=== PATIENT | male | born 1980 | race Caucasian/White ===

== ENCOUNTER 2020-05-17 15:41 | Outpatient (REF) | payer MEDICARE, MEDICAID, SELFPAY | END 2020-05-17 15:42 | disposition home or self-care (01) | LOC: HO.LAB 15:41 | PROVIDERS: PCP Internal Medicine; Visit Provider Internal Medicine | DX: Z20.828 Contact with and (suspected) exposure to other viral communicable diseases (principal) | CPT/HCPCS: C9803; U0003 ==

== ENCOUNTER 2020-06-29 13:21 | Outpatient (REF) | payer MEDICARE, MEDICAID, SELFPAY | END 2020-06-29 13:22 | disposition home or self-care (01) | LOC: HO.LAB 13:21 | PROVIDERS: Visit Provider Nurse Practitioner Family | DX: N48.21 Abscess of corpus cavernosum and penis (principal) | CPT/HCPCS: 87071; 87073; 87077; 87186; 87205 ==

== ENCOUNTER 2021-02-13 14:05 | Emergency (ER) | payer MEDICARE, MEDICAID, SELFPAY ==
--- NOTE | ~2021-02-13 | CT_ITS ---
EXAMINATION: CT BRAIN AND CT CERVICAL SPINE WITHOUT, CONTRAST CLINICAL INFORMATION: Fell down 2 flights of stairs. COMPARISON: None TECHNIQUE: 5 mm thin axial and reformatted 2 mm thin sagittal coronal images of brain were obtained without contrast. Subsequently 3 mm thin axial and reformatted 2 mm thin sagittal coronal images of cervical spine were obtained. DLP 1585 FINDINGS: BRAIN: There is no acute intra-axial, extra-axial bleed, masses or midline shift. There is no acute infarction in evolution. The conklin to white matter difference is maintained normal. The lateral ventricles are symmetrical in size and configuration without enlargement. Bone windows reveal no calvarial abnormality. There is mild mucoperiosteal thickening bilateral maxillary and ethmoid sinuses. Rest of the paranasal sinuses and mastoid air cells are well-aerated. No scalp soft tissue abnormality seen. CERVICAL SPINE: There is normal cervical lordosis. The vertebral heights, alignment and disc heights are normal. There is no visible acute fracture, dislocation or subluxation seen. There is no lytic process. There are numerous bilateral level 2 and level 3 lymph nodes. The largest submandibular lymph node on 0.7 x 1.4 cm axial image 26/19. Also visualized are bilateral small posterior neck lymph nodes. Visualized thyroid lobes, submandibular and the parotid glands are symmetrical and normal. There is mild adenoidal hypertrophy narrowing of the nasopharyngeal airway. CT/CT head/brain wo con IMPRESSION: No acute intracranial process. No acute fracture, dislocation subluxation cervical spine. Abnormal anterior and posterior cervical lymph nodes with adenoidal hypertrophy and mild narrowing of the nasopharyngeal airway. Chronic bilateral ethmoid and maxillary sinus inflammatory changes.
--- NOTE | ~2021-02-13 | CT_ITS ---
EXAMINATION: CT BRAIN AND CT CERVICAL SPINE WITHOUT, CONTRAST CLINICAL INFORMATION: Fell down 2 flights of stairs. COMPARISON: None TECHNIQUE: 5 mm thin axial and reformatted 2 mm thin sagittal coronal images of brain were obtained without contrast. Subsequently 3 mm thin axial and reformatted 2 mm thin sagittal coronal images of cervical spine were obtained. DLP 1585 FINDINGS: BRAIN: There is no acute intra-axial, extra-axial bleed, masses or midline shift. There is no acute infarction in evolution. The conklin to white matter difference is maintained normal. The lateral ventricles are symmetrical in size and configuration without enlargement. Bone windows reveal no calvarial abnormality. There is mild mucoperiosteal thickening bilateral maxillary and ethmoid sinuses. Rest of the paranasal sinuses and mastoid air cells are well-aerated. No scalp soft tissue abnormality seen. CERVICAL SPINE: There is normal cervical lordosis. The vertebral heights, alignment and disc heights are normal. There is no visible acute fracture, dislocation or subluxation seen. There is no lytic process. There are numerous bilateral level 2 and level 3 lymph nodes. The largest submandibular lymph node on 0.7 x 1.4 cm axial image 26/19. Also visualized are bilateral small posterior neck lymph nodes. Visualized thyroid lobes, submandibular and the parotid glands are symmetrical and normal. There is mild adenoidal hypertrophy narrowing of the nasopharyngeal airway. CT/CT cervical spine wo con IMPRESSION: No acute intracranial process. No acute fracture, dislocation subluxation cervical spine. Abnormal anterior and posterior cervical lymph nodes with adenoidal hypertrophy and mild narrowing of the nasopharyngeal airway. Chronic bilateral ethmoid and maxillary sinus inflammatory changes.
--- NOTE | ~2021-02-13 | XR_ITS ---
EXAMINATION: XR HAND, LEFT CLINICAL INFORMATION: Laceration. Rule out foreign body. COMPARISON: None TECHNIQUE: PA, lateral, and oblique views of the left hand. FINDINGS: Bone alignment is normal. No fracture or dislocation is seen. Joint spaces are normal. No soft tissue foreign body is seen. XR/XR hand LT 2V IMPRESSION: No fracture or foreign body seen.
[2021-02-13 14:10] VITALS: BP 155/109; PULSE 117; RESP 16; TEMP 37.1; O2SAT 98; BMI 33.2
[2021-02-13] MEDS: Lidocaine HCl 1 % MPF 5 ML VIAL SUBCUT (14:49)
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
--- NOTE | 2021-02-13 18:45 | PC.NURSE ---
WOUND WAS CLOSED WITH SUTURES. PT WAS VERY SLEEPY. DIFFICULT TO AROUSE AT FIRST. REPORTS TAKEN 2MG COLONOPIN. DRESSING PLACED. NEUROVASC INTACT. PT WAS SOME WHAT UNCOOPERATIVE. WALKED OUT AND DID NOT WAIT FOR D/C. PAPERS. SISTER AND BROTHER IN LAW WITH PATIENT. SISTER WAS GIVEN D/C. INSTRUCTIONS.
== END 2021-02-13 18:48 | disposition home or self-care (01) ==
PROVIDERS: Emergency Provider Emergency Medicine Emergency Medical Services; PCP Internal Medicine
DX: S61.412A Laceration without foreign body of left hand, initial encounter (principal); M79.642 Pain in left hand; G44.309 Post-traumatic headache, unspecified, not intractable; M54.2 Cervicalgia; W25.XXXA Contact with sharp glass, initial encounter; Y93.9 Activity, unspecified; Y92.9 Unspecified place or not applicable; Y99.9 Unspecified external cause status; Z79.899 Other long term (current) drug therapy
CPT/HCPCS: 12001; 70450; 72125; 73120; 99284

== ENCOUNTER 2021-02-23 11:14 | Outpatient (REF) | payer MEDICARE, MEDICAID, SELFPAY | END 2021-02-23 11:15 | disposition home or self-care (01) | LOC: HO.LAB 11:14 | PROVIDERS: PCP Internal Medicine; Visit Provider Internal Medicine | DX: Z20.822 Contact with and (suspected) exposure to COVID-19 (principal) | CPT/HCPCS: C9803; U0003; U0005 ==

== ENCOUNTER 2021-09-03 14:27 | Emergency (ER) | payer OTHER, MEDICARE, MEDICAID, SELFPAY ==
[2021-09-03 14:38] VITALS: BP 150/100; PULSE 80; O2SAT 100
[2021-09-03 14:41] VITALS: BP 154/119; PULSE 83; RESP 19; TEMP 36.6; O2SAT 95; BMI 34.5
--- NOTE | 2021-09-03 15:07 | PC.NURSE ---
Pt walked out with sister, no IV in per primary RN. cell phone initially left behind but sister returned and gave phone to her by security
== END 2021-09-03 15:08 | disposition left against medical advice (07) ==
LOC: HO.ED 16:02
PROVIDERS: Emergency Provider Emergency Medicine
DX: F41.9 Anxiety disorder, unspecified (principal); Z72.89 Other problems related to lifestyle; Z63.4 Disappearance and death of family member
CPT/HCPCS: 99282

== ENCOUNTER 2021-10-11 13:26 | Outpatient (REF) | payer MEDICARE, MEDICAID, SELFPAY ==
[2021-10-11 14:01] LABS: Hematocrit 40.5 % (42.0-52.0); Hemoglobin 13.5 g/dl (14.0-18.0); Mean Corpuscular HGB Conc 33.3 g/dl (31.0-36.0); Mean Corpuscular Hemoglobin 29.4 pg (27.0-33.0); Mean Corpuscular Volume 88.2 fL (80.0-98.0); Mean Platelet Volume 9.7 fL (9.4-12.4); Platelet Count 319 X10*3/uL (160-400); Red Blood Count 4.59 X10*6/uL (4.60-5.80); Red Cell Distribution Width 12.8 % (11.0-16.0); White Blood Count 6.3 X10*3/uL (4.8-10.8)
[2021-10-11 14:18] LABS: Estimated Average Glucose 108 mg/dL; Hemoglobin A1c % 5.4 %
[2021-10-11 14:23] LABS: Alanine Aminotransferase 13 U/L (0-40); Albumin Level 4.1 g/dL (3.5-5.0); Alkaline Phosphatase 98 U/L (39-117); Anion Gap 10 (12-20); Aspartate Amino Transferase 23 U/L (5-37); Bilirubin Total 0.2 mg/dL (0.0-1.0); Blood Urea Nitrogen 18 mg/dL (9-16); Carbon Dioxide 28 mmol/L (22-29); Chloride 107 mmol/L (96-108); Cholesterol 169 mg/dL; Estimated Glomerular Filt Rate > 60; Glucose Random 95 mg/dL (60-115); HDL Cholesterol 44 mg/dL; LDL Cholesterol Calculated 109 mg/dl; Potassium 3.9 mmol/L (3.3-5.1); Sodium 141 mmol/L (135-145); Total Protein 7.4 g/dL (6.5-8.0); Triglycerides 83 mg/dL
[2021-10-11 14:46] LABS: Thyroid Stimulating Hormone 1.49 uIU/mL (0.32-4.0)
[2021-10-11 16:42] LABS: Amphetamine Screen Urine Not Detected (Not Detect); Barbiturates, Urine Not Detected (Not Detect); Benzodiazepines Screen Urine Not Detected (Not Detect); Cannabinoid Screen Urine POSITIVE (Not Detect); Cocaine Screen Urine Not Detected (Not Detect); Fentanyl, urine Not Detected (Not Detect); Opiate Screen Urine POSITIVE (Not Detect); Phencyclidine Screen Urine Not Detected (Not Detect)
== END 2021-10-11 13:27 | disposition home or self-care (01) ==
LOC: HO.LAB 13:26
PROVIDERS: PCP Internal Medicine; Visit Provider Internal Medicine
DX: I10 Essential (primary) hypertension (principal)
CPT/HCPCS: 80053; 80061; 80307; 83036; 84443; 85027

== ENCOUNTER 2022-04-05 08:07 | Outpatient (REF) | payer MEDICARE, MEDICAID, SELFPAY ==
[2022-04-10 20:11] LABS: Testosterone, Free 24.6 pg/mL (35.0-155.0); Testosterone, Total 186 ng/dL (250-1100)
== END 2022-04-05 08:08 | disposition home or self-care (01) ==
LOC: HO.LAB 08:07
PROVIDERS: PCP Internal Medicine; Visit Provider Internal Medicine
DX: N52.2 Drug-induced erectile dysfunction (principal)
CPT/HCPCS: 36415; 84402; 84403

== ENCOUNTER → 2022-06-30 10:37 | Outpatient (BNVA) | payer MEDICARE, MEDICAID, SELFPAY | PROVIDERS: PCP Internal Medicine; Visit Provider Nurse Practitioner Psychiatric/Mental Health | DX: F11.20 Opioid dependence, uncomplicated (principal) | CPT/HCPCS: 80305; 99202 ==

== ENCOUNTER → 2022-07-07 10:05 | Outpatient (BNVA) | payer MEDICARE, MEDICAID, SELFPAY | PROVIDERS: PCP Internal Medicine; Visit Provider Nurse Practitioner Psychiatric/Mental Health | DX: F11.20 Opioid dependence, uncomplicated (principal); F41.9 Anxiety disorder, unspecified; F43.10 Post-traumatic stress disorder, unspecified; Z51.81 Encounter for therapeutic drug level monitoring; Z79.899 Other long term (current) drug therapy | CPT/HCPCS: 80305; 99212 ==

== ENCOUNTER → 2022-07-28 11:52 | Outpatient (BNVA) | payer MEDICARE, MEDICAID, SELFPAY | PROVIDERS: PCP Internal Medicine; Visit Provider Nurse Practitioner Psychiatric/Mental Health | DX: Z51.81 Encounter for therapeutic drug level monitoring (principal); F11.20 Opioid dependence, uncomplicated | CPT/HCPCS: 80305; 99212 ==

== ENCOUNTER → 2022-08-11 11:16 | Outpatient (BNVA) | payer MEDICARE, MEDICAID, SELFPAY | PROVIDERS: PCP Internal Medicine; Visit Provider Nurse Practitioner Psychiatric/Mental Health | DX: Z51.81 Encounter for therapeutic drug level monitoring (principal); F11.20 Opioid dependence, uncomplicated; F14.10 Cocaine abuse, uncomplicated | CPT/HCPCS: 80305; 99212 ==

== ENCOUNTER 2022-08-29 09:48 | Outpatient (REF) | payer MEDICARE, MEDICAID, SELFPAY ==
[2022-08-29 12:45] LABS: Fentanyl, urine Not Detected (Not Detect)
[2022-09-04 08:18] LABS: Benzoylecgonine NEGATIVE
[2022-09-06 07:44] LABS: Buprenorphine 463
[2022-09-06 07:45] LABS: Naloxone NEGATIVE; Norbuprenorphine 561
[2022-09-06 07:49] LABS: medMatch Naloxone See Comments; medMatch Norbuprenorphine See Comments
== END 2022-08-29 09:49 | disposition home or self-care (01) ==
LOC: HO.LAB 09:48
PROVIDERS: PCP Internal Medicine; Visit Provider Nurse Practitioner Psychiatric/Mental Health
DX: F11.20 Opioid dependence, uncomplicated (principal); F14.10 Cocaine abuse, uncomplicated; Z51.81 Encounter for therapeutic drug level monitoring; Z79.01 Long term (current) use of anticoagulants
CPT/HCPCS: 80305; 80307; 80348; 80353; 80362; 99212

== ENCOUNTER → 2022-09-21 10:07 | Outpatient (BNVA) | payer MEDICARE, MEDICAID, SELFPAY | PROVIDERS: PCP Internal Medicine; Visit Provider Nurse Practitioner Psychiatric/Mental Health | DX: Z51.81 Encounter for therapeutic drug level monitoring (principal); F11.20 Opioid dependence, uncomplicated; F14.10 Cocaine abuse, uncomplicated | CPT/HCPCS: 80305; 99212 ==

== ENCOUNTER → 2022-09-29 10:31 | Outpatient (BNVA) | payer MEDICARE, MEDICAID, SELFPAY | PROVIDERS: PCP Internal Medicine; Visit Provider Nurse Practitioner Psychiatric/Mental Health | DX: Z51.81 Encounter for therapeutic drug level monitoring (principal); F11.20 Opioid dependence, uncomplicated; F14.10 Cocaine abuse, uncomplicated | CPT/HCPCS: 80305; 99212 ==

== ENCOUNTER → 2022-11-02 09:47 | Outpatient (BNVA) | payer MEDICARE, MEDICAID, SELFPAY | PROVIDERS: PCP Internal Medicine; Visit Provider Nurse Practitioner Psychiatric/Mental Health | DX: F11.20 Opioid dependence, uncomplicated (principal) | CPT/HCPCS: 99212 ==

== ENCOUNTER → 2022-11-16 13:51 | Outpatient (BNVA) | payer MEDICARE, MEDICAID, SELFPAY | PROVIDERS: PCP Internal Medicine; Visit Provider Nurse Practitioner Psychiatric/Mental Health | DX: F11.20 Opioid dependence, uncomplicated (principal) | CPT/HCPCS: 80305; 99212 ==

== ENCOUNTER → 2022-11-30 13:25 | Outpatient (BNVA) | payer MEDICARE, MEDICAID, SELFPAY | PROVIDERS: PCP Internal Medicine; Visit Provider Nurse Practitioner Psychiatric/Mental Health | DX: F11.20 Opioid dependence, uncomplicated (principal); F14.20 Cocaine dependence, uncomplicated; F12.20 Cannabis dependence, uncomplicated; Z51.81 Encounter for therapeutic drug level monitoring; Z79.899 Other long term (current) drug therapy | CPT/HCPCS: 80305; 99212 ==

== ENCOUNTER 2022-12-20 14:22 | Outpatient (AMB) | payer MEDICARE, MEDICAID, SELFPAY ==
[2022-12-20 14:30] VITALS: BP 140/100; PULSE 124; O2SAT 99
--- NOTE | 2022-12-20 14:30 | A.OFFVIS_ITS ---
Intake Vital Signs 12/20/22 14:30 BP 140/100 H Blood Pressure Location Lt brachial Position Sitting Pulse 124 H Pulse Oximetry (%) 99 Intake Visit Reasons: MAT Visit/Sub Inj Allergies amoxicillin [AMOXICILLIN] Allergy (Mild, Verified 11/30/22 13:31) RASH, vomiting,diarrhea morphine [MORPHINE] Allergy (Mild, Verified 11/30/22 13:31) RASH, shortness of breath, nausea,vomiting acetaminophen [Vicodin] Allergy (Unknown, Verified 11/30/22 13:31) shortness of breath hydrocodone [Vicodin] Allergy (Unknown, Verified 11/30/22 13:31) shortness of breath Penicillins [PENICILLINS] Allergy (Unknown, Verified 11/30/22 13:31) RASH gadobutrol [From GADAVIST] Adverse Reaction (Mild, Verified 11/30/22 13:31) NAUSEA & VOMITING levofloxacin [From LEVAQUIN] Adverse Reaction (Unknown, Verified 11/30/22 13:31) N/V HPI MAT Visit/Sub Inj HPI Details Patient presents for [facility] treatment follow up and Sublocade injection Patient tearful during much of visit, trying to work on relationship. Last substance use reported as being 5 days ago. Still engaged with treatment providers. Reviewed injection process and answered any questions [facility] Medical History (Updated 08/11/22 @ 13:08 by Ana Resendiz CNP) Anxiety Depression HTN (hypertension) PTSD (post-traumatic stress disorder) Surgical History No pertinent past surgical history Family History (Updated 07/27/20 @ 12:51 by Tesha Magaña [facility]) Father HIV (human immunodeficiency virus infection) Mother Diabetes Hypertension Brother Hypertension Diabetes Sister Diabetes Hypertension Review of Systems Const Reports as per HPI and Reports no additional complaints Physical Exam Vital Signs: Last Vital Signs Pulse 124 H 12/20/22 14:30 BP 140/100 H 12/20/22 14:30 Pulse Ox 99 12/20/22 14:30 Const General: cooperative and anxious Psych Appearance: well kempt Speech and movement: Clear speech present Affect: Sad affect present and Anxious affect present Thought process: Circumstantial thought process present Thought content: Depressive thoughts present Insight: Fair insight present (Psych) Judgement: Good judgement present (Psych) Office Meds Sublocade ER Performing Provider: Ana Resendiz CNP Administered by: Hanna Ernst RN on 12/20/22 15:00 Dose Route Admin Location Lot Number Expiration Date [employer] 300 mg subcut [id number] 06/26/24 [id number] [employer] Comments: T/W reviewed pt edu, pt to monitor for s/s of infection, pain, swelling, redness, exudate, fever, call the [facility] with questions/concerns. Reviewed pt reminded to leave the INJ site alone, no heat/no ice, no picking at area. Pt verbalized understanding. Pt tolerated injection. Results AMB 14 Panel Urine Drug Screen Urine Marijuana (THC) Positive Last Edit by Hanna Ernst RN on 12/20/22 14:5 4 Urine Cocaine Negative Last Edit by Hanna Ernst RN on 12/20/22 14:54 Urine Morphine Negative Last Edit by Hanna Ernst RN on 12/20/22 14:54 Urine Methamphetamine Negative Last Edit by Hanna Ernst RN on 12/20/22 14:5 4 Urine Amphetamine Negative Last Edit by Hanna Ernst RN on 12/20/22 14:54 Urine Benzodiazepine Negative Last Edit by Hanna Ernst RN on 12/20/22 14:54 Urine Barbiturates Negative Last Edit by Hanna Ernst RN on 12/20/22 14:54 Urine Methadone Negative Last Edit by Hanna Ernst RN on 12/20/22 14:54 Urine Buprenorphine Positive Last Edit by Hanna Ernst RN on 12/20/22 14:54 Urine Tricyclic Antidepressant Negative Last Edit by Hanna Ernst RN on 12/20/22 14:54 Urine MDMA Negative Last Edit by Hanna Ernst RN on 12/20/22 14:54 Urine Oxycodone Negative Last Edit by Hanna Ernst RN on 12/20/22 14:54 Urine Phencyclidine Negative Last Edit by Hanna Ernst RN on 12/20/22 14:54 Urine Propoxyphene Negative Last Edit by Hanna Ernst RN on 12/20/22 14:54 Results Reviewed Results Reviewed: Laboratory Last Values POC Urine Buprenorphine Positive 12/20/22 14:53 POC Urine Morphine Negative 12/20/22 14:53 POC Urine Oxycodone Negative 12/20/22 14:53 POC Urine Methadone Negative 12/20/22 14:53 POC Urine Propoxyphene Negative 12/20/22 14:53 POC Urine Barbiturates Negative 12/20/22 14:53 POC U Tricyclic Antidpr Negative 12/20/22 14:53 POC Urine PCP Negative 12/20/22 14:53 POC Ur Amphetamines Negative 12/20/22 14:53 POC Ur Methamphetamine Negative 12/20/22 14:53 POC Urine MDMA Negative 12/20/22 14:53 POC Ur Benzodiazepine Negative 12/20/22 14:53 POC Urine Cocaine Negative 12/20/22 14:53 POC Ur Marijuana (THC) Positive 12/20/22 14:53 Assessment & Plan Assessment & Plan (1) Opioid use disorder: Code(s): F11.90 - Opioid use, unspecified, uncomplicated Plan: * tolerated injection * risk reduction discussion * follow up 4 weeks Orders: Orders AMB Buprenorphine Injection - Patient Supplied 12/20/22 F11.90 - Opioid use, unspecified, uncomplicated AMB 14 Panel Urine Drug Screen 12/20/22 Z51.81 - Encounter for therapeutic drug level monitoring Coding Level of Care Code Est Pt Level 3 (85395) Diagnoses Opioid use disorder F11.90
== END 2022-12-20 15:11 | disposition home or self-care (01) ==
LOC: HO.HCC 14:22
PROVIDERS: PCP Internal Medicine; Visit Provider Nurse Practitioner Psychiatric/Mental Health
DX: F11.90 Opioid use, unspecified, uncomplicated (principal)
CPT/HCPCS: 99213; Q9992

== ENCOUNTER → 2022-12-20 14:22 | Outpatient (BNVA) | payer MEDICARE, MEDICAID, SELFPAY | PROVIDERS: PCP Internal Medicine; Visit Provider Nurse Practitioner Psychiatric/Mental Health | DX: Z51.81 Encounter for therapeutic drug level monitoring (principal); F11.20 Opioid dependence, uncomplicated | CPT/HCPCS: 80305; 96372; 99212 ==

== ENCOUNTER 2023-01-09 11:07 | Emergency (ER) | payer MEDICARE, MEDICAID, SELFPAY ==
--- NOTE | ~2023-01-09 | XR_ITS ---
EXAMINATION: XR CHEST CLINICAL INFORMATION: Chest pain COMPARISON: None available. TECHNIQUE: Frontal view of the chest was obtained. FINDINGS: No significant abnormality is noted involving the heart, lungs, mediastinum, bony thorax or soft tissues. XR/XR chest 1V IMPRESSION: Unremarkable examination.
--- NOTE | 2023-01-09 11:09 | ECG_ITS ---
Test Reason : cp Blood Pressure : / mmHG Vent. Rate : 073 BPM Atrial Rate : 073 BPM P-R Int : 180 ms QRS Dur : 092 ms QT Int : 376 ms P-R-T Axes : 020 017 021 degrees QTc Int : 414 ms Normal sinus rhythm Nonspecific T wave abnormality Abnormal ECG When compared with ECG of 15-JUN-2008 08:27, Nonspecific T wave abnormality now evident in Anterior leads Referred By: Phu Savage Electronically Signed By:CORDELIA LIU
[2023-01-09 11:24] LABS: MANUAL DIFF FLAG NO
[2023-01-09 11:26] VITALS: BP 138/89; PULSE 76; RESP 18; TEMP 36.7; O2SAT 100; BMI 38.2
--- NOTE | 2023-01-09 11:26 | ED.GENADULT ---
HPI - General Adult General Chief complaint: Upper Respiratory Symptoms Stated complaint: Chest pain Time Seen by Provider: 01/09/23 12:38 Related Data Home Medications Medication Instructions Recorded Confirmed clonazepam 0.5 mg tablet 0.5 mg PO BID 03/19/23 03/19/23 doxepin 50 mg capsule 50 mg PO BEDTIME 03/19/23 03/19/23 pregabalin 150 mg capsule 150 mg PO TID 03/19/23 03/19/23 Previous Rx's Medication Instructions Recorded buprenorphine 300 mg/1.5 mL 300 mg (1.5 mL) subcut ONCE #1.5 mL 11/27/22 solution,exten.rel.subcutaneous syringe (Sublocade) hydroxyzine HCl 50 mg tablet 50 mg PO BEDTIME anxiety #14 tabs 12/22/22 buprenorphine 12 mg-naloxone 3 mg 1 film buccal BID #14 ea 03/27/23 sublingual film (Suboxone) Allergies Allergy/AdvReac Type Severity Reaction Status Date / Time amoxicillin [AMOXICILLIN] Allergy Mild RASH, Verified 03/19/23 15:52 vomiting,diarrhea morphine [MORPHINE] Allergy Mild RASH, Verified 03/19/23 15:52 shortness of breath, nausea,vomiting acetaminophen [Vicodin] Allergy Unknown shortness Verified 03/19/23 15:52 of breath hydrocodone [Vicodin] Allergy Unknown shortness Verified 03/19/23 15:52 of breath Penicillins [PENICILLINS] Allergy Unknown RASH Verified 03/19/23 15:52 gadobutrol [From GADAVIST] AdvReac Mild NAUSEA & Verified 03/19/23 15:52 VOMITING levofloxacin [From LEVAQUIN] AdvReac Unknown N/V Verified 03/19/23 15:52 [facility] Past Medical History Medical History (Updated 06/22/23 @ 16:04 by PENNY Madden) PTSD (post-traumatic stress disorder) Depression Anxiety HTN (hypertension) Surgical History No pertinent past surgical history Family History Family History (Updated 07/27/20 @ 12:51 by Tesha Magaña) Father HIV (human immunodeficiency virus infection) Mother Diabetes Hypertension Brother Hypertension Diabetes Sister Diabetes Hypertension Physical Exam ED Vital Signs: BMI result Body Mass Index 38.2 Course Course Course Narrative: This is an RME: Additional HPI, ROS, PE not included below will be deferred to primary provider. 42 yo male presents w/ cough reprots coughing up a little sputum. Reports ongoing for a week. Has chest pain and back pain when he coughs. No known sick contacts. Plan- labs, ekg. Medical Decision Making Lab Data 01/09/23 11:19 01/09/23 11:19 Labs: Lab Results 01/09/23 Range/Units 11:19 WBC 6.6 (4.8-10.8) X10*3/uL RBC 4.70 (4.60-5.80) X10*6/uL Hgb 13.7 L (14.0-18.0) g/dl Hct 41.7 L (42.0-52.0) % MCV 88.7 (80.0-98.0) fL MCH 29.1 (27.0-33.0) pg MCHC 32.9 (31.0-36.0) g/dl RDW 11.9 (11.0-16.0) % Plt Count 256 (160-400) X10*3/uL MPV 9.7 (9.4-12.4) fL Immature Gran % (Auto) 0.5 H (0.0-0.4) % Neut % (Auto) 56.5 (45-73) % Lymph % (Auto) 30.8 (20-40) % Sunflower % (Auto) 6.1 (2-11) % Eos % (Auto) 5.5 H (0-4) % Baso % (Auto) 0.6 (0-2) % Lymph # (Auto) 2.0 (1.2-4.9) X10*3/uL Sunflower # (Auto) 0.4 (0.1-1.2) X10*3/uL Eos # (Auto) 0.4 (0.0-0.4) X10*3/uL Baso # (Auto) 0.0 (0.0-0.2) X10*3/uL Abs Immat Gran (auto) 0.03 (0.00-0.03) X10*3/uL Absolute Neuts (auto) 3.7 (2.0-8.3) x10*3/uL Absolute Nucleated RBC 0.000 (0.0-0.012) X10*3/uL Nucleated RBC % (auto) 0.0 (0.0-0.2) /100WBC Sodium 141 (135-145) mmol/L Potassium 3.5 (3.3-5.1) mmol/L Chloride 106 (96-108) mmol/L Carbon Dioxide 27 (22-29) mmol/L Anion Gap 12 (12-20) BUN 14 (9-16) mg/dL Creatinine 1.10 (0.5-1.4) mg/dL Estim Creat Clear Calc 101.5 Estimated GFR > 60 Random Glucose 124 H (60-115) mg/dL Calcium 8.9 D (8.4-10.2) mg/dL Magnesium 1.8 (1.6-2.6) mg/dL Total Bilirubin 0.3 (0.0-1.0) mg/dL AST 24 (5-37) U/L ALT 15 (0-40) U/L Alkaline Phosphatase 75 (39-117) U/L Troponin I High Sens 4.5 (<3.5-35.0) ng/L Total Protein 6.8 (6.5-8.0) g/dL Albumin 3.6 (3.5-5.0) g/dL COVID-19 (DIEGO) Negative (Negative) COVID-19 Clin Com See Note Discharge Plan Discharge Clinical Impression: Eloped from emergency department Patient Disposition: Elopement Prescriptions: No Action Sublocade 300 mg/1.5 mL solution, extended rel syringe 300 mg subcut ONCE Qty: 1.5 1RF Rx Instructions: every 28 days hydroxyzine HCl 50 mg tablet 50 mg PO BEDTIME Qty: 14 0RF doxepin 50 mg capsule 50 mg PO BEDTIME pregabalin 150 mg capsule 150 mg PO TID clonazepam 0.5 mg tablet 0.5 mg PO BID buprenorphine-naloxone [Suboxone] 12-3 mg film 1 film buccal BID Qty: 14 1RF Interventions: ED Discharge Assessment Last Done: 01/09/23 20:08 Discharge Date/Time: 01/09/23 20:08
[2023-01-09 11:32] LABS: Basophils Percent Auto 0.6 % (0-2); Eosinophils Absolute Auto 0.4 X10*3/uL (0.0-0.4); Eosinophils Percent Auto 5.5 % (0-4); Hematocrit 41.7 % (42.0-52.0); Hemoglobin 13.7 g/dl (14.0-18.0); Imm Gran Abs Auto 0.03 X10*3/uL (0.00-0.03); Imm Gran Pct Auto 0.5 % (0.0-0.4); Lymphocytes Percent Auto 30.8 % (20-40); Mean Corpuscular HGB Conc 32.9 g/dl (31.0-36.0); Mean Corpuscular Hemoglobin 29.1 pg (27.0-33.0); Mean Corpuscular Volume 88.7 fL (80.0-98.0); Mean Platelet Volume 9.7 fL (9.4-12.4); Monocytes Absolute Auto 0.4 X10*3/uL (0.1-1.2); Monocytes Percent Auto 6.1 % (2-11); Neutrophils Absolute Auto 3.7 x10*3/uL (2.0-8.3); Neutrophils Percent Auto 56.5 % (45-73); Platelet Count 256 X10*3/uL (160-400); Red Cell Distribution Width 11.9 % (11.0-16.0); White Blood Count 6.6 X10*3/uL (4.8-10.8)
[2023-01-09 11:41] LABS: Alanine Aminotransferase 15 U/L (0-40); Albumin Level 3.6 g/dL (3.5-5.0); Alkaline Phosphatase 75 U/L (39-117); Anion Gap 12 (12-20); Aspartate Amino Transferase 24 U/L (5-37); Bilirubin Total 0.3 mg/dL (0.0-1.0); Blood Urea Nitrogen 14 mg/dL (9-16); Calcium 8.9 mg/dL (8.4-10.2); Carbon Dioxide 27 mmol/L (22-29); Chloride 106 mmol/L (96-108); Creatinine Clr Calc Pharmacy 101.5; Estimated Glomerular Filt Rate > 60; Glucose Random 124 mg/dL (60-115); Magnesium 1.8 mg/dL (1.6-2.6); Potassium 3.5 mmol/L (3.3-5.1); Sodium 141 mmol/L (135-145); Total Protein 6.8 g/dL (6.5-8.0)
[2023-01-09 11:50] LABS: Troponin-I High Sensitivity 4.5 ng/L (<3.5-35.0)
[2023-01-09 12:00] LABS: COVID-19 Test Negative (Negative); IDNOW Serial# BCCEAD1C
== END 2023-01-09 20:08 | disposition left against medical advice (07) ==
PROVIDERS: Physician Assistant; Emergency Provider Emergency Medicine; PCP Internal Medicine
DX: R07.9 Chest pain, unspecified (principal); R05.9 Cough, unspecified; I10 Essential (primary) hypertension; F11.20 Opioid dependence, uncomplicated; Z20.822 Contact with and (suspected) exposure to COVID-19; Z79.899 Other long term (current) drug therapy
CPT/HCPCS: 71045; 80053; 83735; 84484; 85025; 87635; 93005; 99283

== ENCOUNTER 2023-03-19 15:46 | Outpatient (AMB) | payer MEDICARE, MEDICAID, SELFPAY ==
--- NOTE | 2023-03-19 15:47 | A.OFFVIS_ITS ---
Intake Vital Signs 03/19/23 15:51 BP 126/70 Blood Pressure Location Lt radial Position Sitting Pulse 74 Pulse Source Pulse Oximeter Pulse Oximetry (%) 98 Oxygen Delivery Method Room Air Intake Visit Reasons: MAT Visit Intake Note: the patient presents for a mat visit Digital Strategy Director Required: No Allergies amoxicillin [AMOXICILLIN] Allergy (Mild, Verified 03/19/23 15:52) RASH, vomiting,diarrhea morphine [MORPHINE] Allergy (Mild, Verified 03/19/23 15:52) RASH, shortness of breath, nausea,vomiting acetaminophen [Vicodin] Allergy (Unknown, Verified 03/19/23 15:52) shortness of breath hydrocodone [Vicodin] Allergy (Unknown, Verified 03/19/23 15:52) shortness of breath Penicillins [PENICILLINS] Allergy (Unknown, Verified 03/19/23 15:52) RASH gadobutrol [From GADAVIST] Adverse Reaction (Mild, Verified 03/19/23 15:52) NAUSEA & VOMITING levofloxacin [From LEVAQUIN] Adverse Reaction (Unknown, Verified 03/19/23 15:52) N/V Do you need a note to return to daycare/school/sports/work: No HPI MAT Visit HPI Details Patient presents for follow up Recently in treatment via [facility] Has been taking 8mg TID initially requesting tabs, however concerned about prior auth process and possible delay in getting medication He reports that he has been attending zoom recovery meetings as well as a men's group at his [facility] medications updated [facility] Medical History (Updated 08/11/22 @ 13:08 by Ana Resendiz CNP) PTSD (post-traumatic stress disorder) Depression Anxiety HTN (hypertension) Surgical History No pertinent past surgical history Family History (Updated 07/27/20 @ 12:51 by Tesha Magaña Shaniqua) Father HIV (human immunodeficiency virus infection) Mother Diabetes Hypertension Brother Hypertension Diabetes Sister Diabetes Hypertension Review of Systems Const Reports as per HPI and Reports no additional complaints Physical Exam Vital Signs: Last Vital Signs Pulse 74 03/19/23 15:51 BP 126/70 03/19/23 15:51 Pulse Ox 98 03/19/23 15:51 Oxygen Delivery Method Room Air 03/19/23 15:51 Const General: cooperative, healthy appearing and no acute distress Psych Appearance: well kempt Speech and movement: Clear speech present Affect: normal affect Attitude: cooperative Assessment & Plan Assessment & Plan (1) Opioid use disorder: Code(s): F11.90 - Opioid use, unspecified, uncomplicated Plan: * continue suboxone 8mg daily * follow up one week Medications: Refilled buprenorphine-naloxone 8-2 mg (Suboxone) 1 film sublingual TID 21 ea 0RF Coding Level of Care Code Est Pt Level 3 (36124) Diagnoses Opioid use disorder F11.90
[2023-03-19 15:51] VITALS: BP 126/70; PULSE 74; O2SAT 98
== END 2023-03-19 16:13 | disposition home or self-care (01) ==
PROVIDERS: PCP Internal Medicine; Visit Provider Nurse Practitioner Psychiatric/Mental Health
DX: F11.90 Opioid use, unspecified, uncomplicated (principal)
CPT/HCPCS: 99213

== ENCOUNTER → 2023-03-19 15:46 | Outpatient (BNVA) | payer MEDICARE, MEDICAID, SELFPAY | PROVIDERS: PCP Internal Medicine; Visit Provider Nurse Practitioner Psychiatric/Mental Health | DX: F11.20 Opioid dependence, uncomplicated (principal) | CPT/HCPCS: 99212 ==

== ENCOUNTER 2023-05-11 15:12 | Outpatient (REF) | payer MEDICARE, MEDICAID, SELFPAY ==
--- NOTE | ~2023-05-11 | XR_ITS ---
EXAMINATION: XR HAND, LEFT CLINICAL INFORMATION: Injury. COMPARISON: X-ray of the left hand January 2021. TECHNIQUE: PA, lateral, and oblique views of the left hand. FINDINGS: There is an eccentric osseous protrusion along the radial aspect of the distal diametaphysis of the proximal phalanx, unchanged compared to prior. The remaining bones, joints and soft tissues are unremarkable. No acute fracture. XR/XR hand LT min 3V IMPRESSION: 1. No acute abnormality. 2. Stable osseous protrusion along the radial aspect of the distal diametaphysis of the proximal phalanx of the 5th digit likely reflects osteochondroma versus deformity related to old fracture. No acute abnormality and no change.
--- NOTE | ~2023-05-11 | XR_ITS ---
EXAMINATION: XR LUMBOSACRAL SPINE CLINICAL INFORMATION: Injury of back. COMPARISON: 02/13/2013 radiograph lumbar spine. 07/09/2018 MRI lumbar spine. TECHNIQUE: 3 views of the lumbosacral spine. FINDINGS: Mild levoscoliosis of the lumbar spine. Facet arthritis in the lower lumbar spine. Degenerative changes with asymmetric sclerosis and narrowing in the right sacroiliac joint. Mild degenerative changes in the imaged lower thoracic spine. Mild loss of disc space height at L4-L5 and L5-S1. Possible spondylolysis at L5-S1, difficult to evaluate due to overlying bony structures. XR/XR lumbar spine 2-3V IMPRESSION: 1. Mild degenerative disc disease at L4-L5 and L5-S1. 2. Facet arthritis in the lower lumbar spine. Correlation with clinical exam recommended to determine further management. If there is concern for fracture or other underlying pathology, MRI could be obtained for further evaluation.
--- NOTE | ~2023-05-11 | XR_ITS ---
EXAMINATION: XR BILATERAL HIPS WITH AP PELVIS CLINICAL INFORMATION: Injury COMPARISON: CT scan the abdomen and pelvis April 2018 TECHNIQUE: AP view of the pelvis and AP and lateral views of each hip were obtained. FINDINGS: Right hip: Hip joint surrounding bone and soft tissues are normal. Left hip: The hip joint surrounding bone and soft tissues are normal. Pelvis: There is a small oval-shaped ossification just proximal to the symphysis pubis in the central portion. This is not seen on the prior examination. The remaining bones joints soft tissues are unremarkable. XR/XR hip BI w PEL1V IMPRESSION: RIGHT HIP: Normal. LEFT HIP: Normal. PELVIS: Small oval-shaped ossification just proximal to the symphysis pubis. This is of uncertain etiology. This could reflect an old avulsion fracture or heterotopic ossification related to prior trauma. It is new compared with the prior examination.
== END 2023-05-11 15:13 | disposition home or self-care (01) ==
LOC: HO.XRAY 15:12
PROVIDERS: PCP Internal Medicine; Visit Provider Emergency Medicine
DX: S79.912A Unspecified injury of left hip, initial encounter (principal); S79.911A Unspecified injury of right hip, initial encounter; S39.92XA Unspecified injury of lower back, initial encounter; S69.92XA Unspecified injury of left wrist, hand and finger(s), initial encounter
CPT/HCPCS: 72100; 73130; 73521

== ENCOUNTER 2023-07-09 04:03 | Emergency (ER) | payer MEDICARE, MEDICAID, SELFPAY ==
--- NOTE | ~2023-07-09 | XR_ITS ---
EXAMINATION: XR TIBIA AND FIBULA, RIGHT CLINICAL INFORMATION: Fall. Pain. COMPARISON: 06/11/2019. TECHNIQUE: AP and lateral views of the right tibia and fibula were obtained. FINDINGS: The bone mineralization is normal. Old healed fractures of the mid tibia and fibula are noted with mild deformity. Tracks from prior distal tibial screws are noted as well as a tract from a prior tibial chintan. There is no acute fracture. The soft tissues are unremarkable. XR/XR tibia fibula RT 2V IMPRESSION: 1. No acute fracture or dislocation. 2. Old healed fractures of the mid tibia and fibula.
--- NOTE | ~2023-07-09 | XR_ITS ---
EXAMINATION: XR ANKLE, RIGHT CLINICAL INFORMATION: Fall. Pain. COMPARISON: None available. TECHNIQUE: AP, lateral, and mortise views of the right ankle. FINDINGS: The bone mineralization is within normal limits. Tracks from prior surgical screws are noted within the distal tibia. There is no acute fracture. There is mild soft tissue swelling about the ankle. XR/XR ankle RT min 3V IMPRESSION: 1. Mild soft tissue swelling about the ankle. 2. No acute fracture.
--- NOTE | 2023-07-09 04:10 | ED.EXTPRO ---
HPI - Extremity Problem General Chief complaint: Extremity Injury, Lower Stated complaint: right leg pain post op Time Seen by Provider: 07/09/23 04:10 Source: patient Mode of arrival: ambulatory Limitations: no limitations History of Present Illness HPI Narrative: Patient apparently twisted his right ankle and fell yesterday had screws removed from the ankle and knee 10 days ago at [facility] complaining of pain in the right leg and right ankle area able to ambulate and bear weight no other injuries Related Data Home Medications Medication Instructions Recorded Confirmed clonazepam 0.5 mg tablet 0.5 mg PO BID 03/19/23 03/19/23 doxepin 50 mg capsule 50 mg PO BEDTIME 03/19/23 03/19/23 pregabalin 150 mg capsule 150 mg PO TID 03/19/23 03/19/23 Previous Rx's Medication Instructions Recorded buprenorphine 300 mg/1.5 mL 300 mg (1.5 mL) subcut ONCE #1.5 mL 11/27/22 solution,exten.rel.subcutaneous syringe (Sublocade) hydroxyzine HCl 50 mg tablet 50 mg PO BEDTIME anxiety #14 tabs 12/22/22 buprenorphine 12 mg-naloxone 3 mg 1 film buccal BID #14 ea 03/27/23 sublingual film (Suboxone) Allergies Allergy/AdvReac Type Severity Reaction Status Date / Time amoxicillin [AMOXICILLIN] Allergy Mild RASH, Verified 03/19/23 15:52 vomiting,diarrhea morphine [MORPHINE] Allergy Mild RASH, Verified 03/19/23 15:52 shortness of breath, nausea,vomiting hydrocodone [Vicodin] Allergy Unknown shortness Verified 03/19/23 15:52 of breath Penicillins [PENICILLINS] Allergy Unknown RASH Verified 03/19/23 15:52 gadobutrol [From GADAVIST] AdvReac Mild NAUSEA & Verified 03/19/23 15:52 VOMITING levofloxacin [From LEVAQUIN] AdvReac Unknown N/V Verified 03/19/23 15:52 Review of Systems Review of Systems: Yes all other systems are reviewed and are negative PMFSH Past Medical History Medical History PTSD (post-traumatic stress disorder) Depression Anxiety HTN (hypertension) Surgical History No pertinent past surgical history Family History Family History Father HIV (human immunodeficiency virus infection) Mother Diabetes Hypertension Brother Hypertension Diabetes Sister Diabetes Hypertension Social History Social History Use of substances other than those prescribed or required for medical reasons: No Advance Directives: No Advance Directives Information Provided: No Physical Exam Vital Signs: Vital Signs: Last Vital Signs Temp 97.9 F 07/09/23 04:12 Pulse 85 07/09/23 04:12 Resp 16 07/09/23 04:12 BP 116/87 07/09/23 04:12 Pulse Ox 96 07/09/23 04:12 O2 Del Method Room Air 07/09/23 04:12 BMI result Body Mass Index 36.9 Extrem: Ankle/foot/toe images: 1. Diffuse tenderness right ankle with soft tissue swelling no deformity 2. Diffuse tenderness no bony tenderness susan sign negative Medications Administered Discontinued Medications Generic Name Dose Route Start Last Admin Trade Name Brandi PRN Reason Stop Dose Admin Acetaminophen/Codeine Phosphate 1 tab 07/09/23 05:31 07/09/23 05:40 Acetaminophen With Codeine # 3 Tablet PO 07/09/23 05:32 1 tab ONCE ONE Administration Medical Decision Making Independent Interpretation I performed an independent interpretation of an: Plain X-Ray Radiology Impression Discussion of test interpretation with radiology: I have reviewed the radiologist's reading. Discharge Plan Discharge Clinical Impression: Ankle sprain and strain Patient Disposition: Home, Self-Care Instructions: Ankle Sprain (ED) Additional Instructions: Apply ice pack Keep your right leg elevated Follow-up with PCP Prescriptions: No Action Sublocade 300 mg/1.5 mL solution, extended rel syringe 300 mg subcut ONCE Qty: 1.5 1RF Rx Instructions: every 28 days hydroxyzine HCl 50 mg tablet 50 mg PO BEDTIME Qty: 14 0RF doxepin 50 mg capsule 50 mg PO BEDTIME pregabalin 150 mg capsule 150 mg PO TID clonazepam 0.5 mg tablet 0.5 mg PO BID buprenorphine-naloxone [Suboxone] 12-3 mg film 1 film buccal BID Qty: 14 1RF Interventions: ED Discharge Assessment Last Done: 07/09/23 05:44 Discharge Date/Time: 07/09/23 05:48
[2023-07-09 04:12] VITALS: BP 116/87; PULSE 85; RESP 16; TEMP 36.6; O2SAT 96; BMI 36.9
== END 2023-07-09 05:48 | disposition home or self-care (01) ==
PROVIDERS: Emergency Provider Internal Medicine; PCP Internal Medicine
DX: S93.401A Sprain of unspecified ligament of right ankle, initial encounter (principal); M25.571 Pain in right ankle and joints of right foot; X58.XXXA Exposure to other specified factors, initial encounter; Y93.9 Activity, unspecified; Y92.9 Unspecified place or not applicable; Y99.8 Other external cause status; Z79.899 Other long term (current) drug therapy
CPT/HCPCS: 73590; 73610; 99283; 99284

== ENCOUNTER 2023-08-20 06:51 | Emergency (ER) | payer MEDICARE, MEDICAID, SELFPAY ==
[2023-08-20 06:52] VITALS: BP 158/106; PULSE 104; RESP 18; TEMP 36.8; O2SAT 98; BMI 34.5
[2023-08-20 07:20] LABS: MANUAL DIFF FLAG NO
[2023-08-20 07:22] LABS: Basophils Percent Auto 0.5 % (0-2); Eosinophils Absolute Auto 0.3 X10*3/uL (0.0-0.4); Eosinophils Percent Auto 3.2 % (0-4); Hematocrit 44.4 % (42.0-52.0); Hemoglobin 15.1 g/dl (14.0-18.0); Imm Gran Abs Auto 0.03 X10*3/uL (0.00-0.03); Imm Gran Pct Auto 0.3 % (0.0-0.4); Lymphocytes Absolute Auto 2.5 X10*3/uL (1.2-4.9); Lymphocytes Percent Auto 28.7 % (20-40); Mean Corpuscular Hemoglobin 29.9 pg (27.0-33.0); Mean Corpuscular Volume 87.9 fL (80.0-98.0); Mean Platelet Volume 9.9 fL (9.4-12.4); Monocytes Absolute Auto 1.1 X10*3/uL (0.1-1.2); Monocytes Percent Auto 11.9 % (2-11); Neutrophils Absolute Auto 4.9 x10*3/uL (2.0-8.3); Neutrophils Percent Auto 55.4 % (45-73); Platelet Count 327 X10*3/uL (160-400); Red Blood Count 5.05 X10*6/uL (4.60-5.80); Red Cell Distribution Width 12.7 % (11.0-16.0); White Blood Count 8.8 X10*3/uL (4.8-10.8)
[2023-08-20 07:53] LABS: Alanine Aminotransferase 16 U/L (0-40); Albumin Level 4.5 g/dL (3.5-5.0); Alkaline Phosphatase 93 U/L (39-117); Anion Gap 11 (12-20); Aspartate Amino Transferase 37 U/L (5-37); Bilirubin Direct 0.2 mg/dL (0.0-0.5); Bilirubin Total 0.6 mg/dL (0.0-1.0); Blood Urea Nitrogen 17 mg/dL (9-16); Calcium 9.6 mg/dL (8.4-10.2); Carbon Dioxide 29 mmol/L (22-29); Chloride 106 mmol/L (96-108); Creatinine Clr Calc Pharmacy 108.3; Estimated Glomerular Filt Rate > 60; Glucose Random 126 mg/dL (60-115); Lipase 30 U/L (8-78); Potassium 2.9 mmol/L (3.3-5.1); Sodium 143 mmol/L (135-145); Total Protein 7.9 g/dL (6.5-8.0)
[2023-08-20 08:00] LABS: Influenza A PCR NEGATIVE (Negative); Influenza B PCR NEGATIVE (Negative); Resp Syncy Virus RNA Qual PCR NEGATIVE (Negative); SARS COV2 PCR INHOUSE NEGATIVE (Negative)
== END 2023-08-20 08:15 | disposition left against medical advice (07) ==
PROVIDERS: Emergency Provider Emergency Medicine; PCP Internal Medicine
DX: R10.9 Unspecified abdominal pain (principal); Z11.52 Encounter for screening for COVID-19; Z20.828 Contact with and (suspected) exposure to other viral communicable diseases
CPT/HCPCS: 0241U; 80053; 82248; 83690; 85025; 99281; 99283

== ENCOUNTER 2023-08-30 10:07 | Outpatient (REF) | payer MEDICARE, MEDICAID, SELFPAY ==
[2023-08-30 14:18] LABS: Anion Gap 9 (12-20); Blood Urea Nitrogen 17 mg/dL (9-16); Calcium 9.4 mg/dL (8.4-10.2); Carbon Dioxide 30 mmol/L (22-29); Chloride 105 mmol/L (96-108); Estimated Glomerular Filt Rate > 60; Glucose Random 75 mg/dL (60-115); Potassium 3.2 mmol/L (3.3-5.1); Sodium 141 mmol/L (135-145)
== END 2023-08-30 10:08 | disposition home or self-care (01) ==
LOC: HO.CHCLDS 10:07
PROVIDERS: Visit Provider Internal Medicine
DX: I10 Essential (primary) hypertension (principal)
CPT/HCPCS: 36415; 80048

== ENCOUNTER 2023-10-25 09:55 | Outpatient (REF) | payer MEDICARE, MEDICAID, SELFPAY ==
[2023-10-25 14:40] LABS: MANUAL DIFF FLAG NO
[2023-10-25 14:48] LABS: Basophils Absolute Auto 0.1 X10*3/uL (0.0-0.2); Basophils Percent Auto 0.8 % (0-2); Eosinophils Absolute Auto 0.5 X10*3/uL (0.0-0.4); Eosinophils Percent Auto 7.2 % (0-4); Hematocrit 43.5 % (42.0-52.0); Hemoglobin 14.6 g/dl (14.0-18.0); Imm Gran Abs Auto 0.01 X10*3/uL (0.00-0.03); Imm Gran Pct Auto 0.1 % (0.0-0.4); Lymphocytes Absolute Auto 3.3 X10*3/uL (1.2-4.9); Lymphocytes Percent Auto 45.3 % (20-40); Mean Corpuscular HGB Conc 33.6 g/dl (31.0-36.0); Mean Corpuscular Hemoglobin 29.9 pg (27.0-33.0); Mean Corpuscular Volume 89.1 fL (80.0-98.0); Mean Platelet Volume 10.2 fL (9.4-12.4); Monocytes Absolute Auto 0.7 X10*3/uL (0.1-1.2); Neutrophils Absolute Auto 2.7 x10*3/uL (2.0-8.3); Neutrophils Percent Auto 37.6 % (45-73); Platelet Count 268 X10*3/uL (160-400); Red Blood Count 4.88 X10*6/uL (4.60-5.80); Red Cell Distribution Width 13.1 % (11.0-16.0); White Blood Count 7.2 X10*3/uL (4.8-10.8)
[2023-10-25 14:56] LABS: Estimated Average Glucose 120 mg/dL; Hemoglobin A1c % 5.8 % (<6.0)
[2023-10-25 15:21] LABS: Alanine Aminotransferase 24 U/L (0-40); Albumin Level 4.4 g/dL (3.5-5.0); Alkaline Phosphatase 85 U/L (39-117); Anion Gap 13 (12-20); Aspartate Amino Transferase 36 U/L (5-37); Bilirubin Total 0.3 mg/dL (0.0-1.0); Blood Urea Nitrogen 19 mg/dL (9-16); Carbon Dioxide 30 mmol/L (22-29); Chloride 100 mmol/L (96-108); Cholesterol 179 mg/dL (<200); Estimated Glomerular Filt Rate > 60; Glucose Random 83 mg/dL (60-115); HDL Cholesterol 36 mg/dL (>40); LDL Cholesterol Calculated 103 mg/dL (<100); Potassium 3.3 mmol/L (3.3-5.1); Sodium 140 mmol/L (135-145); TSH reflex Free T4 2.48 uIU/mL (0.32-4.0); Total Protein 7.6 g/dL (6.5-8.0); Triglycerides 203 mg/dL (<150); Vitamin D 25-OH Total 24.3 ng/mL (>30)
== END 2023-10-25 09:56 | disposition home or self-care (01) ==
LOC: HO.CHCLDS 09:55
PROVIDERS: Visit Provider Internal Medicine
DX: R53.83 Other fatigue (principal); R73.01 Impaired fasting glucose
CPT/HCPCS: 36415; 80053; 80061; 82306; 83036; 84443; 85025

== ENCOUNTER 2024-06-21 14:46 | Emergency (ER) | payer MEDICARE, MEDICAID, SELFPAY ==
[2024-06-21 14:49] VITALS: BP 135/94; PULSE 120; RESP 20; TEMP 36.9; O2SAT 99; BMI 34.5
[2024-06-21 15:34] LABS: Alanine Aminotransferase 38 U/L (0-40); Albumin Level 3.9 g/dL (3.5-5.0); Alkaline Phosphatase 70 U/L (39-117); Anion Gap 15 (12-20); Aspartate Amino Transferase 84 U/L (5-37); Bilirubin Total 1.2 mg/dL (0.0-1.0); Blood Urea Nitrogen 14 mg/dL (9-16); Carbon Dioxide 22 mmol/L (22-29); Chloride 100 mmol/L (96-108); Creatinine Clr Calc Pharmacy 116.5; Estimated Glomerular Filt Rate > 60; Glucose Random 193 mg/dL (60-115); Potassium 3.6 mmol/L (3.3-5.1); Sodium 133 mmol/L (135-145); Total Protein 7.8 g/dL (6.5-8.0)
--- NOTE | 2024-06-21 19:25 | MHC.EDTECH ---
Patient brought into triage,labs drawn and sent to lab
[2024-06-21 19:29] LABS: MANUAL DIFF FLAG NO
[2024-06-21 19:31] LABS: Basophils Percent Auto 0.4 % (0-2); Eosinophils Absolute Auto 0.1 X10*3/uL (0.0-0.4); Eosinophils Percent Auto 1.2 % (0-4); Hematocrit 42.7 % (42.0-52.0); Hemoglobin 14.5 g/dl (14.0-18.0); Imm Gran Abs Auto 0.03 X10*3/uL (0.00-0.03); Imm Gran Pct Auto 0.3 % (0.0-0.4); Lymphocytes Absolute Auto 1.8 X10*3/uL (1.2-4.9); Lymphocytes Percent Auto 17.4 % (20-40); Mean Corpuscular Hemoglobin 29.8 pg (27.0-33.0); Mean Corpuscular Volume 87.7 fL (80.0-98.0); Mean Platelet Volume 9.4 fL (9.4-12.4); Monocytes Absolute Auto 1.2 X10*3/uL (0.1-1.2); Monocytes Percent Auto 11.4 % (2-11); Neutrophils Absolute Auto 7.3 x10*3/uL (2.0-8.3); Neutrophils Percent Auto 69.3 % (45-73); Platelet Count 257 X10*3/uL (160-400); Red Blood Count 4.87 X10*6/uL (4.60-5.80); Red Cell Distribution Width 11.9 % (11.0-16.0); White Blood Count 10.5 X10*3/uL (4.8-10.8)
[2024-06-21 19:45] LABS: Lactic Acid 1.6 mmol/L (0.5-2.0)
--- OUTSIDE RECORDS SUMMARY | 2024-06-21 20:58 | XMS_ITS | Encounter Summary ---
Author Organization [facility] Address [address] [place] [address] [address] [place] [address] Care Team Providers Care Regional Office Coordinator Name Role Phone Lele Alva MD Primary Care Provider [phone]- [phone] Encounter Details Date Type Department Care Team (Late st Contact Info) Description 04/25/2022 Abstract [facility] [address] [place] [address] Provider, MD Zuleika Social History Tobacco Use Types Packs/Day Years Used Date Smoking Tobacco: Never Assessed Sex and Gender Information Value Date Recorded Sex Assigned at Male 03/27/2022 10:18 AM EDT Legal Sex Male 10:18 AM EDT Gender Identity Male 03/27/2022 10:18 AM EDT Sexual Orientation Straight 03/27/2022 10 :18 AM EDT documented as of this encounter Plan of Treatment Not on file documented as of this encounter Visit Diagnoses Not on filedocumented in this encounter Care Teams Regional Office Coordinator Relationship Specialty Start Date End Date Lele Alva MD [address] [place] [address] PCP - General Internal Medicine 05/01/16 documented as of this encounter
--- OUTSIDE RECORDS SUMMARY | 2024-06-21 20:58 | XMS_ITS | Encounter Summary ---
Author Organization [employer] Address [address] [facility] [address] [place] [address] Care Team Providers Care Plan Nurse Name Role Phone Lele Alva MD Primary Care Provider [phone]- [phone] Encounter Details Date Type Department Care Team ([facility] st Contact Info) Description 09/12/2023 Orders Only [facility] MED & PEDS [address] [place], [place] [phone] Lele Alva MD [address] [place] [address] Obesity (BMI 30-39.9) (Primary Dx) Social History Tobacco Use Types Packs/Day Years Used Date Smoking Tobacco: Every Day Cigarettes Smokeless Tobacco: Never Depression Answer Date Recorded Patient Health Questionnaire-9 Score 15 06/06/2022 Housing Stability Answer Date Recorded What is your housing situation today? I have bobbyraphael fernandez 03/12/[address] you li ve. Do you have problems with any of the following? None of the above 03/12/2023 Food Insecurity Answer Date Recorded Within the past 12 months, y ou worried that your food would run out before you got money to buy more: Never True 03/12/2023 Within the past 12 months,th e food you bought just didn't last and you didn't have enough money to get more: Never True Transportation Answer Date Recorded In the past 12 months, has l ack of transportation kept you from medical appts, meetings, work or from getting things needed for daily living? No 03/12/2023 Utilities Answer Date Recorded In the past 12 months, has t he electric, gas, oil or water company threatened to shut off services in your home? No 03/12/2023 Depression Answer Date Recorded Patient Health Questionnaire-2 Score 6 06/06/2022 Sex and Gender Information Value Date Recorded Sex Assigned at Male 03/27/2022 10:18 AM EDT Legal Sex Male 10:18 AM EDT Gender Identity Male 03/27/2022 10:18 AM EDT Sexual Orientation Straight 03/27/2022 10 :18 AM EDT documented as of this encounter Plan of Treatment Not on file documented as of this encounter Visit Diagnoses Diagnosis Obesity (BMI 30-39.9)- Primary documented in this encounter Additional Health Concerns Assessment Noted Time PHQ-9 Depression Total Score: 15 023 11:14 AM EST documented as of this encounter Care Teams Plan Nurse Relationship Specialty Start Date End Date Lele Alva MD [address] [place] [address] PCP - General Internal Medicine 05/01/16 documented as of this encounter
--- OUTSIDE RECORDS SUMMARY | 2024-06-21 20:58 | XMS_ITS | Encounter Summary ---
Author Organization [employer] Address [address] [place] [address] Care Team Providers Care Warehouse Insulation Worker Name Role Phone Lele Alva MD Primary Care Provider [phone]- [phone] Reason for Referral * Consultation (Routine) - Closed Specialty Diagnoses / Procedures Referred By Contomar t Referred To Contact Psychiatry Diagnoses Depressive disorder Lele Alva MD [address] [place] [address] Phone: tel: fax: [facility] [address] [place] [address] Phone: tel: fax: Referral ID Status Reason Start Date Expiration Date V isits Requested Visits Authorized [id number] Closed Specialty Services Required 05/04/2023 05/03/2024 1 1 Encounter Details Date Type Department Care Team ([facility] st Contact Info) Description 05/04/2023 Orders Only [facility] MED & PEDS [address] [place] [address] Lele Alva MD [address] [place] [address] Depressive disorder (Primary Dx); Chronic pain syndrome Social History Tobacco Use Types Packs/Day Years Used Date Smoking Tobacco: Every Day Cigarettes Smokeless Tobacco: Never Depression Answer Date Recorded Patient Health Questionnaire-9 Score 15 06/06/2022 Housing Stability Answer Date Recorded What is your housing situation today? I have bobby sing 03/12/[address] you li [...] as of this encounter Plan of Treatment Scheduled Referrals Name Type Priority Associated Diagnoses Order Schedule Referral to Psychiatry Outpatient Referral Routine Depressive disorder Expected: 05/04/2023 (Approximate), Expires: 05/04/2024 documented as of this encounter Visit Diagnoses Diagnosis Depressive disorder- Primary Depressive disorder, not elsewhere classified Chronic pain syndrome documented in this encounter Additional Health Concerns Assessment Noted Time PHQ-9 Depression Total Score: 15 023 11:14 AM EST documented as of this encounter Care Teams Warehouse Insulation Worker Relationship Specialty Start Date End Date Lele Alva MD [address] [place] [address] PCP - General Internal Medicine 05/01/16 documented as of this encounter
--- OUTSIDE RECORDS SUMMARY | 2024-06-21 20:58 | XMS_ITS | Encounter Summary ---
Author Organization [employer] Address [address] [facility] 7[address] [place] [address] Care Team Providers Care X Ray Physician Name Role Phone Lele Alva MD Primary Care Provider [phone]- [phone] Encounter Details Date Type Department Care Team ([facility] st Contact Info) Description 07/26/2023 Orders Only [facility] CHC MED & PEDS [address] [place], [place] [phone] Lele Alva MD [address] [place] [address] PTSD (post-traumatic stress disorder); Erectile disorder; Chronic pain syndrome Social History Tobacco Use [...] as of this encounter Visit Diagnoses Diagnosis PTSD (post-traumatic stress disorder) Posttraumatic stress disorder Erectile disorder Chronic pain syndrome documented in this encounter Additional Health Concerns Assessment Noted Time PHQ-9 Depression Total Score: 15 023 11:14 AM EST documented as of this encounter Care Teams X Ray Physician Relationship Specialty Start Date End Date Lele Alva MD [address] [place] [address] PCP - General Internal Medicine 05/01/16 documented as of this encounter
--- OUTSIDE RECORDS SUMMARY | 2024-06-21 20:58 | XMS_ITS | Encounter Summary ---
Author Organization [employer] Address [address] [facility] [address] [place] [address] Care Team Providers Care Hatchery Attendant Name Role Phone Lele Alva MD Primary Care Provider [phone]- [phone] Reason for Visit * Reason Onset Date Comments Referral 05/04/2023 Encounter Details Date Type Department Care Team (Late st Contact Info) Description 05/04/2023 Telephone [facility] [address] [place] [address] Lele lAva MD [address] [place] [address] Referral Social History Tobacco Use Types Packs/Day Years [...] AM EDT documented as of this encounter Miscellaneous Notes * Telephone Encounter - Abner Verdugo - 05/04/2023 10:12 AM EST Tc from patient requesting a referral for a psychiatry. Referral Location: [address] [place] [address] Date: N/A Time: N/A Specialty: Psychiatry DX: Depressive Disorder ( NEW Referral ) documented in this encounter Plan of Treatment Not on file documented as of this encounter Visit Diagnoses Not on filedocumented in this encounter Additional Health Concerns Assessment Noted Time PHQ-9 Depression Total Score: 15 023 11:14 AM EST documented as of this encounter Care Teams Hatchery Attendant Relationship Specialty Start Date End Date Lele Alva MD [address] [place] [address] PCP - General Internal Medicine 05/01/16 documented as of this encounter
--- OUTSIDE RECORDS SUMMARY | 2024-06-21 20:58 | XMS_ITS | Clinical Summary ---
Author Organization [facility] Address [address] [place] [address] Phone Care Team Providers Care Stock Repairer Name Role Phone Chepe Salazar Primary Care Provider [phone] Immunizations Name Administration Dates Next Due DTP 01/04/1987, 3,04/11/1982, 982,1981 Hep B, ped/adol 03/01/1998,02/03/1998 Influenza Split 02/19/1998 Influenza, injectable, trivalent 02/19/1998 MMR 04/26/1993,06/01/1982 OPV 01/04/1987, 3,04/11/1982, 982,1981 Td (adult) (Tenivac), 5 Lf t etanus toxoid, PF, adsorbed 11/01/1995 Social History Tobacco Use Types Packs/Day Years Used Date Smoking Tobacco: Never Assessed Sex and Gender Information Value Date Recorded Sex Assigned at Not on file Legal Sex Male 3:16 PM EDT Gender Identity Not on file Sexual Orientation Not on file Plan of Treatment Health Maintenance Due Date Last Done Comments Varicella Vaccines (1 of 2 - 13+ 2-dose series) 1994 DTaP,Tdap,and Td Vaccines (5 - Tdap) 11/02/1995 11/01/1995, 01/04/1987, 06/01/1982, Additional history exists Consider Men B Vaccine (1 of 2 - Bexsero 2-dose series) 1997 Hepatitis B Vaccines (2 of 3 - 3-dose series) 03/29/1998 03/01/1998, 02/03/1998 Influenza Vaccines (#1) 2023 02/19/1998, 02/19 COVID-19 Vaccine ( season) 2024 IPV Vaccines Completed 01/04/1987, 09/1982, 04/11/1982, Additional history exists MMR Vaccines Completed 04/26/1993, 06/01/1982 HIB Vaccines Aged Out No longer eligi ble based on patient's age to complete this topic HPV Vaccines Aged Out No longer eligi ble based on patient's age to complete this topic Hepatitis A Vaccines Aged Out No long er eligible based on patient's age to complete this topic Men B Vaccine Aged Out No longer elig ible based on patient's age to complete this topic Meningococcal Vaccine Aged Out No nichole avni eligible based on patient's age to complete this topic Pneumococcal Vaccine Aged Out No long er eligible based on patient's age to complete this topic Care Teams Stock Repairer Relationship Specialty Start Date End Date Chepe Salazar [address] [place] [address] PCP - General 01/05/17
--- OUTSIDE RECORDS SUMMARY | 2024-06-21 20:58 | XMS_ITS | Encounter Summary ---
Author Organization [employer] Address [address] [place] [address] [place] [address] Care Team Providers Care Inker Name Role Phone Lele Alva MD Primary Care Provider [phone] Encounter Details Date Type Department Care Team (Late st Contact Info) Description 05/04/2022 Orders Only [facility] [address] [place] [address] Lele Alva MD [address] [place], [place] [phone] Hypogonadism in male (Primary Dx) Social History Tobacco Use Types Packs/Day Years Used Date Smoking Tobacco: Never Assessed Sex and Gender Information Value Date Recorded Sex Assigned at Male 03/27/2022 10:18 AM EDT Legal Sex Male 10:18 AM EDT Gender Identity Male 03/27/2022 10:18 AM EDT Sexual Orientation Straight 03/27/2022 10 :18 AM EDT COVID-19 Exposure Response Date Recorded In the last 10 days, have yo u been in contact with someone who was confirmed or suspected to have Coronavirus/COVID-19? No / Unsure 05/01/2022 9:39 AM EST documented as of this encounter Plan of Treatment Not on file documented as of this encounter Visit Diagnoses Diagnosis Hypogonadism in male- Primary documented in this encounter Care Teams Inker Relationship Specialty Start Date End Date Lele Alva MD [address] [place] [address] PCP - General Internal Medicine 05/01/16 documented as of this encounter
--- OUTSIDE RECORDS SUMMARY | 2024-06-21 20:58 | XMS_ITS | Encounter Summary ---
Author Organization [employer] Address 75 [facility] 7t [place] [address] Care Team Providers Care Seed Technician Name Role Phone Lele Alva MD Primary Care Provider +1- [phone] Encounter Details Date Type Department Care Team ([facility] st Contact Info) Description 08/22/2023 Orders Only [facility] CHC MED & PEDS 505 [place], [place] [phone] Lele Alva MD 505 [place] [address] Hypokalemia (Primary Dx); Erectile dysfunction, unspecified erectile dysfunction type; Benign hypertension Social History Tobacco Use Types Packs/Day Years Used Date Smoking Tobacco: Every Day Cigarettes Smokeless Tobacco: Never Depression Answer Date Recorded Patient Health Questionnaire-9 Score 15 06/06/2022 Housing Stability Answer Date Recorded What is your housing situation today? I have bobby fernandez 03/12/[address] you [...] of this encounter Plan of Treatment Scheduled Orders Name Type Priority Associated Diagnoses Orde r Schedule Basic Metabolic Panel Lab Routine Hypokalemia Expected: 08/22/2023 (Approximate), Expires: 08/21/2024 documented as of this encounter Visit Diagnoses Diagnosis Hypokalemia- Primary Hypopotassemia Erectile dysfunction, unspecified erectile dysfunction type Benign hypertension Essential hypertension, benign documented in this encounter Additional Health Concerns Assessment Noted Time PHQ-9 Depression Total Score: 15 023 11:14 AM EST documented as of this encounter Care Teams Seed Technician Relationship Specialty Start Date End Date Lele Alva MD [address] [place] [address] PCP - General Internal Medicine 05/01/16 documented as of this encounter
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
--- OUTSIDE RECORDS SUMMARY | 2024-06-21 20:58 | XMS_ITS | Encounter Summary ---
Author Organization [employer] Address 75 [facility] [address], [place] [address] Care Team Providers Care Pipe Fitter Gas Pipe Name Role Phone Lele Alva MD Primary Care Provider +1- [phone] Reason for Visit * Reason Onset Date Comments Nurse Triage 08/15/2023 Encounter Details Date Type Department Care Team ([facility] st Contact Info) Description 08/15/2023 Telephone [facility] CHC MED & PEDS 505 [place], [place] [phone] Lele Alva MD 505 [place] [address] Nurse Triage Social History Tobacco Use Types Packs/Day Years [...] encounter Miscellaneous Notes * Telephone Encounter - Inocencia Terrell RN - 08/15/2023 1:35 PM EDT Triage call Pt reports loss of mother yesterday. Pt is in the process of planning arrangements. Pt is very anxious, crying at times. Pt is not sleeping well but, is trying to eat. Unable to continue with daily living at this time. Pt does have apt with counselor scheduled for next week. Pt is requesting medication to help with anxiety. Pt reports has been prescribed klonopin 0.5mg but , has not taken this medication for a while. Pt does have ativan 0.5mg which was prescribed 12/13/22, for air flight anxiety which was effective. Pt is given a tele visit with Dr. Dolan today at 215pm to discuss anxiety. Pt didn't want to go out to [facility] because Pt is located in [place] and goes to [facility]. Pt agrees with dispostion and home care reviewed. Insurance is verified as active prior to booking. Pt is not suicidal and doesn't want to hurt anyone else. Protocol Used: Anxiety and Panic Attack (Adult) Protocol-Based Disposition: See in Office or Video Visit Today Video visit offered and caller accepted Positive Triage Question: * Patient sounds very upset or troubled to the triager * All higher-acuity triage questions were negative Care Advice Discussed: * Note to Triager - Anxiety Symptoms * Reassurance and Education - Anxiety * Anxiety - Healthy Lifestyle Tips * Avoid Caffeine * Avoid Triggers of Anxiety * Stress Reduction * Reasons To Call Back - Anxiety or panic attacks continue - You feel like harming yourself - You become worse * Telephone Encounter - Aung Price - 08/15/2023 1:17 PM EDT Symptom: Anxiety or Panic Attack Outcome: Schedule an urgent appointment (within 4 hours) or talk to a nurse or provider soon Reason: Anxiety keeps from normal daily activities (such as school or work) The caller accepted this outcome Please contact pt @ [phone] Mother . documented in this encounter Plan of Treatment Not on file documented as of this encounter Visit Diagnoses Not on filedocumented in this encounter Additional Health Concerns Assessment Noted Time PHQ-9 Depression Total Score: 15 023 11:14 AM EST documented as of this encounter Care Teams Pipe Fitter Gas Pipe Relationship Specialty Start Date End Date Lele Alva MD [address] [place] [address] PCP - General Internal Medicine 05/01/16 documented as of this encounter
--- OUTSIDE RECORDS SUMMARY | 2024-06-21 20:58 | XMS_ITS | Encounter Summary ---
Author Organization [employer] Address 75 [facility] 7t [place] [address] Care Team Providers Care Breeder Service Technician Name Role Phone Lele Alva MD Primary Care Provider +1- [phone] Encounter Details Date Type Department Care Team ([facility] st Contact Info) Description 10/29/2023 Orders Only [facility] CHC MED & PEDS 505 [place], [place] [phone] Lele Alva MD 505 [place] [address] IFG (impaired fasting glucose) (Primary Dx); Chronic pain syndrome; Obesity (BMI 30-39.9) Social History Tobacco Use Types Packs/Day Years [...] as of this encounter Visit Diagnoses Diagnosis IFG (impaired fasting glucose)- Primary Chronic pain syndrome Obesity (BMI 30-39.9) documented in this encounter Additional Health Concerns Assessment Noted Time PHQ-9 Depression Total Score: 15 023 11:14 AM EST documented as of this encounter Care Teams Breeder Service Technician Relationship Specialty Start Date End Date Lele Alva MD [address] [place] [address] PCP - General Internal Medicine 05/01/16 documented as of this encounter
--- OUTSIDE RECORDS SUMMARY | 2024-06-21 20:58 | XMS_ITS | Encounter Summary ---
Author Organization [employer] Address 75 [facility] 7t [place] [address] Care Team Providers Care Public Health Representative Name Role Phone Lele Alva MD Primary Care Provider +1- [phone] Reason for Visit * Reason Comments Med Refill Encounter Details Date Type Department Care Team (Late st Contact Info) Description 11/06/2023 Refill [facility] 230 [place] [address] Lele Alva MD 505 [place] [address] Chronic pain syndrome Social History Tobacco Use [...] as of this encounter Visit Diagnoses Diagnosis Chronic pain syndrome documented in this encounter Additional Health Concerns Assessment Noted Time PHQ-9 Depression Total Score: 15 023 11:14 AM EST documented as of this encounter Care Teams Public Health Representative Relationship Specialty Start Date End Date Lele Alva MD 505 [place] [address] PCP - General Internal Medicine 05/01/16 documented as of this encounter
--- OUTSIDE RECORDS SUMMARY | 2024-06-21 20:59 | XMS_ITS | Encounter Summary ---
Author Organization [employer] Address [address] [place] [address] Care Team Providers Care Lead Miner Blasting Name Role Phone Lele Alva MD Primary Care Provider +1- [phone] Reason for Visit * Reason Onset Date Comments Medication Question 12/05/2022 Encounter Details Date Type Department Care Team ([facility] st Contact Info) Description 12/05/2022 Telephone [facility] CHC MED & PEDS 505 [place], [place] [phone] Lele Alva MD 505 [place] [address] Medication Question Social History Tobacco Use Types Packs/Day Years Used Date Smoking Tobacco: Never Assessed Depression Answer Date Recorded Patient Health Questionnaire-9 Score 15 06/06/2022 Depression Answer Date Recorded Patient Health Questionnaire-2 Score 6 06/06/2022 Sex and Gender Information Value Date Recorded Sex Assigned at Male 03/27/2022 10:18 AM EDT Legal Sex Male 10:18 AM EDT Gender Identity Male 03/27/2022 10:18 AM EDT Sexual Orientation Straight 03/27/2022 10 :18 AM EDT documented as of this encounter Miscellaneous Notes * Telephone Encounter - Amari Kaplan RN - 12/06/2022 4:03 PM EDT Please see message below and advise nurse's as needed. Thanks. * Telephone Encounter - Thao Cedillo - 12/05/2022 9:28 AM EDT Tc from patient requesting a call back, in regards to medications pregabalin 150 mg and gabapentin 600 mg. States pregabalin is too strong and would like to be on gabapentin. Please advise. documented in this encounter Plan of Treatment Not on file documented as of this encounter Visit Diagnoses Not on filedocumented in this encounter Additional Health Concerns Assessment Noted Time PHQ-9 Depression Total Score: 15 023 11:14 AM EST documented as of this encounter Care Teams Lead Miner Blasting Relationship Specialty Start Date End Date Lele Alva MD [address] [place] [address] PCP - General Internal Medicine 05/01/16 documented as of this encounter
--- OUTSIDE RECORDS SUMMARY | 2024-06-21 20:59 | XMS_ITS | Patient Health Record ---
Author Organization [facility] Address [address] [place] [address] Care Team Providers Care Wool Presser Name Role Phone BISI CALI Primary Care Provider [phone] Reason For Referral No Information Encounters Encounter Location Date Provider Diagnosis [facility] [address] [place] [address] 02/15/2024 BISI CALI Plan Of Treatment No Information
--- OUTSIDE RECORDS SUMMARY | 2024-06-21 20:59 | XMS_ITS | Encounter Summary ---
Author Organization [employer] Address 75 [facility] 7t [place] [address] Care Team Providers Care Dependency Program Director Name Role Phone Lele Alva MD Primary Care Provider +1- [phone] Encounter Details Date Type Department Care Team ([facility] st Contact Info) Description 03/06/2023 Orders Only [facility] CHC MED & PEDS 505 [place], [place] [phone] Lele Alva MD 505 [place] [address] Social History Tobacco Use Types Packs/Day Years Used Date Smoking Tobacco: Never Assessed Depression Answer Date Recorded Patient Health Questionnaire-9 Score 15 06/06/2022 Housing Stability Answer Date Recorded What is your housing situation today? I have bobby fernandez 03/05/[address] you li ve. Do you have problems with any of the following? None of the above 03/05/2023 Food Insecurity Answer Date Recorded Within the past 12 months, y ou worried that your food would run out before you got money to buy more: Never True 03/05/2023 Within the past 12 months,th e food you bought just didn't last and you didn't have enough money to get more: Never True 01/2023 Transportation Answer Date Recorded In the past 12 months, has l ack of transportation kept you from medical appts, meetings, work or from getting things needed for daily living? No 03/05/2023 Utilities Answer Date Recorded In the past 12 months, has t he electric, gas, oil or water company threatened to shut off services in your home? No 03/05/2023 Depression Answer Date Recorded Patient Health Questionnaire-2 [...] documented as of this encounter Care Teams Dependency Program Director Relationship Specialty Start Date End Date Lele Alva MD [address] [place] [address] PCP - General Internal Medicine 05/01/16 documented as of this encounter
--- OUTSIDE RECORDS SUMMARY | 2024-06-21 20:59 | XMS_ITS | Encounter Summary ---
Author Organization [employer] Address 75 [facility] 7t [place] [address] Care Team Providers Care Smoking Pipes Cleaner Name Role Phone Lele Alva MD Primary Care Provider +1- [phone] Reason for Visit * Reason Comments Med Refill Encounter Details Date Type Department Care Team (Late st Contact Info) Description 02/03/2024 Refill [facility] MEDICINE 230 [place] [address] Lele Alva MD 505 [place] [address] Chronic pain syndrome Social History Tobacco Use [...] documented as of this encounter Care Teams Smoking Pipes Cleaner Relationship Specialty Start Date End Date Lele Alva MD 505 [place] [address] PCP - General Internal Medicine 05/01/16 documented as of this encounter
--- OUTSIDE RECORDS SUMMARY | 2024-06-21 20:59 | XMS_ITS | Encounter Summary ---
Author Organization [employer] Address [address] [facility] 7 [place] [address] Care Team Providers Care Cashier Name Role Phone Lele Alva MD Primary Care Provider +1- [phone] Reason for Visit * Reason Onset Date Comments Med Refill 03/06/2023 Encounter Details Date Type Department Care Team ([facility] st Contact Info) Description 03/06/2023 Telephone [facility] MEDICINE 230 [place] [address] Lele Alva MD 505 [place] [address] Med Refill Social History Tobacco Use Types Packs/Day Years Used Date Smoking Tobacco: Never Assessed Depression Answer Date Recorded Patient Health Questionnaire-9 Score 15 06/06/2022 Housing Stability Answer Date Recorded What is your housing situation today? I have bobbyraphael fernandez 03/05/[address] you [...] encounter Miscellaneous Notes * Telephone Encounter - Roberta Pratt - 03/06/2023 4:30 PM EDT Tc from pt requesting med refill on pregabalin (Lyrica) 150 MG capsule documented in this encounter Plan of Treatment Not on file documented as of this encounter Visit Diagnoses Not on filedocumented in this encounter Additional Health Concerns Assessment Noted Time PHQ-9 Depression Total Score: 15 023 11:14 AM EST documented as of this encounter Care Teams Cashier Relationship Specialty Start Date End Date Lele Alva MD [address] [place] [address] PCP - General Internal Medicine 05/01/16 documented as of this encounter
--- OUTSIDE RECORDS SUMMARY | 2024-06-21 20:59 | XMS_ITS | Encounter Summary ---
Author Organization [employer] Address 75 [facility] 7 [place] [address] Care Team Providers Care Well Reactivator Operator Name Role Phone Lele Alva MD Primary Care Provider +1- [phone] Reason for Visit * Reason Comments Med Refill Encounter Details Date Type Department Care Team ([facility] st Contact Info) Description 03/05/2024 Refill [facility] MEDICINE [address] [place] [address] Lele Alva MD 505 [place] [address] PTSD (post-traumatic stress disorder) Social History Tobacco Use Types Packs/Day Years [...] PTSD (post-traumatic stress disorder) Posttraumatic stress disorder documented in this encounter Additional Health Concerns Assessment Noted Time PHQ-9 Depression Total Score: 15 023 11:14 AM EST documented as of this encounter Care Teams Well Reactivator Operator Relationship Specialty Start Date End Date Lele Alva MD [address] [place] [address] PCP - General Internal Medicine 05/01/16 documented as of this encounter
--- OUTSIDE RECORDS SUMMARY | 2024-06-21 20:59 | XMS_ITS | Encounter Summary ---
Author Organization [employer] Address 75 [facility] 7t [place] [address] Care Team Providers Care Travertine Installer Name Role Phone Lele Alva MD Primary Care Provider +1 [phone] Reason for Visit * Reason Comments Med Refill Encounter Details Date Type Department Care Team ([facility] st Contact Info) Description 11/06/2023 Refill [facility] CHC MED & PEDS 505 [place], [place] [phone] Ashley Álvarez MD 505 [place] [address] Social History Tobacco Use Types Packs/Day Years [...] t he electric, gas, oil or water In[employer]s threatened to shut off services in your [...] documented as of this encounter Care Teams Travertine Installer Relationship Specialty Start Date End Date Lele Alva MD 505 [place] [address] PCP - General Internal Medicine 05/01/16 documented as of this encounter
--- OUTSIDE RECORDS SUMMARY | 2024-06-21 20:59 | XMS_ITS | Encounter Summary ---
Author Organization [employer] Address [address] [facility] 7 [place] [address] Care Team Providers Care Television Host Name Role Phone Lele Alva MD Primary Care Provider +1- [phone] Reason for Visit * Reason Onset Date Comments Error 11/22/2023 Encounter Details Date Type Department Care Team ([facility] st Contact Info) Description 11/22/2023 Telephone [facility] 230 [place] [address] Lele Alva MD 505 [place] [address] Error Social History Tobacco Use Types Packs/Day Years [...] documented as of this encounter Care Teams Television Host Relationship Specialty Start Date End Date Lele Alva MD 505 [place] [address] PCP - General Internal Medicine 05/01/16 documented as of this encounter
--- OUTSIDE RECORDS SUMMARY | 2024-06-21 20:59 | XMS_ITS | Encounter Summary ---
Author Organization [employer] Address 75 [facility] 7t [place] [address] Care Team Providers Care Hospitality Intern Name Role Phone Lele Alva MD Primary Care Provider +1- [phone] Encounter Details Date Type Department Care Team ([facility] st Contact Info) Description 02/01/2024 Orders Only [facility] CHC MED & PEDS [address] [place], [place] [phone] Lele Alva MD 505 [place] [address] Benign hypertension (Primary Dx); Chronic pain syndrome Social History [...] as of this encounter Visit Diagnoses Diagnosis Benign hypertension- Primary Essential hypertension, benign Chronic pain syndrome documented in this encounter Additional Health Concerns Assessment Noted Time PHQ-9 Depression Total Score: 15 023 11:14 AM EST documented as of this encounter Care Teams Hospitality Intern Relationship Specialty Start Date End Date Lele Alva MD [address] [place] [address] PCP - General Internal Medicine 05/01/16 documented as of this encounter
--- OUTSIDE RECORDS SUMMARY | 2024-06-21 20:59 | XMS_ITS | Encounter Summary ---
Author Organization [employer] Address 75 [facility] 7 [place] [address] Care Team Providers Care Nuclear Power Reactor Operator Name Role Phone Lele Alva MD Primary Care Provider +1- [phone] Reason for Visit * Reason Comments Med Refill Encounter Details Date Type Department Care Team ([facility] st Contact Info) Description 04/21/2024 Refill [facility] CHC MED & PEDS 505 [place], [place] [phone] Lele Alva MD 505 [place] [address] Social History Tobacco Use Types Packs/Day Years [...] documented as of this encounter Care Teams Nuclear Power Reactor Operator Relationship Specialty Start Date End Date Lele Alva MD 505 [place] [address] PCP - General Internal Medicine 05/01/16 documented as of this encounter
--- OUTSIDE RECORDS SUMMARY | 2024-06-21 20:59 | XMS_ITS | Encounter Summary ---
Author Organization [employer] Address 75 [facility] 7 [place] [address] Care Team Providers Care Backhaul Driver Name Role Phone Lele Alva MD Primary Care Provider +1- [phone] Reason for Visit * Reason Onset Date Comments Med Refill 05/08/2024 Encounter Details Date Type Department Care Team ([facility] st Contact Info) Description 05/08/2024 Telephone [facility] MEDICINE [address] [place] [address] Lele Alva MD 505 [place] [address] Med Refill Social History Tobacco Use Types [...] encounter Miscellaneous Notes * Telephone Encounter - Luis Coronel - 05/08/2024 1:49 PM EST TC from pt requesting medication refill. Medications needing refill : losartan (Cozaar) 100 MG tablet tiZANidine (Zanaflex) 4 MG tablet sildenafil (Viagra) 50 MG tablet To be sent to: [facility] - [place], [place] - [address] [place] [address] documented in this encounter Plan of Treatment Not on file documented as of this encounter Visit Diagnoses Not on filedocumented in this encounter Additional Health Concerns Assessment Noted Time PHQ-9 Depression Total Score: 15 023 11:14 AM EST documented as of this encounter Care Teams Backhaul Driver Relationship Specialty Start Date End Date Lele Alva MD [address] [place] [address] PCP - General Internal Medicine 05/01/16 documented as of this encounter
--- OUTSIDE RECORDS SUMMARY | 2024-06-21 20:59 | XMS_ITS | Encounter Summary ---
Author Organization [employer] Address [address] [place] [address] Care Team Providers Care Rails Developer Name Role Phone Leel Alva MD Primary Care Provider +1- [phone] Reason for Visit * Reason Onset Date Comments Medication Question 12/13/2022 Encounter Details Date Type Department Care Team ([facility] st Contact Info) Description 12/13/2022 Telephone [facility] CHC MED & PEDS [address] [place] [address] Lele Alva MD 505 [place] [address] Medication Question Social History Tobacco Use Types [...] documented as of this encounter Care Teams Rails Developer Relationship Specialty Start Date End Date Lele Alva MD 505 [place] [address] PCP - General Internal Medicine 05/01/16 documented as of this encounter
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
--- OUTSIDE RECORDS SUMMARY | 2024-06-21 20:59 | XMS_ITS ---
Author Organization [facility] Address [address] [address] Care Team Providers Care Tig Welder Name Role Phone BISI CALI Primary Care Provider REASON FOR VISIT offering appt Encounters Encounter Location Date Provider Diagnosis [facility] [address] [place] [address] 02/15/2024 BISI CALI Plan Of Treatment No Information Progress Notes * David BURKSOB: [birth year] (43 yo M)Acc No.[id number]:02/15/2024 Patient:?Roshan BURKS :1980???Age:43 Y???Sex:Male Address[address] [place], [address] * true * Date:? Generated for Aliciai gary/Segundo/eTransmitting on:?06/21/2024 08:59 PM EST
--- OUTSIDE RECORDS SUMMARY | 2024-06-21 20:59 | XMS_ITS | Encounter Summary ---
Author Organization [employer] Address [address] [place] [address] Care Team Providers Care Field Installer Name Role Phone Lele Alva MD Primary Care Provider +1- [phone] Encounter Details Date Type Department Care Team (Late st Contact Info) Description 08/16/2022 Telephone [facility] [address] [place], [place] [phone] Lele Alva MD [address] [place] [address] Social History Tobacco Use Types Packs/Day Years [...] documented as of this encounter Care Teams Field Installer Relationship Specialty Start Date End Date Lele Alva MD [address] [place] [address] PCP - General Internal Medicine 05/01/16 documented as of this encounter
--- OUTSIDE RECORDS SUMMARY | 2024-06-21 20:59 | XMS_ITS | Encounter Summary ---
Author Organization [employer] Address [address] [facility] 7 [place] [address] Care Team Providers Care Solid Waste Technician Name Role Phone Lele Avla MD Primary Care Provider +1- [phone] Reason for Visit * Reason Onset Date Comments Referral 12/19/2023 Encounter Details Date Type Department Care Team (Late st Contact Info) Description 12/19/2023 Telephone [facility] [address] [place] [address] Lele Alva MD [address] [place] [address] Referral Social History Tobacco Use Types Packs/Day [...] encounter Miscellaneous Notes * Telephone Encounter - Amado Nolasco RN - 12/25/2023 11:07 AM EDT T/C to pt. On [phone] for below message, message states, the person you are trying to reach is not accepting call right now. Not able to LVM. * Telephone Encounter - Dilshad Contreras - 12/19/2023 4:26 PM EDT Tc from pt is requesting referral for Pain management stating would like to be referred anywhere aslong as it's not [place]. Pt also needs an MRI done to follow up with neurology. If any questions you can contact pt at [phone]. documented in this encounter Plan of Treatment Not on file documented as of this encounter Visit Diagnoses Not on filedocumented in this encounter Additional Health Concerns Assessment Noted Time PHQ-9 Depression Total Score: 15 023 11:14 AM EST documented as of this encounter Care Teams Solid Waste Technician Relationship Specialty Start Date End Date Lele Alva MD [address] [place] [address] PCP - General Internal Medicine 05/01/16 documented as of this encounter
--- OUTSIDE RECORDS SUMMARY | 2024-06-21 20:59 | XMS_ITS | Encounter Summary ---
Author Organization [employer] Address [address] [place] [address] Care Team Providers Care Schedule Clerk Name Role Phone Lele Alva MD Primary Care Provider +1- [phone] Reason for Visit * Reason Comments Med Refill Encounter Details Date Type Department Care Team ([facility] st Contact Info) Description 11/02/2022 Refill [facility] [address] [place] [address] Lele Alva MD [address] [place] [address] Chronic pain syndrome Social History Tobacco Use [...] documented as of this encounter Care Teams Schedule Clerk Relationship Specialty Start Date End Date Lele Alva MD [address] [place] [address] PCP - General Internal Medicine 05/01/16 documented as of this encounter
--- OUTSIDE RECORDS SUMMARY | 2024-06-21 20:59 | XMS_ITS | Encounter Summary ---
Author Organization [employer] Address [address] [facility] [address]t [place] [address] Care Team Providers Care Premium Auditor Name Role Phone Lele Alva MD Primary Care Provider +1- [phone] Reason for Visit * Reason Comments Med Refill Encounter Details Date Type Department Care Team (Late st Contact Info) Description 04/07/2024 Refill [facility] [address] [place] [address] Lele Alva MD [address] [place] [address] Chronic pain syndrome Social History Tobacco Use [...] documented as of this encounter Care Teams Premium Auditor Relationship Specialty Start Date End Date Lele Alva MD [address] [place] [address] PCP - General Internal Medicine 05/01/16 documented as of this encounter
--- OUTSIDE RECORDS SUMMARY | 2024-06-21 20:59 | XMS_ITS | Encounter Summary ---
Author Organization [employer] Address [address] [facility] 7 [place] [address] Care Team Providers Care Marketing Segment Manager Name Role Phone Lele Alva MD Primary Care Provider +1- [phone] Reason for Visit * Reason Comments Med Refill Encounter Details Date Type Department Care Team ([facility] st Contact Info) Description 03/04/2024 Refill [facility] [address] [employer], [place] [phone] Lele Alva MD [address] [place] [address] Chronic pain syndrome Social History Tobacco Use [...] documented as of this encounter Care Teams Marketing Segment Manager Relationship Specialty Start Date End Date Lele Alva MD [address] [place] [address] PCP - General Internal Medicine 05/01/16 documented as of this encounter
--- OUTSIDE RECORDS SUMMARY | 2024-06-21 20:59 | XMS_ITS | Encounter Summary ---
Author Organization [employer] Address [address] [facility] 7t [place] [address] Care Team Providers Care Recreation Instructor Name Role Phone Lele Alva MD Primary Care Provider +1- [phone] Reason for Visit * Reason Comments Med Refill Encounter Details Date Type Department Care Team (Late st Contact Info) Description 02/25/2024 Refill [facility] [address] [place] [address] Lele Alva MD [address] [place] [address] Chronic pain syndrome Social History Tobacco Use [...] documented as of this encounter Care Teams Recreation Instructor Relationship Specialty Start Date End Date Lele Alva MD [address] [place] [address] PCP - General Internal Medicine 05/01/16 documented as of this encounter
--- OUTSIDE RECORDS SUMMARY | 2024-06-21 20:59 | XMS_ITS | Encounter Summary ---
Author Organization [employer] Address [address] [facility] [address] [place] [address] Care Team Providers Care Respiratory Care Program Director Name Role Phone Lele Alva MD Primary Care Provider +1- [phone] Reason for Visit * Reason Comments Med Refill Encounter Details Date Type Department Care Team ([facility] st Contact Info) Description 03/02/2023 Refill [facility] [address] [place], [place] [phone] Lele Alva MD [address] [place] [address] Chronic pain syndrome Social History Tobacco Use [...] the past 12 months, has t he [employer] oil or water company threatened to shut [...] encounter Miscellaneous Notes * Telephone Encounter - Lele Alva MD - 03/06/2023 4:14 PM EDT Already sent documented in this encounter Plan of Treatment Not on file documented as of this encounter Visit Diagnoses Diagnosis Chronic pain syndrome documented in this encounter Additional Health Concerns Assessment Noted Time PHQ-9 Depression Total Score: 15 023 11:14 AM EST documented as of this encounter Care Teams Respiratory Care Program Director Relationship Specialty Start Date End Date Lele Alva MD [address] [place] [address] PCP - General Internal Medicine 05/01/16 documented as of this encounter
--- OUTSIDE RECORDS SUMMARY | 2024-06-21 20:59 | XMS_ITS | Encounter Summary ---
Author Organization [employer] Address [address] [facility] 7t [place] [address] Care Team Providers Care Organisational Psychologist Name Role Phone Lele Alva MD Primary Care Provider +1- [phone] Reason for Visit * Reason Comments Med Refill Encounter Details Date Type Department Care Team (Late st Contact Info) Description 05/05/2024 Refill [facility] [address] [place] [address] Lele Alva MD [address] [place] [address] Chronic pain syndrome Social History Tobacco Use [...] documented as of this encounter Care Teams Organisational Psychologist Relationship Specialty Start Date End Date Lele Alva MD [address] [place] [address] PCP - General Internal Medicine 05/01/16 documented as of this encounter
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
--- OUTSIDE RECORDS SUMMARY | 2024-06-21 20:59 | XMS_ITS | Encounter Summary ---
Author Organization [employer] Address [address] [facility] 7 [place] [address] Care Team Providers Care Overedge Machine Operator Name Role Phone Lele Alva MD Primary Care Provider [phone]- [phone] Reason for Visit * Reason Comments Med Refill Encounter Details Date Type Department Care Team ([facility] st Contact Info) Description 02/26/2024 Refill [facility] [address] [place], [place] [phone] Lele Alva MD [address] [place] [address] Social History Tobacco Use Types Packs/Day Years [...] documented as of this encounter Care Teams Overedge Machine Operator Relationship Specialty Start Date End Date Lele Alva MD [address] [place] [address] PCP - General Internal Medicine 05/01/16 documented as of this encounter
--- OUTSIDE RECORDS SUMMARY | 2024-06-21 20:59 | XMS_ITS | Encounter Summary ---
Author Organization [employer] Address [address] [facility] [address] [place] [address] Care Team Providers Care Peeled Potato Inspector Name Role Phone Lele Alva MD Primary Care Provider [phone]- [phone] Encounter Details Date Type Department Care Team ([facility] st Contact Info) Description 11/22/2023 Orders Only [facility] [address] [place], [place] [phone] Lele Alva MD [address] [place] [address] Chronic pain syndrome (Primary Dx) Social History Tobacco Use Types [...] t he electric, gas, oil or water [employer] threatened to shut off services in your [...] this encounter Visit Diagnoses Diagnosis Chronic pain syndrome- Primary documented in this encounter Additional Health Concerns Assessment Noted Time PHQ-9 Depression Total Score: 15 023 11:14 AM EST documented as of this encounter Care Teams Peeled Potato Inspector Relationship Specialty Start Date End Date Lele Alva MD [address] [place] [address] PCP - General Internal Medicine 05/01/16 documented as of this encounter
--- OUTSIDE RECORDS SUMMARY | 2024-06-21 20:59 | XMS_ITS | Encounter Summary ---
Author Organization [employer] Address [address] [facility] [address] [place] [address] Care Team Providers Care Lime Kiln And Recausticizing Operator Name Role Phone Lele Alva MD Primary Care Provider [phone]- [phone] Reason for Visit * Reason Comments Med Refill Encounter Details Date Type Department Care Team (Late st Contact Info) Description 11/08/2023 Refill [facility] [address] [place] [address] Lele Alva MD [address] [place] [address] PTSD (post-traumatic stress disorder) Social History Tobacco Use Types Packs/Day Years Used Date Smoking Tobacco: Every Day Cigarettes Smokeless Tobacco: Never Depression Answer Date Recorded Patient Health Questionnaire-9 Score 15 06/06/2022 Housing Stability Answer Date Recorded What is your housing situation today? I have bobby jim 03/12/[address] you li [...] documented as of this encounter Care Teams Lime Kiln And Recausticizing Operator Relationship Specialty Start Date End Date Lele Alva MD [address] [place] [address] PCP - General Internal Medicine 05/01/16 documented as of this encounter
--- OUTSIDE RECORDS SUMMARY | 2024-06-21 20:59 | XMS_ITS | Encounter Summary ---
Author Organization [employer] Address [address] [facility] [address] [place] [address] Care Team Providers Care Block Saw Operator Name Role Phone Lele Alva MD Primary Care Provider [phone]- [phone] Reason for Visit * Reason Comments Med Refill Encounter Details Date Type Department Care Team (Late st Contact Info) Description 03/01/2024 Refill [facility] [address] [place] [address] Lele Alva MD [address] [place] [address] Chronic pain syndrome Social History Tobacco Use [...] documented as of this encounter Care Teams Block Saw Operator Relationship Specialty Start Date End Date Lele Alva MD [address] [place] [address] PCP - General Internal Medicine 05/01/16 documented as of this encounter
--- OUTSIDE RECORDS SUMMARY | 2024-06-21 20:59 | XMS_ITS | Encounter Summary ---
Author Organization [employer] Address [address] [facility] [address] [place] [address] Care Team Providers Care Barber Shop Manager Name Role Phone Lele Alva MD Primary Care Provider [phone]- [phone] Reason for Visit * Reason Comments Med Refill Encounter Details Date Type Department Care Team ([facility] st Contact Info) Description 06/06/2024 Refill [facility] [address] [place], [place] [phone] Hosea Chavez MD [address] [place] [address] Social History Tobacco Use Types Packs/Day Years [...] documented as of this encounter Care Teams Barber Shop Manager Relationship Specialty Start Date End Date Lele Alva MD [address] [place] [address] PCP - General Internal Medicine 05/01/16 documented as of this encounter
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
--- NOTE | 2024-06-21 22:04 | ED_ITS ---
HPI - Skin/Abscess/Foreign Bdy General Chief complaint: Skin/Abscess/Foreign Body Stated complaint: abscess Time Seen by Provider: 06/21/24 21:53 Source: patient Mode of arrival: ambulatory Limitations: no limitations History of Present Illness ED Provider: Dr. David Dennis HPI narrative: 44-year-old male with a history of hypertension who presents emergency department for evaluation of an abscess to his left biceps that he has been there for 2 weeks. The patient states that he had redness almost immediately after he injected cocaine into his left biceps area. He states that over the last several days the redness, swelling and department today for evaluation. He denied systemic symptoms such as fever, chills, fatigue, nausea, vomiting. Related Data Home Medications ?Medication ?Instructions ?Recorded ?Confirmed clonazepam 0.5 mg tablet 0.5 mg PO BID 03/19/23 03/19/23 doxepin 50 mg capsule 50 mg PO BEDTIME 03/19/23 03/19/23 pregabalin 150 mg capsule 150 mg PO TID 03/19/23 03/19/23 Previous Rx's ?Medication ?Instructions ?Recorded buprenorphine 300 mg/1.5 mL 300 mg (1.5 mL) subcut ONCE #1.5 mL 11/27/22 solution,exten.rel.subcutaneous syringe (Sublocade) hydroxyzine HCl 50 mg tablet 50 mg PO BEDTIME anxiety #14 tabs 12/22/22 buprenorphine 12 mg-naloxone 3 mg 1 film buccal BID #14 ea 03/27/23 sublingual film (Suboxone) cephalexin 500 mg capsule 500 mg PO QID 7 days #28 caps 06/21/24 doxycycline hyclate 100 mg tablet 100 mg PO Q12H 7 days #14 tabs 06/21/24 oxycodone 5 mg tablet 5 mg PO Q6H PRN pain #14 tabs 06/21/24 Allergies Allergy/AdvReac Type Severity Reaction Status Date / Time amoxicillin [AMOXICILLIN] Allergy Mild RASH, Verified 06/21/24 14:51 vomiting,diarrhea morphine [MORPHINE] Allergy Mild RASH, Verified 06/21/24 14:51 shortness of breath, nausea,vomiting hydrocodone [Vicodin] Allergy Unknown shortness Verified 06/21/24 14:51 of breath Penicillins [PENICILLINS] Allergy Unknown RASH Verified 06/21/24 14:51 gadobutrol [From GADAVIST] AdvReac Mild NAUSEA & Verified 06/21/24 14:51 VOMITING levofloxacin [From LEVAQUIN] AdvReac Unknown N/V Verified 06/21/24 14:51 Review of Systems 2 Review of Systems: Yes all other systems are reviewed and are negative [facility], [facility] Past Medical History Medical History PTSD (post-traumatic stress disorder) Depression Anxiety HTN (hypertension) Surgical History No pertinent past surgical history Family History Family History Father HIV (human immunodeficiency virus infection) Mother Diabetes Hypertension Brother Hypertension Diabetes Sister Diabetes Hypertension Social History Social History Advance Directives: No Advance Directives Information Provided: No Physical Exam 2 Vital Signs: Vital Signs: Last Vital Signs Temp 98.4 F 06/21/24 14:49 Pulse 120 H 06/21/24 14:49 Resp 20 06/21/24 14:49 BP 135/94 H 06/21/24 14:49 Pulse Ox 99 06/21/24 14:49 O2 Del Method Room Air 06/21/24 14:49 BMI result Body Mass Index 34.5 Patient had an elevated heart rate of 120 otherwise vital signs were unremarkable Exam:. Patient was extreme lesion neurovascularly intact. Left upper extremity biceps area: The patient has an area of erythema and induration measuring a proximally 6 x 6 cm with a central area measuring a proximally 4 x 4 cm of flocculence. The erythema is warm to the touch Medical Decision Making Medical Decision Making MDM Narrative: 44-year-old male with a history of hypertension who presents emergency department for evaluation of an abscess to his left biceps that he has been there for 2 weeks worse times several days. Vital signs revealed elevated heart rate. Exam is consistent with a central abscess with induration Differential diagnosis: ?Includes but is not limited to abscess, cellulitis, electrolyte abnormalities, anemia Course, 23:10 My independent interpretation patient's laboratory evaluation is as follows: CBC was normal. CMP revealed an elevated glucose of 193. Elevated AST of 84 and an elevated bilirubin of 1.2. Patient was given analgesia with oxycodone mg orally and ibuprofen 400 mg The patient's abscess was incised and drained a proximally 40 cc of purulent material was suctioned from the wound. The wound was packed with and covered with a bulky dressing. The patient was prescribed doxycycline 100 mg q.12 hours x7 days and Keflex 500 mg 4 times a day for 7 days. He was given the 1st dose these medications here in the emergency department. He was advised to take Tylenol ibuprofen for pain and for pain not relieved by these medications he was prescribed oxycodone. Patient was given printed and verbal instructions and discharged home. Admission/Observation Consideration of admission/observation: Escalation of care including admission/observation considered (Yes) Lab Data 06/21/24 19:24 06/21/24 15:10 Labs: Lab Results 06/21/24 06/21/24 Range/Units 15:10 19:24 WBC 10.5 (4.8-10.8) X10*3/uL RBC 4.87 (4.60-5.80) X10*6/uL Hgb 14.5 (14.0-18.0) g/dl Hct 42.7 (42.0-52.0) % MCV 87.7 (80.0-98.0) fL MCH 29.8 (27.0-33.0) pg MCHC 34.0 (31.0-36.0) g/dl RDW 11.9 (11.0-16.0) % Plt Count 257 (160-400) X10*3/uL MPV 9.4 (9.4-12.4) fL Immature Gran % (Auto) 0.3 (0.0-0.4) % Neut % (Auto) 69.3 (45-73) % Lymph % (Auto) 17.4 L (20-40) % [place] % (Auto) 11.4 H (2-11) % Eos % (Auto) 1.2 (0-4) % Baso % (Auto) 0.4 (0-2) % Lymph # (Auto) 1.8 (1.2-4.9) X10*3/uL [place] # (Auto) 1.2 (0.1-1.2) X10*3/uL Eos # (Auto) 0.1 (0.0-0.4) X10*3/uL Baso # (Auto) 0.0 (0.0-0.2) X10*3/uL Abs Immat Gran (auto) 0.03 (0.00-0.03) X10*3/uL Absolute Neuts (auto) 7.3 (2.0-8.3) x10*3/uL Absolute Nucleated RBC 0.000 (0.0-0.012) X10*3/uL Nucleated RBC % (auto) 0.0 (0.0-0.2) /100WBC Sodium 133 L (135-145) mmol/L Potassium 3.6 (3.3-5.1) mmol/L Chloride 100 (96-108) mmol/L Carbon Dioxide 22 (22-29) mmol/L Anion Gap 15 (12-20) BUN 14 (9-16) mg/dL Creatinine 0.92 (0.5-1.4) mg/dL Estim Creat Clear Calc 116.5 Estimated GFR > 60 Random Glucose 193 H (60-115) mg/dL Lactic Acid 1.6 (0.5-2.0) mmol/L Calcium 9.0 D (8.4-10.2) mg/dL Total Bilirubin 1.2 H (0.0-1.0) mg/dL AST 84 H (5-37) U/L ALT 38 (0-40) U/L Alkaline Phosphatase 70 (39-117) U/L Total Protein 7.8 (6.5-8.0) g/dL Albumin 3.9 (3.5-5.0) g/dL Independent Historian Clinical information obtained from an independent historian. History obtained from or confirmed by: Parent (Mother) Prescription Management I considered prescription management with: Pain Medication (Oxycodone) and Antibiotic (Keflex and doxycycline) Chronic Conditions Patient?s care impacted by: Hypertension Procedures Abscess I/D Site: upper extremity Side (if applicable): left ( Biceps area) Sedation/analgesia: other (Oxycodone 10 mg orally, ibuprofen 10 mg orally) Local Anesthetic: lidocaine 1% Amount of anesthesia used (mL): 10 Technique: incised with blade (#11 Blade) Amount of fluid expressed (mL): 40 Sent for culture/gram staining?: Yes Irrigation: No Packing used?: plain (Half-inch packing) Discharge Plan Discharge Clinical Impression: Abscess of arm, left, Cellulitis of arm, left, Encounter for incision and drainage procedure Patient Disposition: Home, Self-Care Instructions: Abscess (ED), Incision and Drainage (ED) Additional Instructions: You had an abscess (collection of pus) under the skin of your left biceps cut into and drained by me. You also have a hard area of infection around this abscess which is consistent with a skin infection (cellulitis). Keep the dressing on for 24 hours and then you can change the dressing. There is a small string of packing in the wound. The packing should stay in for 2-4 days but if the packing falls out it does not need to be replaced. I want you to use a heating pad on low for 15 minutes 4 to 6 times a day to increase the blood flow to the area and help the healing process. Also keep your arm elevated this will help the healing process. Take doxycycline 100 mg, 1 pill every 12 hours for 7 days Take Keflex (cephalexin) 500 mg pills, 1 pill 3 times a day for 7 days. Take ibuprofen 200 mg pills, 3 pills every 6 hours as needed for pain. Take Tylenol (acetaminophen) 500 mg pills, 2 pills every 46 hours as needed for pain. For pain not relieved by ibuprofen or Tylenol take oxycodone 5 mg pills, 1 pill every 6 hours as needed for pain. Do not drive or work while taking this medication since they can cause sleepiness. Oxycodone is a narcotic medication that can be addicting. If you are concerned about addiction you can ask the pharmacist for less pills or do not get this prescription filled. Follow-up with your doctor in 2 days. Please return to the emergency department if your symptoms get worse or if you develop any symptoms that are concerning to you. Prescriptions: New cephalexin 500 mg capsule 500 mg PO QID 7 Days Qty: 28 0RF doxycycline hyclate 100 mg tablet 100 mg PO Q12H 7 Days Qty: 14 0RF oxycodone 5 mg tablet 5 mg PO Q6H PRN (Reason: pain) Qty: 14 0RF Rx Instructions: Partial Fill upon patient request. No Action Sublocade 300 mg/1.5 mL solution, extended rel syringe 300 mg subcut ONCE Qty: 1.5 1RF Rx Instructions: every 28 days hydroxyzine HCl 50 mg tablet 50 mg PO BEDTIME Qty: 14 0RF doxepin 50 mg capsule 50 mg PO BEDTIME pregabalin 150 mg capsule 150 mg PO TID clonazepam 0.5 mg tablet 0.5 mg PO BID buprenorphine-naloxone [Suboxone] 12-3 mg film 1 film buccal BID Qty: 14 1RF Print Language: French
[2024-06-21] MEDS: Ibuprofen 400 MG TABLET PO (22:09)
[2024-06-21] MEDS: oxyCODONE HCl Immed Release 5 MG TABLET 10 MG PO (22:09)
[2024-06-21] MEDS: Lidocaine HCl 1 % MPF 5 ML VIAL INFILTRATI ×2 (22:09)
[2024-06-21] MEDS: Doxycycline Monohydrate 100 MG CAPSULE PO (23:11)
[2024-06-21] MEDS: cephALEXin 500 MG CAPSULE PO (23:11)
[2024-06-21 23:19] VITALS: BP 135/94; PULSE 120; RESP 20; TEMP 36.9; O2SAT 99
== END 2024-06-21 23:19 | disposition home or self-care (01) ==
PROVIDERS: Emergency Provider Emergency Medicine Emergency Medical Services
DX: L02.414 Cutaneous abscess of left upper limb (principal); L03.114 Cellulitis of left upper limb; A49.02 Methicillin resistant Staphylococcus aureus infection, unspecified site; F11.20 Opioid dependence, uncomplicated; I10 Essential (primary) hypertension; Z79.899 Other long term (current) drug therapy
CPT/HCPCS: 10060; 36415; 80053; 83605; 85025; 87040; 87070; 87077; 87147; 87186; 87205; 99283; 99284; J2003

== ENCOUNTER 2024-06-23 02:14 | Emergency (ER) | payer MEDICARE, MEDICAID, SELFPAY ==
--- NOTE | 2024-06-23 | ECG_ITS ---
Test Reason : NAUSEA Blood Pressure : */* mmHG Vent. Rate : 113 BPM Atrial Rate : 113 BPM P-R Int : 154 ms QRS Dur : 100 ms QT Int : 336 ms P-R-T Axes : 17 8 4 degrees QTcB Int : 460 ms Sinus tachycardia Cannot rule out Inferior infarct , age undetermined Abnormal ECG When compared with ECG of 09-Jan-2023 11:14, Vent. rate has increased by 40 bpm Nonspecific T wave abnormality no longer evident in Anterior leads Referred By: Generic ED Physician Electronically Signed By: ARNAV GORE
[2024-06-23 02:15] VITALS: BP 152/102; PULSE 121; RESP 18; TEMP 36.5; O2SAT 98; BMI 34.9
--- NOTE | 2024-06-23 02:40 | PC.NURSE ---
attempted to call patient to care area, pt not in waiting room. Per registration staff pt checked in, got triaged and went upstairs to inpatient area to take his son a tablet. this scientific technical writer called the pt informing him that he was called in the waiting room to come back to a care area and pt states he will be down shortly.
--- NOTE | 2024-06-23 02:50 | MHC.EDTECH ---
second attempt to call pt from waiting room to care area. per registration pt is upstairs with his son, registration staff stated charge nurse is aware.
[2024-06-23 03:16] LABS: Basophils Percent Auto 0.3 % (0-2); Eosinophils Absolute Auto 0.1 X10*3/uL (0.0-0.4); Eosinophils Percent Auto 0.9 % (0-4); Hematocrit 38.3 % (42.0-52.0); Hemoglobin 13.4 g/dl (14.0-18.0); Imm Gran Abs Auto 0.02 X10*3/uL (0.00-0.03); Imm Gran Pct Auto 0.2 % (0.0-0.4); Lymphocytes Percent Auto 19.4 % (20-40); MANUAL DIFF FLAG NO; Mean Corpuscular Hemoglobin 29.6 pg (27.0-33.0); Mean Corpuscular Volume 84.7 fL (80.0-98.0); Mean Platelet Volume 9.8 fL (9.4-12.4); Monocytes Absolute Auto 0.8 X10*3/uL (0.1-1.2); Monocytes Percent Auto 7.5 % (2-11); Neutrophils Absolute Auto 7.3 x10*3/uL (2.0-8.3); Neutrophils Percent Auto 71.7 % (45-73); Platelet Count 269 X10*3/uL (160-400); Red Blood Count 4.52 X10*6/uL (4.60-5.80); Red Cell Distribution Width 11.7 % (11.0-16.0); White Blood Count 10.2 X10*3/uL (4.8-10.8)
[2024-06-23 03:42] LABS: Alanine Aminotransferase 35 U/L (0-40); Albumin Level 3.9 g/dL (3.5-5.0); Anion Gap 16 (12-20); Aspartate Amino Transferase 95 U/L (5-37); Bilirubin Total 0.5 mg/dL (0.0-1.0); Blood Urea Nitrogen 19 mg/dL (9-16); Calcium 9.7 mg/dL (8.4-10.2); Carbon Dioxide 23 mmol/L (22-29); Chloride 101 mmol/L (96-108); Estimated Glomerular Filt Rate > 60; Glucose Random 115 mg/dL (60-115); Potassium 3.1 mmol/L (3.3-5.1); Sodium 137 mmol/L (135-145)
[2024-06-23] MEDS: Ondansetron ODT 4 MG TAB.RAPDIS TRANSLINGU (03:51)
[2024-06-23 03:52] VITALS: BP 152/102; PULSE 102; RESP 20; TEMP 36.5; O2SAT 98
[2024-06-23 03:53] LABS: Influenza A PCR NEGATIVE (Negative); Influenza B PCR NEGATIVE (Negative); Resp Syncy Virus RNA Qual PCR NEGATIVE (Negative); SARS COV2 PCR INHOUSE NEGATIVE (Negative)
[2024-06-23 04:04] LABS: Alkaline Phosphatase 71 U/L (39-117)
--- NOTE | 2024-06-28 07:22 | ED_ITS ---
HPI - Nausea/Vomiting/Diarrhea General Chief complaint: Nausea/Vomiting/Diarrhea Stated complaint: vomiting Time Seen by Provider: 06/23/24 03:42 Source: patient Mode of arrival: ambulatory Limitations: no limitations History of Present Illness ED Provider: HPI Narrative: Patient takes doxycycline complaining of gastritis with nausea vomiting only once or twice a vomited no abdominal pain no diarrhea Related Data Home Medications ?Medication ?Instructions ?Recorded ?Confirmed clonazepam 0.5 mg tablet 0.5 mg PO BID 03/19/23 06/23/24 doxepin 50 mg capsule 50 mg PO BEDTIME 03/19/23 06/23/24 pregabalin 150 mg capsule 150 mg PO TID 03/19/23 06/23/24 Previous Rx's ?Medication ?Instructions ?Recorded buprenorphine 300 mg/1.5 mL 300 mg (1.5 mL) subcut ONCE #1.5 mL 11/27/22 solution,exten.rel.subcutaneous syringe (Sublocade) hydroxyzine HCl 50 mg tablet 50 mg PO BEDTIME anxiety #14 tabs 12/22/22 buprenorphine 12 mg-naloxone 3 mg 1 film buccal BID #14 ea 03/27/23 sublingual film (Suboxone) cephalexin 500 mg capsule 500 mg PO QID 7 days #28 caps 06/21/24 doxycycline hyclate 100 mg tablet 100 mg PO Q12H 7 days #14 tabs 06/21/24 oxycodone 5 mg tablet 5 mg PO Q6H PRN pain #14 tabs 06/21/24 doxycycline hyclate 100 mg tablet 100 mg PO BID #20 tabs 06/23/24 ondansetron 4 mg disintegrating 4 mg PO Q6-8H PRN nausea and 06/23/24 tablet vomiting #7 tabs oxycodone 5 mg tablet 5 mg PO Q8H PRN pain #10 tabs 06/23/24 Allergies Allergy/AdvReac Type Severity Reaction Status Date / Time amoxicillin [AMOXICILLIN] Allergy Mild RASH, Verified 06/23/24 10:52 vomiting,diarrhea morphine [MORPHINE] Allergy Mild RASH, Verified 06/23/24 10:52 shortness of breath, nausea,vomiting hydrocodone [Vicodin] Allergy Unknown shortness Verified 06/23/24 10:52 of breath Penicillins [PENICILLINS] Allergy Unknown RASH Verified 06/23/24 10:52 gadobutrol [From GADAVIST] AdvReac Mild NAUSEA & Verified 06/23/24 10:52 VOMITING levofloxacin [From LEVAQUIN] AdvReac Unknown N/V Verified 06/23/24 10:52 Review of Systems 2 Review of Systems: Yes all other systems are reviewed and are negative [facility] Past Medical History Medical History Abscess of arm, left PTSD (post-traumatic stress disorder) Depression Anxiety HTN (hypertension) Surgical History No pertinent past surgical history Family History Family History Father HIV (human immunodeficiency virus infection) Mother Diabetes Hypertension Brother Hypertension Diabetes Sister Diabetes Hypertension Physical Exam 2 Vital Signs: Vital Signs: Last Vital Signs Temp 97.7 F 06/23/24 03:52 Pulse 102 H 06/23/24 03:52 Resp 20 06/23/24 03:52 BP 152/102 H 06/23/24 03:52 Pulse Ox 98 06/23/24 03:52 O2 Del Method Room Air 06/23/24 03:52 BMI result Body Mass Index 34.9 Appearance: Alert. Oriented X3. No acute distress. Eyes: PERRLA, No Nystagmus ENT: Pharynx normal. Oral Mucosa moist Neck: Normal inspection. Neck supple. CVS: Normal heart rate and rhythm. Pulses normal. Respiratory: No respiratory distress. Equal air entry bilateral, no wheezing/rales/rhonchi Abdomen: Soft and nontender. Bowel sounds are present, no mass palpable, no CVA tenderness Skin: Skin warm and dry. Normal skin color. Normal skin turgor. Extremities: No lower extremity edema. No calf tenderness Neuro: Oriented X 3. No motor deficit. No sensory deficit.No cerebellar signs , cranial nerves II-XII intact Medications Administered Discontinued Medications Generic Name Dose Route Start Last Admin Trade Name Freq PRN Reason Stop Dose Admin Ondansetron HCl 4 mg 06/23/24 03:46 06/23/24 03:51 Ondansetron Odt 4 Mg Tab.Rapdis TRANSLINGU 06/23/24 03:47 4 mg ONCE ONE Administration Medical Decision Making Medical Decision Making MDM Narrative: Patient is likely from gastritis from doxycycline advised not to take medicine on empty stomach Lab Data MDM Lab Attestation statement: I reviewed the patient's lab results. 06/23/24 03:10 06/23/24 03:10 Labs: Lab Results 06/23/24 Range/Units 03:10 WBC 10.2 (4.8-10.8) X10*3/uL RBC 4.52 L (4.60-5.80) X10*6/uL Hgb 13.4 L (14.0-18.0) g/dl Hct 38.3 L (42.0-52.0) % MCV 84.7 (80.0-98.0) fL MCH 29.6 (27.0-33.0) pg MCHC 35.0 (31.0-36.0) g/dl RDW 11.7 (11.0-16.0) % Plt Count 269 (160-400) X10*3/uL MPV 9.8 (9.4-12.4) fL Immature Gran % (Auto) 0.2 (0.0-0.4) % Neut % (Auto) 71.7 (45-73) % Lymph % (Auto) 19.4 L (20-40) % [place] % (Auto) 7.5 (2-11) % Eos % (Auto) 0.9 (0-4) % Baso % (Auto) 0.3 (0-2) % Lymph # (Auto) 2.0 (1.2-4.9) X10*3/uL [place] # (Auto) 0.8 (0.1-1.2) X10*3/uL Eos # (Auto) 0.1 (0.0-0.4) X10*3/uL Baso # (Auto) 0.0 (0.0-0.2) X10*3/uL Abs Immat Gran (auto) 0.02 (0.00-0.03) X10*3/uL Absolute Neuts (auto) 7.3 (2.0-8.3) x10*3/uL Absolute Nucleated RBC 0.000 (0.0-0.012) X10*3/uL Nucleated RBC % (auto) 0.0 (0.0-0.2) /100WBC Sodium 137 (135-145) mmol/L Potassium 3.1 L (3.3-5.1) mmol/L Chloride 101 (96-108) mmol/L Carbon Dioxide 23 (22-29) mmol/L Anion Gap 16 (12-20) BUN 19 H (9-16) mg/dL Creatinine 0.99 (0.5-1.4) mg/dL Estim Creat Clear Calc 109.0 Estimated GFR > 60 Random Glucose 115 (60-115) mg/dL Calcium 9.7 D (8.4-10.2) mg/dL Total Bilirubin 0.5 (0.0-1.0) mg/dL AST 95 H (5-37) U/L ALT 35 (0-40) U/L Alkaline Phosphatase 71 (39-117) U/L Total Protein 8.0 (6.5-8.0) g/dL Albumin 3.9 (3.5-5.0) g/dL Influenza Type A (PCR) NEGATIVE (Negative) Influenza Type B (PCR) NEGATIVE (Negative) RSV RNA Qual (PCR) NEGATIVE (Negative) SARS-CoV-2 RNA (RT-PCR) NEGATIVE (Negative) Discharge Plan Discharge Clinical Impression: Medication side effect Patient Disposition: Home, Self-Care Instructions: Wound Infection (DC) Additional Instructions: Take antibiotics for total for 2 weeks Do not take medication empty stomach Report to the ER if high fever or worsening of the infection Medicine for nausea as prescribed Prescriptions: New ondansetron 4 mg tablet,disintegrating 4 mg PO Q6-8H PRN (Reason: nausea and vomiting) Qty: 7 0RF doxycycline hyclate 100 mg tablet 100 mg PO BID Qty: 20 0RF No Action Sublocade 300 mg/1.5 mL solution, extended rel syringe 300 mg subcut ONCE Qty: 1.5 1RF Rx Instructions: every 28 days hydroxyzine HCl 50 mg tablet 50 mg PO BEDTIME Qty: 14 0RF cephalexin 500 mg capsule 500 mg PO QID 7 Days Qty: 28 0RF doxycycline hyclate 100 mg tablet 100 mg PO Q12H 7 Days Qty: 14 0RF oxycodone 5 mg tablet 5 mg PO Q6H PRN (Reason: pain) Qty: 14 0RF Rx Instructions: Partial Fill upon patient request. doxepin 50 mg capsule 50 mg PO BEDTIME pregabalin 150 mg capsule 150 mg PO TID clonazepam 0.5 mg tablet 0.5 mg PO BID buprenorphine-naloxone [Suboxone] 12-3 mg film 1 film buccal BID Qty: 14 1RF oxycodone 5 mg tablet 5 mg PO Q8H PRN (Reason: pain) Qty: 10 0RF Rx Instructions: Partial Fill upon patient request. Interventions: ED Discharge Assessment Last Done: 06/23/24 03:52 Discharge Date/Time: 06/23/24 03:57 Print Language: Romansh
== END 2024-06-23 03:57 | disposition home or self-care (01) ==
PROVIDERS: Emergency Provider Internal Medicine; PCP Internal Medicine
DX: R11.2 Nausea with vomiting, unspecified (principal); T36.4X5A Adverse effect of tetracyclines, initial encounter; Y92.9 Unspecified place or not applicable; I10 Essential (primary) hypertension; F11.20 Opioid dependence, uncomplicated; Z79.899 Other long term (current) drug therapy; Z03.818 Encounter for observation for suspected exposure to other biological agents ruled out
CPT/HCPCS: 0241U; 36415; 80053; 85025; 93005; 99202; 99283

== ENCOUNTER → 2024-06-23 02:56 | Outpatient (BNV) | payer MEDICARE, MEDICAID, SELFPAY | PROVIDERS: Emergency Provider Internal Medicine; PCP Internal Medicine; Visit Provider Internal Medicine | DX: R00.0 Tachycardia, unspecified (principal) | CPT/HCPCS: 93010 ==

== ENCOUNTER 2024-06-23 10:42 | Outpatient (AMB) | payer MEDICARE, MEDICAID, SELFPAY ==
--- NOTE | 2024-06-23 10:46 | A.OFFVIS_ITS ---
Vital Signs 06/23/24 10:54 Height 5 ft 7 in Weight 228 lb BMI 35.7 BP 107/79 Blood Pressure Location Rt brachial Position Sitting Pulse 83 Intake Visit Reasons: arm abscess with sepsis Intake Note: Patient referred from ED visit this morning. Diagnosed with sepsis on Lt upper arm wound infection. Patient c/o: started 1wk ago. Injected coke to site. Prescribed Cephalexin 500mg QID and Doxycycline 100 mg BID. Wood Sawyer Required: No Accompanied by: Self / Same As Patient Allergies amoxicillin [AMOXICILLIN] Allergy (Mild, Verified 06/23/24 10:52) RASH, vomiting,diarrhea morphine [MORPHINE] Allergy (Mild, Verified 06/23/24 10:52) RASH, shortness of breath, nausea,vomiting hydrocodone [Vicodin] Allergy (Unknown, Verified 06/23/24 10:52) shortness of breath Penicillins [PENICILLINS] Allergy (Unknown, Verified 06/23/24 10:52) RASH gadobutrol [From GADAVIST] Adverse Reaction (Mild, Verified 06/23/24 10:52) NAUSEA & VOMITING levofloxacin [From LEVAQUIN] Adverse Reaction (Unknown, Verified 06/23/24 10:52) N/V Medication List - Last Reconciled 06/23/24 by Milton Stephenson MD buprenorphine ER (Sublocade) 300 mg (1.5 mL) subcut ONCE buprenorphine-naloxone 12-3 mg (Suboxone) 1 film buccal BID cephalexin 500 mg PO QID 7 days clonazepam 0.5 mg PO BID doxepin 50 mg PO BEDTIME doxycycline hyclate 100 mg PO Q12H 7 days doxycycline hyclate 100 mg PO BID hydroxyzine HCl 50 mg PO BEDTIME ondansetron 4 mg PO Q6-8H PRN oxycodone 5 mg PO Q6H PRN pregabalin 150 mg PO TID HPI Comments Details: Patient was status post ER visit where he underwent I&D of a left intramuscular/biceps arm abscess. He presents here for follow-up as well as persistence of symptoms although slightly improved. Patient was quite emotionally labile. He has been taking his antibiotics. He has also been using his analgesics. Chart was reviewed and patient evaluated. History of polysubstance abuse. [facility] Medical History (Updated 06/23/24 @ 11:03 by Milton Stephenson MD) Abscess of arm, left PTSD (post-traumatic stress disorder) Depression Anxiety HTN (hypertension) Surgical History (Updated 06/23/24 @ 11:03 by Milton Stephenson MD) No pertinent past surgical history Family History Father HIV (human immunodeficiency virus infection) Mother Diabetes Hypertension Brother Hypertension Diabetes Sister Diabetes Hypertension Physical Exam Vital Signs: Last Vital Signs Pulse 83 06/23/24 10:54 BP 107/79 06/23/24 10:54 BMI result Body Mass Index 35.7 Extrem Other: Patient has a markedly edematous tender indurated left mid biceps area with an I&D site which is still draining purulence with gentle pressure. Very tender to palpation Assessment & Plan Assessment & Plan (1) Abscess of left upper extremity: Code(s): L02.414 - Cutaneous abscess of left upper limb Category: Surgical Plan My evaluation of the patient was still has possibly undrained deep/intramuscular collection. Because of the depth and location, I think the patient would best be served by having formal hand surgical evaluation. Arrangements made for this. Patient had this explained to him in concurs. Meantime, patient will be given a few analgesics to hold him over as well as to continue his antibiotics and his local wound care. Medications: New oxycodone Partial Fill upon patient request. 5 mg PO Q8H PRN 10 tabs 0RF pain Coding Level of Care Code New Pt Level 4 (28421) Diagnoses Abscess of left upper extremity L02.414
[2024-06-23 10:54] VITALS: BP 107/79; PULSE 83; BMI 35.7
--- OUTSIDE RECORDS SUMMARY | 2024-06-23 15:27 | XMS_ITS | Patient Health Record ---
Author Organization [facility] Address [address] [place] [address] Care Team Providers Care Dial Painter Name Role Phone BISI CALI Primary Care Provider Reason For Referral No Information Encounters Encounter Location Date Provider Diagnosis [facility] [address] [place] [address] 02/15/2024 BISI CALI Plan Of Treatment No Information
--- OUTSIDE RECORDS SUMMARY | 2024-06-23 15:27 | XMS_ITS | Clinical Summary ---
Author Organization [facility] Address [address] [place] [address] Care Team Providers Care Land Title Examiner Name Role Phone Lele Alva MD Primary Care Provider [phone] Surgical History Surgery Date Site/Laterality Comments VASECTOMY [...] Anxiety DX:Anxiety Lumbago DX:Lumbago Bipolar 1 disorder ([facility]/HCC) 02/18/2015 DX: Bipolar 1 disorder (HCC) Substance abuse ([facility]) 02/18/2015 DX:Sub stance abuse (HCC); COMMENT: UDS [...] age to complete this topic Care Teams Land Title Examiner Relationship Specialty Start Date End Date Lele Alva MD [address] [place] [address] PCP - General Internal Medicine 03/09/22
--- OUTSIDE RECORDS SUMMARY | 2024-06-23 15:27 | XMS_ITS | Clinical Summary ---
Author Organization [facility] Address [address] [place] [id number] Phone Care Team Providers Care [place] Supervisor Name Role Phone Chepe Salazar Primary Care Provider [phone] Immunizations Name Administration Dates Next Due DTP [...] age to complete this topic Care Teams [place] Supervisor Relationship Specialty Start Date End Date Chepe Salazar [address] [place] [id number] PCP - General 01/05/17
--- OUTSIDE RECORDS SUMMARY | 2024-06-23 15:27 | XMS_ITS ---
Author Organization [facility] Address [address] [address] Care Team Providers Care Tool Supervisor Name Role Phone BISI CALI Primary Care Provider REASON FOR VISIT offering appt Encounters Encounter Location Date Provider Diagnosis [facility] [address] [place] [address] 02/15/2024 BISI CALI Plan Of Treatment No Information Progress Notes * David BURKSOB: [birth year] (43 yo M)Acc No.[id number]:02/15/2024 Patient:?Roshan BURKS :1980???Age:43 Y???Sex:Male Address[address] [place], [address] * true * Date:? Generated for Aliciai gary/Segundo/eTransmitting on:?06/23/2024 03:27 PM EST
== END 2024-06-23 10:59 | disposition home or self-care (01) ==
PROVIDERS: PCP Internal Medicine; Visit Provider Surgery
DX: L02.414 Cutaneous abscess of left upper limb (principal)
CPT/HCPCS: 99204

== ENCOUNTER 2024-07-03 10:07 | Outpatient (REF) | payer MEDICARE, MEDICAID, SELFPAY ==
--- OUTSIDE RECORDS SUMMARY | 2024-07-04 11:00 | XMS_ITS | Data Portability ---
Author Organization [place] - [facility], [facility], [employer] Address [address] [place] [address], [address] [place] [address] Assessment No assessment recorded. Plan of Treatment [...] Organization Details Recorded Time Major depressive disorder [id number] Active 2021 PENNY AVILA [address] [place] [address], [address], [place], [address], [place] [facility], [facility] 2 13:48:59 Hypertensive disorder [id number] Active 2021 PENNY AVILA [address] [place] [address], Suite [facility], [place], [address], [place] [facility], [facility] 2 13:49:05 Asthma [id number] Active 2021 PENNY AVILA [address] [place] [address], [address], [place], [address], [place] [facility], [facility] 2 13:58:18 Problem Notes None recorded. Procedures Surgical History Date Name Laterality Status Provider Name and Address Organization Details Recorded Time vasectomy completed PENNY AVILA [address] [place] [address], [address], [place], [address], [place] - [facility], [facility] 03/28/2022 13:55:30 tonsillectomy completed PENNY PAEZ [address] [place] [address], [address], [place], [address], [place] [facility], [facility] 03/28/2022 13:55:36 procedure on lower leg completed PENNY AVILA [address], [address], [place], [address], [place] [facility], [facility] 03/28/2022 13:56:58 Hernia repair w/mesh completed PENNY AVILA [address], [address], [place], [address], [place] [facility], [facility] 03/28/2022 13:57:04 discectomy of spine completed PENNY AVILA [address], [address], [place], [address], [place] [facility], [facility] 03/28/2022 13:57:48 endoscopic sleeve gastroplasty completed PENNY AVILA [address], [address], [place], [address], [place] [facility], [facility] 03/28/2022 13:57:56 Shoulder joint surgery completed PENNY AVILA [address], [address], [place], [address], [place] [facility], [facility] 03/28/2022 16:37:33 surgical manipulation of wrist joint completed PENNY AVILA [address], [address], [place], [address], [place] [facility], [facility] 03/28/2022 16:37:40 lumbar spinal fusion completed PENNY AVILA [address], [address], [place], [address], [place] [facility], [facility] 03/28/2022 16:41:19 Imaging Results None recorded. Procedure Notes None recorded. Medical Equipment None Reported. Allergies Allergen ID Allergen Name Allergen Category Reaction Reaction Severity Criticality Documentation Date Start Date Code Code System Note Provider Name and Address Organization Details Recorded Time 5345 acetamino phen medicatio n hives Not available [facility] 03/28/2022 161 RxNorm Not Available Not Available Not Available 5346 amoxicill in medicatio n hives Not available high 03/28/2022 723 RxNorm Not Available Not Available Not Available 5347 hydrocodo ne Not available hives Not available high 03/28/2022 5489 RxNorm Not Available Not Available Not Available 5348 levofloxa ayaan medicatio n anaphylax is Not available high 03/28/2022 25538 RxNorm Not Available Not Available Not Available 5349 morphine medicatio n hives Not available high 03/28/2022 7052 RxNorm Not Available Not Available Not Available 5350 tramadol medicatio n hives Not available high 03/28/2022 92563 RxNorm Not Available Not Available Not Available 5355 fentanyl medicatio n Not available Not available Not available 03/28/2022 4337 RxNorm Not Available Not Available Not Available 5356 lisinopri l medicatio n Not available Not available Not available 03/28/2022 17049 RxNorm Not Available Not Available Not Available [...] mm[Hg] 114 mm[Hg] Tia Cochran [place] - [facility], [facility] 2 16:29:18 Social History None recorded. Functional Status None recorded. Mental Status None recorded. Family History Nothing Reported. Medical History No medical history recorded. Past Encounters Encounter ID Performer Location Encounter Start Date Encounter Closed Date Diagnosis/Indication Diagnosis SNOMED-CT Code Diagnosis ICD10 Code Diagnosis Note [id number] Clifford Ye, [address], [address] [place] [address] 03/28/2022 15:50:11 03/28/2022 18:22:56 Lumbosacral radiculopathy 2785785 M54.17 Patient has history of COCaine use and has failed UT from another practice. He was + for [place] when he was being prescribed Oxycodone. For [...] transforam inal epidural completed last year at [facility] . Given this, we believe he is a good candidate for Spinal Cord Stimulatio n Trial. Patient was amenable. I informed patient I am leaving the room to meet Dr. Ye. When we returned to the room, he already left the office. He informed front end loader driver staff he had significan t GI [...] Member ID Guarantor Name 03/28/2022 2 [place] [facility] Roshan Pj [id number] Roshan Pj 03/28/2022 1 MEDICARE B-[place]: [employer] Roshan Pj [id number] Roshan Pj Notes Date Note Type Note Provider Name [...] and Transforaminal epidurals 1 year ago at [facility] with minimal relief. Previous Surgery:discectomy at levels ; fusion at levels Previous PT:helped a little Clifford Ye, [address], [address], [place], [address], [facility], [facility] 03/28/2022 18:18:22
--- OUTSIDE RECORDS SUMMARY | 2024-07-04 11:00 | XMS_ITS ---
Author Organization [facility] Address [address] [address] Care Team Providers Care Printing Press Machinist Name Role Phone BISI CALI Primary Care Provider [phone] REASON FOR VISIT offering appt Encounters Encounter Location Date Provider Diagnosis [facility] [address] [place] [address] 02/15/2024 BISI CALI Plan Of Treatment No Information Progress Notes * David BURKSOB: [birth year] (43 yo M)Acc No.[id number]:02/15/2024 Patient:?Roshan BURKS :1980???Age:43 Y???Sex:Male Address:[address] [place], [address] * true * Date:? Generated for Aliciai gary/Segundo/eTransmitting on:?07/04/2024 10:59 AM EST
--- OUTSIDE RECORDS SUMMARY | 2024-07-04 11:00 | XMS_ITS | Clinical Summary ---
Author Organization [facility] Address [address] [place] [address] Phone Care Team Providers Care Gl Accountant Name Role Phone Chepe Salazar Primary Care Provider [phone] Immunizations Immunization Administration Dates Next Due DTP 01/04/1987, 3,04/11/1982,1981,1981 Hep B, ped/adol 03/01/1998,02/03/1998 Influenza Split 02/19/1998 Influenza, injectable, trivalent 02/19/1998 MMR 04/26/1993,06/01/1982 OPV 01/04/1987, 3,04/11/1982,1981,1981 Td (adult) (Tenivac), 5 Lf t etanus [...] 11/02/1995 11/01/1995, 01/04/1987, 06/01/1982, Additional history exists Hepatitis B Vaccines (2 of 3 - [...] age to complete this topic Care Teams Gl Accountant Relationship Specialty Start Date End Date Chepe Salazar [address] [place] [id number] PCP - General 01/05/17
--- OUTSIDE RECORDS SUMMARY | 2024-07-04 11:00 | XMS_ITS | Clinical Summary ---
Author Organization [facility] Address [address] [place] [address] Care Team Providers Care Pipe Or Steam Fitter Furnace Installer Name Role Phone Lele Alva MD Primary Care Provider [phone] Surgical History Surgery Date Site/Laterality Comments VASECTOMY [...] Anxiety DX:Anxiety Lumbago DX:Lumbago Bipolar 1 disorder (CMS/HCC) 02/18/2015 DX: Bipolar 1 disorder (HCC) Substance abuse ([facility]) 02/18/2015 DX:Sub stance abuse (HCC); COMMENT: UDS [...] age to complete this topic Care Teams Pipe Or Steam Fitter Furnace Installer Relationship Specialty Start Date End Date Lele Alva MD [address] [place] [address] PCP - General Internal Medicine 03/09/22
--- OUTSIDE RECORDS SUMMARY | 2024-07-04 11:00 | XMS_ITS | Patient Health Record ---
Author Organization [facility] Address [address] [place] [address] Care Team Providers Care Slot Floorperson Name Role Phone BISI CALI Primary Care Provider Reason For Referral No Information Encounters Encounter Location Date Provider Diagnosis [facility] [address] [place] [address] 02/15/2024 BISI CALI Plan Of Treatment No Information
== END 2024-07-03 10:08 | disposition home or self-care (01) ==
LOC: HO.HOSX 10:07
PROVIDERS: Visit Provider Physician Assistant
DX: Z13.89 Encounter for screening for other disorder (principal)

== ENCOUNTER 2024-09-13 10:12 | Inpatient (IN) | payer MEDICARE, MEDICAID, SELFPAY ==
[2024-09-13] VITALS (10 sets, daily range): BP systolic 141–166; BP diastolic 74–103; PULSE 80–111; RESP 16–20; TEMP 36.4–37.2; O2SAT 95–100; BMI 32.3; BMI 33.5
--- NOTE | ~2024-09-13 | CT_ITS ---
CLINICAL HISTORY: ?deepr abscess. swelling. erythema, abscess CT of the left hand with contrast Comparison: None Findings: Bony structures are intact and normally aligned. There are no cortical or periosteal reactive changes. There is dorsal soft tissue swelling, possible cellulitis. There is a focal ill-defined 1.0 x 0.4 cm collection, possible developing abscess Deep to this is a less well-defined a proximally 5.1 x 0.8 cm collection. There are no other focal masses or fluid collections. There are no opaque foreign bodies. IMPRESSION: Findings of possible cellulitis with developing deeper abscesses. This document has been electronically signed by: Wallace Dodson MD on 09/13/2024 13:38:31
--- NOTE | 2024-09-13 10:28 | ED_ITS ---
HPI - Extremity Problem General Chief complaint: Extremity Problem Stated complaint: hand infection ? swelling, redness Time Seen by Provider: 09/13/24 10:26 Source: patient, RN notes reviewed and old records reviewed Mode of arrival: ambulatory History of Present Illness ED Provider: Anna Kelley PA-C HPI Narrative: 44-year-old male with a past medical history of PTSD, depression, anxiety, HTN, previous IVDA (states has not used since Jun), presenting to the ED complaining of left hand swelling, erythema, pus drainage, and pain x 3 days. Reports limited ROM. States tried to self drain at home yesterday with clean needle. Denies injecting into site. Denies fever, chills, numbness/tingling. Related Data Home Medications ?Medication ?Instructions ?Recorded ?Confirmed clonazepam 0.5 mg tablet 0.5 mg PO BID 03/19/23 06/23/24 doxepin 50 mg capsule 50 mg PO BEDTIME 03/19/23 06/23/24 pregabalin 150 mg capsule 150 mg PO TID 03/19/23 06/23/24 Previous Rx's ?Medication ?Instructions ?Recorded buprenorphine 300 mg/1.5 mL 300 mg (1.5 mL) subcut ONCE #1.5 mL 11/27/22 solution,exten.rel.subcutaneous syringe (Sublocade) hydroxyzine HCl 50 mg tablet 50 mg PO BEDTIME anxiety #14 tabs 12/22/22 buprenorphine 12 mg-naloxone 3 mg 1 film buccal BID #14 ea 03/27/23 sublingual film (Suboxone) cephalexin 500 mg capsule 500 mg PO QID 7 days #28 caps 06/21/24 doxycycline hyclate 100 mg tablet 100 mg PO Q12H 7 days #14 tabs 06/21/24 oxycodone 5 mg tablet 5 mg PO Q6H PRN pain #14 tabs 06/21/24 doxycycline hyclate 100 mg tablet 100 mg PO BID #20 tabs 06/23/24 ondansetron 4 mg disintegrating 4 mg PO Q6-8H PRN nausea and 06/23/24 tablet vomiting #7 tabs oxycodone 5 mg tablet 5 mg PO Q8H PRN pain #10 tabs 06/23/24 Allergies Allergy/AdvReac Type Severity Reaction Status Date / Time amoxicillin [AMOXICILLIN] Allergy Mild RASH, Verified 09/13/24 10:19 vomiting,diarrhea morphine [MORPHINE] Allergy Mild RASH, Verified 09/13/24 10:19 shortness of breath, nausea,vomiting hydrocodone [Vicodin] Allergy Unknown shortness Verified 09/13/24 10:19 of breath Penicillins [PENICILLINS] Allergy Unknown RASH Verified 09/13/24 10:19 gadobutrol [From GADAVIST] AdvReac Mild NAUSEA & Verified 09/13/24 10:19 VOMITING levofloxacin [From LEVAQUIN] AdvReac Unknown N/V Verified 09/13/24 10:19 Review of Systems 2 Review of Systems: Yes all other systems are reviewed and are negative Constitutional: Constitutional: Reports as per [facility] Past Medical History Attestation statement: The following information was validated with the patient. Source: old records reviewed Medical History Abscess of arm, left PTSD (post-traumatic stress disorder) Depression Anxiety HTN (hypertension) Surgical History No pertinent past surgical history Family History Family History Father HIV (human immunodeficiency virus infection) Mother Diabetes Hypertension Brother Hypertension Diabetes Sister Diabetes Hypertension Social History Social History Smoked in Last 30 Days: Yes Use of substances other than those prescribed or required for medical reasons: Yes Advance Directives: No Advance Directives Information Provided: No Physical Exam 2 Vital Signs: Vital Signs: Last Vital Signs Temp 98.8 F 09/13/24 10:18 Pulse 87 09/13/24 13:01 Resp 18 09/13/24 13:01 BP 150/103 H 09/13/24 10:18 Pulse Ox 97 09/13/24 13:01 O2 Del Method Room Air 09/13/24 13:01 BMI result Body Mass Index 32.3 Const: General: cooperative, healthy appearing and no acute distress O rientation/consciousness: patient oriented x3 Limitations: no limitations HEENT: Head: Yes normal to inspection and Yes atraumatic Ears: hearing grossly normal bilaterally General nose exam: Normal external nose present Face and sinus: Yes normal facial exam Eyes: General: appearance normal, both eyes and all related structures EOM: EOMs intact bilaterally Neck: Neck: Yes normal visual inspection and Yes no meningeal signs Resp: Effort & Inspection: normal respiratory effort and no respiratory distress Cardio: Rate: regular rate Skin: Rashes: no rashes Neuro: General: patient oriented x3, tone normal and no meningeal signs C ranial nerves: Yes CN's II-XII intact bilaterally Gait exam (Neuro): Normal gait present Extrem: Other: Please refer to images above. Left hand notably swollen. Appreciable abscesses with active drainage and fluctuance to volar aspect. + surrounding erythema. Warm. Tender to palpation. Limited full extension and flexion secondary to pain/swelling. Neurovascularly intact. No lymphangitis. Course Course Course Narrative: -1342--no leukocytosis. H/H stable. ESR WNL. CRP mildly elevated. -potassium low at 2.8 > p.o. and IV repletion ordered. -AST/ALT mildly elevated. CT hand LT w IV con IMPRESSION: Findings of possible cellulitis with developing deeper abscesses. Findings: Bony structures are intact and normally aligned. There are no cortical or periosteal reactive changes. There is dorsal soft tissue swelling, possible cellulitis. There is a focal ill-defined 1.0 x 0.4 cm collection, possible developing abscess Deep to this is a less well-defined a proximally 5.1 x 0.8 cm collection. There are no other focal masses or fluid collections. There are no opaque foreign bodies. > 1355-- we will consult Orthopedics, discussed with PENNY Geronimo > plan for OR now for I&D / washout. will make NPO - Ortho would like medicine to admit. >1357--patient did not drink p.o. potassium. Additional IV potassium ordered as plan is for OR (thus will received total 60 mEq's IV and none PO) Case discussed with hospitalist Dr. Desai who accepted admission Medications Administered Discontinued Medications Generic Name Dose Route Start Last Admin Trade Name Freq PRN Reason Stop Dose Admin Ceftriaxone Sodium 1 gm 09/13/24 10:37 09/13/24 10:56 Ceftriaxone Sodium 1 Gm Vial IVPUSH 09/13/24 10:38 1 gm ONCE ONE Administration Vancomycin HCl 2,000 mg in 500 mls @ 250 mls/hr 09/13/24 10:37 09/13/24 13:26 Vancomycin/Ns IV 09/13/24 12:36 Infused ONCE ONE Infusion Sodium Chloride 1,000 mls @ 999 mls/hr 09/13/24 10:45 09/13/24 11:57 Ns IV 09/13/24 11:45 Infused .Q1H1M PRIYANKA Infusion Acetaminophen 1,000 mg in 100 mls @ 400 mls/hr 09/13/24 10:54 09/13/24 11:48 Ofirmev IV 09/13/24 11:08 Infused ONCE ONE Infusion Potassium Chloride 10 meq in 100 mls @ 100 mls/hr 09/13/24 11:30 09/13/24 14:25 Potassium Chloride/H20 IV 09/13/24 13:29 Infused Q1H PRIYANKA Infusion Iohexol 100 ml 09/13/24 11:55 09/13/24 11:55 Iohexol 350 Mg/Ml 100 Ml Infus..Btl IV 09/13/24 11:56 85 ml ONCE ONE Administration Lorazepam 1 mg 09/13/24 12:00 09/13/24 12:15 Lorazepam 1 Mg Tablet PO 09/13/24 12:01 1 mg ONCE ONE Administration Nicotine 21 mg 09/13/24 10:37 09/13/24 10:55 Nicotine 21 Mg Patch.Td24 TRANSDERMA 09/13/24 10:38 21 mg ONCE ONE Administration Oxycodone HCl 5 mg 09/13/24 10:54 09/13/24 11:03 Oxycodone Hcl Immed Release 5 Mg Tablet PO 09/13/24 10:55 5 mg ONCE ONE Administration Potassium Chloride 40 meq 09/13/24 11:27 09/13/24 12:15 Potassium Chloride Packet 20 Meq Packet PO 09/13/24 11:28 40 meq ONCE ONE Administration Medical Decision Making Medical Decision Making MDM Narrative: 44-year-old male with a past medical history of PTSD, depression, anxiety, HTN, previous IVDA (states has not used since Jun), presenting to the ED complaining of left hand swelling, erythema, pus drainage, and pain x 3 days. On exam hypertensive, tachycardic, NAD/nontoxic appearing, physical exam as noted above. Please refer to images. Concern for abscess/deeper infection vs tenosynovitis or septic joint. Lower suspicion for fracture or osteomyelitis at this time Plan: Labs, lactic/blood cultures, CT, empiric IV antibiotics, anticipated admission Please refer to course for remaining clinical decision making, interpretation of labs/imaging results, and discussions with consultants and/or family members. Differential Diagnosis Differential Diagnoses: The differential diagnosis associated with the presentation includes As above Admission/Observation Consideration of admission/observation: Escalation of care including admission/observation considered Consult Healthcare Provider Management of the patient was discussed with: Reel Winder Lab Data [facility] Lab Attestation statement: I reviewed the patient's lab results. 09/13/24 10:50 09/13/24 10:50 Labs: Lab Results 09/13/24 Range/Units 10:50 WBC 9.7 (4.8-10.8) X10*3/uL RBC 4.50 L (4.60-5.80) X10*6/uL Hgb 13.1 L (14.0-18.0) g/dl Hct 39.0 L (42.0-52.0) % MCV 86.7 (80.0-98.0) fL MCH 29.1 (27.0-33.0) pg MCHC 33.6 (31.0-36.0) g/dl RDW 13.6 (11.0-16.0) % Plt Count 261 (160-400) X10*3/uL MPV 9.7 (9.4-12.4) fL Immature Gran % (Auto) 0.3 (0.0-0.4) % Neut % (Auto) 82.2 H (45-73) % Lymph % (Auto) 8.6 L (20-40) % Glasscock % (Auto) 8.4 (2-11) % Eos % (Auto) 0.3 (0-4) % Baso % (Auto) 0.2 (0-2) % Lymph # (Auto) 0.8 L (1.2-4.9) X10*3/uL [place]cock # (Auto) 0.8 (0.1-1.2) X10*3/uL Eos # (Auto) 0.0 (0.0-0.4) X10*3/uL Baso # (Auto) 0.0 (0.0-0.2) X10*3/uL Abs Immat Gran (auto) 0.03 (0.00-0.03) X10*3/uL Absolute Neuts (auto) 7.9 (2.0-8.3) x10*3/uL Absolute Nucleated RBC 0.000 (0.0-0.012) X10*3/uL Nucleated RBC % (auto) 0.0 (0.0-0.2) /100WBC ESR 12 (0-15) MM/HR Sodium 139 (135-145) mmol/L Potassium 2.8 L* (3.3-5.1) mmol/L Chloride 103 (96-108) mmol/L Carbon Dioxide 28 (22-29) mmol/L Anion Gap 11 L (12-20) BUN 15 (9-16) mg/dL Creatinine 0.79 (0.5-1.4) mg/dL Estim Creat Clear Calc 131.4 Estimated GFR > 60 Random Glucose 155 H (60-115) mg/dL Lactic Acid 1.8 (0.5-2.0) mmol/L Calcium 8.7 D (8.4-10.2) mg/dL Magnesium 1.9 (1.6-2.6) mg/dL Total Bilirubin 0.6 (0.0-1.0) mg/dL Direct Bilirubin 0.3 (0.0-0.5) mg/dL AST 56 H (5-37) U/L ALT 41 H (0-40) U/L Alkaline Phosphatase 67 (39-117) U/L C-Reactive Protein 2.27 H (< or = 0.50) mg/dL Total Protein 6.8 (6.5-8.0) g/dL Albumin 3.5 (3.5-5.0) g/dL Independent Interpretation I performed an independent interpretation of an: CT Scan Radiology Impression Discussion of test interpretation with radiology: I have reviewed the radiologist's reading. External Record Review External record reviewed: Inpatient record, Office record, Outpatient record, Prior outpatient labs, Prior outpatient radiology, Primary care record and Outside ED record Tests considered The following testing was considered but not selected: As above Prescription Management I considered prescription management with: Pain Medication and Antibiotic Chronic Conditions Patient?s care impacted by: Other Social Determinants Patient?s care significantly limited by Social Determinants of Health including: Low income, Alcoholism and drug addiction in family, Problems related to primary support group and Other Social Determinant of Health Critical Care Time Critical Care Time Critical Care Time: Yes Total Critical Care Time: 45 Attestation: I have personally provided critical care time exclusive of time spent on separately billable procedures. Time includes review of lab data, radiology results, discussion with consultants, and monitoring for potential decompensation. Intervention performed as documented. Discharge Plan Discharge Clinical Impression: Cellulitis of hand, Abscess of hand Patient Disposition: Admitted As Inpatient Print Language: Tunisian
--- OUTSIDE RECORDS SUMMARY | 2024-09-13 10:34 | XMS_ITS ---
Author Name [facility] Organization Unknown Encounters Encounter Type Encounter Reason Primary Diagnosis Location Date Ambulatory [facility], [facility] 07/07/2023 Care Team Organization Name Specialty Phone Email Start Date End Da te Monica Corbin MD, [facility] 024 09/04/2023
--- OUTSIDE RECORDS SUMMARY | 2024-09-13 10:34 | XMS_ITS | Clinical Summary ---
Author Organization [facility] Address [address] [place] [address] Phone Care Team Providers Care Graphic Production Artist Name Role Phone Lele Alva MD Primary Care Provider [phone] Allergies Active Allergy Reactions Criticality Noted Date Comments Sulfamethoxazole-Trimethoprim 2024 Levofloxacin 07/27/2024 Medications busPIRone (BUSPAR) 10 mg tablet Take 1 tablet (10 mg total) by mouth 3 (three) times a day. 07/18/2024 Active clonazePAM (KlonoPIN) 0.5 mg tablet Take 1 tablet (0.5 mg total) by mouth 3 (three) times a day if needed for anxiety. Max Daily Amount: 1.5 mg Active tiZANidine (ZANAFLEX) 4 mg capsule Take 1 capsule (4 mg total) by mouth 3 (three) times a day if needed for muscle spasms. Active losartan (COZAAR) 25 mg tablet Take 3 tablets (75 mg total) by mouth 1 (one) time each day. 90 each 07/31/2024 Active Active Problems Problem Noted Date Diagnosed Date Abscess of forearm, left 07/27/2024 Abscess of forearm, right 07/27/2024 Encounters Date Type Department Care Team Description 07/30/2024 Referral Triage [facility] Worker Program [address] [place] [id number] Nishi Mosqueda 07/27/2024 12:50 PM EST Anesthesia Event [facility] Main OR [address] [place] [address] Alfred Fiore MD 07/27/2024 12:40 PM EST - 07/27/2024 1:[address] [facility] Main OR [address] [place] [address] Jax Cerda MD INCISION DRAINAGE EXTREMITY UPPER 07/27/2024 2:01 AM EST - 07/30/2024 12:49 PM EST Hospital Encounter [facility] Urology [address] [place] [address] Gloria Lin MD Jones, Christopher, MD Kela, Kashyap Devendrabhai, MD Koerner, Paul A, MD Abscess of forearm, left (Primary Dx); Abscess of forearm, right; History of intravenous drug use; Homeless Discharge Disposition: Home-Health [place] [facility] [place] Last 3 Months Surgical History Surgery Date Site/Laterality Comments VASECTOMY [...] OTHER; COMMENT: Hiatal hernia repair -Dr Montes HAND SURGERY Right Medical History Medical History Date Comments Essential hypertension, benign D X:Essential hypertension, benign Depression DX:Depression Anxiety DX:Anxiety Lumbago DX:Lumbago Bipolar 1 disorder (CMS/HCC V24, CMS/HCC V28) 02/18/2015 DX:Bipolar 1 disorder (HCC) Substance abuse (CMS/HCC V24 , CMS/HCC V28) 02/18/2015 DX:Substance abuse (HCC); CO MMENT: UDS 01/09 positive for cocaine, opiates, marijuana [...] Tobacco: Never Alcohol Use Standard Drinks/Week Comments Yes 0 (1 standard drink = 0.6 oz pur e alcohol) occasionally Housing Instability Answer Date Recorde d Are you worried that in the next 2 months you may not have stable housing? Yes 08/11/2024 Food Access & Nutrition Answer Date Rec orded Do you have access to a vari ety of food including fruits and vegetables? No 08/11/2024 Access to Healthcare Answer Date Record ed Within the last 3 months, ho w many times did you visit the emergency department for your medical care? 1 08/11/2024 Health Literacy Answer Date Recorded How often do you need to hav e someone help you when you read instructions, pamphlets, or other written material from your doctor or pharmacy? Rarely 08/11/2024 Caregiver: How often do you need to have someone help you when you read instructions, pamphlets, or other written material from your doctor or pharmacy? Not on file 08/11/2024 Financial Risk Answer Date Recorded How hard is it for you to pa y for the very basics like food, housing, medical care, and air conditioning / heating? Somewhat hard 08/11/2024 Transportation Answer Date Recorded Has the lack of transportati on kept you from meetings, work, or from getting things needed for daily living? Not on file 08/11/2024 Has the lack of transportati on kept you from medical appointments or from getting medications? No 08/11/2024 Social Isolation Answer Date Recorded How often do you feel lonely or isolated from th ose around you? Rarely 08/11/2024 Food Risk Answer Date Recorded Within the past 12 months we worried whether our food would run out before we got money to buy more. Sometimes true 025 Within the past 12 months th e food we bought just didn't last and we didn't have money to get more. Sometimes true 08/11/2024 Dependent Care Answer Date Recorded Do you need help finding or paying for care for your loved ones. For example, child development instructor or elderly care for an older adult? No 08/11/2024 Education Answer Date Recorded Do you think completing more education or training, like finishing a GED, going to college, or learning a trade, would be helpful for you? No 08/11/2024 Employment and Income Answer Date Recor ded During the last four weeks, have you been actively looking for work? No 08/11/2024 Living Situation Answer Date Recorded What is your living situation? 0 08/11/2024 Interpersonal Safety Answer Date Record ed Physical Abuse 07/27/2024 Verbal Abuse 07/27/2024 Sex and Gender Information Value Date Recorded Sex Assigned at Male 07/27/2024 3:18 AM EST Legal Sex Male 9:06 AM EST Gender Identity Male 07/27/2024 3:18 AM EST Sexual Orientation Choose not to disclose 2024 3:18 AM EST Obstetrics History Last Filed Vital Signs Vital Sign Reading Time Taken Comments Blood Pressure 130/89 07/30/2024 12:26 PM EST Pulse 94 07/30/2024 12:26 PM EST Temperature 36.6 ??C (97.9 ??F) 07/30/2024 8:09 AM ES T Respiratory Rate 18 07/30/2024 12:26 PM EST Oxygen Saturation 100% 07/30/2024 12:26 PM EST Inhaled Oxygen Concentration - - Weight 99.8 kg (220 lb) 07/27/2024 1:47 AM EST Height 170.2 cm (5' 7 ) 07/27/2024 1:47 AM EST Body Mass Index 34.46 07/27/2024 1:47 AM EST Plan of Treatment Health Maintenance Due Date Last Done Comments Hepatitis B Vaccines (3 of 3 - 3-dose series) 05/26/1998 03/01/1998, 02/03/1998 DTaP,Tdap,and Td Vaccines (6 - Td or Tdap) 10/31/2005 11/01/1995, 01/04/1987, 06/01/1982, Additional history exists Medicare Annual Wellness Visit 04/30/2022 Depression Screening 06/06/2023 06/06/2022 COVID-19 Vaccine ( season) 2024 05/16/2022, 09/16/2020, 08/17/2020 Influenza Vaccine (Season Ended) 2025 03/07/2022, 06/07/2021, 03/22/2020, Additional history exists Hypertension/CHF/CAD Annual BMP Blood Test 07/30/2025 07/30/2024, 07/29/2024, 07/28/2024, Additional history exists Social Influencers of Health Screening 08/11/2025 08/11/2024 Cholesterol Screening (Lipid Panel) 10/24/2028 10/25/2023 IPV Vaccines Completed 01/04/1987, 09/1982, 04/11/1982, Additional history exists MMR Vaccines Completed 04/26/1993, 06/01/1982 Pneumococcal Vaccine: Pediatrics (0 to 5 Years) and At-Risk Patients (6 to 64 Years) Completed 03/07/2022, 01/26/2018, 01/08/2017 HIV Screening Completed 05/01/2022 Hepatitis C Screening Completed 05/01/2022 HIB Vaccines Aged Out No longer eligi [...] patient's age to complete this topic Meningococcal B Vaccine Aged Out No l onger eligible based on patient's age to complete this topic RSV Immunization Patients Under 20 months Aged Out No longer eligible based on patient's age to complete this topic Varicella Vaccines Aged Out No longer eligible based on patient's age to complete this topic Procedures Procedure Name Priority Date/Time Associated Diagnosis Comments CBC WITH AUTO DIFFERENTIAL Routine 07/30/2024 6:50 AM EST BASIC METABOLIC PANEL Routine 07/30/2024 6:50 AM EST CBC AND DIFFERENTIAL Routine 07/30/2024 6:50 AM EST VANCOMYCIN, TROUGH Timed 07/29/2024 8: 06 PM EST CBC WITH AUTO DIFFERENTIAL Routine 07/29/2024 8:25 AM EST BASIC METABOLIC PANEL Routine 07/29/2024 8:25 AM EST CBC AND DIFFERENTIAL Routine 07/29/2024 8:25 AM EST BUPRENORPHINE SCREEN, URINE STAT 07/28/2024 9:48 AM EST METHADONE SCREEN, URINE STAT 07/28/2024 9:48 AM EST DRUG ABUSE SCREEN 8A PANEL, URINE STAT 07/28/2024 9:48 AM EST CBC WITH AUTO DIFFERENTIAL Routine 07/28/2024 2:35 AM EST CBC AND DIFFERENTIAL Routine 07/28/2024 2:35 AM EST BASIC METABOLIC PANEL Routine 07/28/2024 2:35 AM EST VANCOMYCIN, TROUGH Timed 07/28/2024 2: 35 AM EST CULTURE WOUND DEEP Routine 07/27/2024 1: 37 PM EST Abscess of forearm, right TH AN LMA(NO CHARGE) Routine 07/27/2024 1:29 PM EST CULTURE WOUND DEEP Routine 07/27/2024 1: 11 PM EST Abscess of forearm, left INCISION DRAINAGE EXTREMITY UPPER 07/27/2024 12:56 PM EST Abscess of forearm, left Abscess of forearm, right ECG 12-LEAD STAT 07/27/2024 8:22 AM EST C-REACTIVE PROTEIN Add-On 07/27/2024 3: 30 AM EST BASIC METABOLIC PANEL STAT 07/27/2024 3:30 AM EST CBC WITH AUTO DIFFERENTIAL STAT 07/27/2024 2:52 AM EST CBC AND DIFFERENTIAL STAT 07/27/2024 2:52 AM EST CULTURE BLOOD STAT 07/27/2024 2:52 AM EST CULTURE BLOOD STAT 07/27/2024 2:52 AM EST LACTATE STAT 07/27/2024 2:51 AM EST US EXTREMITY NONVASCULAR LIMITED LEFT STAT 07/27/2024 2:45 AM EST US EXTREMITY NONVASCULAR LIMITED RIGHT STAT 07/27/2024 2:30 AM EST XR FOREARM BILAT STAT 07/27/2024 2:19 AM EST from Last 3 Months Results * (ABNORMAL) CBC auto differential (07/30/2024 6:50 AM EST) Only the most recent of4 resultswithin the time period is included. WBC 5.3 4.8 - 10.8 K/mcL LAB HEMETOLOGY METHOD 07/30/2024 7:06 AM [facility] RBC 3.70(L) 4.50 - 5.50 M/mcL LAB HEMETOLOGY METHOD 07/30/2024 7:06 AM [facility] Hemoglobin 10.8(L) 13.5 - 17.5 g/dL LAB HEMETOLOGY METHOD 07/30/2024 7:06 AM [facility] Hematocrit 32.7(L) 42.0 - 54.0 % LAB HEMETOLOGY METHOD 07/30/2024 7:06 AM [facility] MCV 88.4 79.0 - 98.0 FL LAB HEMETOLOGY METHOD 07/30/2024 7:06 AM [facility] MCH 29.2 27.0 - 32.0 pcg LAB HEMETOLOGY METHOD 07/30/2024 7:06 AM [facility] MCHC 33.0 32.0 - 37.0 g/dL LAB HEMETOLOGY METHOD 07/30/2024 7:06 AM [facility] RDW 11.9 11.0 - 15.0 % LAB HEMETOLOGY METHOD 07/30/2024 7:06 AM [facility] Platelets 297 130 - 400 K/mcL LAB HEMETOLOGY METHOD 07/30/2024 7:06 AM [facility] MPV 10.1 7.0 - 11.0 FL LAB HEMETOLOGY METHOD 07/30/2024 7:06 AM [facility] NRBC 0.0 <1.0 % LAB HEMETOLOGY METHOD 07/30/2024 7:06 AM [facility] NRBC Absolute 0.00 <0.10 K/mcL LAB HEMETOLOGY METHOD 07/30/2024 7:06 AM [facility] Neutrophils Relative 48.6 % LAB HEMETOLOGY METHOD 07/30/2024 7:06 AM [facility] Lymphocytes Relative 34.0 % LAB HEMETOLOGY METHOD 07/30/2024 7:06 AM [facility] Monocytes Relative 8.3 % LAB HEMETOLOGY METHOD 07/30/2024 7:06 AM [facility] Eosinophils Relative 7.8 % LAB HEMETOLOGY METHOD 07/30/2024 7:06 AM [facility] Basophils Relative 1.1 % LAB HEMETOLOGY METHOD 07/30/2024 7:06 AM [facility] Immature Granulocytes Relative 0.2 % LAB HEMETOLOGY METHOD 07/30/2024 7:06 AM [facility] Neutrophils Absolute 2.56 1.50 - 7.00 K/mcL LAB HEMETOLOGY METHOD 07/30/2024 7:06 AM EST [facility] Lymphocytes Absolute 1.79 1.00 - 5.00 K/mcL LAB HEMETOLOGY METHOD 07/30/2024 7:06 AM [facility] Monocytes Absolute 0.44 0.20 - 1.00 K/mcL LAB HEMETOLOGY METHOD 07/30/2024 7:06 AM [facility] Eosinophils Absolute 0.41 0.00 - 0.50 K/mcL LAB HEMETOLOGY METHOD 07/30/2024 7:06 AM [facility] Basophils Absolute 0.06 0.00 - 0.20 K/mcL LAB HEMETOLOGY METHOD 07/30/2024 7:06 AM [facility] Immature Granulocytes Absolute 0.01 0.00 - 0.03 K/mcL LAB HEMETOLOGY METHOD 07/30/2024 7:06 AM [facility] Blood Venous blood specimen / Unknown Venipuncture / Unknown 07/30/2024 6:50 AM EST 07/30/2024 6:58 AM EST us Mikaela FRANCIS LAB BLOOD ORDERABLES Final Result [facility] [address] [place] [address], * (ABNORMAL) Basic metabolic panel (07/30/2024 6:50 AM EST) Only the most recent of4 resultswithin the time period is included. Sodium 139 133 - 145 mmol/L LAB CHEMISTRY METHOD 07/30/2024 7:49 AM [facility] Potassium 3.3(L) 3.5 - 5.5 mmol/L LAB CHEMISTRY METHOD 07/30/2024 7:49 AM [facility] Chloride 106 96 - 110 mmol/L LAB CHEMISTRY METHOD 07/30/2024 7:49 AM [facility] CO2 26 21 - 32 mmol/L LAB CHEMISTRY METHOD 07/30/2024 7:49 AM [facility] Anion Gap 7 3 - 11 LAB CHEMISTRY METHOD 07/30/2024 7:49 AM [facility] Glucose 105(H) 70 - 100 mg/dL LAB CHEMISTRY METHOD 07/30/2024 7:49 AM [facility] BUN 17 5 - 25 mg/dL LAB CHEMISTRY METHOD 07/30/2024 7:49 AM [facility] Creatinine 0.88 0.70 - 1.30 mg/dL LAB CHEMISTRY METHOD 07/30/2024 7:49 AM [facility] eGFR 109 >=60 mL/min/1. 73m2 LAB CHEMISTRY METHOD 07/30/2024 7:49 AM [facility] Comment:Calculation based on the??Chronic Kidney Disease Epidemiology Collaboration (CKD-EPI) equation refit??without adjustment for race. BUN/Creatinine Ratio 19.3 LAB CHEMISTRY METHOD 07/30/2024 7:49 AM [facility] Calcium 9.1 8.5 - 10.5 mg/dL LAB CHEMISTRY METHOD 07/30/2024 7:49 AM [facility] Blood Venous blood specimen / Unknown Venipuncture / Unknown 07/30/2024 6:50 AM EST 07/30/2024 6:58 AM EST us Mikaela FRANCIS LAB BLOOD ORDERABLES Final Result [facility] [address] [place] [address], * Vancomycin, trough Prior to 2100 vanco dose please (07/29/2024 8:06 PM EST) Only the most recent of2 resultswithin the time period is included. Pathologist [facility] Vancomycin Trough 15.8 10.0 - 20.0 mcg/mL LAB CHEMISTRY METHOD 07/29/2024 8:41 PM [facility] Blood Venous blood specimen / Unknown Venipuncture / Unknown 07/29/2024 8:06 PM EST 07/29/2024 8:12 PM EST us Axel Carter MD LAB BLOOD ORDERABLES Final Result [facility] [address] [place] [address], [place] [phone] * (ABNORMAL) Drug abuse screen 8a panel, urine (07/28/2024 9:48 AM EST) [facility] Amphetamine Screen, Ur Negative Negative LAB CHEMISTRY METHOD 5 11:19 AM [facility] Comment:Certain OTC medicati ons containing ephedrine, phenylephrine, pseudoephedrine and phenylpropanolamine can cause false positive results. Barbiturate Screen, Ur Negative Negative LAB CHEMISTRY METHOD 5 11:19 AM [facility] Benzodiazepine Screen, Ur Positive(A ) Negative LAB CHEMISTRY METHOD 5 11:19 AM [facility] Cocaine Screen, Ur Positive(A ) Negative LAB CHEMISTRY METHOD 5 11:19 AM [facility] Opiate Screen, Ur Positive(A ) Negative LAB CHEMISTRY METHOD 5 11:19 AM [facility] Cannabinoid (THC) Screen, Ur Negative Negative LAB CHEMISTRY METHOD 5 11:19 AM [facility] Comment:Specimens from patie nts taking pantoprazole sodium (Protonix) have been shown to produce false positive results. Oxycodone Screen, Ur Positive(A ) Negative LAB CHEMISTRY METHOD 5 11:19 AM [facility] Fentanyl, Ur Positive(A ) Negative LAB CHEMISTRY METHOD 11:19 AM EST [facility] Urine Urine specimen obtained by clean catch procedure / Unknown Non-blood Collection / Unknown 07/28/2024 9:48 AM EST 07/28/2024 10:38 AM EST [facility] - 07/28/2024 11:19 AM EST Assay cutoffs: Amphetamines ? 1000 ng/mL Barbiturates ?200 ng/mL Benzodiazepines ?? 200 ng/mL Cocaine ? 300 ng/mL Fentanyl ?1 ng/mL Opiates ? 300 ng/mL Oxycodone ? 100 ng/mL THC ?50 ng/mL Semi-quantitative assay for screening purposes only. Unconfirmed screening result should not be used for non-medical purposes. *ALTERNATE METHOD CONFIRMATION DONE UPON REQUEST ONLY* Axel FRANCIS LAB URINE ORDERABLES Nata l Result [facility] [address] [place] [address], * (ABNORMAL) Buprenorphine screen, urine (07/28/2024 9:48 AM EST) Pathologist [facility] Buprenorphine Screen Urine Positive (A) Negative LAB CHEMISTRY METHOD 07/28/2024 11:08 AM EST [facility] Urine Urine specimen obtained by clean catch procedure / Unknown Non-blood Collection / Unknown 07/28/2024 9:48 AM EST 07/28/2024 10:38 AM EST [facility] - 07/28/2024 11:08 AM EST Assay cutoff 5 ng/mL Semi-quantitative assay for screening purposes only. Unconfirmed screening result should not be used for non-medical purposes. *ALTERNATE METHOD CONFIRMATION DONE UPON REQUEST ONLY* us Axel FRANCIS LAB URINE ORDERABLES Nata l Result Performing Organization Address [facility]/ZIP Co de Phone Number [facility] [address] [place] [address], [place] [phone] * Methadone, urine (07/28/2024 9:48 AM EST) Methadone Screen, Urine Negative Negative LAB CHEMISTRY METHOD 07/28/2024 11:08 AM EST [facility] Comment: Assay cutoff 300 ng/mL Semi-quantitative assay for screening purposes only. Unconfirmed screening result should not be used for non-medical purposes. *ALTERNATE METHOD CONFIRMATION DONE UPON REQUEST ONLY* Urine Urine specimen obtained by clean catch procedure / Unknown Non-blood Collection / Unknown 07/28/2024 9:48 AM EST 07/28/2024 10:38 AM EST Axel Zuluaga NE LAB URINE ORDERABLES Nata l Result Performing Organization Address [facility] de Phone Number [facility] [address] [place] [address], [place] [phone] * (ABNORMAL) Culture wound deep (07/27/2024 1:37 PM EST) Only the most recent of2 resultswithin the time period is included. Culture, Wound Streptococcus viridans group(A) 07/30/2024 12:39 PM EST [facility] Comment: Susceptibility testing not routinely performed. ??If further therapeutic information is required, please consult an infectious disease specialist. The organism value for this result has been updated. These results have been appended to the previously preliminary verified report. Culture, Wound Streptococcus viridans group(A) 07/30/2024 12:39 PM EST [facility] Comment: 2nd strain Susceptibility testing not routinely performed. ??If further therapeutic information is required, please consult an infectious disease specialist. The organism value for this result has been updated. These results have been appended to the previously preliminary verified report. Gram Stain Result No Epithelial cells(A) 07/30/2024 12:39 PM EST [facility] Gram Stain Result Few Polymorphonuclear leukocytes(A) 07/30/2024 12:39 PM EST [facility] Gram Stain Result Few Gram positive cocci in pairs(A) 07/30/2024 12:39 PM EST [facility] Swab Structure of right forearm / Unknown 07/27/2024 1:37 PM EST 07/27/2024 2:16 PM EST Jax Cerda MD LAB MICROBIOLOGY - GENERAL ORD ERABLES Final Result [facility]) [facility] [address] [place] [address], [place] [phone] * TH AN LMA(NO CHARGE) (07/27/2024 1:29 PM EST) Narrative Tyrone Katz CRNA - 07/27/2024 1:29 PM EST Tyrone Katz CRNA ? 07/27/2024 ??1:29 PM General Information and Staff Patient location during procedure: OR Performed by: Tyrone Katz CRNA Authorized by: Alfred Fiore MD ?? Intubation Airway not difficult Urgency: elective Final Airway Details Final airway type: LMA Indications and Patient Condition Indications for airway management: anesthesia Spontaneous ventilation: present Sedation level: Yes Preoxygenated: yes Soft Tissue Damage: No Dentition Unchanged: Yes Patient position: neutral Mask difficulty assessment: 0 - not attempted us Alfred Fiore MD ANESTHESIA ORDERABLES Final Re sult * ECG 12 lead (07/27/2024 8:22 AM EST) Ventricular Rate ECG 80 BPM GEMUSE Atrial Rate 80 BPM GEMUSE P-R Interval 184 ms GEMUSE QRS Duration 104 ms GEMUSE Q-T Interval 386 ms GEMUSE QTc 445 ms GEMUSE P Wave [place] 24 degrees GEMUSE R [place] 21 degrees GEMUSE T [place] 11 degrees GEMUSE ECG Interpretation Normal sinus rhythm Normal ECG When compared with ECG of 29-MAR-2022 04:48, No significant change was found Confirmed by LARRY GARRETT ([id number]) on 07/28/2024 8:37:04 AM GEMUSE 07/27/2024 8:22 AM EST 07/28/2024 8:37 AM EST Jaison Huff MD ECG ORDERABLES Final Result Performing Organization Address City/[facility]/ZIP Co de Phone Number GEMUSE * (ABNORMAL) C-reactive protein (07/27/2024 3:30 AM EST) Pathologist [facility] C-Reactive Protein 11.80(H) <=0.50 mg/dL LAB CHEMISTRY METHOD 07/27/2024 6:56 AM EST [facility] Blood Venous blood specimen / Unknown Venipuncture / Unknown 07/27/2024 3:30 AM EST 07/27/2024 4:50 AM EST Axel Carter MD LAB BLOOD ORDERABLES Final Result Performing Organization Address [facility] Co de Phone Number [facility] [address] [place] [address], [place] [phone] * Culture blood (07/27/2024 2:52 AM EST) Only the most recent of2 resultswithin the time period is included. Culture, Blood No growth at 5 days 08/01/2024 5:01 AM EST [facility] Blood Venous blood specimen / Unknown Venipuncture / Unknown 07/27/2024 2:52 AM EST 07/27/2024 3:02 AM EST Gloria Lin MD LAB MICROBIOLOGY - GENER AL ORDERABLES Final Result Performing Organization Address [facility] Co de Phone Number [facility] [address] [place] [address], [place] [phone] * Lactate (07/27/2024 2:51 AM EST) Lactate 1.2 0.4 - 2.0 mmol/L LAB CHEMISTRY METHOD 07/27/2024 3:35 AM EST [facility] Blood Venous blood specimen / Unknown Venipuncture / Unknown 07/27/2024 2:51 AM EST 07/27/2024 3:02 AM EST us Gloria Lin MD LAB BLOOD ORDERABLES Fin al Result [facility] [address] [place] [address], [place] [phone] * US Extremity Nonvascular Limited Left (07/27/2024 2:45 AM EST) Anatomical Region Laterality Modality Extremity Left Ultrasound 07/27/2024 3:26 AM EST Impressions 07/27/2024 3:26 AM EST Left forearm complex collection consistent with abscess. This document has been electronically signed by: Jamil Garcia MD on 07/27/2024 03:26:08 Narrative 07/27/2024 3:26 AM EST INDICATION: pain US - Extremity Non Vascular - LEFT FOREARM Comparison: None Findings: Ovoid 3.0 x 1.1 x 1.4 cm complex forearm fluid collection correlating to area of clinical concern consistent with abscess. There is peripheral increased Doppler flow. No visible solid mass. Procedure Note Jamil Garcia MD - 07/27/2024 INDICATION: pain US - Extremity Non Vascular - LEFT FOREARM Comparison: None Findings: Ovoid 3.0 x 1.1 x 1.4 cm complex forearm fluid collection correlating to area of clinical concern consistent with abscess. There is peripheral increased Doppler flow. No visible solid mass. IMPRESSION: Left forearm complex collection consistent with abscess. This document has been electronically signed by: Jamil Garcia MD on 07/27/2024 03:26:08 us Minna FRANCIS IMG US PROCEDURES Nata l Result * US Extremity Nonvascular Limited Right (07/27/2024 2:30 AM EST) Anatomical Region Laterality Modality Extremity Right Ultrasound 07/27/2024 3:13 AM EST Impressions 07/27/2024 3:13 AM EST Mid forearm complex collection consistent with abscess. This document has been electronically signed by: Jamil Garcia MD on 07/27/2024 03:13:15 Narrative 07/27/2024 3:13 AM EST INDICATION: pain US - Extremity Non Vascular - RIGHT FOREARM Comparison: None Findings: Ovoid 4.7 x 2.5 x 3.0 cm complex mid forearm fluid collection correlating to area of clinical concern consistent with abscess. There is peripheral increased Doppler flow. No visible solid mass. Procedure Note Jamil Garcia MD - 07/27/2024 INDICATION: pain US - Extremity Non Vascular - RIGHT FOREARM Comparison: None Findings: Ovoid 4.7 x 2.5 x 3.0 cm complex mid forearm fluid collectioncorrelating to area of clinical concern consistent with abscess. There is peripheral increased Doppler flow. No visible solid mass. IMPRESSION: Mid forearm complex collection consistent with abscess. This document has been electronically signed by: Jamil Garcia MD on 07/27/2024 03:13:15 us Minna Hynds-[place] PA IMG US PROCEDURES Nata l Result * XR Forearm bilat (07/27/2024 2:19 AM EST) Anatomical Region Laterality Modality Upper Extremities, Elbow Bilateral Radiogr aphic Imaging 07/27/2024 9:22 AM EST Impressions 07/27/2024 9:22 AM EST FINDINGS/IMPRESSION: Diffuse soft tissue swelling throughout the right greater than left forearm. ??No acute fracture or dislocation. ??No radiodense foreign bodies. ??Surgical fixation at the right 1st CMC joint noted.. -------- FINAL REPORT -------- Dictated By: CYRIL SPENCE Dictated Date: 07/27/2024 09:22 ET Assigned Physician: CYRIL SPENCE Reviewed and Electronically Signed By: CYRIL SPENCE Signed Date: 07/27/2024 09:22 ET Workstation ID: [id number] Transcribed By: Self Edit Transcribed Date: 07/27/2024 09:22 ET Narrative 07/27/2024 9:22 AM EST XR FOREARM BILAT INDICATION: ??Pain TECHNIQUE: XR FOREARM BILAT COMPARISON: No priors available. Procedure Note Cyril Spence MD - 07/27/2024 XR FOREARM BILAT INDICATION: Pain TECHNIQUE: XR FOREARM BILAT COMPARISON: No priors available. IMPRESSION: FINDINGS/IMPRESSION: Diffuse soft tissue swelling throughout the rightgreater than left forearm. No acute fracture or dislocation. Noradiodense foreign bodies. Surgical fixation at the right 1st CMC jointnoted.. 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 07/27/2024 Insurance [facility] [place] [address] MEDICAID - [place] Advance Directives Documents on File Type Date Recorded Patient Warehouse Order Puller Expl anation Advance Directives and Living Will 07/29/2024 11:43 AM Health Care Proxy * Full Code - Default (Latest Code Status on File) Date Activated Date Inactivated Comments 07/27/2024 6:39 AM 07/30/2024 2:54 PM This is order is used when code status has not been discussed with the patient, or code status is otherwise unknown/unconfirmed To update the patient's code status, place a code status order. Do not modify or discontinue any currently active code status orders. Care Teams Graphic Production Artist Relationship Specialty Start Date End Date Lele Alva MD [address] [place] [address] PCP - General Internal Medicine 03/09/22
--- OUTSIDE RECORDS SUMMARY | 2024-09-13 10:34 | XMS_ITS | Clinical Summary ---
Author Organization [facility] Address [address] [place] [id number] Phone Care Team Providers Care Crusher Operator Name Role Phone Chepe Salazar Primary Care Provider [phone] Immunizations Immunization Administration Dates Next Due DTP [...] age to complete this topic Care Teams Crusher Operator Relationship Specialty Start Date End Date Chepe Salazar [address] [place] [id number] PCP - General 01/05/17
--- OUTSIDE RECORDS SUMMARY | 2024-09-13 10:34 | XMS_ITS ---
Author Organization [facility] Address [address] [place] [address] Phone Care Team Providers Care Undercover Cop Name Role Phone Lele Alva MD Primary Care Provider [phone] [facility] - Housing Status:Ongoing (Active) Start date:07/30/2024 Enrollment date:07/30/2024 Related social drivers of health:Housing Instability Related program episode:Community Health Worker Program (Closed) Overview Housing service of Community Health Worker Program Case Team Name Relationship Phone Nishi Mosqueda Community Health Worker(Resp onsible Staff) Continued Care and Services Coordination
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
[2024-09-13] MEDS: Nicotine 21 MG PATCH.TD24 TRANSDERMA (10:55)
[2024-09-13 10:56] LABS: MANUAL DIFF FLAG NO
[2024-09-13] MEDS: 0.9 % Sodium Chloride 1,000 ML 999 ML IV (10:56)
[2024-09-13] MEDS: cefTRIAXone sodium 1 GM VIAL IVPUSH (10:56)
[2024-09-13 11:00] LABS: Basophils Percent Auto 0.2 % (0-2); Eosinophils Percent Auto 0.3 % (0-4); Hemoglobin 13.1 g/dl (14.0-18.0); Imm Gran Abs Auto 0.03 X10*3/uL (0.00-0.03); Imm Gran Pct Auto 0.3 % (0.0-0.4); Lymphocytes Absolute Auto 0.8 X10*3/uL (1.2-4.9); Lymphocytes Percent Auto 8.6 % (20-40); Mean Corpuscular HGB Conc 33.6 g/dl (31.0-36.0); Mean Corpuscular Hemoglobin 29.1 pg (27.0-33.0); Mean Corpuscular Volume 86.7 fL (80.0-98.0); Mean Platelet Volume 9.7 fL (9.4-12.4); Monocytes Absolute Auto 0.8 X10*3/uL (0.1-1.2); Monocytes Percent Auto 8.4 % (2-11); Neutrophils Absolute Auto 7.9 x10*3/uL (2.0-8.3); Neutrophils Percent Auto 82.2 % (45-73); Platelet Count 261 X10*3/uL (160-400); Red Cell Distribution Width 13.6 % (11.0-16.0); White Blood Count 9.7 X10*3/uL (4.8-10.8)
[2024-09-13] MEDS: oxyCODONE HCl Immed Release 5 MG TABLET PO (11:03)
--- NOTE | 2024-09-13 11:09 | PC.NURSE ---
pt a&ox3, left hand +csm/pulses, pt has 4+ edema to extremity. 10/10 pain. culture swab obtained to area that is draining on left hand. iv inserted, labs drawn, bcx2 obtained, iv abx and fluids hung per order, call choe within reach, plan of care ongoing
--- NOTE | 2024-09-13 11:10 | PC.NURSE ---
Report received from BALA [place]. Taken over care at this time.
[2024-09-13 11:14] LABS: Lactic Acid 1.8 mmol/L (0.5-2.0)
[2024-09-13] MEDS: Acetaminophen 1,000 MG/100 ML PIGGYBACK 400 MG IV (11:22)
[2024-09-13 11:27] LABS: Alanine Aminotransferase 41 U/L (0-40); Albumin Level 3.5 g/dL (3.5-5.0); Anion Gap 11 (12-20); Aspartate Amino Transferase 56 U/L (5-37); Bilirubin Direct 0.3 mg/dL (0.0-0.5); Bilirubin Total 0.6 mg/dL (0.0-1.0); Blood Urea Nitrogen 15 mg/dL (9-16); C Reactive Protein 2.27 mg/dL (< or = 0.50); Calcium 8.7 mg/dL (8.4-10.2); Carbon Dioxide 28 mmol/L (22-29); Chloride 103 mmol/L (96-108); Creatinine Clr Calc Pharmacy 131.4; Estimated Glomerular Filt Rate > 60; Glucose Random 155 mg/dL (60-115); Sodium 139 mmol/L (135-145); Total Protein 6.8 g/dL (6.5-8.0)
[2024-09-13] MEDS: vancomycin/NS 2,000 MG/500 ML PLAST..BAG 250 MG IV (11:27)
[2024-09-13 11:37] LABS: Erythrocyte Sedimentation Rate 12 MM/HR (0-15)
[2024-09-13] MEDS: iohexoL 350 MG/ML 100 ML INFUS..BTL IV (11:55)
[2024-09-13] MEDS: Potassium Chloride/H20 10 MEQ/100 ML PIGGYBACK 100 MEQ IV ×5 (12:12→20:41)
[2024-09-13] MEDS: Potassium Chloride Packet 20 MEQ PACKET 40 MEQ PO (12:15)
[2024-09-13] MEDS: LORazepam 1 MG TABLET PO (12:15)
--- NOTE | 2024-09-13 12:30 | PC.NURSE ---
Pt. resting with eyes closed at this time. No s/s of pain or distress.
[2024-09-13 13:18] LABS: Potassium 2.8 mmol/L (3.3-5.1)
[2024-09-13 13:22] LABS: Alkaline Phosphatase 67 U/L (39-117)
[2024-09-13 13:39] LABS: Magnesium 1.9 mg/dL (1.6-2.6)
--- NOTE | 2024-09-13 14:43 | PM.IMHP ---
History of Present Illness Date of Service: 09/13/24 Attending physician on admission: Michelle Smith Chief Complaint: Left hand swelling and redness Pt is a 44-year-old male with a PMH significant for HTN, cocaine use disorder,?IVDU, PTSD, anxiety, and depression who presents to the ED with?left hand swelling, pain, redness, and drainage times 2-3 days. Pt reports originally noticed a ?pimple? on the top of his left hand that he popped. The following day hand was red, swollen, painful, and draining cloudy discharge. Reduced ROM of hand secondary to pain. 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 Most recently had left biceps abscess drained here by Dr. Stephenson in May, and then bilateral forearm abscesses drained in late June at [facility]. Pt states he has not used IV drugs for the past four weeks. Denies fever, chills, nausea, vomiting, or abdominal pain. No chest pain/pressure, palpitations. Denies shortness or breath or difficulty breathing. In the ED pt was tachycardic up to 104 and hypertensive at 150/103. Labs were significant for hypokalemia of 2.8, AST 56, ALT 41, and CRP 2.27. No leukocytosis. Stable H&H. ESR WNL. Lactic acid WNL. CT?of left hand and showing cellulitis with developing deeper abscesses. ED clinician contacted Orthopedics who recommended admitting pt to medicine and scheduling immediate washout in the OR this afternoon. Pt was treated in the ED with oxycodone, acetaminophen, potassium chloride, Ativan, vanc, and ceftriaxone. Pt is admitted to the hospital for treatment and further evaluation of left hand cellulitis with abscess. Review of Systems Review of Systems: Negative except for that which is stated in the HPI. [facility] Medical History Abscess of arm, left PTSD (post-traumatic stress disorder) Depression Anxiety HTN (hypertension) Family History Father HIV (human immunodeficiency virus infection) Mother Diabetes Hypertension Brother Hypertension Diabetes Sister Diabetes Hypertension Surgical History No pertinent past surgical history Social History Household Members: Family Household Members Other:: Brother/EARTH SCIENCE TEACHER Housing: Other Housing Other:: RV Do you presently have visiting nurse or other home services: Yes Patient Tobacco Use Status: Current everyday Tobacco user Tobacco use type: Cigarette Second Hand Smoke Exposure: No Meds Allergies Allergy/AdvReac Type Severity Reaction Status Date / Time amoxicillin [AMOXICILLIN] Allergy Mild RASH, Verified 09/13/24 10:19 vomiting,diarrhea morphine [MORPHINE] Allergy Mild RASH, Verified 09/13/24 10:19 shortness of breath, nausea,vomiting hydrocodone [Vicodin] Allergy Unknown shortness Verified 09/13/24 10:19 of breath Penicillins [PENICILLINS] Allergy Unknown RASH Verified 09/13/24 10:19 gadobutrol [From GADAVIST] AdvReac Mild NAUSEA & Verified 09/13/24 10:19 VOMITING levofloxacin [From LEVAQUIN] AdvReac Unknown N/V Verified 09/13/24 10:19 Active Medications: Current Medications Acetaminophen (Acetaminophen 325 Mg Tablet) 650 mg PO Q6H PRN PRN Reason: Pain, Mild 1-3,fever,headache Calcium Carbonate (Calcium Carbonate 750 Mg Tab.Chew) 750 mg PO Q4H PRN PRN Reason: Heartburn Potassium Chloride (Potassium Chloride/H20) 10 meq in 100 mls @ 100 mls/hr IV Q1H PRIYANKA Stop: 09/13/24 17:59 Last Admin: 09/13/24 14:26 Dose: 100 mls/hr Cefepime HCl (Maxipime) 2 gm in 50 mls @ 100 mls/hr IV Q8H [facility] Magnesium Hydroxide (Milk Of Magnesia 30 Ml Oral.Susp) 30 ml PO DAILY PRN PRN Reason: Constipation Melatonin (Melatonin 3 Mg Tablet) 6 mg PO BEDTIME PRN PRN Reason: Insomnia Nicotine (Nicotine 21 Mg Patch.Td24) 21 mg TRANSDERMA DAILY [facility] Ondansetron HCl (Ondansetron Hcl 4 Mg/2 Ml Vial) 4 mg IVPUSH Q8H PRN PRN Reason: Nausea and Vomiting Sodium Chloride (0.9 % Sodium Chloride Flush 3 Ml Syringe) 3 ml IVFLUSH QSHIFT [facility] Home Medications ?Medication ?Instructions ?Recorded ?Confirmed ?Last Taken ?Type pregabalin 150 mg capsule 300 mg PO BEDTIME 03/19/23 09/13/24 09/12/24 History clonazepam 1 mg tablet 1 mg PO TID PRN Anxiety 09/13/24 09/13/24 Unknown History losartan 100 1 tab PO DAILY 09/13/24 09/13/24 09/12/24 History mg-hydrochlorothiazide 25 mg tablet multivitamin 1 tab PO DAILY 09/13/24 09/13/24 09/12/24 History pregabalin 150 mg capsule 150 mg PO DAILY 09/13/24 09/13/24 09/12/24 History tizanidine 4 mg tablet 4 mg PO Q6H PRN muscle spasm 09/13/24 09/13/24 Unknown History Physical Exam Vital Signs and Narrative: Vital Signs: Last Vital Signs Temp 98.0 F 09/13/24 14:33 Pulse 80 09/13/24 14:33 Resp 20 09/13/24 14:33 BP 141/91 H 09/13/24 14:33 Pulse Ox 99 09/13/24 14:33 O2 Del Method Room Air 09/13/24 14:33 BMI result Body Mass Index 32.3 General: AOx3. Somnolent but arousable, though falling back asleep during interview and examination. No acute distress Resp: CTA bilaterally CVS: S1, S2, RRR GI: +BS, NT, no distention Skin: Warm, dry Neuro: Cranial nerves II-XII grossly intact bilaterally. Motor grossly intact bilaterally Extremities: Left hand with significant swelling, erythema, warmth, fluctuance, and active purulent discharge on volar aspect. ROM reduced secondary to pain and swelling. 7-8cm lacerations to bilateral forearms, no signs of active infection. Question of recent track murphy on left forearm. As pictured below. Results Labs 09/14/24 05:40 09/14/24 05:40 Labs: Laboratory Results - last 24 hr 09/13/24 10:50 MCV 86.7 MCH 29.1 MCHC 33.6 RDW 13.6 Plt Count 261 MPV 9.7 Immature Gran % (Auto) 0.3 Neut % (Auto) 82.2 H Lymph % (Auto) 8.6 L Hardy % (Auto) 8.4 Eos % (Auto) 0.3 Baso % (Auto) 0.2 Lymph # (Auto) 0.8 L Hardy # (Auto) 0.8 Eos # (Auto) 0.0 Baso # (Auto) 0.0 Abs Immat Gran (auto) 0.03 Absolute Neuts (auto) 7.9 Absolute Nucleated RBC 0.000 Nucleated RBC % (auto) 0.0 ESR 12 Anion Gap 11 L Estim Creat Clear Calc 131.4 Estimated GFR > 60 Random Glucose 155 H Lactic Acid 1.8 Calcium 8.7 D Magnesium 1.9 Total Bilirubin 0.6 Direct Bilirubin 0.3 AST 56 H ALT 41 H Alkaline Phosphatase 67 C-Reactive Protein 2.27 H Total Protein 6.8 Albumin 3.5 Assessment and Plan (1) Abscess of hand: Status: Acute (2) Cellulitis of left hand: Status: Acute Plan Pt is a 44-year-old male with a PMH significant for HTN, cocaine use disorder,?IVDU, PTSD, anxiety, and depression who presents to the ED with?left hand swelling, pain, redness, and drainage times 2-3 days. Pt is admitted to the hospital for treatment and further evaluation of left hand cellulitis with abscess. Left hand cellulitis with abscess Pt with left hand redness, swelling, pain, warmth, purulent drainage times 3-[address] showing findings consistent with cellulitis with developing deeper abscesses Pt with long hx of abscesses secondary to IVDU, including left biceps abscess drained here in May and bilateral forearm abscesses drained at [facility] Pt reports has not been using for the past 4 weeks No sepsis: Tachycardia but no fever, tachypnea, leukocytosis; lactic acid WNL Pt given IVF and started on broad-spectrum antibiotics in the ED Will treat with vancomycin and cefepime, started 09/13/2024 NPO Orthopedic consult with plan for immediate washout in the OR Follow cultures Hx of IVDU Reports he has not used in 4 weeks Pt, however, appears somnolent and with suspicion for intoxication Check tox screen Continue buprenorphine Addiction medicine consult HTN Continue losartan, hydrochlorothiazide Mood disorder Continue home mood stabilizers Full Code Attending:?Dr. Smith DVT Prophylaxis: Pneumatic compression due to impending surgical procedure Pt will require a hospitalization of at least two nights for treatment of?left hand cellulitis with abscesses requiring IV antibiotics and surgical washout in the OR by Orthopedics. Quality Stroke Does the patient have a stroke diagnosis?: No VTE Prior VTE?: No VTE Risk Level:: Medical - moderate - high VTE Device Contraindication: N/A - Device Ordered VTE Drug Contraindication: Patient Refused
--- NOTE | 2024-09-13 14:54 | HO.ANESPROP2 ---
HPI - Anesthesia Eval Consult details Narrative: Left hand abscess PMFSH Active Problems Active Problems: All Active Problems (Updated 09/13/24 @ 14:04 by PENNY Ventura) Abscess of hand (Acute) Cellulitis of hand (Acute) Abscess of left upper extremity (Acute) Cocaine use disorder (Acute) Opioid use disorder (Acute) Abscess, penis (Acute) Laceration of left hand involving extensor tendon (Acute) Laceration of left hand (Acute) Lymphadenopathy of head and neck (Acute) Past Medical History Medical History Abscess of arm, left PTSD (post-traumatic stress disorder) Depression Anxiety HTN (hypertension) Family History Family History Father HIV (human immunodeficiency virus infection) Mother Diabetes Hypertension Brother Hypertension Diabetes Sister Diabetes Hypertension Family history of problems with anesthesia: No Surgical History Surgical History No pertinent past surgical history History of Problems with Anesthesia: No Social History Social History Smoked in Last 30 Days: Yes Use of substances other than those prescribed or required for medical reasons: Yes Advance Directives: No Advance Directives Information Provided: No Meds Allergies Allergy/AdvReac Type Severity Reaction Status Date / Time amoxicillin [AMOXICILLIN] Allergy Mild RASH, Verified 09/13/24 10:19 vomiting,diarrhea morphine [MORPHINE] Allergy Mild RASH, Verified 09/13/24 10:19 shortness of breath, nausea,vomiting hydrocodone [Vicodin] Allergy Unknown shortness Verified 09/13/24 10:19 of breath Penicillins [PENICILLINS] Allergy Unknown RASH Verified 09/13/24 10:19 gadobutrol [From GADAVIST] AdvReac Mild NAUSEA & Verified 09/13/24 10:19 VOMITING levofloxacin [From LEVAQUIN] AdvReac Unknown N/V Verified 09/13/24 10:19 Active Medications: Current Medications Acetaminophen (Acetaminophen 325 Mg Tablet) 650 mg PO Q6H PRN PRN Reason: Pain, Mild 1-3,fever,headache Calcium Carbonate (Calcium Carbonate 750 Mg Tab.Chew) 750 mg PO Q4H PRN PRN Reason: Heartburn Hydromorphone HCl (Hydromorphone Hcl 0.5 Mg/0.5 Ml Syringe) 0.5 mg IVPUSH Q4H PRN; Protocol PRN Reason: Pain, Severe (Pain Scale 7-10) Potassium Chloride (Potassium Chloride/H20) 10 meq in 100 mls @ 100 mls/hr IV Q1H PRIYANKA Stop: 09/13/24 17:59 Last Admin: 09/13/24 14:26 Dose: 100 mls/hr Cefepime HCl (Maxipime) 2 gm in 50 mls @ 100 mls/hr IV Q8H PRIYANKA Magnesium Hydroxide (Milk Of Magnesia 30 Ml Oral.Susp) 30 ml PO DAILY PRN PRN Reason: Constipation Melatonin (Melatonin 3 Mg Tablet) 6 mg PO BEDTIME PRN PRN Reason: Insomnia Nicotine (Nicotine 21 Mg Patch.Td24) 21 mg TRANSDERMA DAILY PRIYANKA Ondansetron HCl (Ondansetron Hcl 4 Mg/2 Ml Vial) 4 mg IVPUSH Q8H PRN PRN Reason: Nausea and Vomiting Pharmacy Consult (Consult Rx Vancomycin Dosing) 1 each MISCELLANE DAILY PRN PRN Reason: Consult order Sodium Chloride (0.9 % Sodium Chloride Flush 3 Ml Syringe) [facility] Home Medications ?Medication ?Instructions ?Recorded ?Confirmed ?Last Taken ?Type clonazepam 0.5 mg tablet 0.5 mg PO BID 03/19/23 06/23/24 Unknown History doxepin 50 mg capsule 50 mg PO BEDTIME 03/19/23 06/23/24 Unknown History pregabalin 150 mg capsule 150 mg PO TID 03/19/23 06/23/24 Unknown History Exam Height,Weight and Vital Signs: Height 5 ft 7 in Weight 93.5 kg Last Vital Signs Temp 98.0 F 09/13/24 14:33 Pulse 80 09/13/24 14:33 Resp 20 09/13/24 14:33 BP 141/91 H 09/13/24 14:33 Pulse Ox 99 09/13/24 14:33 O2 Del Method Room Air 09/13/24 14:33 Pertinent Lab Results Pertinent Lab Results: Laboratory Tests 09/13/24 10:50 WBC 9.7 RBC 4.50 L Hgb 13.1 L Hct 39.0 L MCV 86.7 MCH 29.1 MCHC 33.6 RDW 13.6 Plt Count 261 MPV 9.7 Immature Gran % (Auto) 0.3 Neut % (Auto) 82.2 H Lymph % (Auto) 8.6 L Kidder % (Auto) 8.4 Eos % (Auto) 0.3 Baso % (Auto) 0.2 Lymph # (Auto) 0.8 L Kidder # (Auto) 0.8 Eos # (Auto) 0.0 Baso # (Auto) 0.0 Abs Immat Gran (auto) 0.03 Absolute Neuts (auto) 7.9 Absolute Nucleated RBC 0.000 Nucleated RBC % (auto) 0.0 ESR 12 Sodium 139 Potassium 2.8 L* Chloride 103 Carbon Dioxide 28 Anion Gap 11 L BUN 15 Creatinine 0.79 Estim Creat Clear Calc 131.4 Estimated GFR > 60 Random Glucose 155 H Lactic Acid 1.8 Calcium 8.7 D Magnesium 1.9 Total Bilirubin 0.6 Direct Bilirubin 0.3 AST 56 H ALT 41 H Alkaline Phosphatase 67 C-Reactive Protein 2.27 H Total Protein 6.8 Albumin 3.5 Airway Mallampati Class: II TM Dist: >3cm Neck ROM: Full Loose/Missing/Broken Teeth: No Heart: RRR Lungs: CTAB Assessment and Plan Assessment Anesthesia Assessment: Anesthesia Plan Discussed and Chart Reviewed Final Anesthetic Review Family History of Problems with Anesthesia: No History of Problems with Anesthesia: No NPO: Yes ASA Class: III and Emergency Final Preanesthetic Review: No Changes in Pt Med Stat, Meds/Allgs Chart Reviewed, Consent Obtained/Reviewed and Anes Risks/Benef Reviewed Patient Risk: Intermediate Procedure Risk: Low Anesthetic Plan Anesthetic Plan: GA Disposition: Standard PACU
--- NOTE | 2024-09-13 15:01 | PC.NURSE ---
Report given to BALA Hopper in OR. All questions answered. Informed third bag of K+ running and pt. needs three more bags of k+. Per OR, pt. may be brought to OR in wc. Pt. had PO ordered but PA dc order.
--- NOTE | 2024-09-13 15:06 | PC.NURSE ---
Per pt. please notify brother: Alfred Fabián for any follow ups or updates: .
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
--- NOTE | 2024-09-13 15:41 | PHA.MEDREC ---
Pharmacy Consult ? Medication Reconciliation Pharmacy has completed the medication reconciliation. Spoke to pt to confirm meds. Pt reports no longer taking Sublocade, doxepin, hydroxyzine. Pt reports taking clonazepam 1 mg TID PRN instead of daily PRN. Pt also reports taking tizanidine 4 mg Q6H PRN instead of TID PRN.
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
[2024-09-13] MEDS: Ketorolac Tromethamine 30 MG/ML VIAL IVPUSH (16:38)
[2024-09-13] MEDS: Potassium Chloride/H20 10 MEQ/100 ML PIGGYBACK 50 MEQ IV (17:34)
[2024-09-13] MEDS: HYDROmorphone HCl 0.5 MG/0.5 ML SYRINGE IVPUSH (17:47)
[2024-09-13] MEDS: 0.9 % Sodium Chloride Flush 3 ML SYRINGE IVFLUSH ×2 (17:50→22:38)
[2024-09-13] MEDS: cefEPime HCl/D5W 2 GM/50 ML PIGGYBACK IV (18:58)
[2024-09-13] MEDS: Pregabalin 150 MG CAPSULE 300 MG PO (19:39)
[2024-09-13] MEDS: clonazePAM 1 MG TABLET PO (19:39)
[2024-09-13] MEDS: oxyCODONE HCl Immed Release 5 MG TABLET 10 MG PO (20:19)
[2024-09-13] MEDS: vancomycin HCL 1,250 MG in 0.9 % Sodium Chloride 250 ML 166.67 MG IV (22:37)
[2024-09-14] VITALS (9 sets, daily range): BP systolic 140–194; BP diastolic 74–106; PULSE 90–123; RESP 14–20; TEMP 36.1–37.2; O2SAT 95–98
[2024-09-14] MEDS: cefEPime HCl/D5W 2 GM/50 ML PIGGYBACK IV ×3 (01:25→17:32)
[2024-09-14] MEDS: HYDROmorphone HCl 1 MG/ML SYRINGE IVPUSH ×4 (05:47→19:53)
[2024-09-14 06:27] LABS: MANUAL DIFF FLAG NO
--- NOTE | 2024-09-14 06:34 | PC.NURSE ---
notified patient is asking for oxycodone upon being awoken for BP recheck. He had gotten an increased dose of Dilaudid about 40 min earlier of 1mg IV. MD Cazares replied can get in am with morning provider...after 7
[2024-09-14 06:35] LABS: Basophils Percent Auto 0.4 % (0-2); Eosinophils Absolute Auto 0.1 X10*3/uL (0.0-0.4); Eosinophils Percent Auto 1.2 % (0-4); Hematocrit 37.7 % (42.0-52.0); Hemoglobin 12.2 g/dl (14.0-18.0); Imm Gran Abs Auto 0.03 X10*3/uL (0.00-0.03); Imm Gran Pct Auto 0.4 % (0.0-0.4); Lymphocytes Absolute Auto 1.6 X10*3/uL (1.2-4.9); Lymphocytes Percent Auto 21.5 % (20-40); Mean Corpuscular HGB Conc 32.4 g/dl (31.0-36.0); Mean Corpuscular Hemoglobin 28.8 pg (27.0-33.0); Mean Corpuscular Volume 89.1 fL (80.0-98.0); Mean Platelet Volume 10.1 fL (9.4-12.4); Monocytes Absolute Auto 0.8 X10*3/uL (0.1-1.2); Monocytes Percent Auto 10.8 % (2-11); Neutrophils Absolute Auto 4.8 x10*3/uL (2.0-8.3); Neutrophils Percent Auto 65.7 % (45-73); Platelet Count 262 X10*3/uL (160-400); Red Blood Count 4.23 X10*6/uL (4.60-5.80); Red Cell Distribution Width 13.8 % (11.0-16.0); White Blood Count 7.2 X10*3/uL (4.8-10.8)
[2024-09-14 06:43] LABS: Anion Gap 11 (12-20); Blood Urea Nitrogen 10 mg/dL (9-16); Calcium 8.1 mg/dL (8.4-10.2); Carbon Dioxide 25 mmol/L (22-29); Chloride 108 mmol/L (96-108); Creatinine Clr Calc Pharmacy 137.2; Estimated Glomerular Filt Rate > 60; Glucose Random 108 mg/dL (60-115); Potassium 3.4 mmol/L (3.3-5.1); Sodium 141 mmol/L (135-145)
[2024-09-14] MEDS: 0.9 % Sodium Chloride Flush 3 ML SYRINGE IVFLUSH ×3 (07:21→15:21)
[2024-09-14] MEDS: clonazePAM 1 MG TABLET PO (07:23)
[2024-09-14] MEDS: Losartan Potassium 50 MG TABLET 100 MG PO (07:23)
[2024-09-14] MEDS: Pregabalin 150 MG CAPSULE PO (07:23)
[2024-09-14] MEDS: Acetaminophen 325 MG TABLET 650 MG PO ×2 (07:24→17:51)
[2024-09-14] MEDS: hydroCHLOROthiazide 25 MG TABLET PO (07:24)
[2024-09-14] MEDS: Multivitamin TABLET 1 TAB PO (07:24)
[2024-09-14] MEDS: Nicotine 21 MG PATCH.TD24 TRANSDERMA (07:27)
--- NOTE | 2024-09-14 09:48 | HO.ADDICT_ITS ---
History of Present Illness Date of Service: 09/14/2024 Chief Complaint: Left hand cellulitis w/abscess Reason for Consult: KEON Sources of Information: patient interviewed and chart reviewed HPI Narrative: Patient is a 44 year old male with history of OUD, medically admitted with abscess of the hand, secondary to IVDU. Patient seen in room 345, initially asleep, but woke easily to voice and engaged in interview. He is tearful, reporting his divorce was just recently finalized, and as a result, he began to use again. He states he had been engaged with OTP, and was on methadone, 80mg QD--last dose approx 10 days ago. He is guarded and avoidant when asked about his substance use, initially stating that he had not been using any substances for some time. He expresses shame around his ongoing substance use, and various life stressors, including divorce and unstable housing. He appears diaphoretic. He reports pain in his hand, feeling hot and cold and anxious. He requests to restart methadone. Labs reviewed Review of Systems Constitutional: Reports as per HPI and Reports difficulty sleeping Gastrointestinal: Denies loose stools, Denies nausea and Denies vomiting Musculoskeletal: Reports myalgias Diagnostics Vital Signs (24Hr): Vital Signs - 24 hr 09/13/24 10:18 09/13/24 13:01 09/13/24 14:33 Temperature 98.8 F 98.0 F Pulse Rate 104 H 87 80 Respiratory Rate 18 18 20 Blood Pressure 150/103 H 141/91 H Pulse Oximetry 98 97 99 Oxygen Delivery Method Room Air Room Air Room Air Oxygen Flow Rate 09/13/24 16:33 09/13/24 16:38 09/13/24 16:43 Temperature 97.6 F Pulse Rate 111 H 105 H 99 Respiratory Rate 17 16 16 Blood Pressure 166/94 H 161/93 H Pulse Oximetry 100 95 95 Oxygen Delivery Method Simple Mask Room Air Room Air Oxygen Flow Rate 6 09/13/24 16:48 09/13/24 17:10 09/13/24 17:47 Temperature 98.4 F Pulse Rate 93 90 Respiratory Rate 16 18 18 Blood Pressure 155/90 H 161/88 H Pulse Oximetry 96 98 Oxygen Delivery Method Nasal Cannula Room Air Oxygen Flow Rate 2 09/13/24 19:17 09/14/24 02:55 09/14/24 05:45 Temperature 98.9 F 98 F Pulse Rate 89 100 104 H Respiratory Rate 20 20 16 Blood Pressure 146/74 H 145/76 H 190/100 H Pulse Oximetry 98 95 96 Oxygen Delivery Method Room Air Room Air Room Air Oxygen Flow Rate 09/14/24 06:33 09/14/24 07:05 09/14/24 09:03 Temperature 98.9 F Pulse Rate 101 H 116 H 101 H Respiratory Rate 16 14 Blood Pressure 174/84 H 181/86 H 141/76 H Pulse Oximetry 96 Oxygen Delivery Method Room Air Oxygen Flow Rate BMI result Body Mass Index 33.5 Labs 09/14/24 05:40 09/14/24 05:40 Labs: Laboratory Results - last 48 hr 09/13/24 09/14/24 10:50 05:40 WBC 9.7 7.2 RBC 4.50 L 4.23 L Hgb 13.1 L 12.2 L Hct 39.0 L 37.7 L MCV 86.7 89.1 MCH 29.1 28.8 MCHC 33.6 32.4 RDW 13.6 13.8 Plt Count 261 262 MPV 9.7 10.1 Immature Gran % (Auto) 0.3 0.4 Neut % (Auto) 82.2 H 65.7 Lymph % (Auto) 8.6 L 21.5 Bonner % (Auto) 8.4 10.8 Eos % (Auto) 0.3 1.2 Baso % (Auto) 0.2 0.4 Lymph # (Auto) 0.8 L 1.6 Bonner # (Auto) 0.8 0.8 Eos # (Auto) 0.0 0.1 Baso # (Auto) 0.0 0.0 Abs Immat Gran (auto) 0.03 0.03 Absolute Neuts (auto) 7.9 4.8 Absolute Nucleated RBC 0.000 0.000 Nucleated RBC % (auto) 0.0 0.0 ESR 12 Sodium 139 141 Potassium 2.8 L* 3.4 D Chloride 103 108 Carbon Dioxide 28 25 Anion Gap 11 L 11 L BUN 15 10 Creatinine 0.79 0.77 Estim Creat Clear Calc 131.4 137.2 Estimated GFR > 60 > 60 Random Glucose 155 H 108 Lactic Acid 1.8 Calcium 8.7 D 8.1 L D Magnesium 1.9 Total Bilirubin 0.6 Direct Bilirubin 0.3 AST 56 H ALT 41 H Alkaline Phosphatase 67 C-Reactive Protein 2.27 H Total Protein 6.8 Albumin 3.5 Mental Status Exam Mental Status Exam Patient Appearance: Perspiring Level of Consciousness: Awake and Alert Patient Behavior: Guarded and Crying Affect Description: Sad Thought Process: Intact Thought Content: positive for Intact Judgement: Fair Medications Medications Current Medications Acetaminophen (Acetaminophen 325 Mg Tablet) 650 mg PO Q6H PRN PRN Reason: Pain, Mild 1-3,fever,headache Last Admin: 09/14/24 07:24 Dose: 650 mg Calcium Carbonate (Calcium Carbonate 750 Mg Tab.Chew) 750 mg PO Q4H PRN PRN Reason: Heartburn Clonazepam (Clonazepam 1 Mg Tablet) 1 mg PO DAILY PRN PRN Reason: Anxiety Hydrochlorothiazide (Hydrochlorothiazide 25 Mg Tablet) 25 mg PO DAILY [facility] Last Admin: 09/14/24 07:24 Dose: 25 mg Hydromorphone HCl (Hydromorphone Hcl 1 Mg/Ml Syringe) 1 mg IVPUSH Q4H PRN; Protocol PRN Reason: Pain, Severe (Pain Scale 7-10) Last Admin: 09/14/24 05:47 Dose: 1 mg Cefepime HCl (Maxipime) 2 gm in 50 mls @ 100 mls/hr IV Q8H [facility] Last Infusion: 09/14/24 02:41 Dose: Infused Vancomycin HCl 1,250 mg/ (Sodium Chloride) 250 mls @ 166.667 mls/hr IV Q12H [facility] Last Infusion: 09/14/24 00:08 Dose: Infused Losartan Potassium (Losartan Potassium 50 Mg Tablet) 100 mg PO DAILY [facility] Last Admin: 09/14/24 07:23 Dose: 100 mg Magnesium Hydroxide (Milk Of Magnesia 30 Ml Oral.Susp) 30 ml PO DAILY PRN PRN Reason: Constipation Melatonin (Melatonin 3 Mg Tablet) 6 mg PO BEDTIME PRN PRN Reason: Insomnia Multivitamins/Vitamin C (Multivitamin Tablet) 1 tab PO DAILY [facility] Last Admin: 09/14/24 07:24 Dose: 1 tab Naloxone HCl (Naloxone Hcl 0.4 Mg/Ml Vial) 0.04 mg IVPUSH Q5M PRN PRN Reason: Excessive sedation or RR < 8 Nicotine (Nicotine 21 Mg Patch.Td24) 21 mg TRANSDERMA DAILY [facility] Last Admin: 09/14/24 07:27 Dose: 21 mg Ondansetron HCl (Ondansetron Hcl 4 Mg/2 Ml Vial) 4 mg IVPUSH Q8H PRN PRN Reason: Nausea and Vomiting Oxycodone HCl (Oxycodone Hcl Immed Release 5 Mg Tablet) 5 mg PO Q6H PRN PRN Reason: Pain, Moderate(Pain Scale 4-6) Pharmacy Consult (Consult Rx Vancomycin Dosing) 1 each MISCELLANE DAILY PRN PRN Reason: Consult order Pregabalin (Pregabalin 150 Mg Capsule) 150 mg PO DAILY [facility] Last Admin: 09/14/24 07:23 Dose: 150 mg Pregabalin (Pregabalin 150 Mg Capsule) 300 mg PO BEDTIME [facility] Last Admin: 09/13/24 19:39 Dose: 300 mg Sodium Chloride (0.9 % Sodium Chloride Flush 3 Ml Syringe) 3 ml IVFLUSH QSHIFT [facility] Last Admin: 09/14/24 07:29 Dose: 3 ml Tizanidine HCl (Tizanidine Hcl 4 Mg Tablet) 4 mg PO Q6H PRN PRN Reason: Muscle Spasm Allergies Allergies Allergy/AdvReac Type Severity Reaction Status Date / Time amoxicillin [AMOXICILLIN] Allergy Mild RASH, Verified 09/13/24 10:19 vomiting,diarrhea morphine [MORPHINE] Allergy Mild RASH, Verified 09/13/24 10:19 shortness of breath, nausea,vomiting hydrocodone [Vicodin] Allergy Unknown shortness Verified 09/13/24 10:19 of breath Penicillins [PENICILLINS] Allergy Unknown RASH Verified 09/13/24 10:19 gadobutrol [From GADAVIST] AdvReac Mild NAUSEA & Verified 09/13/24 10:19 VOMITING levofloxacin [From LEVAQUIN] AdvReac Unknown N/V Verified 09/13/24 10:19 Assessment & Plan Assessment & Plan (1) Opioid use disorder: Status: Acute Code(s): F11.90 - Opioid use, unspecified, uncomplicated Assessment and Plan: * restart methadone at 40mg QD and titrate * continue PRN pain meds * Clonazepam changed from 1mg TID to 1mg QD, which is how it is ordered outpatient, despite patient requesting it TID. Please do not administer Clonazepam at the same time as methadone * will continue to follow Total time managing care of this patient today __40__ minutes. PMFSH Past Medical History Medical History Abscess of arm, left PTSD (post-traumatic stress disorder) Depression Anxiety HTN (hypertension) Family History Family History Father HIV (human immunodeficiency virus infection) Mother Diabetes Hypertension Brother Hypertension Diabetes Sister Diabetes Hypertension Surgical History Surgical History No pertinent past surgical history Social History Social History Household Members: Family Household Members Other:: Brother/HYDROGENATION OPERATOR Housing: Other Housing Other:: RV Do you presently have visiting nurse or other home services: Yes Patient Tobacco Use Status: Current everyday Tobacco user Tobacco use type: Cigarette Second Hand Smoke Exposure: No
[2024-09-14] MEDS: TiZANidine HCL 4 MG TABLET PO ×2 (09:55→17:51)
--- NOTE | 2024-09-14 10:14 | P.PNIM_ITS ---
Subjective Subjective Date of Service: 09/14/24 Interval History: Left hand cellulitis Review of Systems hand wrapped -rom seems limited . has pain no fevers Physical Exam 2 Vital Signs: Vital Signs: Last Vital Signs Temp 98.9 F 09/14/24 07:05 Pulse 101 H 09/14/24 09:03 Resp 14 09/14/24 07:05 BP 141/76 H 09/14/24 09:03 Pulse Ox 96 09/14/24 07:05 O2 Del Method Room Air 09/14/24 07:05 O2 Flow Rate 2 09/13/24 16:48 BMI result Body Mass Index 33.5 General: AOx3.No acute distress Resp: air entry fair . cardio: rrr ,[id number]. GI: +BS, NT, no distention Skin: Warm, dry Neuro:nonfocal Extremities: left fernandez wrapped /moves fingers Objective Data Active Medications Acetaminophen (Acetaminophen 325 Mg Tablet) 650 mg PO Q6H PRN PRN Reason: Pain, Mild 1-3,fever,headache Last Admin: 09/14/24 07:24 Dose: 650 mg Documented By: STORM Calcium Carbonate (Calcium Carbonate 750 Mg Tab.Chew) 750 mg PO Q4H PRN PRN Reason: Heartburn Clonazepam (Clonazepam 1 Mg Tablet) 1 mg PO DAILY PRN PRN Reason: Anxiety Hydrochlorothiazide (Hydrochlorothiazide 25 Mg Tablet) 25 mg PO DAILY [facility] Last Admin: 09/14/24 07:24 Dose: 25 mg Documented By: STORM Hydromorphone HCl (Hydromorphone Hcl 1 Mg/Ml Syringe) 1 mg IVPUSH Q4H PRN; Protocol PRN Reason: Pain, Severe (Pain Scale 7-10) Last Admin: 09/14/24 09:56 Dose: 1 mg Documented By: STORM Cefepime HCl (Maxipime) 2 gm in 50 mls @ 100 mls/hr IV Q8H [facility] Last Admin: 09/14/24 09:58 Dose: 100 mls/hr Documented By: STORM Vancomycin HCl 1,250 mg/ (Sodium Chloride) 250 mls @ 166.667 mls/hr IV Q12H [facility] Last Infusion: 09/14/24 00:08 Dose: Infused Documented By: HUNG Losartan Potassium (Losartan Potassium 50 Mg Tablet) 100 mg PO DAILY [facility] Last Admin: 09/14/24 07:23 Dose: 100 mg Documented By: STORM Magnesium Hydroxide (Milk Of Magnesia 30 Ml Oral.Susp) 30 ml PO DAILY PRN PRN Reason: Constipation Melatonin (Melatonin 3 Mg Tablet) 6 mg PO BEDTIME PRN PRN Reason: Insomnia Methadone HCl (Methadone Hcl 20 Mg/2 Ml Oral.Conc) 40 mg PO DAILY@0800 [facility] Multivitamins/Vitamin C (Multivitamin Tablet) 1 tab PO DAILY [facility] Last Admin: 09/14/24 07:24 Dose: 1 tab Documented By: STORM Naloxone HCl (Naloxone Hcl 0.4 Mg/Ml Vial) 0.04 mg IVPUSH Q5M PRN PRN Reason: Excessive sedation or RR < 8 Nicotine (Nicotine 21 Mg Patch.Td24) 21 mg TRANSDERMA DAILY [facility] Last Admin: 09/14/24 07:27 Dose: 21 mg Documented By: STORM Ondansetron HCl (Ondansetron Hcl 4 Mg/2 Ml Vial) 4 mg IVPUSH Q8H PRN PRN Reason: Nausea and Vomiting Oxycodone HCl (Oxycodone Hcl Immed Release 5 Mg Tablet) 5 mg PO Q6H PRN PRN Reason: Pain, Moderate(Pain Scale 4-6) Pharmacy Consult (Consult Rx Vancomycin Dosing) 1 each MISCELLANE DAILY PRN PRN Reason: Consult order Pregabalin (Pregabalin 150 Mg Capsule) 150 mg PO DAILY [facility] Last Admin: 09/14/24 07:23 Dose: 150 mg Documented By: STORM Pregabalin (Pregabalin 150 Mg Capsule) 300 mg PO BEDTIME [facility] Last Admin: 09/13/24 19:39 Dose: 300 mg Documented By: ALDAIR Sodium Chloride (0.9 % Sodium Chloride Flush 3 Ml Syringe) 3 ml IVFLUSH QSHIFT [facility] Last Admin: 09/14/24 07:21 Dose: 3 ml Documented By: STORM Tizanidine HCl (Tizanidine Hcl 4 Mg Tablet) 4 mg PO Q6H PRN PRN Reason: Muscle Spasm Last Admin: 09/14/24 09:55 Dose: 4 mg Documented By: STORM Labs 09/14/24 05:40 09/14/24 05:40 Labs: Laboratory Results - last 24 hr 09/13/24 09/14/24 10:50 05:40 MCV 86.7 89.1 MCH 29.1 28.8 MCHC 33.6 32.4 RDW 13.6 13.8 Plt Count 261 262 MPV 9.7 10.1 Immature Gran % (Auto) 0.3 0.4 Neut % (Auto) 82.2 H 65.7 Lymph % (Auto) 8.6 L 21.5 Alexander % (Auto) 8.4 10.8 Eos % (Auto) 0.3 1.2 Baso % (Auto) 0.2 0.4 Lymph # (Auto) 0.8 L 1.6 Alexander # (Auto) 0.8 0.8 Eos # (Auto) 0.0 0.1 Baso # (Auto) 0.0 0.0 Abs Immat Gran (auto) 0.03 0.03 Absolute Neuts (auto) 7.9 4.8 Absolute Nucleated RBC 0.000 0.000 Nucleated RBC % (auto) 0.0 0.0 ESR 12 Anion Gap 11 L 11 L Estim Creat Clear Calc 131.4 137.2 Estimated GFR > 60 > 60 Random Glucose 155 H 108 Lactic Acid 1.8 Calcium 8.7 D 8.1 L D Magnesium 1.9 Total Bilirubin 0.6 Direct Bilirubin 0.3 AST 56 H ALT 41 H Alkaline Phosphatase 67 C-Reactive Protein 2.27 H Total Protein 6.8 Albumin 3.5 Microbiology Microbiology Results: Microbiology 09/13/24 16:04 Gram Stain - Final Hand Left 09/13/24 16:04 Gram Stain - Final Hand Left 09/13/24 10:51 Gram Stain - Final Hand Left Assessment and Plan (1) Septic arthritis of hand, left: Status: Acute (2) Cellulitis of left hand: Status: Acute Plan 44-year-old male with a PMH significant for HTN, cocaine use disorder,?IVDU, PTSD, anxiety, and depression who presents to the ED with?left hand swelling, pain, redness, and drainage times 2-3 days. Pt is admitted to the hospital for treatment and further evaluation of left hand cellulitis with abscess. Left hand cellulitis with abscess-symptoms 3-[address] showing findings consistent with cellulitis with developing deeper abscesses Pt with long hx of abscesses secondary to IVDU, including left biceps abscess drained here in May and bilateral forearm abscesses drained at [facility] no sepsis at present. plan:s/p I&D left dorsal hand abcess ,3rd mcp joint ,left deep thenar/left deep midcarpel space. continue vancomycin and cefepime, started 09/13/2024,pain control with dilaudid iv and po oxycodone. Follow cultures id eval Hx of IVDU Reports he has not used in 4 weeks Check tox screen Continue buprenorphine Addiction medicine consult HTN Continue losartan, hydrochlorothiazide Mood disorder Continue home mood stabilizers Full Code DVT Prophylaxis: Pneumatic compression due to impending surgical procedure ongoing need stay for treatment of?left hand cellulitis with abscesses requiring IV antibiotics and surgical follow up . Quality Stroke Does the patient have a stroke diagnosis?: No VTE Prior VTE?: No VTE Risk Level:: Medical - moderate - high VTE Device Contraindication: N/A - Device Ordered VTE Drug Contraindication: Patient Refused
[2024-09-14] MEDS: vancomycin HCL 1,250 MG in 0.9 % Sodium Chloride 250 ML 166.67 MG IV (10:45)
[2024-09-14] MEDS: methADONE HCl 20 MG/2 ML ORAL.CONC 40 MG PO (10:45)
--- NOTE | 2024-09-14 11:07 | HO.POSTANES ---
Post Anesthesia Evaluation Post Anesthesia Evaluation Date of Service: 09/14/24 Vital Signs: Vital Signs Temp Pulse Resp BP Pulse Ox O2 Del Method 09/14/24 09:03 101 H 141/76 H 09/14/24 07:05 98.9 F 116 H 14 181/86 H 96 Room Air 09/14/24 06:33 101 H 16 174/84 H 09/14/24 05:45 104 H 16 190/100 H 96 Room Air 09/14/24 02:55 98 F 100 20 145/76 H 95 Room Air Anesthesia: General LMA Mental Status: Awake Pain Control: Satisfactory (the hand hurts) Nausea/Vomiting: None Hydration: Adequate Anesthesia-Related Issues: No Anes. Related Issues
[2024-09-14] MEDS: oxyCODONE HCl Immed Release 5 MG TABLET PO ×2 (12:13→18:22)
--- NOTE | 2024-09-14 12:49 | MHC.CM.PN ---
IMM delivered. Patient lives in a mobile home w/ his brother/HOSTING ENGINEER Alfred. Mailing address on file is correct, but physical address of mobile home is [address] [place] [address]. Reports he has 53 HOSTING ENGINEER hrs/wk and his brother/HOSTING ENGINEER assists w/ all ADL's. Ambulates w/ a rollator. PCP @ [facility] Completed HCP naming his brother, Alfred Lockwood, as HCA. Methadone @ [facility]. DP: Home w/ new [facility] for wound care vs wound clinic, brother will also assist w/ dressing changes & will transport. CM will continue to follow.
[2024-09-14 15:09] LABS: Amphetamine Screen Urine Not Detected (Not Detect); Barbiturates, Urine Not Detected (Not Detect); Benzodiazepines Screen Urine Not Detected (Not Detect); Buprenorphine Scr Positive (Not Detect); Cannabinoid Screen Urine Not Detected (Not Detect); Cocaine Screen Urine POSITIVE (Not Detect); Fentanyl, urine POSITIVE (Not Detect); Methadone Screen, Urine Positive (Not Detect); Opiate Screen Urine Not Detected (Not Detect); Oxycodone Screen Urine Positive (Not Detect); Phencyclidine Screen Urine Not Detected (Not Detect)
--- NOTE | 2024-09-14 19:20 | PM.PNORT ---
Subjective Subjective Date of Service: 09/14/24 Interval history: POD 1 s/p Left hand I&D 09/13/[address] Ochoa No overnight events resting in bed, states he can more hand better Physical Exam Vital Signs: Vital Signs: Last Vital Signs Temp 98.1 F 09/14/24 15:45 Pulse 90 09/14/24 15:45 Resp 14 09/14/24 15:45 BP 143/74 H 09/14/24 15:45 Pulse Ox 97 09/14/24 15:45 O2 Del Method Room Air 09/14/24 15:45 O2 Flow Rate 2 09/13/24 16:48 BMI result Body Mass Index 33.5 Const: General: cooperative, healthy appearing and no acute distress Resp: Effort & Inspection: normal respiratory effort and able to speak in complete sentences Cardio: Rate: regular rate Peripheral pulses: Peripheral pulses 2+ throughout GI: Palpation (GI): Soft to palpation Skin: General skin exam: no rashes or lesions noted Extrem: Other: Left hand incisions are clean and dry Diffuse swelling over the dorsum of the hand and along the thenar eminence No purulance or active abscess formation present He is able to attempt ext and flexion of the digits but unable to reach full ext/flex I am able to passively flex and extend NVI Procedures Date of Service Date of Service: 09/14/24 Progress Note: A&P Assessment and plan (1) Abscess of hand: Status: Acute (2) Cellulitis of left hand: Status: Acute (3) Septic arthritis of hand, left: Status: Acute Plan Drains pulled today- incisions dressed with xeroform, 2x2x, kurlix and chaitanya -->daily dressing changes by nursing staff Continue IV abx and adjust based off culture results: strep pyogenes -->ID consult OT for hand ROM and swelling control -->recommend elevation and AAROM/AROM Follow-up within about 5 days from discharge for wound check and to check cultures Time Spent With Patient Time: Total time managing care of this patient today ____ minutes. Quality Stroke Does the patient have a stroke diagnosis?: No VTE Prior VTE?: No VTE Risk Level:: Medical - moderate - high VTE Device Contraindication: N/A - Device Ordered VTE Drug Contraindication: Patient Refused
[2024-09-14] MEDS: Labetalol HCL 100 MG/20 ML VIAL 10 MG IVPUSH (20:00)
[2024-09-14] MEDS: Pregabalin 150 MG CAPSULE 300 MG PO (20:04)
--- NOTE | 2024-09-14 20:34 | PM.EVENT ---
Event Note Date of Service: 09/14/24 Event Note: Patient stated that he was not willing to stay and wants to leave. He understands the risks of leaving against medical advice. Patient is mentating well, alert and oriented x4, has competency and is able to communicate the risks of the infection spreading including sepsis, bacteremia and possible . He states he will follow-up with orthopedic surgery as an outpatient. Also he has some doxycycline tablets at home and will take them. Time Spent With Patient Time: Total time managing care of this patient today ____ minutes.
--- NOTE | 2024-09-15 08:48 | P.DS_ITS ---
DS: Providers Provider Date of Service: 09/14/24 Date of admission: 09/13/24 14:29 Date of discharge: 09/14/24 Primary care physician: Radha Sorto MD Consults: 09/13/24 15:47 Addiction Medicine Provider Routine Consulting Provider: Addiction Covering Reason for consultation: Hx of IVDU, left hand cellulitis w/abscess Consult to Orthopedics Routine Consulting Provider: [facility] Reason for consultation: Left hand cellulitis with abscess 09/14/24 02:48 Consult to Wound Care Routine Reason for consultation: cellulitis left hand with abscess, lacerations bilateral forearms 09/14/24 10:20 Consult to Infectious Diseases Routine Consulting Provider: [facility] Reason for consultation: left hand abcess Has provider been notified: No Attending physician on discharge: Michelle Smith Discharging clinician: Michelle Smith DS: Diagnosis Discharge Diagnosis (1) Abscess of hand: Status: Acute (2) Cellulitis of left hand: Status: Acute (3) Septic arthritis of hand, left: Status: Acute DS: Summary Hospital Course Hospital Course: HPI;44-year-old male with a PMH significant for HTN, cocaine use disorder,?IVDU, PTSD, anxiety, and depression who presents to the ED with?left hand swelling, p ain, redness, and drainage times 2-3 days. Pt reports originally noticed a ?pimple? on the top of his left hand that he popped. The following day hand was red, swollen, painful, and draining cloudy discharge. Reduced ROM of hand secondary to pain. 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 Most recently had left biceps abscess drained here by Dr. Stephenson in May, and then bilateral forearm abscesses drained in late June at [facility]. Pt states he has not used IV drugs for the past four weeks. Denies fever, chills, nausea, vomiting, or abdominal pain. No chest pain/pressure, palpitations. Denies shortness or breath or difficulty breathing. In the ED pt was tachycardic up to 104 and hypertensive at 150/103. Labs were significant for hypokalemia of 2.8, AST 56, ALT 41, and CRP 2.27. No leukocytosis. Stable H&H. ESR WNL. Lactic acid WNL. CT?of left hand and showing cellulitis with developing deeper abscesses. ED clinician contacted Orthopedics who recommended admitting pt to medicine and scheduling immediate washout in the OR this afternoon. Pt was treated in the ED with oxycodone, acetaminophen, potassium chloride, Ativan, vanc, and ceftriaxone. Pt is admitted to the hospital for treatment and further evaluation of left hand cellulitis with abscess. Hospital course; 44-year-old male with a PMH significant for HTN, cocaine use disorder,?IVDU, PTSD, anxiety, and depression who presents to the ED with?left hand swelling, pain, redness, and drainage times 2-3 days. Pt is admitted to the hospital for treatment and further evaluation of left hand cellulitis with abscess. Left hand cellulitis with abscess-symptoms 3-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 plan:s/p I&D left dorsal hand abcess ,3rd mcp joint ,left deep thenar/left deep midcarpel space-on vancomycin and cefepime, started 09/13/2024,pain control with dilaudid iv and po oxycodone. Follow cultures-strep pyogenous -senstivities not avilable (left hand cultures) blood cultures neg@24hrs patient left ama last night (please see night physician note for details). Time Attestation Discharge Coordination Time (in mins): 30 Quality: Safe Use of Opioids Does Pt have an Active Cancer Diagnosis on the Problem List?: No Quality: Stroke Does the patient have a stroke diagnosis?: No Physical Exam Vital Signs: Vital Signs: Last Vital Signs Temp 97.0 F 09/14/24 19:28 Pulse 96 09/14/24 20:29 Resp 18 09/14/24 19:28 BP 140/90 H 09/14/24 20:29 Pulse Ox 98 09/14/24 19:28 O2 Del Method Room Air 09/14/24 19:28 O2 Flow Rate 2 09/13/24 16:48 BMI result Body Mass Index 33.5 left ama DS: Data Data Completed and Pending Labs on day of discharge: Laboratory Results - last 24 hr 09/14/24 14:52 Urine Opiates Screen Not Detected Ur Buprenorphine Scrn Positive H Ur Oxycodone Screen Positive H Urine Methadone Screen Positive H Urine Fentanyl Screen POSITIVE H Ur Barbiturates Screen Not Detected Ur Phencyclidine Scrn Not Detected Ur Amphetamines Screen Not Detected U Benzodiazepines Scrn Not Detected Urine Cocaine Screen POSITIVE H U Marijuana (THC) Screen Not Detected Preliminary micro results at discharge 09/13/24 10:50 Blood Culture - Preliminary Blood - Venous No growth after 24 hours. 09/13/24 10:50 Blood Culture - Preliminary Blood - Venous No growth after 24 hours. 09/13/24 10:51 Routine Culture - Preliminary Hand Left Streptococcus pyogenes (Grp A) 09/13/24 16:04 Routine Culture - Preliminary Hand Left Culture in progress. Imaging Chest x-ray: My impression: left hand ct;Findings of possible cellulitis with developing deeper abscesses. Discharge Plan Discharge Patient Disposition: Left Against Medical Advice Discharge Diagnosis: Left Hand Cellulitis Referrals: Radha Sorto MD [Primary Care Provider] - 1 Week Discharge Medications: No Action tizanidine 4 mg tablet 4 mg PO Q6H PRN (Reason: muscle spasm) clonazepam 1 mg tablet 1 mg PO TID PRN (Reason: Anxiety) losartan-hydrochlorothiazide 100-25 mg tablet 1 tab PO DAILY pregabalin 150 mg capsule 150 mg PO DAILY multivitamin Tablet 1 tab PO DAILY pregabalin 150 mg capsule 300 mg PO BEDTIME Discharge Orders: Discharge Order (Routine); Ordered 09/15/24 Ordered By: Michelle Smith Print Language: Singaporean Care Plan Goals: ama Health Concerns: ama Plan of Treatment: ama Assessment: ama Discharge Date/Time: 09/14/24 20:30
--- NOTE | 2024-09-15 09:29 | PM.EVENT ---
Event Note Date of Service: 09/15/24 Event Note: Patient with self directed discharge overnight Attempted to reach patient to ensure he is aware he can present to OTP for continuation of MOUD Both numbers in EMR not in service. Time Spent With Patient Time: Total time managing care of this patient today ____ minutes.
== END 2024-09-14 20:30 | disposition left against medical advice (07) | DRG 506 ==
LOC: HO.ED 14:04 → HO.EDOVER 14:39 → HO.S3 16:31
PROVIDERS: Orthopaedic Surgery; Physician Assistant; Admitting Provider Student in an Organized Health Care Education/Training Program; Emergency Provider Emergency Medicine; PCP Internal Medicine; Visit Provider Internal Medicine
PROC: 0R9V0ZZ Drainage of Left Metacarpophalangeal Joint, Open Approach (ICD-10-PCS; principal; 2024-09-13 15:00)
DX: M00.242 Other streptococcal arthritis, left hand (principal); L03.114 Cellulitis of left upper limb; L02.512 Cutaneous abscess of left hand; F39 Unspecified mood [affective] disorder; B95.0 Streptococcus, group A, as the cause of diseases classified elsewhere; I10 Essential (primary) hypertension; F17.210 Nicotine dependence, cigarettes, uncomplicated; Z71.6 Tobacco abuse counseling; Z79.899 Other long term (current) drug therapy
CPT/HCPCS: 36415; 73201; 80048; 80076; 80307; 83605; 83735; 85025; 85652; 86140; 87040; 87070; 87077; 87147; 87186; 87205; 99285; J0131; J0692; J0696; J1171; J1885; J1920; J2003; J2004; J2405; J2704; J3010; J3370; J3371; J3480; Q9967

== ENCOUNTER → 2024-09-13 10:37 | Outpatient (BNV) | payer MEDICARE, MEDICAID, SELFPAY | PROVIDERS: Emergency Provider Emergency Medicine; PCP Internal Medicine; Visit Provider Specialist | DX: R22.32 Localized swelling, mass and lump, left upper limb (principal) | CPT/HCPCS: 73201 ==

== ENCOUNTER → 2024-09-13 14:29 | Outpatient (BNV) | payer MEDICARE, MEDICAID, SELFPAY | PROVIDERS: Admitting Provider Student in an Organized Health Care Education/Training Program; Emergency Provider Emergency Medicine; PCP Internal Medicine; Visit Provider Student in an Organized Health Care Education/Training Program | DX: M00.9 Pyogenic arthritis, unspecified (principal); L02.512 Cutaneous abscess of left hand; L03.114 Cellulitis of left upper limb | CPT/HCPCS: 99238 ==

== ENCOUNTER → 2024-09-13 14:29 | Outpatient (BNV) | payer OTHER, MEDICAID, SELFPAY | PROVIDERS: Admitting Provider Student in an Organized Health Care Education/Training Program; Emergency Provider Emergency Medicine; PCP Internal Medicine; Visit Provider Nurse Practitioner Psychiatric/Mental Health | DX: F11.90 Opioid use, unspecified, uncomplicated (principal) | CPT/HCPCS: 99222; 99499 ==

== ENCOUNTER → 2024-09-13 14:29 | Outpatient (BNV) | payer MEDICARE, MEDICAID, SELFPAY | PROVIDERS: Admitting Provider Student in an Organized Health Care Education/Training Program; Emergency Provider Emergency Medicine; PCP Internal Medicine; Visit Provider Orthopaedic Surgery | DX: L02.512 Cutaneous abscess of left hand (principal); L03.114 Cellulitis of left upper limb; M00.9 Pyogenic arthritis, unspecified | CPT/HCPCS: 26030; 26075; 99024; 99222 ==

== ENCOUNTER 2024-09-17 08:27 | Outpatient (AMB) | payer MEDICARE, MEDICAID, SELFPAY ==
--- NOTE | 2024-09-17 08:29 | A.OFFVIS_ITS ---
Intake Visit Reasons: PO- I&D 09/13/24 AR Intake Note: PO- I&D 09/13/24 AR Roshan 44 yr old male presents today for his P/O visit for his left hand I&D DOS 09/13/[address] Ochoa. States that he is having pain. He is taking tylenol and ibuprofen which is not helping. He called yesterday to request more pain medication and ABX. Allergies amoxicillin [AMOXICILLIN] Allergy (Mild, Verified 09/13/24 10:19) RASH, vomiting,diarrhea morphine [MORPHINE] Allergy (Mild, Verified 09/13/24 10:19) RASH, shortness of breath, nausea,vomiting hydrocodone [Vicodin] Allergy (Unknown, Verified 09/13/24 10:19) shortness of breath Penicillins [PENICILLINS] Allergy (Unknown, Verified 09/13/24 10:19) RASH gadobutrol [From GADAVIST] Adverse Reaction (Mild, Verified 09/13/24 10:19) NAUSEA & VOMITING levofloxacin [From LEVAQUIN] Adverse Reaction (Unknown, Verified 09/13/24 10:19) N/V HPI HPI PO- I&D 09/13/24 AR: Details: Roshan is a 44 year old right hand dominant man who presents S/P left hand multiple I&D, DOS: 09/13/24. He developed a left dorsal hand abscess on ~09/10/24, and was seen in the ED on 09/13/24. He left AMA on 09/14/24, with only a few Doxycycline pills for Abx. He complains of pain in his hand, which is worse at night. He says he wanted to stay in the hospital, but his grandkids were visiting for the weekend, so he left AMA. He has a Hx of PTSD, depression, anxiety, HTN, previous IVDA & other drug abuse. [facility] Medical History Abscess of arm, left PTSD (post-traumatic stress disorder) Depression Anxiety HTN (hypertension) Surgical History No pertinent past surgical history Family History Father HIV (human immunodeficiency virus infection) Mother Diabetes Hypertension Brother Hypertension Diabetes Sister Diabetes Hypertension Social History Household Members: Family Household Members Other:: Brother/FLAME BRAZING MACHINE OPERATOR Housing: Other Housing Other:: RV Do you presently have visiting nurse or other home services: Yes Patient Tobacco Use Status: Current everyday Tobacco user Tobacco use type: Cigarette Second Hand Smoke Exposure: No service: No Review of Systems Const All systems reviewed & are unremarkable except as noted in HPI and below Physical Exam Const General: no acute distress and alert Orientation/consciousness: patient oriented x3 HEENT Head: Yes normocephalic and Yes atraumatic Eyes EOM: EOMs intact bilaterally Resp Effort & Inspection: normal respiratory effort and able to speak in complete sentences Cardio Jugular venous distension: no JVD Skin General skin exam: turgor normal Rashes: no rashes Neuro General: patient oriented x3 Extrem Other: The patient was alert oriented and in no acute distress The incisions are healing well with no erythema or drainage. His swelling appears to have improved somewhat. With encouragement, he could make a fist and extend all his digits Sensation is intact Cap refill is brisk Microbiology report Routine Culture Final 09/16/24-39 Organism 1 Streptococcus pyogenes (Grp A) Quantity 3+ Susc N/A Susceptibility not routinely performed on this isolate. Organism 2 Methicillin Res Staph Aureus Quantity 2+ MRSA M.I.C. RX --------- --- Clindamycin <=0.25 S Erythromycin <=0.25 S Oxacillin >=4 R Penicillin-G >=0.5 R Tetracycline <=1 S Trimethoprim/Sulfamethoxazole <=10 S Vancomycin <=0.5 S Psych Appearance: grossly normal Affect: normal affect Attitude: cooperative Assessment & Plan Assessment & Plan (1) Abscess of hand: Comment: L Code(s): L02.519 - Cutaneous abscess of unspecified hand Category: Medical (2) Septic arthritis of hand, left: Code(s): M00.9 - Pyogenic arthritis, unspecified Category: Medical (3) Cellulitis of left hand: Code(s): L03.114 - Cellulitis of left upper limb Category: Medical Plan Assessment & Plan: 1. Left dorsal hand abscess, S/P I&D 2. Left hand abscesses in the thenar space & deep midcarpal spaces, S/P I&D of deep thenar & deep midcarpal spaces 3. Left 3rd MCP joint sepsis, S/P I&D DOS: 09/13/24 The patient appears to be doing well post-operatively I educated him about the post-operative course. I discussed the safe use of Tylenol for pain relief. I prescribed Tylenol for pain relief. He is not able to take NSAIDs as he has a Hx of gastric surgery. I explained the signs and symptoms of infection, if the patient develops any worsening erythema, drainage, pain, or warmth they should contact the clinic or attend the ED. He left AMA, and says he's been taking some doxycycline that he had at home. I ordered a 10-day course of PO Doxycycline. I discussed activity modifications, he is to lift nothing heavier than a cellphone for the next 6 weeks He will perform gentle finger ROM exercises at home. I ordered OT hand therapy to work on gentle ROM exercises. He says he is interested in attending He should avoid any underwater activities at this time He will follow up next week with [facility] for a wound check Scribed for Yancy Ochoa MD by Vinicio Quach, bilingual medical assistant, on 09/17/24 at 8:50 AM, EST. Orders: Orders OT Evaluation and Treatment Today L02.519 - Cutaneous abscess of unspecified hand, L03.114 - Cellulitis of left upper limb, M00.9 - Pyogenic arthritis, unspecified Medications: New doxycycline hyclate 100 mg PO BID 20 tabs 0RF acetaminophen 500 mg PO Q6H PRN 60 caps 0RF fever Coding Level of Care Code Global (68244) Diagnoses Abscess of hand L02.519 Septic arthritis of hand, left M00.9 Cellulitis of left hand L03.114
--- OUTSIDE RECORDS SUMMARY | 2024-09-17 08:48 | XMS_ITS | Clinical Summary ---
Author Organization [facility] Address [address] [place] [id number] Phone Care Team Providers Care School Psychologist Name Role Phone Chepe Salazar Primary Care Provider [phone] Immunizations Immunization Administration Dates Next Due DTP [...] Vaccines (#1) 2023 02/19/1998, 02/19 COVID-19 Vaccine (2023- season) 2024 IPV Vaccines Completed 01/04/1987, 09/1982, [...] age to complete this topic Care Teams School Psychologist Relationship Specialty Start Date End Date Chepe Salazar [address] [place] [id number] PCP - General 01/05/17
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
--- OUTSIDE RECORDS SUMMARY | 2024-09-17 08:48 | XMS_ITS | Encounter Summary ---
Author Organization [employer] Address [address] [place] [address] Care Team Providers Care Tin Can Laborer Name Role Phone Lele Alva MD Primary Care Provider +1- [phone] Reason for Referral * Consultation (Routine) - Closed Specialty Diagnoses / Procedures Referred By Contomar t Referred To Contact Psychiatry Diagnoses Depressive disorder Lele Alva MD 505 [place] [address] Phone: tel: fax: [facility] [address] [place] [address] Phone: tel: fax: Referral ID Status Reason Start Date Expiration Date V isits Requested Visits Authorized [id number] Closed Specialty Services Required 05/04/2023 05/03/2024 1 1 Encounter Details Date Type Department Care Team ([facility] st Contact Info) Description 05/04/2023 Orders Only [facility] CHC MED & PEDS 505 [place] [address] Lele Alva MD 505 [place] [address] Depressive disorder (Primary Dx); Chronic pain syndrome [...] documented as of this encounter Care Teams Tin Can Laborer Relationship Specialty Start Date End Date Lele Alva MD 505 [place] [address] PCP - General Internal Medicine 05/01/16 Shameka Schaeffer 08/05/24 documented as of this encounter
--- OUTSIDE RECORDS SUMMARY | 2024-09-17 08:48 | XMS_ITS | Encounter Summary ---
Author Organization [employer] Address [address] [place] [address] Care Team Providers Care Director Of Marketing [employer] Performance Ads Name Role Phone Lele Alva MD Primary Care Provider +1- [phone] Reason for Visit * Reason Comments Med Refill Encounter Details Date Type Department Care Team ([facility] st Contact Info) Description 11/02/2022 Refill [facility] CHC MED & PEDS 505 [place] [address] Lele Alva MD 505 [place] [address] Chronic pain syndrome Social History Tobacco Use [...] documented as of this encounter Care Teams Director Of Marketing [employer] Performance Ads Relationship Specialty Start Date End Date Lele Alva MD 505 [place] [address] PCP - General Internal Medicine 05/01/16 Shameka Schaeffer 08/05/24 documented as of this encounter
--- OUTSIDE RECORDS SUMMARY | 2024-09-17 08:48 | XMS_ITS | Encounter Summary ---
Author Organization [employer] Address 75 [facility] 7t [place] [address] Care Team Providers Care Manager Culture Name Role Phone Lele Alva MD Primary Care Provider +1- [phone] Encounter Details Date Type Department Care Team ([facility] st Contact Info) Description 08/22/2023 Orders Only [facility] CHC MED & PEDS 505 [place], [place] [phone] Lele Alva MD 505 [place] [address] Hypokalemia (Primary Dx); Erectile dysfunction, unspecified erectile [...] documented as of this encounter Care Teams Manager Culture Relationship Specialty Start Date End Date Lele Alva MD [address] [place] [address] PCP - General Internal Medicine 05/01/16 Shameka Schaeffer 08/05/24 documented as of this encounter
--- OUTSIDE RECORDS SUMMARY | 2024-09-17 08:48 | XMS_ITS | Encounter Summary ---
Author Organization [employer] Address 75 [facility] 7t [place] [address] Care Team Providers Care Director Of Parks And Recreation Name Role Phone Lele Alva MD Primary Care Provider +1- [phone] Encounter Details Date Type Department Care Team ([facility] st Contact Info) Description 07/26/2023 Orders Only [facility] CHC MED & PEDS [address] [place], [place] [phone] Lele Alva MD 505 [place] [address] PTSD (post-traumatic stress disorder); Erectile disorder; Chronic [...] of this encounter Care Teams Director Of Parks And Recreation Relationship Specialty Start Date End Date Lele Alva MD [address] [place] [address] PCP - General Internal Medicine 05/01/16 Shameka Schaeffer 08/05/24 documented as of this encounter
--- OUTSIDE RECORDS SUMMARY | 2024-09-17 08:48 | XMS_ITS | Encounter Summary ---
Author Organization [employer] Address 75 [facility] 7t [place] [address] Care Team Providers Care Lacquer Dipping Machine Operator Name Role Phone Lele Alva MD Primary Care Provider +1 [phone] Encounter Details Date Type Department Care Team (Late st Contact Info) Description 07/29/2024 Orders Only [facility] 230 [place] [address] ProviderZuleika MD Social History Tobacco Use Types Packs/Day Years [...] on file documented as of this encounter Procedures Procedure Name Priority Date/Time Associated Diagnosis Comments ECG 12-LEAD Routine 07/27/2024 2:45 PM EST documented in this encounter Results * ECG 12 lead (07/27/2024 2:45 PM EST) us Historical Provider ECG ORDERABLES Final Res ult documented in this encounter Visit Diagnoses Not on filedocumented in this encounter Additional Health Concerns Assessment Noted Time PHQ-9 Depression Total Score: 15 023 11:14 AM EST documented as of this encounter Care Teams Lacquer Dipping Machine Operator Relationship Specialty Start Date End Date Lele Alva MD [address] [place] [address] PCP - General Internal Medicine 05/01/16 Shameka Schaeffer 08/05/24 documented as of this encounter
--- OUTSIDE RECORDS SUMMARY | 2024-09-17 08:48 | XMS_ITS | Encounter Summary ---
Author Organization [employer] Address 75 [facility] 7 [place] [address] Care Team Providers Care Curriculum Development Coordinator Name Role Phone Lele Alva MD Primary Care Provider +1- [phone] Reason for Visit * Reason Comments Transition Of Care (Tcm) HDF-Unscheduled all 3 number are disconnected Encounter Details Date Type Department Care Team ([facility] st Contact Info) Description 09/16/2024 Patient Outreach [facility] CHC MED & PEDS 505 [place] [address] Lele Alva MD 505 [place] [address] Transition Of Care (Tcm) (HDF-Unscheduled all 3 number are disconnected) Social History Tobacco Use Types Packs/Day Years [...] as of this encounter Miscellaneous Notes * Significant Event - Ivett Cronin - 09/16/2024 9:45 AM EDT 09/16/24 0943 Hospital Discharges and Admission for [facility] Type of Visit Hospital Admission Date of Admission/Visit 09/13/24 Date of Discharge 09/14/24 Facility [facility] Diagnosis Surgery (Left hand cellulitis w/abscess) Disposition Discharged Home Follow-Up Actions Follow-Up Needed None/self-monitoring;Specialist appointment Follow-Up Outcome Disconnected Phone Initial Contact Date 09/16/24 CC Ivett Calderon placed outbound call to patient for HDF outreach. CC placing call to offer patient with an HDF appointment with provider. No answer at this time. Patient's name and were not confirmed. CC was unable to leave a voicemail at this time. Will place an additional outreach call within 2-5 business days. documented in this encounter Plan of Treatment Not on file documented as of this encounter Visit Diagnoses Not on filedocumented in this encounter Additional Health Concerns Assessment Noted Time PHQ-9 Depression Total Score: 15 023 11:14 AM EST documented as of this encounter Care Teams Curriculum Development Coordinator Relationship Specialty Start Date End Date Lele Alva MD 505 [place] [address] PCP - General Internal Medicine 05/01/16 Shameka Schaeffer 08/05/24 documented as of this encounter
--- OUTSIDE RECORDS SUMMARY | 2024-09-17 08:48 | XMS_ITS | Encounter Summary ---
Author Organization [employer] Address [address] [place] [address] [place], [place] [address] Care Team Providers Care Customer Marketing Assistant Name Role Phone Lele Alva MD Primary Care Provider +1- [phone] Encounter Details Date Type Department Care Team (Late st Contact Info) Description 05/04/2022 Orders Only [facility] MEDICINE 230 [place] [address] Lele Alva MD 505 [place] [address] Hypogonadism in male (Primary Dx) Social History [...] Primary documented in this encounter Care Teams Customer Marketing Assistant Relationship Specialty Start Date End Date Lele Alva MD 505 [place] [address] PCP - General Internal Medicine 05/01/16 Osminrey [facility] 08/05/24 documented as of this encounter
--- OUTSIDE RECORDS SUMMARY | 2024-09-17 08:48 | XMS_ITS | Encounter Summary ---
Author Organization [employer] Address 75 [facility] 7t [place] [address] Care Team Providers Care Wool Dyer Name Role Phone Lele Alva MD Primary Care Provider +1- [phone] Encounter Details Date Type Department Care Team ([facility] st Contact Info) Description 09/12/2023 Orders Only [facility] CHC MED & PEDS 505 [place], [place] [phone] Lele Alva MD 505 [place] [address] Obesity (BMI 30-39.9) (Primary Dx) Social History Tobacco Use Types Packs/Day Years Used Date Smoking Tobacco: Every Day Cigarettes Smokeless Tobacco: Never Depression Answer Date Recorded Patient Health Questionnaire-9 Score 15 06/06/2022 Housing Stability Answer Date Recorded What is your housing situation today? I have bbobyraphael fernandez 03/12/[address] you [...] documented as of this encounter Care Teams Wool Dyer Relationship Specialty Start Date End Date Lele Alva MD [address] [place] [address] PCP - General Internal Medicine 05/01/16 Shameka Schaeffer 08/05/24 documented as of this encounter
--- OUTSIDE RECORDS SUMMARY | 2024-09-17 08:48 | XMS_ITS | Encounter Summary ---
Author Organization [employer] Address 75 [facility] [place] [address] Care Team Providers Care Anode Rebuilder Name Role Phone Lele Alva MD Primary Care Provider +1- [phone] Reason for Visit * Reason Onset Date Comments Nurse Triage 08/15/2023 Encounter Details Date Type Department Care Team ([facility] st Contact Info) Description 08/15/2023 Telephone [facility] CHC MED & PEDS 505 [place], [place] [phone] Lele Alva MD 505 [place] [address] Nurse Triage Social History Tobacco Use Types [...] Pt didn't want to go out to [facility] because Pt is located in [place] and goes to [facility]. Pt agrees with dispostion and home care reviewed. Insurance is verified as active prior tobooking. Pt is not suicidal and doesn't want [...] accepted this outcome Please contact pt @ [phone] Mother . documented in this encounter Plan of Treatment Not on file documented as of this encounter Visit Diagnoses Not on filedocumented in this encounter Additional Health Concerns Assessment Noted Time PHQ-9 Depression Total Score: 15 023 11:14 AM EST documented as of this encounter Care Teams Anode Rebuilder Relationship Specialty Start Date End Date Lele Alva MD [address] [place] [address] PCP - General Internal Medicine 05/01/16 Shameka Schaeffer 08/05/24 documented as of this encounter
--- OUTSIDE RECORDS SUMMARY | 2024-09-17 08:48 | XMS_ITS | Encounter Summary ---
Author Organization [employer] [facility] Address [address] [place] [address] 7 [place] [address] Care Team Providers Care Supervisor Wrapping Room Name Role Phone Lele Alva MD Primary Care Provider +1- [phone] Encounter Details Date Type Department Care Team (Late st Contact Info) Description 04/25/2022 Abstract [facility] MEDICINE [address] [place] [address] Provider, MD Zuleika Social History Tobacco Use [...] on filedocumented in this encounter Care Teams Supervisor Wrapping Room Relationship Specialty Start Date End Date Lele Alva MD [address] [place] [address] PCP - General Internal Medicine 05/01/16 Shameka Schaeffer 08/05/24 documented as of this encounter
--- OUTSIDE RECORDS SUMMARY | 2024-09-17 08:48 | XMS_ITS | Encounter Summary ---
Author Organization [employer] Address 75 [facility] 7t [place] [address] Care Team Providers Care Applications Systems Analyst Name Role Phone Lele Alva MD Primary Care Provider +1- [phone] Encounter Details Date Type Department Care Team ([facility] st Contact Info) Description 10/29/2023 Orders Only [facility] CHC MED & PEDS 505 [place], [place] [phone] Lele Alva MD 505 [place] [address] IFG (impaired fasting glucose) (Primary Dx); Chronic [...] documented as of this encounter Care Teams Applications Systems Analyst Relationship Specialty Start Date End Date Lele Alva MD [address] [place] [address] PCP - General Internal Medicine 05/01/16 Shameka Schaeffer 08/05/24 documented as of this encounter
--- OUTSIDE RECORDS SUMMARY | 2024-09-17 08:48 | XMS_ITS | Encounter Summary ---
Author Organization [employer] Address 75 [facility] 7t [place] [address] Care Team Providers Care General Road Foreman Name Role Phone Lele Alva MD Primary Care Provider +1- [phone] Encounter Details Date Type Department Care Team ([facility] st Contact Info) Description 09/04/2024 Telephone [facility] MEDICINE 230 [place] [address] Lele Alva MD 505 [place] [address] Social History Tobacco Use Types Packs/Day Years [...] * Telephone Encounter - Luis Coronel - 09/04/2024 3:55 PM EDT documented in this encounter Plan of Treatment Not on file documented as of this encounter Visit Diagnoses Not on filedocumented in this encounter Additional Health Concerns Assessment Noted Time PHQ-9 Depression Total Score: 15 023 11:14 AM EST documented as of this encounter Care Teams General Road Foreman Relationship Specialty Start Date End Date Lele Alva MD [address] [place] [address] PCP - General Internal Medicine 05/01/16 Shameka Schaeffer 08/05/24 documented as of this encounter
--- OUTSIDE RECORDS SUMMARY | 2024-09-17 08:48 | XMS_ITS | Encounter Summary ---
Author Organization [employer] Address [address] [place] [address] Care Team Providers Care Flight Communications Operator Name Role Phone Lele Alva MD Primary Care Provider +1- [phone] Reason for Visit * Reason Onset Date Comments Medication Question 12/05/2022 Encounter Details Date Type Department Care Team ([facility] st Contact Info) Description 12/05/2022 Telephone [facility] CHC MED & PEDS 505 [place], [place] [phone] Lele Alva MD 505 [place] [address] Medication Question Social History Tobacco Use Types [...] documented as of this encounter Care Teams Flight Communications Operator Relationship Specialty Start Date End Date Lele Alva MD [address] [place] [address] PCP - General Internal Medicine 05/01/16 Shameka Schaeffer 08/05/24 documented as of this encounter
--- OUTSIDE RECORDS SUMMARY | 2024-09-17 08:48 | XMS_ITS | Encounter Summary ---
Author Organization [employer] Address 75 [facility] 7 [place] [address] Care Team Providers Care District Director Name Role Phone Lele Alva MD Primary Care Provider +1- [phone] Reason for Visit * Reason Onset Date Comments FYI 07/31/2024 Encounter Details Date Type Department Care Team (Late st Contact Info) Description 07/31/2024 Telephone [facility] MEDICINE 230 [place] [address] Lele Alva MD 505 [place] [address] FYI Social History Tobacco Use Types Packs/Day Years [...] encounter Miscellaneous Notes * Telephone Encounter - Marisol Huynh RN - 07/31/2024 1:02 PM EST Noted. * Telephone Encounter - Wang Burdick - 07/31/2024 12:32 PM EST TC from Maricel with [facility] wanted to report pt being discharged yesterday 07/[address] [facility] . Shameka will be going in for Medication management . Maricel will be faxing in orders to be signed. documented in this encounter Plan of Treatment Not on file documented as of this encounter Visit Diagnoses Not on filedocumented in this encounter Additional Health Concerns Assessment Noted Time PHQ-9 Depression Total Score: 15 023 11:14 AM EST documented as of this encounter Care Teams District Director Relationship Specialty Start Date End Date Lele Alva MD [address] [place] [address] PCP - General Internal Medicine 05/01/16 Shameka Schaeffer 08/05/24 documented as of this encounter
--- OUTSIDE RECORDS SUMMARY | 2024-09-17 08:48 | XMS_ITS | Encounter Summary ---
Author Organization [employer] Address 75 [facility] 7 [place] [address] Care Team Providers Care Claims Adjuster Name Role Phone Lele Alva MD Primary Care Provider +1- [phone] Reason for Visit * Reason Onset Date Comments Medication Question 10/01/2023 Encounter Details Date Type Department Care Team ([facility] st Contact Info) Description 10/01/2023 Telephone [facility] MEDICINE 230 [place] [address] Lele Alva MD 505 [place] [address] Medication Question Social History Tobacco Use Types [...] encounter Miscellaneous Notes * Telephone Encounter - Dilshad Contreras - 10/01/2023 4:43 PM EDT Tc from pt requesting both Wegovy and Ozempic to be sent to [id number] - [address] [place] [address] AT [facility] instead of [facility] pharmacy. documented in this encounter Plan of Treatment Not on file documented as of this encounter Visit Diagnoses Not on filedocumented in this encounter Additional Health Concerns Assessment Noted Time PHQ-9 Depression Total Score: 15 023 11:14 AM EST documented as of this encounter Care Teams Claims Adjuster Relationship Specialty Start Date End Date Lele Alva MD 505 [place] [id number] PCP - General Internal Medicine 05/01/16 Shameka Schaeffer 08/05/24 documented as of this encounter
--- OUTSIDE RECORDS SUMMARY | 2024-09-17 08:48 | XMS_ITS | Encounter Summary ---
Author Organization [employer] Address 75 [facility] 7 [place] [address] Care Team Providers Care Inside Sales Name Role Phone Lele Alva MD Primary Care Provider +1- [phone] Reason for Visit * Reason Onset Date Comments Referral 05/04/2023 Encounter Details Date Type Department Care Team (Late st Contact Info) Description 05/04/2023 Telephone [facility] MEDICINE 230 [place] [address] Lele Alva MD 505 [place] [address] Referral Social History Tobacco Use Types Packs/Day [...] a referral for a psychiatry. Referral Location: [address] [place] [address] Date: N/A Time: N/A Specialty: Psychiatry DX: Depressive Disorder ( NEW Referral ) documented in this encounter Plan of Treatment Not on file documented as of this encounter Visit Diagnoses Not on filedocumented in this encounter Additional Health Concerns Assessment Noted Time PHQ-9 Depression Total Score: 15 023 11:14 AM EST documented as of this encounter Care Teams Inside Sales Relationship Specialty Start Date End Date Lele Alva MD [address] [place] [address] PCP - General Internal Medicine 05/01/16 Shameka Schaeffer 08/05/24 documented as of this encounter
--- OUTSIDE RECORDS SUMMARY | 2024-09-17 08:48 | XMS_ITS | Encounter Summary ---
Author Organization [employer] Address [address] [facility] 7t [place] [address] Care Team Providers Care Health Promoter Name Role Phone Lele Alva MD Primary Care Provider +1- [phone] Reason for Visit * Reason Comments Med Refill Encounter Details Date Type Department Care Team (Late st Contact Info) Description 11/06/2023 Refill [facility] 230 [place] [address] Lele lAva MD 505 [place] [address] Chronic pain syndrome Social History Tobacco Use [...] documented as of this encounter Care Teams Health Promoter Relationship Specialty Start Date End Date eLle Alva MD 505 [place] [address] PCP - General Internal Medicine 05/01/16 Shameka Schaeffer 08/05/24 documented as of this encounter
--- OUTSIDE RECORDS SUMMARY | 2024-09-17 08:48 | XMS_ITS | Encounter Summary ---
Author Organization [employer] Address [address] [place] [address] Care Team Providers Care Staff Consultant Name Role Phone Leel Alva MD Primary Care Provider +1- [phone] Reason for Visit * Reason Onset Date Comments Medication Question 12/13/2022 Encounter Details Date Type Department Care Team ([facility] st Contact Info) Description 12/13/2022 Telephone [facility] CHC MED & PEDS 505 [place] [address] Lele Alva MD 505 [place] [address] Medication Question Social History Tobacco Use Types [...] documented as of this encounter Care Teams Staff Consultant Relationship Specialty Start Date End Date Lele Alva MD [address] [place] [address] PCP - General Internal Medicine 05/01/16 Shameka Schaeffer 08/05/24 documented as of this encounter
--- OUTSIDE RECORDS SUMMARY | 2024-09-17 08:49 | XMS_ITS | Encounter Summary ---
Author Organization [employer] Address 75 [facility] 7 [place] [address] Care Team Providers Care Concierge Name Role Phone Lele Alva MD Primary Care Provider +1- [phone] Reason for Visit * Reason Onset Date Comments Error 11/22/2023 Encounter Details Date Type Department Care Team ([facility] st Contact Info) Description 11/22/2023 Telephone [facility] MEDICINE 230 [place] [address] Lele Alva MD 505 [place] [address] Error Social History Tobacco Use Types Packs/Day [...] documented as of this encounter Care Teams Concierge Relationship Specialty Start Date End Date Lele Alva MD 505 [place] [address] PCP - General Internal Medicine 05/01/16 Shameka Schaeffer 08/05/24 documented as of this encounter
--- OUTSIDE RECORDS SUMMARY | 2024-09-17 08:49 | XMS_ITS | Encounter Summary ---
Author Organization [employer] Address 75 [facility] 7 [place] [address] Care Team Providers Care Slot Machine Floor Person Name Role Phone Lele Alva MD Primary Care Provider +1- [phone] Reason for Visit * Reason Comments Med Refill Encounter Details Date Type Department Care Team ([facility] st Contact Info) Description 03/05/2024 Refill [facility] [address] [place] [address] Lele Alva MD 505 [place] [address] PTSD (post-traumatic stress disorder) Social History Tobacco [...] documented as of this encounter Care Teams Slot Machine Floor Person Relationship Specialty Start Date End Date Lele Alva MD [address] [place] [address] PCP - General Internal Medicine 05/01/16 Shameka Schaeffer 08/05/24 documented as of this encounter
--- OUTSIDE RECORDS SUMMARY | 2024-09-17 08:49 | XMS_ITS | Encounter Summary ---
Author Organization [employer] Address 75 [facility] 7t [place] [address] Care Team Providers Care Payroll Auditor Name Role Phone Lele Alva MD Primary Care Provider +1- [phone] Reason for Visit * Reason Comments Med Refill Encounter Details Date Type Department Care Team (Late st Contact Info) Description 02/25/2024 Refill [facility] [address] [place] [address] Lele Alva MD [address] [place] [address] Chronic pain syndrome Social History Tobacco Use [...] documented as of this encounter Care Teams Payroll Auditor Relationship Specialty Start Date End Date Lele Alva MD [address] [place] [address] PCP - General Internal Medicine 05/01/16 Shameka Schaeffer 08/05/24 documented as of this encounter
--- OUTSIDE RECORDS SUMMARY | 2024-09-17 08:49 | XMS_ITS | Encounter Summary ---
Author Organization [employer] Address 75 [facility] 7 [place] [address] Care Team Providers Care Film Developing Machine Operator Name Role Phone Lele Alva MD Primary Care Provider +1- [phone] Reason for Visit * Reason Comments Med Refill Encounter Details Date Type Department Care Team ([facility] st Contact Info) Description 04/21/2024 Refill [facility] MED [facility] PEDS 505 [place], [place] [phone] Lele Alva MD 505 [place] [address] Social History Tobacco Use Types Packs/Day Years [...] documented as of this encounter Care Teams Film Developing Machine Operator Relationship Specialty Start Date End Date Lele Alva MD 505 [place] [address] PCP - General Internal Medicine 05/01/16 Shameka Schaeffer 08/05/24 documented as of this encounter
--- OUTSIDE RECORDS SUMMARY | 2024-09-17 08:49 | XMS_ITS | Encounter Summary ---
Author Organization [facility] Address [address] [place] [address] Care Team Providers Care Telephone Instrument Supervisor Name Role Phone Lele Alva MD Primary Care Provider +1 -[phone] Encounter Details Date Type Department Care Team (Late st Contact Info) Description 07/30/2024 Referral Triage [facility] Worker [address] [phone] Nishi Mosqueda Social History Tobacco Use Types [...] Jose. 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
--- OUTSIDE RECORDS SUMMARY | 2024-09-17 08:49 | XMS_ITS ---
Author Organization [facility] Address [address] [place] [address] Phone Care Team Providers Care High Tension Tester Name Role Phone Lele Alva MD Primary Care Provider +1 -[phone] CHWP - Housing Status:Ongoing (Active) Start date:07/30/2024 Enrollment date:07/30/2024 Related social drivers of health:Housing Instability Related program episode:Community Health Worker Program (Closed) Overview Housing service of Community Health Worker Program Case Team Name Relationship Phone Nishi Mosqueda Community Health Worker(Resp onsible Staff) Continued Care and Services Coordination
--- OUTSIDE RECORDS SUMMARY | 2024-09-17 08:49 | XMS_ITS | Encounter Summary ---
Author Organization [employer] Address 75 [facility] 7 [place] [address] Care Team Providers Care Hot Plate Plywood Press Operator Name Role Phone Lele Alva MD Primary Care Provider +1- [phone] Reason for Visit * Reason Onset Date Comments Med Refill 03/06/2023 Encounter Details Date Type Department Care Team ([facility] st Contact Info) Description 03/06/2023 Telephone [facility] MEDICINE [address] [place] [address] Lele Alva MD 505 [place] [address] Med Refill Social History Tobacco Use Types [...] documented as of this encounter Care Teams Hot Plate Plywood Press Operator Relationship Specialty Start Date End Date Lele Alva MD [address] [place] [address] PCP - General Internal Medicine 05/01/16 Shameka Schaeffer 08/05/24 documented as of this encounter
--- OUTSIDE RECORDS SUMMARY | 2024-09-17 08:49 | XMS_ITS | Encounter Summary ---
Author Organization [employer] Address 75 [facility] 7t [place] [address] Care Team Providers Care Occupational Psychologist Name Role Phone Lele Alva MD Primary Care Provider +1 [phone] Reason for Visit * Reason Comments Med Refill Encounter Details Date Type Department Care Team ([facility] st Contact Info) Description 11/06/2023 Refill [facility] MED & PEDS 505 [place], [place] [phone] Ashley Álvarez MD 505 [place] [address] Social History Tobacco Use Types Packs/Day Years [...] t he electric, gas, oil or water [employer] threatened to shut off services in your [...] documented as of this encounter Care Teams Occupational Psychologist Relationship Specialty Start Date End Date Lele Alva MD 505 [place] [address] PCP - General Internal Medicine 05/01/16 Shameka Schaeffer 08/05/24 documented as of this encounter
--- OUTSIDE RECORDS SUMMARY | 2024-09-17 08:49 | XMS_ITS | Encounter Summary ---
Author Organization [employer] Address 75 [facility] 7t [place] [address] Care Team Providers Care Air Bag Buffer Name Role Phone Lele Alva MD Primary Care Provider +1- [phone] Encounter Details Date Type Department Care Team ([facility] st Contact Info) Description 02/01/2024 Orders Only [facility] CH[facility] MED & PEDS 505 [place], [place] [phone] Lele Alva MD 505 [place] [address] Benign hypertension (Primary Dx); Chronic pain syndrome [...] documented as of this encounter Care Teams Air Bag Buffer Relationship Specialty Start Date End Date Lele Alva MD [address] [place] [address] PCP - General Internal Medicine 05/01/16 Shameka Schaeffer 08/05/24 documented as of this encounter
--- OUTSIDE RECORDS SUMMARY | 2024-09-17 08:49 | XMS_ITS | Encounter Summary ---
Author Organization [employer] Address 75 [facility] 7t [place] [address] Care Team Providers Care Buzzle Buffer Name Role Phone Lele Alva MD Primary Care Provider +1- [phone] Encounter Details Date Type Department Care Team ([facility] st Contact Info) Description 11/22/2023 Orders Only [facility] CHC MED & PEDS 505 [place], [place] [phone] Lele Alva MD 505 [place] [address] Chronic pain syndrome (Primary Dx) Social History [...] t he electric, gas, oil or water [employer] threatened to shut off services in your [...] documented as of this encounter Care Teams Buzzle Buffer Relationship Specialty Start Date End Date Lele Alva MD 505 [place] [address] PCP - General Internal Medicine 05/01/16 Shameka Schaeffer 08/05/24 documented as of this encounter
--- OUTSIDE RECORDS SUMMARY | 2024-09-17 08:49 | XMS_ITS | Encounter Summary ---
Author Organization [employer] Address 75 [facility] 7 [place] [address] Care Team Providers Care Parking Meter Servicer Name Role Phone Lele Alva MD Primary Care Provider +1- [phone] Reason for Visit * Reason Comments Med Refill Encounter Details Date Type Department Care Team ([facility] st Contact Info) Description 03/04/2024 Refill [facility] MED & PEDS [address] [place], [place] [phone] Lele Alva MD 505 [place] [address] Chronic pain syndrome Social History Tobacco Use [...] documented as of this encounter Care Teams Parking Meter Servicer Relationship Specialty Start Date End Date Lele Alva MD 505 [place] [address] PCP - General Internal Medicine 05/01/16 Shameka Schaeffer 08/05/24 documented as of this encounter
--- OUTSIDE RECORDS SUMMARY | 2024-09-17 08:49 | XMS_ITS | Clinical Summary ---
Author Organization [employer] Address [address] [place] [address] 7t [place] [address] Care Team Providers Care Rn Travel Name Role Phone Lele Alva MD Primary Care Provider +1- [phone] Allergies Active Allergy Reactions Criticality Noted Date [...] in the morning. 30 tablet 11 4 Active celecoxib (CeleBREX) 100 MG capsuleIndicatio ns:Chronic pain syndrome Take 2 capsules (200 mg) by mouth in the morning. 30 capsule 4 Active hydroCHLOROthiaz papito (HYDRODiuril) 12.5 MG tabletIndication s:Benign hypertension Take 1 tablet (12.5 mg) by mouth every other day. 15 tablet 11 4 Active losartan (Cozaar) 100 MG tabletIndication s:Benign hypertension Take 1 tablet (100 mg) by mouth in the morning. 30 tablet 11 4 Active Semaglutide-Weig ht Management (Wegovy) 0.25 MG/0.5ML solution auto-injectorInd ications:Obesity (BMI 30-39.9) Inject 0.25 mg under the skin 1 (one) time per week. 2 mL 11 4 Active nicotine (Nicoderm, Step 3) 7 MG/24HR patch PLACE 1 PATCH ON THE SKIN EVERY DAY 14 patch 4 Active fluticasone (Flonase) 50 MCG/ACT nasal [...] becomes available. 2 each 1 4 Active pregabalin (Lyrica) 150 MG [...] NIGHT AT BEDTIME 90 capsule 4 Active cetirizine (ZyrTEC) 10 MG tabletIndication [...] EVERY MORNING 90 tablet 3 4 Active Viagra 50 MG tablet TAKE 1 TABLET 1 HOUR BEFORE SEXUAL RELATIONS ONCE DAILY NEEDED. 10 tablet 5 Active sildenafil (Viagra) 50 MG tabletIndication s:Erectile dysfunction, unspecified erectile dysfunction type Take 1 tablet (50 mg) by mouth if needed each day for erectile dysfunction. 10 tablet 3 5 025 Active Semaglutide-Weig ht Management (Wegovy) 0.25 MG/0.5ML solution auto-injectorInd ications:Chronic pain syndrome,Obesity (BMI 30-39.9),IFG (impaired fasting glucose) 0.25 mg once a week. 2 mL 3 5 Active sildenafil (Viagra) 50 MG tabletIndication s:Erectile disorder TAKE ONE TABLET BY MOUTH 1 HOUR BEFORE SEXUAL RELATIONS ONCE DAILY IF NEEDED 10 tablet 5 Active tiZANidine (Zanaflex) 4 MG tabletIndication s:Chronic pain syndrome TAKE ONE TABLET EVERY 8 HOURS NEEDED FOR MUSCLE SPASMS 90 tablet 3 5 Active tiZANidine (Zanaflex) 4 MG tablet Take 1 tablet (4 mg) by mouth every 8 (eight) hours if needed for muscle spasms. 90 tablet 11 5 Active acetaminophen (Tylenol 8 Hour) 650 MG ER tablet TAKE ONE TABLET BY MOUTH EVERY 8 HOURS NEEDED 90 tablet 1 5 Active sildenafil (Viagra) 50 MG tabletIndication s:Erectile disorder TAKE 1 TABLET 1 HOUR BEFORE SEXUAL RELATIONS ONCE DAILY NEEDED. 10 tablet 5 Active pregabalin (Lyrica) 150 MG capsuleIndicatio ns:Chronic pain syndrome TAKE 1 CAPSULE BY MOUTH EVERY MORNING AND 2 CAPSULE EVERY NIGHT AT BEDTIME 90 capsule 5 Active guaiFENesin (Mucinex) 600 MG 12 hr tabletIndication s:Benign hypertension Take 2 tablets (1,200 mg) by mouth 2 times daily. Do not crush, chew, or split. 120 tablet 11 4 025 Active Problems Problem Noted Date [...] then less often. Urged to continue with [facility] program and not be hasty [...] Encounters Date Type Department Care Team Description 09/16/2024 Patient Outreach [facility] MED [facility] P[facility]S [address] [place] [address] Lele Alva MD Transition Of Care (Tcm) (HDF-Unscheduled all 3 number are disconnected) 09/04/2024 Telephone [facility] [address] [place] [address] Lele Alva MD 08/15/2024 Telephone [facility] MED & PEDS 505 [place] [address] Lele Alva MD Prior Authorization (Wegovy) 08/07/2024 Telephone [facility] [address] [place] [address] Lele Alva MD Paperwork/Forms 08/06/[address] [address] Lele Alva MD Call Back Request 08/06/2024 Refill [facility] [address] [place] [address] Lele Alva MD Erectile disorder; Chronic pain syndrome 07/31/[address] [facility] 07/29/2024 Orders Only [facility] [address] [place] [address] Zuleika Bonner MD 07/23/2024 Refill [facility] [address] [place] [address] Lele Alva MD Chronic pain syndrome; Obesity (BMI 30-39.9); IFG (impaired fasting glucose); Erectile disorder 07/04/2024 Patient Outreach [facility] [address] [place] [address] [facility] 07/01/2024 Refill [facility] [address] [place] [address] Lele Alva MD Erectile dysfunction, unspecified erectile dysfunction type 07/01/[address] [address] Lele Alva MD Referral 07/01/2024 Telephone [place] [address] [place] [address] Lele Alva MD Nurse Triage from Last 3 Months Immunizations Name Administration [...] 3 - 3-dose series) 05/26/1998 03/01/1998, 02/03/1998 SDOH Screening 05/16/2023 05/16/2022 Depression Screening 06/06/2023 06/06/2022, 06/06/19 23 HPV Vaccines (2 - 3-dose SCDM series) 10/30/2023 10/02/2023 Diabetes: Hemoglobin A1C 10/24/2024 10/25/2023, 09/25 Tobacco Screening 10/24/2024 10/25/2023 Lipid Panel 10/24/2028 [...] 5 Years) and At-Risk Patients (6 to 49) Years) Completed 03/07/2022, 01/26/2018, 01/08/2017 HIV Screening [...] ECG 12-LEAD Routine 07/27/2024 2:45 PM EST HEMOGLOBIN A1C Routine 10/25/2023 9:57 AM EDT [...] Recently Relevant to Health Maintenance Results * ECG 12 lead (07/27/2024 2:45 PM EST) us Historical Provider ECG ORDERABLES Final Res ult * Hemoglobin A1c (10/25/2023 9:57 AM EDT) Hemoglobin A1c 5.8 <6.0 % [facility] Comment:Hemoglobin A1C Refer ence Range Adults: 4.8 - 6.0 % Non diabetic: < 6.0 % Goal: < 7.0 %Additional Action Suggested: > 8.0 %Note: Hemoglobin A1c results are invalid for patients with abnormal amounts of HbF. Blood transfusions may impact the HbA1c concentration in the patient sample. Estimated Average Glucose 120 mg/dL [facility] Comment:eAG = Estimated ave rage glucose which is %A1C expressed asaverage glucose, using the formula of the Q5Z-[id number] Glucose study (ADAG), Diabetes Care, Vol.31,#8,2007 Blood Venous blood specimen / Unknown 10/25/2023 9:57 AM EDT 10/25/2023 2:33 PM EDT us Lele Alva MD LAB BLOOD ORDERABLES Final Result [facility] [address] [place] [phone] * (ABNORMAL) Lipid Panel, Standard (10/25/2023 9:57 AM EDT) Triglycerides 203(H) <150 mg/dL [facility] Comment:Desirable Triglyceri de: less than 150 mg/dLBorderline High Triglyceride 150-199 mg/dLHigh Triglyceride: 200-499 mg/dLVery High Triglyceride: greater than or equal to 5OO mg/dL Cholesterol 179 <200 mg/dL [facility] Comment:Desirable Cholestero l: less than 200 mg/dLBorderline High Cholesterol: 200-239 mg/dLHigh Cholesterol: greater than 239 mg/dL LDL Cholesterol Calculated 103(H) <100 mg/dL [facility] Comment:Desirable LDL: less than 100 mg/dLNear Optimal/Above Optimal LDL: 110- 129 mg/dLBorderline High LDL: 130-159 mg/dLHigh LDL: 160-189 mg/dLVery High LDL: greater than or equal to 190 mg/dL HDL Cholesterol 36(L) >40 mg/dL [facility] Comment:Desirable HDL: great er than 40 mg/dL Note: This HDL assay may give artificially low results in patients with liver disease. Blood Venous blood specimen / Unknown 10/25/2023 9:57 AM EDT 10/25/2023 2:30 PM EDT us Lele Alva MD LAB BLOOD ORDERABLES Final Result Performing Organization Address City/[facility]/ZIP Co de Phone Number [facility] [address] [place] [address] [phone] * Hepatitis C Antibody with Reflex to HCV, RNA, Quantitative, Real-Time PCR (05/01/2022 10:00 AM EST) Hepatitis C Antibody NON-REACT TONYA NON-REACT TONYA [facility] [place] N-Trigt Index 0.05 <1.00 [facility] [place] [facility] Comment: HCV antibody was non-reactive. There is no laboratory evidence of HCV infection. In most cases, no further action is required. However, if recent HCV exposure is suspected, a test for HCV RNA (test code 72504) is suggested. For additional information please refer to http://education.Adyen/faq/QXV41j4 (This link is being provided for informational/ educational purposes only.) 05/01/2022 10:0 0 AM EST 05/01/2022 10:01 AM EST Narrative [facility] - 05/04/2022 4:28 PM EST AN UPDATE OR CORRECTION HAS BEEN MADE TO NAME us Arturo Valerio MD LAB BLOOD ORDERABLES Final Resul t Performing Organization Address City/[facility]/ZIP Co de Phone Number [facility] [address], [place] [address] [facility] [place] [facility] [address], [place] [address] * HIV-1/2 Antigen and Antibodies, Fourth Generation, with Reflexes (05/01/2022 10:00 AM EST) HIV Antigen/Antibody, 4th Generation NON-REAC TIVE NON-REAC TIVE [facility] [place] [facility] Comment: HIV-1 antigen and HIV-1/HIV-2 antibodies [...] ?? For additional information please refer to http://education.Adyen/faq/MJJ918 (This link is being provided for informational/ [...] BLOOD ORDERABLES Final Resul t [facility] [address], [place] [address] [facility] [place] [facility] [address], [place] [address] from Last 3 Months or Most Recently Relevant to Health Maintenance Insurance [facility] MEDICARE ADVANTAGE DENTAL - [employer] DENTAL DENTAL-[facility] MEDICAID STAND ADULT * Guarantor: Roshan Oliva Account Type Relation to Patient Date of Phone Billing Address Personal/[place] [address] Care Teams Rn Travel Relationship Specialty Start Date End Date Lele Alva MD 505 [place] [address] PCP - General Internal Medicine 05/01/16 [facility] 08/05/24
--- OUTSIDE RECORDS SUMMARY | 2024-09-17 08:49 | XMS_ITS | Encounter Summary ---
Author Organization [employer] Address 75 [facility] 7 [place] [address] Care Team Providers Care Parts Identifier Name Role Phone Lele Alva MD Primary Care Provider +1- [phone] Reason for Visit * Reason Comments Med Refill Encounter Details Date Type Department Care Team ([facility] st Contact Info) Description 02/26/2024 Refill [facility] MED & PEDS [address] [place], [place] [phone] Lele Alva MD 505 [place] [address] Social History Tobacco Use Types Packs/Day Years [...] documented as of this encounter Care Teams Parts Identifier Relationship Specialty Start Date End Date Lele Alva MD 505 [place] [address] PCP - General Internal Medicine 05/01/16 Shameka Schaeffer 08/05/24 documented as of this encounter
--- OUTSIDE RECORDS SUMMARY | 2024-09-17 08:49 | XMS_ITS | Encounter Summary ---
Author Organization [employer] Address 75 [facility] 7 [place] [address] Care Team Providers Care Material Controller Name Role Phone Lele Alva MD Primary Care Provider +1- [phone] Reason for Visit * Reason Onset Date Comments Med Refill 05/08/2024 Encounter Details Date Type Department Care Team ([facility] st Contact Info) Description 05/08/2024 Telephone [facility] MEDICINE [address] [place] [address] Lele Alva MD 505 [place] [address] Med Refill Social History Tobacco Use Types [...] 50 MG tablet To be sent to: [facility] - [place], [place] - [address] [place] [address] documented in this encounter Plan of Treatment Not on file documented as of this encounter Visit Diagnoses Not on filedocumented in this encounter Additional Health Concerns Assessment Noted Time PHQ-9 Depression Total Score: 15 023 11:14 AM EST documented as of this encounter Care Teams Material Controller Relationship Specialty Start Date End Date Lele Alva MD [address] [place] [address] PCP - General Internal Medicine 05/01/16 Shameka Schaeffer 08/05/24 documented as of this encounter
--- OUTSIDE RECORDS SUMMARY | 2024-09-17 08:49 | XMS_ITS | Encounter Summary ---
Author Organization [employer] Address 75 [facility] 7t [place] [address] Care Team Providers Care Class A Regional Truck Driver Name Role Phone Lele Alva MD Primary Care Provider +1- [phone] Reason for Visit * Reason Comments Med Refill Encounter Details Date Type Department Care Team (Late st Contact Info) Description 05/05/2024 Refill [facility] [address] [place] [address] Lele Alva MD 505 [place] [address] Chronic pain syndrome Social History Tobacco Use [...] documented as of this encounter Care Teams Class A Regional Truck Driver Relationship Specialty Start Date End Date Lele Alva MD 505 [place] [address] PCP - General Internal Medicine 05/01/16 Shameka Schaeffer 08/05/24 documented as of this encounter
--- OUTSIDE RECORDS SUMMARY | 2024-09-17 08:49 | XMS_ITS | Encounter Summary ---
Author Organization [employer] Address [address] [place] [address] [place], [place] [address] Care Team Providers Care Barrel Rifler Name Role Phone Lele Alva MD Primary Care Provider +1- [phone] Encounter Details Date Type Department Care Team (Late st Contact Info) Description 08/16/2022 Telephone [facility] MEDICINE [address] [place], [place] [phone] Lele Alva MD 505 [place] [address] Social History Tobacco Use Types Packs/Day Years [...] documented as of this encounter Care Teams Barrel Rifler Relationship Specialty Start Date End Date Lele Alva MD 505 [place] [address] PCP - General Internal Medicine 05/01/16 Shameka Schaeffer 08/05/24 documented as of this encounter
--- OUTSIDE RECORDS SUMMARY | 2024-09-17 08:49 | XMS_ITS | Encounter Summary ---
Author Organization [employer] Address 75 [facility] 7t [place] [address] Care Team Providers Care Branch Service Associate Name Role Phone Lele Alva MD Primary Care Provider +1- [phone] Reason for Visit * Reason Comments Med Refill Encounter Details Date Type Department Care Team (Late st Contact Info) Description 04/07/2024 Refill [facility] 230 [place] [address] Lele Alva MD 505 [place] [address] Chronic pain syndrome Social History Tobacco Use [...] documented as of this encounter Care Teams Branch Service Associate Relationship Specialty Start Date End Date eLle Alva MD 505 [place] [address] PCP - General Internal Medicine 05/01/16 Shameka Schaeffer 08/05/24 documented as of this encounter
--- OUTSIDE RECORDS SUMMARY | 2024-09-17 08:49 | XMS_ITS | Encounter Summary ---
Author Organization [employer] Address 75 [facility] 7 [place] [address] Care Team Providers Care Petroleum Geology Faculty Member Name Role Phone Lele Alva MD Primary Care Provider +1- [phone] Reason for Visit * Reason Comments Med Refill Encounter Details Date Type Department Care Team ([facility] st Contact Info) Description 03/02/2023 Refill [facility] & PEDS [address] [place] [address] Lele Alva MD [address] [place] [address] Chronic pain syndrome Social History Tobacco Use [...] the past 12 months, has t he [employer] oil or water company threatened to shut [...] documented as of this encounter Care Teams Petroleum Geology Faculty Member Relationship Specialty Start Date End Date Lele Alva MD [address] [place] [address] PCP - General Internal Medicine 05/01/16 Shameka Schaeffer 08/05/24 documented as of this encounter
--- OUTSIDE RECORDS SUMMARY | 2024-09-17 08:49 | XMS_ITS | Encounter Summary ---
Author Organization [employer] Address 75 [facility] 7 [place] [address] Care Team Providers Care Ballpoint Pens Assembler Name Role Phone Lele Alva MD Primary Care Provider +1- [phone] Reason for Visit * Reason Comments Med Refill Encounter Details Date Type Department Care Team ([facility] st Contact Info) Description 11/08/[address] [facility] [address] [place] [address] Lele Alva MD [address] [place] [address] PTSD (post-traumatic stress disorder) Social History Tobacco [...] documented as of this encounter Care Teams Ballpoint Pens Assembler Relationship Specialty Start Date End Date Lele Alva MD [address] [place] [address] PCP - General Internal Medicine 05/01/16 Shameka Schaeffer 08/05/24 documented as of this encounter
--- OUTSIDE RECORDS SUMMARY | 2024-09-17 08:49 | XMS_ITS | Clinical Summary ---
Author Organization [facility] Address [address] [place] [address] Phone Care Team Providers Care Derrick Operator Name Role Phone Lele Alva MD Primary Care Provider +1 -[phone] Allergies Active Allergy Reactions Criticality Noted Date [...] Department Care Team Description 07/30/2024 Referral Triage [facility] [address] [place] [phone] Nishi Mosqueda 07/27/2024 12:50 PM EST Anesthesia Event [facility] Main OR [address] [place] [address] Alfred Fiore MD 07/27/2024 12:40 PM EST - 07/27/2024 1:50 PM EST Surgery [facility] Main OR [address] [place] [address] Jax Cerda MD INCISION DRAINAGE EXTREMITY UPPER 07/27/2024 2:01 AM EST - 07/30/2024 12:49 PM EST Hospital Encounter [facility] Urology Unit [address] [place] [address] Gloria Lin MD Jones, Christopher, MD Kela, Kashyap Devendrabhai, MD Koerner, Paul A, MD Abscess of forearm, left (Primary Dx); Abscess of forearm, right; History of intravenous drug use; Homeless Discharge Disposition: Home-Health Care [facility] from Last 3 Months Surgical History Surgery [...] for your loved ones. For example, child watch attendant or elderly care for an older adult? [...] K/mcL LAB HEMETOLOGY METHOD 07/30/2024 7:06 AM [facility] RBC 3.70(L) 4.50 - 5.50 M/mcL LAB HEMETOLOGY METHOD 07/30/2024 7:06 AM [facility] Hemoglobin 10.8(L) 13.5 - 17.5 g/dL LAB HEMETOLOGY METHOD 07/30/2024 7:06 AM [facility] Hematocrit 32.7(L) 42.0 - 54.0 % LAB HEMETOLOGY METHOD 07/30/2024 7:06 AM [facility] MCV 88.4 79.0 - 98.0 FL LAB HEMETOLOGY METHOD 07/30/2024 7:06 AM [facility] MCH 29.2 27.0 - 32.0 pcg LAB HEMETOLOGY METHOD 07/30/2024 7:06 AM [facility] MCHC 33.0 32.0 - 37.0 g/dL LAB HEMETOLOGY METHOD 07/30/2024 7:06 AM [facility] RDW 11.9 11.0 - 15.0 % LAB HEMETOLOGY METHOD 07/30/2024 7:06 AM [facility] Platelets 297 130 - 400 K/mcL LAB HEMETOLOGY METHOD 07/30/2024 7:06 AM [facility] MPV 10.1 7.0 - 11.0 FL LAB HEMETOLOGY METHOD 07/30/2024 7:06 AM [facility] NRBC 0.0 <1.0 % LAB HEMETOLOGY METHOD 07/30/2024 7:06 AM [facility] NRBC Absolute 0.00 <0.10 K/mcL LAB HEMETOLOGY METHOD 07/30/2024 7:06 AM [facility] Neutrophils Relative 48.6 % LAB HEMETOLOGY METHOD 07/30/2024 7:06 AM [facility] Lymphocytes Relative 34.0 % LAB HEMETOLOGY METHOD 07/30/2024 7:06 AM [facility] Monocytes Relative 8.3 % LAB HEMETOLOGY METHOD 07/30/2024 7:06 AM [facility] Eosinophils Relative 7.8 % LAB HEMETOLOGY METHOD 07/30/2024 7:06 AM [facility] Basophils Relative 1.1 % LAB HEMETOLOGY METHOD 07/30/2024 7:06 AM [facility] Immature Granulocytes Relative 0.2 % LAB HEMETOLOGY METHOD 07/30/2024 7:06 AM [facility] Neutrophils Absolute 2.56 1.50 - 7.00 K/mcL LAB HEMETOLOGY METHOD 07/30/2024 7:06 AM EST [facility] Lymphocytes Absolute 1.79 1.00 - 5.00 K/mcL LAB HEMETOLOGY METHOD 07/30/2024 7:06 AM [facility] Monocytes Absolute 0.44 0.20 - 1.00 K/mcL LAB HEMETOLOGY METHOD 07/30/2024 7:06 AM [facility] Eosinophils Absolute 0.41 0.00 - 0.50 K/mcL LAB HEMETOLOGY METHOD 07/30/2024 7:06 AM [facility] Basophils Absolute 0.06 0.00 - 0.20 K/mcL LAB HEMETOLOGY METHOD 07/30/2024 7:06 AM [facility] Immature Granulocytes Absolute 0.01 0.00 - 0.03 K/mcL LAB HEMETOLOGY METHOD 07/30/2024 7:06 AM [facility] Blood Venous blood specimen / Unknown Venipuncture / Unknown 07/30/2024 6:50 AM EST 07/30/2024 6:58 AM EST us Mikaela FRANCIS LAB BLOOD ORDERABLES Final Result [facility] [address] [place] [address], * (ABNORMAL) Basic metabolic panel (07/30/2024 6:50 AM EST) Only the most recent of4 resultswithin the time period is included. Sodium 139 133 - 145 mmol/L LAB CHEMISTRY METHOD 07/30/2024 7:49 AM [facility] Potassium 3.3(L) 3.5 - 5.5 mmol/L LAB CHEMISTRY METHOD 07/30/2024 7:49 AM [facility] Chloride 106 96 - 110 mmol/L LAB CHEMISTRY METHOD 07/30/2024 7:49 AM [facility] CO2 26 21 - 32 mmol/L LAB CHEMISTRY METHOD 07/30/2024 7:49 AM [facility] Anion Gap 7 3 - 11 LAB CHEMISTRY METHOD 07/30/2024 7:49 AM [facility] Glucose 105(H) 70 - 100 mg/dL LAB CHEMISTRY METHOD 07/30/2024 7:49 AM [facility] BUN 17 5 - 25 mg/dL LAB CHEMISTRY METHOD 07/30/2024 7:49 AM [facility] Creatinine 0.88 0.70 - 1.30 mg/dL LAB CHEMISTRY METHOD 07/30/2024 7:49 AM [facility] eGFR 109 >=60 mL/min/1. 73m2 LAB CHEMISTRY METHOD 07/30/2024 7:49 AM [facility] Comment:Calculation based on the??Chronic Kidney Disease Epidemiology Collaboration (CKD-EPI) equation refit??without adjustment for race. BUN/Creatinine Ratio 19.3 LAB CHEMISTRY METHOD 07/30/2024 7:49 AM [facility] Calcium 9.1 8.5 - 10.5 mg/dL LAB CHEMISTRY METHOD 07/30/2024 7:49 AM [facility] Blood Venous blood specimen / Unknown Venipuncture / Unknown 07/30/2024 6:50 AM EST 07/30/2024 6:58 AM EST us Mikaela FRANCIS LAB BLOOD ORDERABLES Final Result [facility] [address] [place] [address], * Vancomycin, trough Prior to 2100 vanco dose please (07/29/2024 8:06 PM EST) Only the most recent of2 resultswithin the time period is included. Pathologist [facility] Vancomycin Trough 15.8 10.0 - 20.0 mcg/mL LAB CHEMISTRY METHOD 07/29/2024 8:41 PM [facility] Blood Venous blood specimen / Unknown Venipuncture / Unknown 07/29/2024 8:06 PM EST 07/29/2024 8:12 PM EST us Axel Carter MD LAB BLOOD ORDERABLES Final Result [facility] [address] [place] [address], [place] [phone] * (ABNORMAL) Drug abuse screen 8a panel, urine (07/28/2024 9:48 AM EST) [facility] Amphetamine Screen, Ur Negative Negative LAB CHEMISTRY METHOD 5 11:19 AM [facility] Comment:Certain OTC medicati ons containing ephedrine, phenylephrine, pseudoephedrine and phenylpropanolamine can cause false positive results. Barbiturate Screen, Ur Negative Negative LAB CHEMISTRY METHOD 5 11:19 AM [facility] Benzodiazepine Screen, Ur Positive(A ) Negative LAB CHEMISTRY METHOD 5 11:19 AM [facility] Cocaine Screen, Ur Positive(A ) Negative LAB CHEMISTRY METHOD 5 11:19 AM [facility] Opiate Screen, Ur Positive(A ) Negative LAB CHEMISTRY METHOD 5 11:19 AM [facility] Cannabinoid (THC) Screen, Ur Negative Negative LAB CHEMISTRY METHOD 5 11:19 AM [facility] Comment:Specimens from patie nts taking pantoprazole sodium (Protonix) have been shown to produce false positive results. Oxycodone Screen, Ur Positive(A ) Negative LAB CHEMISTRY METHOD 5 11:19 AM [facility] Fentanyl, Ur Positive(A ) Negative LAB CHEMISTRY METHOD 11:19 AM EST [facility] Urine Urine specimen obtained by clean catch procedure / Unknown Non-blood Collection / Unknown 07/28/2024 9:48 AM EST 07/28/2024 10:38 AM EST [facility] - 07/28/2024 11:19 AM EST [...] FRANCIS LAB URINE ORDERABLES Nata l Result [facility] [address] [place] [address], * (ABNORMAL) Buprenorphine screen, urine (07/28/2024 9:48 AM EST) Pathologist [facility] Buprenorphine Screen Urine Positive (A) Negative LAB CHEMISTRY METHOD 07/28/2024 11:08 AM EST [facility] Urine Urine specimen obtained by clean catch procedure / Unknown Non-blood Collection / Unknown 07/28/2024 9:48 AM EST 07/28/2024 10:38 AM EST [facility] - 07/28/2024 11:08 AM EST Assay cutoff 5 ng/mL Semi-quantitative assay for screening purposes only. Unconfirmed screening result should not be used for non-medical purposes. *ALTERNATE METHOD CONFIRMATION DONE UPON REQUEST ONLY* us Axel FRANCIS LAB URINE ORDERABLES Nata l Result Performing Organization Address [facility]/ZIP Co de Phone Number [facility] [address] [place] [address], [place] [phone] * Methadone, urine (07/28/2024 9:48 AM EST) Methadone Screen, Urine Negative Negative LAB CHEMISTRY METHOD 07/28/2024 11:08 AM EST [facility] Comment: Assay cutoff 300 ng/mL Semi-quantitative assay for screening purposes only. Unconfirmed screening result should not be used for non-medical purposes. *ALTERNATE METHOD CONFIRMATION DONE UPON REQUEST ONLY* Urine Urine specimen obtained by clean catch procedure / Unknown Non-blood Collection / Unknown 07/28/2024 9:48 AM EST 07/28/2024 10:38 AM EST Axel Zuluaga CO LAB URINE ORDERABLES Nata l Result Performing Organization Address [facility] de Phone Number [facility] [address] [place] [address], [place] [phone] * (ABNORMAL) Culture wound deep (07/27/2024 1:37 PM EST) Only the most recent of2 resultswithin the time period is included. Culture, Wound Streptococcus viridans group(A) 07/30/2024 12:39 PM EST [facility] Comment: Susceptibility testing not routinely performed. ??If further therapeutic information is required, please consult an infectious disease specialist. The organism value for this result has been updated. These results have been appended to the previously preliminary verified report. Culture, Wound Streptococcus viridans group(A) 07/30/2024 12:39 PM EST [facility] Comment: 2nd strain Susceptibility testing not routinely performed. ??If further therapeutic information is required, please consult an infectious disease specialist. The organism value for this result has been updated. These results have been appended to the previously preliminary verified report. Gram Stain Result No Epithelial cells(A) 07/30/2024 12:39 PM EST [facility] Gram Stain Result Few Polymorphonuclear leukocytes(A) 07/30/2024 12:39 PM EST [facility] Gram Stain Result Few Gram positive cocci in pairs(A) 07/30/2024 12:39 PM EST [facility] Swab Structure of right forearm / Unknown 07/27/2024 1:37 PM EST 07/27/2024 2:16 PM EST Jax Cerda MD LAB MICROBIOLOGY - GENERAL ORD ERABLES Final Result [facility]) [facility] [address] [place] [address], [place] [phone] * TH AN LMA(NO CHARGE) (07/27/2024 1:29 [...] GEMUSE QTc 445 ms GEMUSE P Wave [place] 24 degrees GEMUSE R [place] 21 degrees GEMUSE T [place] 11 degrees GEMUSE ECG Interpretation Normal sinus rhythm Normal ECG When compared with ECG of 29-MAR-2022 04:48, No significant change was found Confirmed by LARRY GARRETT ([id number]) on 07/28/2024 8:37:04 AM GEMUSE 07/27/2024 8:22 AM EST 07/28/2024 8:37 AM EST Jaison Huff MD ECG ORDERABLES Final Result Performing Organization Address City/[facility]/ZIP Co de Phone Number GEMUSE * (ABNORMAL) C-reactive protein (07/27/2024 3:30 AM EST) Pathologist [facility] C-Reactive Protein 11.80(H) <=0.50 mg/dL LAB CHEMISTRY METHOD 07/27/2024 6:56 AM EST [facility] Blood Venous blood specimen / Unknown Venipuncture / Unknown 07/27/2024 3:30 AM EST 07/27/2024 4:50 AM EST Axel Carter MD LAB BLOOD ORDERABLES Final Result Performing Organization Address [facility] Co de Phone Number [facility] [address] [place] [address], [place] [phone] * Culture blood (07/27/2024 2:52 AM EST) Only the most recent of2 resultswithin the time period is included. Culture, Blood No growth at 5 days 08/01/2024 5:01 AM EST [facility] Blood Venous blood specimen / Unknown Venipuncture / Unknown 07/27/2024 2:52 AM EST 07/27/2024 3:02 AM EST Gloria Lin MD LAB MICROBIOLOGY - GENER AL ORDERABLES Final Result Performing Organization Address [facility] Co de Phone Number [facility] [address] [place] [address], [place] [phone] * Lactate (07/27/2024 2:51 AM EST) Lactate 1.2 0.4 - 2.0 mmol/L LAB CHEMISTRY METHOD 07/27/2024 3:35 AM EST [facility] Blood Venous blood specimen / Unknown Venipuncture / Unknown 07/27/2024 2:51 AM EST 07/27/2024 3:02 AM EST us Gloria Lin MD LAB BLOOD ORDERABLES Fin al Result [facility] [address] [place] [address], [place] [phone] * [place] Extremity Nonvascular Limited Left (07/27/2024 [...] Signed Date: 07/27/2024 09:22 ET Workstation ID: [id number] Transcribed By: Self Edit Transcribed Date: 07/27/2024 [...] Signed Date: 07/27/2024 09:22 ET Workstation ID: [id number] Transcribed By: Self Edit Transcribed Date: 07/27/2024 09:22 ET us Axel Carter MD IMG XR PROCEDURES Final Res ult from Last 3 Months Additional Health Concerns 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 Care Teams Derrick Operator Relationship Specialty Start Date End Date Lele Alva MD [address] [place] [address] PCP - General Internal Medicine 03/09/22
--- OUTSIDE RECORDS SUMMARY | 2024-09-17 08:49 | XMS_ITS | Encounter Summary ---
Author Organization [employer] Address [address] [facility] 7t [place] [address] Care Team Providers Care Vp Of Global Marketing Name Role Phone Lele Alva MD Primary Care Provider +1- [phone] Reason for Visit * Reason Comments Med Refill Encounter Details Date Type Department Care Team (Late st Contact Info) Description 03/01/2024 Refill [facility] [address] [place] [address] Lele Alav MD [address] [place] [address] Chronic pain syndrome Social History Tobacco Use [...] documented as of this encounter Care Teams Vp Of Global Marketing Relationship Specialty Start Date End Date Lele Alva MD [address] [place] [address] PCP - General Internal Medicine 05/01/16 Shameka Schaeffer 08/05/24 documented as of this encounter
--- OUTSIDE RECORDS SUMMARY | 2024-09-17 08:49 | XMS_ITS | Encounter Summary ---
Author Organization [employer] Address 75 [facility] 7 [place] [address] Care Team Providers Care Clerical Production Worker Name Role Phone Lele Alva MD Primary Care Provider +1- [phone] Reason for Visit * Reason Onset Date Comments Referral 12/19/2023 Encounter Details Date Type Department Care Team (Late st Contact Info) Description 12/19/2023 Telephone [facility] [address] [place] [address] Lele Alva MD [address] [place] [address] Referral Social History Tobacco Use Types Packs/Day [...] 11:07 AM EDT T/C to pt. On [phone] for below message, message states, the person [...] any questions you can contact pt at [phone]. documented in this encounter Plan of Treatment Not on file documented as of this encounter Visit Diagnoses Not on filedocumented in this encounter Additional Health Concerns Assessment Noted Time PHQ-9 Depression Total Score: 15 023 11:14 AM EST documented as of this encounter Care Teams Clerical Production Worker Relationship Specialty Start Date End Date Lele Alva MD [address] [place] [address] PCP - General Internal Medicine 05/01/16 Shameka Schaeffer 08/05/24 documented as of this encounter
--- OUTSIDE RECORDS SUMMARY | 2024-09-17 08:49 | XMS_ITS | Encounter Summary ---
Author Organization [employer] Address 75 [facility] 7t [place] [address] Care Team Providers Care Credentialing Specialist Name Role Phone Lele Alva MD Primary Care Provider +1- [phone] Encounter Details Date Type Department Care Team ([facility] st Contact Info) Description 03/06/2023 Orders Only [facility] [address] [place], [place] [phone] Lele Alva MD [address] [place] [address] Social History Tobacco Use Types Packs/Day Years [...] documented as of this encounter Care Teams Credentialing Specialist Relationship Specialty Start Date End Date Lele Alva MD [address] [place] [address] PCP - General Internal Medicine 05/01/16 Shameka Schaeffer 08/05/24 documented as of this encounter
--- OUTSIDE RECORDS SUMMARY | 2024-09-17 08:49 | XMS_ITS | Encounter Summary ---
Author Organization [employer] Address [address] [facility] 7t [place] [address] Care Team Providers Care Header Machine Operator Name Role Phone Lele Alva MD Primary Care Provider +1- [phone] Reason for Visit * Reason Comments Med Refill Encounter Details Date Type Department Care Team (Late st Contact Info) Description 02/03/2024 Refill [facility] [address] [place] [address] Lele Alva MD [address] [place] [address] Chronic pain syndrome Social History Tobacco Use [...] documented as of this encounter Care Teams Header Machine Operator Relationship Specialty Start Date End Date Lele Alva MD [address] [place] [address] PCP - General Internal Medicine 05/01/16 Shameka Schaeffer 08/05/24 documented as of this encounter
== END 2024-09-17 09:06 | disposition home or self-care (01) ==
LOC: HO.HOS 08:28
PROVIDERS: PCP Internal Medicine; Visit Provider Orthopaedic Surgery
DX: L02.519 Cutaneous abscess of unspecified hand (principal); M00.9 Pyogenic arthritis, unspecified; L03.114 Cellulitis of left upper limb
CPT/HCPCS: 99024

== ENCOUNTER → 2024-09-17 08:27 | Outpatient (BNVA) | payer MEDICARE, MEDICAID, SELFPAY | PROVIDERS: PCP Internal Medicine; Visit Provider Orthopaedic Surgery | DX: M00.9 Pyogenic arthritis, unspecified (principal); L03.114 Cellulitis of left upper limb; Z98.890 Other specified postprocedural states; Z48.817 Encounter for surgical aftercare following surgery on the skin and subcutaneous tissue | CPT/HCPCS: 99212 ==

== ENCOUNTER 2024-10-31 10:10 | Inpatient (IN) | payer MEDICARE, MEDICAID, SELFPAY ==
--- NOTE | ~2024-10-31 | US_ITS ---
CLINICAL HISTORY: transaminitis US abdomen limited Comparison: None Findings: The visualized pancreas is normal. The aorta and inferior vena cava are normal caliber. The liver is normal in size and increased in echotexture. There is no intrahepatic bile duct dilatation. The common duct is two mm in diameter. The gallbladder is normal. There is no sonographic Poe sign. The main portal vein is antegrade. The right kidney is not imaged. No ascites. IMPRESSION: Hepatic steatosis. This document has been electronically signed by: Jordy Giles MD on 10/31/2024 18:01:58
--- NOTE | ~2024-10-31 | CT_ITS ---
EXAMINATION: CT ABDOMEN PELVIS WITH IV CONTRAST HISTORY: Perianal abbesses, hx of MRSA COMPARISON: Patent is made with the prior examination dated 10/19/2015. TECHNIQUE: CT scan of the abdomen and pelvis was performed following administration of 85 mL Omnipaque 350 using standard departmental protocol. Coronal and sagittal reformatted images were generated and reviewed. Oral contrast material was not administered at the request of the referring physician. This CT exam was performed with one or more of the following dose reduction techniques: automated exposure control, adjustment of the mA and/or kV according to patient size, use of iterative reconstruction technique. DLP: 855 mGy-cm FINDINGS: LOWER CHEST: The visualized lung bases are clear. There is no pleural effusion. CARDIOVASCULATURE: The heart is normal in size. There is no pericardial effusion. LIVER: The liver is normal in size and contour. No liver mass is identified. The hepatic and portal veins are patent. GALLBLADDER / BILE DUCTS: The gallbladder is unremarkable. There is no intra or extrahepatic biliary ductal dilatation. SPLEEN: The spleen is normal in size. No focal splenic lesion is identified. PANCREAS: The pancreas is unremarkable in appearance. ADRENAL GLANDS: Within normal limits. KIDNEYS/RETROPERITONEUM: No renal calculi are identified. There is no hydronephrosis. No renal masses are identified. LYMPH NODES: No abdominal or pelvic lymphadenopathy. VASCULATURE: The abdominal aorta is normal in caliber. MESENTERY/PERITONEUM: No free fluid. No masses. There is no free intraperitoneal gas. STOMACH: There are postsurgical changes involving the stomach. SMALL BOWEL: The small bowel is normal in caliber. COLON: The colon is unremarkable. APPENDIX: The appendix is not seen, however no inflammatory changes are seen adjacent to the cecum. URINARY BLADDER/PELVIC ORGANS: The urinary bladder is collapsed, limiting evaluation. The prostate is normal in size. BONES / SOFT TISSUES: There is infiltration of the subcutaneous fat about the gluteal crease which may represent cellulitis. There is no loculated fluid collection. The ischio rectal and perianal fat. This deserves. The bones are intact. CT/CT abdomen pelvis w IV con IMPRESSION: Infiltration of the subcutaneous fat about the gluteal crease, suggestive of cellulitis. No loculated fluid collection. Electronically signed by: Chepe Fatima MD 10/31/2024 03:27 PM EDT RP
[2024-10-31 10:17] VITALS: BP 113/90; PULSE 95; RESP 18; TEMP 36.6; O2SAT 97; BMI 31.6
[2024-10-31 11:56] LABS: MANUAL DIFF FLAG NO
[2024-10-31 12:02] LABS: Basophils Percent Auto 0.4 % (0-2); Eosinophils Absolute Auto 0.3 X10*3/uL (0.0-0.4); Eosinophils Percent Auto 2.9 % (0-4); Hematocrit 40.6 % (42.0-52.0); Imm Gran Abs Auto 0.03 X10*3/uL (0.00-0.03); Imm Gran Pct Auto 0.3 % (0.0-0.4); Lymphocytes Absolute Auto 1.9 X10*3/uL (1.2-4.9); Lymphocytes Percent Auto 19.7 % (20-40); Mean Corpuscular Hemoglobin 28.6 pg (27.0-33.0); Mean Corpuscular Volume 89.2 fL (80.0-98.0); Mean Platelet Volume 10.5 fL (9.4-12.4); Monocytes Percent Auto 10.6 % (2-11); Neutrophils Absolute Auto 6.3 x10*3/uL (2.0-8.3); Neutrophils Percent Auto 66.1 % (45-73); Platelet Count 265 X10*3/uL (160-400); Red Blood Count 4.55 X10*6/uL (4.60-5.80); Red Cell Distribution Width 14.2 % (11.0-16.0); White Blood Count 9.5 X10*3/uL (4.8-10.8)
[2024-10-31 12:22] LABS: Alanine Aminotransferase 444 U/L (0-40); Albumin Level 3.7 g/dL (3.5-5.0); Alkaline Phosphatase 110 U/L (39-117); Anion Gap 12 (12-20); Aspartate Amino Transferase 494 U/L (5-37); Bilirubin Total 1.8 mg/dL (0.0-1.0); Blood Urea Nitrogen 22 mg/dL (9-16); C Reactive Protein 12.28 mg/dL (< or = 0.50); Calcium 9.5 mg/dL (8.4-10.2); Carbon Dioxide 24 mmol/L (22-29); Chloride 105 mmol/L (96-108); Estimated Glomerular Filt Rate 54; Glucose Random 126 mg/dL (60-115); Potassium 4.4 mmol/L (3.3-5.1); Sodium 137 mmol/L (135-145); Total Protein 7.7 g/dL (6.5-8.0)
[2024-10-31 12:43] LABS: Erythrocyte Sedimentation Rate 30 MM/HR (0-15)
--- OUTSIDE RECORDS SUMMARY | 2024-10-31 13:40 | XMS_ITS | Encounter Summary ---
Author Organization [employer] Address [address] [facility] 7 [place] [address] Care Team Providers Care Classifying Machine Operator Name Role Phone Lele Alva MD Primary Care Provider +1 [phone] Reason for Visit * Reason Onset Date Comments Medication Question 10/01/2023 Encounter Details Date Type Department Care Team ([facility] st Contact Info) Description 10/01/2023 Telephone [facility] [address] [place] [address] Lele Alva MD [address] [place], [place] [phone] Medication Question Social History Tobacco Use Types [...] Wegovy and Ozempic to be sent to [id number] - [place] - [address] [place] [address] [facility] instead of [facility] pharmacy. documented in this encounter Plan of Treatment Not on file documented as of this encounter Visit Diagnoses Not on filedocumented in this encounter Additional Health Concerns Assessment Noted Time PHQ-9 Depression Total Score: 15 023 11:14 AM EST documented as of this encounter Care Teams Classifying Machine Operator Relationship Specialty Start Date End Date Lele Alva MD [address] [place] [address] PCP - General Internal Medicine 05/01/16 Shameka Schaeffer 08/05/24 documented as of this encounter
--- NOTE | 2024-10-31 13:41 | ED_ITS ---
HPI - Skin/Abscess/Foreign Bdy General Chief complaint: Skin/Abscess/Foreign Body Stated complaint: Detox Time Seen by Provider: 10/31/24 11:16 Source: patient Mode of arrival: ambulatory Limitations: no limitations History of Present Illness ED Provider: Donald Logan PA-C HPI narrative: 44-year-old male with medical history of polysubstance use disorder, PTSD, depression, anxiety, HTN presents to the ED due to perianal abscess. Patient reports he noticed abscess between gluteal folds approximately 10 days ago while at detox at [facility]. Providers at the facility started him on Bactrim 1 week ago and increased his dose 3 days ago to 1 g BID. He states he has been taking his medication and last dose was this morning. He states he was discharged from [facility] yesterday after completing 45 days of treatment and went directly to urgent care due to worsening pain of the gluteal abscess. Patient states he has history of MRSA. Reports has not used any substances for 3 months, denies injecting into the area. Prior to this was injecting cocaine. Is currently on 60mg of methadone daily, last dose taken this morning. Denies fevers, chills, chest pain, shortness of breath, nausea, vomiting MD complaint: abscess/boil (To on proximal gluteal fold) Onset (ago): week(s) (1) Location: buttocks (Between proximal gluteal fold) Quality: aching and constant Pain Consistency: constant Relieving factors: none Exacerbating factors: movement and other (Sitting, lying down) Associated symptoms: denies other symptoms Treatments prior to arrival: antibiotic (Bactrim 1 g) Related Data Home Medications ?Medication ?Instructions ?Recorded ?Confirmed pregabalin 150 mg capsule 300 mg PO BEDTIME 03/19/23 09/13/24 clonazepam 1 mg tablet 1 mg PO TID PRN Anxiety 09/13/24 09/13/24 losartan 100 1 tab PO DAILY 09/13/24 09/13/24 mg-hydrochlorothiazide 25 mg tablet multivitamin 1 tab PO DAILY 09/13/24 09/13/24 pregabalin 150 mg capsule 150 mg PO DAILY 09/13/24 09/13/24 tizanidine 4 mg tablet 4 mg PO Q6H PRN muscle spasm 09/13/24 09/13/24 buspirone 15 mg tablet 15 mg PO BID 10/31/24 hydrochlorothiazide 25 mg tablet 25 mg PO DAILY 10/31/24 losartan 100 mg tablet 100 mg PO DAILY 10/31/24 mirtazapine 15 mg tablet 15 mg PO BEDTIME 10/31/24 sertraline 100 mg tablet 100 mg PO DAILY 10/31/24 Previous Rx's ?Medication ?Instructions ?Recorded acetaminophen 500 mg capsule 500 mg PO Q6H PRN fever #60 caps 09/17/24 Allergies Allergy/AdvReac Type Severity Reaction Status Date / Time amoxicillin [AMOXICILLIN] Allergy Mild RASH, Verified 10/31/24 10:19 vomiting,diarrhea morphine [MORPHINE] Allergy Mild RASH, Verified 10/31/24 10:19 shortness of breath, nausea,vomiting hydrocodone [Vicodin] Allergy Unknown shortness Verified 10/31/24 10:19 of breath Penicillins [PENICILLINS] Allergy Unknown RASH Verified 10/31/24 10:19 gadobutrol [From GADAVIST] AdvReac Mild NAUSEA & Verified 10/31/24 10:19 VOMITING levofloxacin [From LEVAQUIN] AdvReac Unknown N/V Verified 10/31/24 10:19 Review of Systems 2 Review of Systems: CONST: Negative for fever, body aches and chills. HENT: Negative for neck pain/stiffness, headache, congestion, sore throat, swelling. EYES: Negative for discharge/pain or vision changes. RESP: Negative for cough/hemoptysis and shortness of breath. CV: Negative chest pain, difficulty breathing, palpitations. ABD: Negative pain, nausea, vomiting. : Negative increase frequency, dysuria, blood in urine or stool. POS abscesses in between glutes MUSC: Negative for muscle aches, edema. SKIN: Negative rash, lesions/sores. Extremities: R hip pain after fall NEURO: Negative headache, dizziness, weakness. [facility] Past Medical History Attestation statement: The following information was validated with the patient. Source: old records reviewed and nursing notes reviewed Medical History Abscess of arm, left PTSD (post-traumatic stress disorder) Depression Anxiety HTN (hypertension) Surgical History No pertinent past surgical history Family History Family History Father HIV (human immunodeficiency virus infection) Mother Diabetes Hypertension Brother Hypertension Diabetes Sister Diabetes Hypertension Social History Social History Household Members: Family Household Members Other:: Brother/TABLE CUT OFF SAW OPERATOR Housing: Other Housing Other:: RV Do you presently have visiting nurse or other home services: Yes Patient Tobacco Use Status: Current everyday Tobacco user Tobacco use type: Cigarette Second Hand Smoke Exposure: No Advance Directives: No Advance Directives Information Provided: Yes Do you have a plan to hurt others: No Plan service: No Physical Exam 2 Vital Signs: Vital Signs: Last Vital Signs Temp 97.8 F 10/31/24 10:17 Pulse 90 10/31/24 13:44 Resp 16 10/31/24 16:04 BP 108/73 10/31/24 13:44 Pulse Ox 99 10/31/24 13:44 O2 Del Method Room Air 10/31/24 13:44 BMI result Body Mass Index 31.6 GENERAL APPEARANCE: ?AxOx4, looks uncomfortable, unable to sit on buttocks, no acute distress. HEENT: ?NC, AT. MMM. EOMI, clear conjunctiva, oropharynx clear. HEART:? Normal rate and regular rhythm, normal S1/S1, no m/r/g LUNGS:? CTAB, moving air well. No crackles or wheezes are heard. ABDOMEN: ?Soft, nontender, nondistended with good bowel sounds heard. : 2 indurated abscesses between B/L proximal gluteal fold. Abscesses are indurated, ulcerated and weeping BACK: No CVAT, no obvious deformity. EXTREMITIES: ?Without cyanosis, clubbing or edema. NEUROLOGICAL: ?Grossly nonfocal. Alert and oriented, moving all 4 extremities. Observed to ambulate with normal gait. Skin: ?Warm and dry without any rash. Medications Administered Generic Name Dose Route Start Last Admin Trade Name Freq PRN Reason Stop Dose Admin Enoxaparin Sodium 40 mg 10/31/24 17:00 10/31/24 17:10 Enoxaparin Sodium 40 Mg/0.4 Ml Syringe SUBCUT 40 mg Q24H PRIYANKA Administration Nicotine 14 mg 10/31/24 16:55 10/31/24 17:11 Nicotine 14 Mg Patch.Td24 TRANSDERMA 14 mg DAILY PRIYANKA Administration Discontinued Medications Generic Name Dose Route Start Last Admin Trade Name Brandi PRN Reason Stop Dose Admin Hydromorphone HCl 1 mg 10/31/24 15:47 10/31/24 16:04 Hydromorphone Hcl 1 Mg/Ml Syringe IVPUSH 10/31/24 15:48 1 mg ONCE ONE Administration Protocol Cefazolin Sodium/Dextrose 2 gm in 50 mls @ 100 mls/hr 10/31/24 14:16 10/31/24 15:54 Ancef IV 10/31/24 14:45 Infused ONCE ONE Infusion Vancomycin HCl 2,000 mg in 500 mls @ 250 mls/hr 10/31/24 14:16 10/31/24 15:53 Vancomycin/Ns IV 10/31/24 16:15 250 mls/hr ONCE ONE Administration Lactated Ringer's 1,000 mls @ 999 mls/hr 10/31/24 14:22 10/31/24 15:37 Lr IV 10/31/24 15:22 Infused .Q1H1M ONE Infusion Iohexol 100 ml 10/31/24 15:13 10/31/24 15:14 Iohexol 350 Mg/Ml 100 Ml Infus..Btl IV 10/31/24 15:14 85 ml ONCE ONE Administration Ketorolac Tromethamine 30 mg 10/31/24 14:01 10/31/24 14:12 Ketorolac Tromethamine 30 Mg/Ml Vial IM 10/31/24 14:02 30 mg ONCE ONE Administration Lidocaine HCl 5 ml 10/31/24 16:53 10/31/24 17:13 Lidocaine Hcl 1 % Mpf 5 Ml Vial SUBCUT 10/31/24 16:54 5 ml ONCE ONE Administration Lorazepam 2 mg 10/31/24 14:01 10/31/24 14:11 Lorazepam 1 Mg Tablet PO 10/31/24 14:02 2 mg ONCE ONE Administration Oxycodone HCl 10 mg 10/31/24 16:53 10/31/24 17:05 Oxycodone Hcl Er 10 Mg Tab.Er.12h PO 10/31/24 16:54 10 mg ONCE ONE Administration Medical Decision Making Medical Decision Making MDM Narrative: 44-year-old male with medical history of polysubstance use disorder, PTSD, depression, anxiety, HTN presents to the ED due to perianal abscess. Patient reports he noticed abscess between gluteal folds approximately 10 days ago while at detox at [facility]. Providers at the facility started him on Bactrim 1 week ago and increased his dose 3 days ago to 1 g BID. He states he has been taking his medication and last dose was this morning. He states he was discharged from [facility] yesterday after completing 45 days of treatment and went directly to urgent care due to worsening pain of the gluteal abscess. Patient states he has history of MRSA. Reports has not used any substances for 3 months, denies injecting into the area. Prior to this was injecting cocaine. Vital signs stable, afebrile. In no acute distress, nontoxic appearing. On physical exam patient has 2 large indurated abscesses of B/L proximal gluteal folds. Abscesses are weeping but firmly indurated with large areas of induration under each abscess. Patient does not meet sepsis criteria at this time. Patient said he is anxious due to pain and uncertainty of his course of action, and is in severe pain and is unable to sit or lie down on his back. Labs without leukocytosis, elevated creatinine at 1.44-this may be due to course of Bactrim. Elevated ESR of 30, elevated CRP of 12.28. Elevated transaminases of 494/444 Course 14:21- patient does not meet sepsis protocol at this time. We will start on IV fluids due to increased creatinine at 1.4, we will begin IV antibiotics 2 g cefazolin, 2 g vancomycin to cover for MRSA. Obtaining CT scan abdomen and pelvis with contrast to evaluate abscesses with potential consult to surgery. 14:48- Patient states he forgot to mention he fell 1 week ago and is experiencing R hip pain. Will evaluate for hip fracture of CT abdomen/pelvis. 16:56- Bedside ultrasound reveals fluid collection on R buttock 2.2x.7. Patient states he is in pain, will medicate with 10mg of oxycodone for breakthrough pain. Will perform I&D of R buttock abscess. Consulted hospitalist Norma Heard PA-C and Adelaide Longoria PA-C who will admit to medicine. 17:56- I&D performed on abscess of R buttock, patient tolerated procedure well. Abscess drained with purulent fluid. (see procedure note) Differential Diagnosis Differential Diagnoses: The differential diagnosis associated with the presentation includes Perianal abscess DAJUAN Electrolyte abnormality Fistula Admission/Observation Consideration of admission/observation: Escalation of care including admission/observation considered Consult Healthcare Provider Management of the patient was discussed with: Hospitalist Lab Data MDM Lab Attestation statement: I reviewed the patient's lab results. 10/31/24 11:51 10/31/24 11:51 Labs: Lab Results 10/31/24 10/31/24 Range/Units 11:51 14:45 WBC 9.5 (4.8-10.8) X10*3/uL RBC 4.55 L (4.60-5.80) X10*6/uL Hgb 13.0 L (14.0-18.0) g/dl Hct 40.6 L (42.0-52.0) % MCV 89.2 (80.0-98.0) fL MCH 28.6 (27.0-33.0) pg MCHC 32.0 (31.0-36.0) g/dl RDW 14.2 (11.0-16.0) % Plt Count 265 (160-400) X10*3/uL MPV 10.5 (9.4-12.4) fL Immature Gran % (Auto) 0.3 (0.0-0.4) % Neut % (Auto) 66.1 (45-73) % Lymph % (Auto) 19.7 L (20-40) % [place] % (Auto) 10.6 (2-11) % Eos % (Auto) 2.9 (0-4) % Baso % (Auto) 0.4 (0-2) % Lymph # (Auto) 1.9 (1.2-4.9) X10*3/uL [place] # (Auto) 1.0 (0.1-1.2) X10*3/uL Eos # (Auto) 0.3 (0.0-0.4) X10*3/uL Baso # (Auto) 0.0 (0.0-0.2) X10*3/uL Abs Immat Gran (auto) 0.03 (0.00-0.03) X10*3/uL Absolute Neuts (auto) 6.3 (2.0-8.3) x10*3/uL Absolute Nucleated RBC 0.000 (0.0-0.012) X10*3/uL Nucleated RBC % (auto) 0.0 (0.0-0.2) /100WBC ESR 30 H (0-15) MM/HR Sodium 137 (135-145) mmol/L Potassium 4.4 D (3.3-5.1) mmol/L Chloride 105 (96-108) mmol/L Carbon Dioxide 24 (22-29) mmol/L Anion Gap 12 (12-20) BUN 22 H (9-16) mg/dL Creatinine 1.44 H (0.5-1.4) mg/dL Estim Creat Clear Calc 76.0 Estimated GFR 54 Random Glucose 126 H (60-115) mg/dL Lactic Acid 1.6 (0.5-2.0) mmol/L Calcium 9.5 D (8.4-10.2) mg/dL Total Bilirubin 1.8 H (0.0-1.0) mg/dL AST 494 H (5-37) U/L ALT 444 H (0-40) U/L Alkaline Phosphatase 110 (39-117) U/L C-Reactive Protein 12.28 H (< or = 0.50) mg/dL Total Protein 7.7 (6.5-8.0) g/dL Albumin 3.7 (3.5-5.0) g/dL Independent Interpretation I performed an independent interpretation of an: CT Scan Radiology Impression Discussion of test interpretation with radiology: I have reviewed the radiologist's reading. Radiologist Impression: FINDINGS: LOWER CHEST: The visualized lung bases are clear. There is no pleural effusion. CARDIOVASCULATURE: The heart is normal in size. There is no pericardial effusion. LIVER: The liver is normal in size and contour. No liver mass is identified. The hepatic and portal veins are patent. GALLBLADDER / BILE DUCTS: The gallbladder is unremarkable. There is no intra or extrahepatic biliary ductal dilatation. SPLEEN: The spleen is normal in size. No focal splenic lesion is identified. PANCREAS: The pancreas is unremarkable in appearance. ADRENAL GLANDS: Within normal limits. KIDNEYS/RETROPERITONEUM: No renal calculi are identified. There is no hydronephrosis. No renal masses are identified. LYMPH NODES: No abdominal or pelvic lymphadenopathy. VASCULATURE: The abdominal aorta is normal in caliber. MESENTERY/PERITONEUM: No free fluid. No masses. There is no free intraperitoneal gas. STOMACH: There are postsurgical changes involving the stomach. SMALL BOWEL: The small bowel is normal in caliber. COLON: The colon is unremarkable. APPENDIX: The appendix is not seen, however no inflammatory changes are seen adjacent to the cecum. URINARY BLADDER/PELVIC ORGANS: The urinary bladder is collapsed, limiting evaluation. The prostate is normal in size. BONES / SOFT TISSUES: There is infiltration of the subcutaneous fat about the gluteal crease which may represent cellulitis. There is no loculated fluid collection. The ischio rectal and perianal fat. This deserves. The bones are intact. CT/CT abdomen pelvis w IV con IMPRESSION: Infiltration of the subcutaneous fat about the gluteal crease, suggestive of cellulitis. No loculated fluid collection. Electronically signed by: Chepe Fatima MD 10/31/2024 03:27 PM EDT RP Dictated By: Chepe Fatima MD Signed By: <Electronically signed by Chepe Fatima MD in OV> External Record Review External record reviewed: Inpatient record, Office record and Outpatient record Chronic Conditions Patient?s care impacted by: Other (Polysubstance use disorder) Procedures Abscess I/D Site: other (Right proximal Buttock) Side (if applicable): right Sedation/analgesia: other (Lidocaine 1%) Local Anesthetic: lidocaine 1% Amount of anesthesia used (mL): 5 Technique: incised with blade Sent for culture/gram staining?: No Irrigation: Yes Packing used?: none Complications: other (No complications) Discharge Plan Discharge Clinical Impression: Abscess of buttock Patient Disposition: Admitted As Inpatient
[2024-10-31 13:44] VITALS: BP 108/73; PULSE 90; RESP 16; O2SAT 99
[2024-10-31] MEDS: LORazepam 1 MG TABLET 2 MG PO (14:11)
[2024-10-31] MEDS: Ketorolac Tromethamine 30 MG/ML VIAL IM (14:12)
[2024-10-31] MEDS: ceFAZolin Sodium/Dextrose,Iso 2 GM/50 ML PIGGYBACK IV (14:35)
[2024-10-31] MEDS: Lactated Ringers 1,000 ML 999 ML IV (14:36)
[2024-10-31 15:10] LABS: Lactic Acid 1.6 mmol/L (0.5-2.0)
[2024-10-31] MEDS: iohexoL 350 MG/ML 100 ML INFUS..BTL IV (15:14)
[2024-10-31] MEDS: vancomycin/NS 2,000 MG/500 ML PLAST..BAG 250 MG IV (15:53)
[2024-10-31 16:04] VITALS: RESP 16
[2024-10-31] MEDS: HYDROmorphone HCl 1 MG/ML SYRINGE IVPUSH (16:04)
--- NOTE | 2024-10-31 16:54 | P.HPHOSP_ITS ---
History of Present Illness Date of Service: 10/31/24 [facility] Chief Complaint: buttock pain This is a 44-year-old male with medical history of polysubstance use disorder, PTSD, depression, anxiety, HTN presents to the ED due to perianal abscess. Patient reports he noticed abscess between gluteal folds approximately 10 days ago while at detox at [place]. Providers at the facility started him on Bactrim 1 week ago and increased his dose 3 days ago to 1 g BID. He states he has been taking his medication as prescribed. He states he was discharged from [place] yesterday after completing 45 days of treatment. Today in the emergency department he was afebrile, lab work revealed no leukocytosis. He had CT scan which showed infiltration of the subcutaneous fat about the gluteal crease suggestive of cellulitis with no loculated fluid collection. Bedside ultrasound by emergency room provider revealed a fluid collection which was drained in the emergency room. He was also treated with IV antibiotic. Lab work was significant for DAJUAN and elevated transaminases. Patient denies any abdominal pain. Review of Systems 2 Review of Systems: Yes all other systems are reviewed and are negative Constitutional: Constitutional: Denies chills and Denies fever(s) [facility] Medical History Abscess of arm, left PTSD (post-traumatic stress disorder) Depression Anxiety HTN (hypertension) Family History Father HIV (human immunodeficiency virus infection) Mother Diabetes Hypertension Brother Hypertension Diabetes Sister Diabetes Hypertension Surgical History No pertinent past surgical history Social History Household Members: Family Household Members Other:: Brother/CHIEF AIRPORT GUIDE Housing: Other Housing Other:: RV Do you presently have visiting nurse or other home services: Yes Patient Tobacco Use Status: Current everyday Tobacco user Tobacco use type: Cigarette Second Hand Smoke Exposure: No Advance Directives: No Advance Directives Information Provided: Yes Do you have a plan to hurt others: No Plan service: No Meds Allergies Allergy/AdvReac Type Severity Reaction Status Date / Time amoxicillin [AMOXICILLIN] Allergy Mild RASH, Verified 10/31/24 10:19 vomiting,diarrhea morphine [MORPHINE] Allergy Mild RASH, Verified 10/31/24 10:19 shortness of breath, nausea,vomiting hydrocodone [Vicodin] Allergy Unknown shortness Verified 10/31/24 10:19 of breath Penicillins [PENICILLINS] Allergy Unknown RASH Verified 10/31/24 10:19 gadobutrol [From GADAVIST] AdvReac Mild NAUSEA & Verified 10/31/24 10:19 VOMITING levofloxacin [From LEVAQUIN] AdvReac Unknown N/V Verified 10/31/24 10:19 Active Medications: Current Medications Acetaminophen (Acetaminophen 325 Mg Tablet) 650 mg PO Q6H PRN PRN Reason: Pain, Mild 1-3,fever,headache Calcium Carbonate (Calcium Carbonate 750 Mg Tab.Chew) 750 mg PO Q4H PRN PRN Reason: Heartburn Enoxaparin Sodium (Enoxaparin Sodium 40 Mg/0.4 Ml Syringe) 40 mg SUBCUT Q24H [facility] Lactated Ringer's (Lr) 1,000 mls @ 100 mls/hr IVCONT .Q10H PRIYANKA Melatonin (Melatonin 3 Mg Tablet) 6 mg PO BEDTIME PRN PRN Reason: Insomnia Nicotine (Nicotine 14 Mg Patch.Td24) 14 mg TRANSDERMA DAILY [facility] Oxycodone HCl (Oxycodone Hcl Er 10 Mg Tab.Er.12h) 10 mg PO ONCE ONE Stop: 10/31/24 16:54 Polyethylene Glycol (Polyethylene Glycol 3350 17 Gm Powd.Pack) 17 gm PO DAILY PRN PRN Reason: Constipation Sodium Chloride (0.9 % Sodium Chloride Flush 3 Ml Syringe) 3 ml IVFLUSH QSHIFT [facility] Home Medications ?Medication ?Instructions ?Recorded ?Confirmed ?Last Taken ?Type pregabalin 150 mg capsule 300 mg PO BEDTIME 03/19/23 09/13/24 09/12/24 History clonazepam 1 mg tablet 1 mg PO TID PRN Anxiety 09/13/24 09/13/24 Unknown History losartan 100 1 tab PO DAILY 09/13/24 09/13/24 09/12/24 History mg-hydrochlorothiazide 25 mg tablet multivitamin 1 tab PO DAILY 09/13/24 09/13/24 09/12/24 History pregabalin 150 mg capsule 150 mg PO DAILY 0409/13/24 09/12/24 History tizanidine 4 mg tablet 4 mg PO Q6H PRN muscle spasm 09/13/24 09/13/24 Unknown History buspirone 15 mg tablet 15 mg PO BID 10/31/24 Unknown History hydrochlorothiazide 25 mg tablet 25 mg PO DAILY 10/31/24 Unknown History losartan 100 mg tablet 100 mg PO DAILY 10/31/24 Unknown History mirtazapine 15 mg tablet 15 mg PO BEDTIME 10/31/24 Unknown History sertraline 100 mg tablet 100 mg PO DAILY 10/31/24 Unknown History Physical Exam 2 Vital Signs and Narrative: Vital Signs: Last Vital Signs Temp 97.8 F 10/31/24 10:17 Pulse 90 10/31/24 13:44 Resp 16 10/31/24 16:04 BP 108/73 10/31/24 13:44 Pulse Ox 99 10/31/24 13:44 O2 Del Method Room Air 10/31/24 13:44 BMI result Body Mass Index 31.6 Const: General: cooperative, alert and awake Nutritional Appearance: o verweight Orientation/consciousness: patient oriented x3 Resp: Effort & Inspection: normal respiratory effort, able to speak in complete sentences, no respiratory distress and no use of accessory muscles Cardio: Rate: regular rate Neuro: General: patient oriented x3, moves all extremities and CN's II-XI intact bilaterally Extrem: General: Yes no pedal edema Results Labs 10/31/24 11:51 10/31/24 11:51 Labs: Laboratory Results - last 24 hr 10/31/24 10/31/24 11:51 14:45 MCV 89.2 MCH 28.6 MCHC 32.0 RDW 14.2 Plt Count 265 MPV 10.5 Immature Gran % (Auto) 0.3 Neut % (Auto) 66.1 Lymph % (Auto) 19.7 L [place] % (Auto) 10.6 Eos % (Auto) 2.9 Baso % (Auto) 0.4 Lymph # (Auto) 1.9 [place] # (Auto) 1.0 Eos # (Auto) 0.3 Baso # (Auto) 0.0 Abs Immat Gran (auto) 0.03 Absolute Neuts (auto) 6.3 Absolute Nucleated RBC 0.000 Nucleated RBC % (auto) 0.0 ESR 30 H Anion Gap 12 Estim Creat Clear Calc 76.0 Estimated GFR 54 Random Glucose 126 H Lactic Acid 1.6 Calcium 9.5 D Total Bilirubin 1.8 H AST 494 H ALT 444 H Alkaline Phosphatase 110 C-Reactive Protein 12.28 H Total Protein 7.7 Albumin 3.7 Imaging Radiologist's Impressions: Impressions Abdomen/Pelvis CT 10/31/24 13:58 IMPRESSION: Infiltration of the subcutaneous fat about the gluteal crease, suggestive of cellulitis. No loculated fluid collection. Electronically signed by: Chepe Fatima MD 10/31/2024 03:27 PM EDT RP Assessment and Plan (1) Abscess of buttock: Status: Acute Plan This is a 44-year-old male with medical history of polysubstance use disorder, PTSD, depression, anxiety, HTN presents to the ED due to perianal abscess. Patient reports he noticed abscess between gluteal folds approximately 10 days ago while at detox at [place] found to have perianal abscess, DAJUAN, transaminitis Perianal abscess No sepsis Drained in the ED (no wound culture sent) Continue IV antibiotics General surgery consultation as may need further drainage DAJUAN Likely due to Bactrim Patient also reports decreased p.o. intake although this appears to be chronic dating back to gastric sleeve surgery 3 years ago IV fluid Follow BMP Transaminitis Also likely due to Bactrim No abdominal pain Check Tylenol level, hepatitis profile abdominal ultrasound showing hepatic steatosis Trend LFTs Mood Continue baseline medication Polysubstance use Discharged from 45 days in rehab yesterday Nicotine dependence Smoking cessation advised NRT HTN hold nephrotoxic meds follow BP DVT prophylaxis-Lovenox Medication reconciliation pending at the time of admission Quality Stroke Does the patient have a stroke diagnosis?: No VTE Prior VTE?: No VTE Risk Level:: Medical - moderate - high VTE Device Contraindication: N/A - Device Ordered VTE Drug Contraindication: N/A - Med Ordered
[2024-10-31] MEDS: oxyCODONE HCl ER 10 MG TAB.ER.12H PO (17:05)
[2024-10-31] MEDS: Enoxaparin Sodium 40 MG/0.4 ML SYRINGE SUBCUT (17:10)
[2024-10-31] MEDS: Nicotine 14 MG PATCH.TD24 TRANSDERMA (17:11)
[2024-10-31] MEDS: Lidocaine HCl 1 % MPF 5 ML VIAL SUBCUT (17:13)
--- NOTE | 2024-10-31 18:46 | PC.NURSE ---
Area drained by MD Jameson & PENNY Bennett with ultrasound. Patient tolerated procedure well. However, patient has been demanding and occasionally rude to staff. Demanding pain medications. Patient has been medicated with Dilaudid at 16:00 and Oxycodone 10mg PO. Patient is sleepy, falls asleep quickly, comes to nurse's station frequently stating I'll take my Dilaudid now . Explained that next dose is ordered/due at 20:00. Patient reports 10 out of 10 pain and is intermittently sleeping/snoring, then awake briefly and demanding. Occasionally mumbling to self, talked about a woman named Celine, and fell back asleep. Has asked for his nurse (this literary writer & Madelyn Cruz LPN) while we are in the room with the patient. Pt has also intermittently been disconnecting his Vancomycin/IV, which has been repeatedly reconnected and resumed throughout the shift. Awaiting bed assignment. Care ongoing by this RN.
--- NOTE | 2024-10-31 18:50 | PHA.MEDREC ---
Addendum entered by Kacey Manuel [facility] 10/31/24 19:23: REVIEWED BY PHARMACIST Original Note: Pharmacy Consult ? Medication Reconciliation Pharmacy has completed the medication reconciliation. Spoke with pt and he was alert when we first started speaking but then throughout the interaction pt became very lethargic and started to pass out/Nod off when I was asking about his medications. Pt states he still has Tizanidine 4mg tabs at home he takes TID PRN for muscle spasms. Pt was able to confirm he was taking the [place] 150mg tabs and takes 1 tablet in the morning and 2 tablets bedtime; despite recent claims states 1 tab QD. Pt was not able to confirm when he last took his medications at this time.
--- NOTE | 2024-10-31 19:00 | PHA.PROG ---
Admission Date/Time: October 31, 2024 16:37 Indication: SSSI Weight in k.1 kg Serum Creatinine - Last 168 Hours 10/31/24 11:51 Creatinine 1.44 H Estimated CrCl and GFR - Last 168 Hours 10/31/24 11:51 Estim Creat Clear Calc 76.0 Estimated GFR 54 Vancomycin Loading Dose: 2,000 mg Current Vancomycin Dosing Regimen: 1,000mg q12h Vancomycin Monitoring using AUC goal of 400 - 600 range with trough as surrogate marker: 544, predicted trough 18.2 Date and Time for next Vancomycin Level to be drawn: 11/01 @ 1400 Pharmacist Comments on Vancomycin Plan: Vancomycin dosing will take advantage of [employer] as a clinical decision support tool that uses Bayesian modeling to calculate individual patient's pharmacokinetic parameters and forecast the patient's drug concentration time course with the target goal AUC 24 range of 400 - 600 mg/L/hr.
[2024-10-31 19:37] LABS: Acetaminophen LAB < 3 mcg/mL (<30); Alanine Aminotransferase 377 U/L (0-40); Albumin Level 3.4 g/dL (3.5-5.0); Alkaline Phosphatase 135 U/L (39-117); Anion Gap 9 (12-20); Aspartate Amino Transferase 447 U/L (5-37); Bilirubin Direct 0.9 mg/dL (0.0-0.5); Bilirubin Total 1.3 mg/dL (0.0-1.0); Blood Urea Nitrogen 25 mg/dL (9-16); Carbon Dioxide 29 mmol/L (22-29); Chloride 105 mmol/L (96-108); Creatinine Clr Calc Pharmacy 66.3; Estimated Glomerular Filt Rate 46; Glucose Random 117 mg/dL (60-115); Potassium 3.9 mmol/L (3.3-5.1); Sodium 139 mmol/L (135-145); Total Protein 6.8 g/dL (6.5-8.0)
[2024-10-31 19:58] VITALS: RESP 18
[2024-10-31] MEDS: HYDROmorphone HCl 0.5 MG/0.5 ML SYRINGE IVPUSH (19:58)
[2024-10-31] MEDS: Lactated Ringers 1,000 ML 100 ML IVCONT (20:18)
[2024-10-31 20:28] VITALS: BMI 31.9
[2024-10-31 20:44] VITALS: BP 120/65; PULSE 81; RESP 20; TEMP 36.7; O2SAT 95
[2024-10-31] MEDS: oxyCODONE HCl Immed Release 5 MG TABLET PO (22:55)
[2024-10-31] MEDS: clonazePAM 1 MG TABLET PO (23:59)
[2024-11-01] MEDS: 0.9 % Sodium Chloride Flush 3 ML SYRINGE IVFLUSH (00:06)
--- NOTE | 2024-11-01 00:57 | PC.NURSE ---
late entry: This RN assumed care of patient at 23:00. Patient pressed his call choe asking another RN for klonopin. When I went into the room to clarify if he takes it at home he said yes 1 mg and that he had already told someone earlier about his medications. This med is not in his home meds list and Dr. Reynolds was notified. He ordered a 1x dose of 1 mg klonopin. I administered his klonopin and then patient proceeded to ask if it was going to be scheduled BID and I explained to him they did not have this med listed as apart of his home medications so that would be up to the doctor. Patient can be very demanding at times and is asking for his pain meds way before they are due. I have explained that his oxy is Q6H & Dilaudid Q4H but he still rings asking for them.
[2024-11-01 04:00] VITALS: BP 135/82; PULSE 90; RESP 18; TEMP 37.3; O2SAT 94
[2024-11-01 04:12] LABS: HBS Num1 59.76 mIU/mL (0-7.99); HBc Num1 0.21 S/CO (0.00-0.79); HBsAGNum1 0.46 S/CO (0.00-0.99); Hepatitis A Antibody IgM 0.16 Index (0-0.79); Hepatitis B Core Antibody Nonreactive (Nonreactive); Hepatitis B Surface Antigen Negative (Negative); ~HepC Num1 12.14 S/CO (0.00-0.79); ~Hepatitis A Antibody IgM Nonreactive (Nonreactive); ~Hepatitis B Surface Antibody REACTIVE (Nonreactive); ~Hepatitis C Antibody Reactive (Nonreactive)
[2024-11-01] MEDS: vancomycin HCL 1,000 MG in 0.9 % Sodium Chloride 250 ML 270 MG IV ×2 (04:13→15:58)
[2024-11-01] MEDS: Lactated Ringers 1,000 ML 100 ML IVCONT ×2 (04:15→14:42)
[2024-11-01] MEDS: HYDROmorphone HCl 0.5 MG/0.5 ML SYRINGE IVPUSH ×3 (05:34→14:40)
--- NOTE | 2024-11-01 06:08 | PC.NURSE ---
tried to get in contact with Jessica Anderson to confirm patients methadone but no response. patient states he takes 100mg daily but per ED note it says 60mg.
--- NOTE | 2024-11-01 06:53 | PC.NURSE ---
Refusing Bed and Chair Alarms. Mod Fall Risk.
[2024-11-01 06:55] LABS: Estimated Glomerular Filt Rate 58
--- NOTE | 2024-11-01 07:08 | PC.NURSE ---
Attempted to call for Methadone, Jessica Anderson, no answer.
--- NOTE | 2024-11-01 07:11 | PC.NURSE ---
Methadone verified, 100mg, faxed to pharmacy.
[2024-11-01] MEDS: oxyCODONE HCl Immed Release 5 MG TABLET PO ×2 (07:17→16:53)
[2024-11-01] MEDS: Nicotine 14 MG PATCH.TD24 TRANSDERMA (07:17)
--- NOTE | 2024-11-01 07:21 | HE.PHANOTE ---
METHADONE Pt last received 100mg on 10/31/24 @ 0930, per Thi RN, at [facility].
[2024-11-01 07:52] VITALS: BP 110/67; PULSE 74; RESP 18; TEMP 37; O2SAT 95
[2024-11-01] MEDS: Multivitamin TABLET 1 TAB PO (08:10)
[2024-11-01] MEDS: Pregabalin 150 MG CAPSULE PO (08:10)
[2024-11-01] MEDS: clonazePAM 1 MG TABLET PO (08:10)
[2024-11-01] MEDS: Losartan Potassium 50 MG TABLET 100 MG PO (08:10)
[2024-11-01] MEDS: Sertraline HCL 100 MG TABLET PO (08:10)
[2024-11-01] MEDS: busPIRone HCl 5 MG TABLET 15 MG PO (08:10)
[2024-11-01] MEDS: hydroCHLOROthiazide 25 MG TABLET PO (08:11)
[2024-11-01] MEDS: methADONE HCl 20 MG/2 ML ORAL.CONC 100 MG PO (08:12)
[2024-11-01 09:03] LABS: Alanine Aminotransferase 323 U/L (0-40); Albumin Level 3.2 g/dL (3.5-5.0); Alkaline Phosphatase 108 U/L (39-117); Aspartate Amino Transferase 379 U/L (5-37); Bilirubin Direct 0.7 mg/dL (0.0-0.5); Bilirubin Total 1.1 mg/dL (0.0-1.0); Total Protein 6.4 g/dL (6.5-8.0)
--- NOTE | 2024-11-01 09:53 | P.CONGS_ITS ---
History of Present Illness Consult details Consult date: 11/01/24 Requesting physician: Adelaide Rivera Narrative: 44-year-old male patient with a prior history of polysubstance use disorder, PTSD, depression, anxiety, hypertension recently in a detox program at [place], reporting a painful lump at the intergluteal cleft. He was subsequently started on oral antibiotics without significant improvement and subsequently presented to the emergency department for further evaluation. The patient reports a prior history of MRSA. He denied fevers, chills, nausea or vomiting. Workup in the emergency department revealed a normal WBC. CT of the abdomen and pelvis revealed infiltration of the skin at the gluteal crease without apparent abscess however ultrasound over the palpable lump did reveal a fluid collection measuring 2.2 x 0.7 cm. An incision and drainage was performed in the emergency department. Surgical consultation was requested for further management of this intergluteal abscess. The patient denies a previous history of infection at this location. He denies any history of trauma as well. Review of Systems 2 Review of Systems: Yes all other systems are reviewed and are negative PMFSH Past Medical History Medical History Abscess of arm, left PTSD (post-traumatic stress disorder) Depression Anxiety HTN (hypertension) Family History Family History Father HIV (human immunodeficiency virus infection) Mother Diabetes Hypertension Brother Hypertension Diabetes Sister Diabetes Hypertension Surgical History Surgical History No pertinent past surgical history Social History Social History Household Members: Family Household Members Other:: Brother/MANAGER PROPOSAL Housing: Other Housing Other:: RV Do you presently have visiting nurse or other home services: Yes Patient Tobacco Use Status: Current everyday Tobacco user Tobacco use type: Cigarette e-Cigarette/Vaping Use: Currently Using Second Hand Smoke Exposure: No Currently Displaying Signs/Symptoms of Drug Intoxication Withdrawal: No Have you been hit, kicked, punched, or otherwise hurt by someone within the past year? If so, by whom?: No Do you feel safe in your current relationship?: No Current Relationship Is there a partner from a previous relationship who is making you feel unsafe now?: No Are you made to feel afraid or neglected: No Advance Directives: No Advance Directives Information Provided: Yes Do you have a plan to hurt others: No Plan Recently lost weight without trying: No Nutrition Risks: No Nutritional Risk Poor oral hygiene: No service: No Meds Allergies Allergy/AdvReac Type Severity Reaction Status Date / Time amoxicillin [AMOXICILLIN] Allergy Mild RASH, Verified 10/31/24 10:19 vomiting,diarrhea morphine [MORPHINE] Allergy Mild RASH, Verified 10/31/24 10:19 shortness of breath, nausea,vomiting hydrocodone [Vicodin] Allergy Unknown shortness Verified 10/31/24 10:19 of breath Penicillins [PENICILLINS] Allergy Unknown RASH Verified 10/31/24 10:19 gadobutrol [From GADAVIST] AdvReac Mild NAUSEA & Verified 10/31/24 10:19 VOMITING levofloxacin [From LEVAQUIN] AdvReac Unknown N/V Verified 10/31/24 10:19 Active Medications: Current Medications Acetaminophen (Acetaminophen 325 Mg Tablet) 650 mg PO Q6H PRN PRN Reason: Pain, Mild 1-3,fever,headache Buspirone HCl (Buspirone Hcl 5 Mg Tablet) 15 mg PO BID [facility] Last Admin: 11/01/24 08:10 Dose: 15 mg Calcium Carbonate (Calcium Carbonate 750 Mg Tab.Chew) 750 mg PO Q4H PRN PRN Reason: Heartburn Clonazepam (Clonazepam 1 Mg Tablet) 1 mg PO BID PRN PRN Reason: Anxiety Last Admin: 11/01/24 08:10 Dose: 1 mg Enoxaparin Sodium (Enoxaparin Sodium 40 Mg/0.4 Ml Syringe) 40 mg SUBCUT Q24H [facility] Last Admin: 10/31/24 17:10 Dose: 40 mg Hydrochlorothiazide (Hydrochlorothiazide 25 Mg Tablet) 25 mg PO DAILY [facility] Last Admin: 11/01/24 08:11 Dose: 25 mg Hydromorphone HCl (Hydromorphone Hcl 0.5 Mg/0.5 Ml Syringe) 0.5 mg IVPUSH Q4H PRN; Protocol PRN Reason: Pain, Severe (Pain Scale 7-10) Last Admin: 11/01/24 05:34 Dose: 0.5 mg Lactated Ringer's (Lr) 1,000 mls @ 100 mls/hr IVCONT .Q10H [facility] Last Infusion: 11/01/24 06:00 Dose: 100 mls/hr Vancomycin HCl 1,000 mg/ (Sodium Chloride) 270 mls @ 270 mls/hr IV Q12H [facility] Last Infusion: 11/01/24 05:33 Dose: Infused Losartan Potassium (Losartan Potassium 50 Mg Tablet) 100 mg PO DAILY [facility] Last Admin: 11/01/24 08:10 Dose: 100 mg Melatonin (Melatonin 3 Mg Tablet) 6 mg PO BEDTIME PRN PRN Reason: Insomnia Methadone HCl (Methadone Hcl 20 Mg/2 Ml Oral.Conc) 100 mg PO DAILY [facility] Last Admin: 11/01/24 08:12 Dose: 100 mg Mirtazapine (Mirtazapine 15 Mg Tablet) 15 mg PO BEDTIME [facility] Multivitamins/Vitamin C (Multivitamin Tablet) 1 tab PO DAILY [facility] Last Admin: 11/01/24 08:10 Dose: 1 tab Nicotine (Nicotine 14 Mg Patch.Td24) 14 mg TRANSDERMA DAILY [facility] Last Admin: 11/01/24 07:17 Dose: 14 mg Oxycodone HCl (Oxycodone Hcl Immed Release 5 Mg Tablet) 5 mg PO Q6H PRN PRN Reason: Pain, Moderate(Pain Scale 4-6) Last Admin: 11/01/24 07:17 Dose: 5 mg Pharmacy Consult (Consult Rx Vancomycin Dosing) 1 each MISCELLANE DAILY PRN PRN Reason: Consult order Polyethylene Glycol (Polyethylene Glycol 3350 17 Gm Powd.Pack) 17 gm PO DAILY PRN PRN Reason: Constipation Pregabalin (Pregabalin 150 Mg Capsule) 150 mg PO DAILY [facility] Last Admin: 11/01/24 08:10 Dose: 150 mg Pregabalin (Pregabalin 150 Mg Capsule) 300 mg PO BEDTIME [facility] Sertraline HCl (Sertraline Hcl 100 Mg Tablet) 100 mg PO DAILY [facility] Last Admin: 11/01/24 08:10 Dose: 100 mg Sodium Chloride (0.9 % Sodium Chloride Flush 3 Ml Syringe) 3 ml IVFLUSH QSHIFT [facility] Last Admin: 11/01/24 07:14 Dose: Not Given Tizanidine HCl (Tizanidine Hcl 4 Mg Tablet) 4 mg PO TID PRN PRN Reason: muscle spasm Home Medications ?Medication ?Instructions ?Recorded ?Confirmed ?Last Taken ?Type pregabalin 150 mg capsule 300 mg PO BEDTIME 03/19/23 10/31/24 09/12/24 History losartan 100 1 tab PO DAILY 09/13/24 10/31/24 09/12/24 History mg-hydrochlorothiazide 25 mg tablet multivitamin 1 tab PO DAILY 09/13/24 10/31/24 09/12/24 History tizanidine 4 mg tablet 4 mg PO TID PRN muscle spasm 09/13/24 10/31/24 Unknown History buspirone 15 mg tablet 15 mg PO BID 10/31/24 10/31/24 Unknown History mirtazapine 15 mg tablet 15 mg PO BEDTIME 10/31/24 10/31/24 Unknown History pregabalin 150 mg capsule 150 mg PO DAILY 10/31/24 10/31/24 Unknown History sertraline 100 mg tablet 100 mg PO DAILY 10/31/24 10/31/24 Unknown History methadone 10 mg/mL oral 100 mg PO DAILY 11/01/24 11/01/24 10/31/24 09:30 History concentrate (Methadone Intensol) Physical Exam 2 Vital Signs: Vital Signs: Last Vital Signs Temp 98.6 F 11/01/24 07:52 Pulse 74 11/01/24 07:52 Resp 18 11/01/24 07:52 BP 110/67 11/01/24 07:52 Pulse Ox 95 11/01/24 07:52 O2 Del Method Room Air 11/01/24 07:52 BMI result Body Mass Index 31.9 Const: General: no acute distress Nutritional Appearance: well nourished Orientation/consciousness: patient oriented x3 Limitations: no limitations HEENT: Head: Yes normocephalic and Yes atraumatic Resp: Effort & Inspection: normal respiratory effort, no audible wheezes, no cough and no respiratory distress GI: Inspection: Yes normal to inspection Back/Spine/Pelvis: Other: Bilateral area of inflammation and erythema noted in the upper portion of the intergluteal cleft possibly suggestive of pilonidal cyst abscess. An incision and drainage was performed on the right side in his open draining. No packing was noted at this time. Back/spine/pelvis image: 1. Site of the gluteal abscess Neuro: General: patient oriented x3 Extrem: Other: No edema, weakness Results Labs 10/31/24 11:51 11/01/24 06:11 Labs: Abnormal lab results 10/31/24 10/31/24 11/01/24 Range/Units 11:51 19:08 08:24 RBC 4.55 L (4.60-5.80) X10*6/uL Hgb 13.0 L (14.0-18.0) g/dl Hct 40.6 L (42.0-52.0) % Lymph % (Auto) 19.7 L (20-40) % ESR 30 H (0-15) MM/HR Anion Gap 9 L (12-20) BUN 22 H 25 H (9-16) mg/dL Creatinine 1.44 H 1.65 H (0.5-1.4) mg/dL Random Glucose 126 H 117 H (60-115) mg/dL Total Bilirubin 1.8 H 1.3 H 1.1 H (0.0-1.0) mg/dL Direct Bilirubin 0.9 H 0.7 H (0.0-0.5) mg/dL AST 494 H 447 H 379 H (5-37) U/L ALT 444 H 377 H 323 H (0-40) U/L Alkaline Phosphatase 135 H (39-117) U/L C-Reactive Protein 12.28 H (< or = 0.50) mg/dL Total Protein 6.4 L (6.5-8.0) g/dL Albumin 3.4 L 3.2 L (3.5-5.0) g/dL Hepatitis C Ab (EIA) Reactive H (Nonreactive) Short CBC 10/31/24 Range/Units 11:51 WBC 9.5 (4.8-10.8) X10*3/uL Hgb 13.0 L (14.0-18.0) g/dl Hct 40.6 L (42.0-52.0) % Plt Count 265 (160-400) X10*3/uL BMP 10/31/24 10/31/24 11/01/24 11:51 19:08 06:11 Sodium 137 139 Potassium 4.4 D 3.9 Chloride 105 105 Carbon Dioxide 24 29 BUN 22 H 25 H Creatinine 1.44 H 1.65 H 1.34 Calcium 9.5 D 9.0 Liver Function 06/06/25 06/06/25 06/07/25 Range/Units 11:51 19:08 08:24 Total Bilirubin 1.8 H 1.3 H 1.1 H (0.0-1.0) mg/dL Direct Bilirubin 0.9 H 0.7 H (0.0-0.5) mg/dL AST 494 H 447 H 379 H (5-37) U/L ALT 444 H 377 H 323 H (0-40) U/L Alkaline Phosphatase 110 135 H 108 (39-117) U/L Albumin 3.7 3.4 L 3.2 L (3.5-5.0) g/dL All other labs normal. Assessment and Plan (1) Abscess of buttock: Status: Acute Plan 44-year-old male patient with a large abscess of the intergluteal cleft suggestive of a pilonidal cyst abscess. This was incised and drained in the emergency department last evening and appears to be adequately drained. No further surgical intervention is required at this time but would recommend continuing the parenteral antibiotics. We will continue to monitor during his hospitalization. Procedures Date of Service Date of Service: 11/01/24
--- NOTE | 2024-11-01 11:24 | HO.PM.IMPN ---
Subjective Subjective Date of Service: 11/01/24 Interval History: Follow up perianal abscess Still with pain Physical Exam Vital Signs: Vital Signs: Last Vital Signs Temp 98.6 F 11/01/24 07:52 Pulse 74 11/01/24 07:52 Resp 18 11/01/24 07:52 BP 110/67 11/01/24 07:52 Pulse Ox 95 11/01/24 07:52 O2 Del Method Room Air 11/01/24 07:52 BMI result Body Mass Index 31.9 Appearing in no acute distress lung sounds are clear to auscultation heart regular rate rhythm, clear S1, S2 positive bowel sounds, abdomen is soft, nontender neuro patient is alert x3, no focal deficits Objective Data Active Medications Acetaminophen (Acetaminophen 325 Mg Tablet) 650 mg PO Q6H PRN PRN Reason: Pain, Mild 1-3,fever,headache Buspirone HCl (Buspirone Hcl 5 Mg Tablet) 15 mg PO BID [facility] Last Admin: 11/01/24 08:10 Dose: 15 mg Documented By: APRIL Calcium Carbonate (Calcium Carbonate 750 Mg Tab.Chew) 750 mg PO Q4H PRN PRN Reason: Heartburn Clonazepam (Clonazepam 1 Mg Tablet) 1 mg PO BID PRN PRN Reason: Anxiety Last Admin: 11/01/24 08:10 Dose: 1 mg Documented By: APRIL Enoxaparin Sodium (Enoxaparin Sodium 40 Mg/0.4 Ml Syringe) 40 mg SUBCUT Q24H [facility] Last Admin: 10/31/24 17:10 Dose: 40 mg Documented By: MCKAYLA Hydrochlorothiazide (Hydrochlorothiazide 25 Mg Tablet) 25 mg PO DAILY [facility] Last Admin: 11/01/24 08:11 Dose: 25 mg Documented By: APRIL Hydromorphone HCl (Hydromorphone Hcl 0.5 Mg/0.5 Ml Syringe) 0.5 mg IVPUSH Q4H PRN; Protocol PRN Reason: Pain, Severe (Pain Scale 7-10) Last Admin: 11/01/24 05:34 Dose: 0.5 mg Documented By: NAVEEN Lactated Ringer's (Lr) 1,000 mls @ 100 mls/hr IVCONT .Q10H [facility] Last Infusion: 11/01/24 06:00 Dose: 100 mls/hr Documented By: NAVEEN Vancomycin HCl 1,000 mg/ (Sodium Chloride) 270 mls @ 270 mls/hr IV Q12H [facility] Last Infusion: 11/01/24 05:33 Dose: Infused Documented By: NAVEEN Losartan Potassium (Losartan Potassium 50 Mg Tablet) 100 mg PO DAILY [facility] Last Admin: 11/01/24 08:10 Dose: 100 mg Documented By: APRIL Melatonin (Melatonin 3 Mg Tablet) 6 mg PO BEDTIME PRN PRN Reason: Insomnia Methadone HCl (Methadone Hcl 20 Mg/2 Ml Oral.Conc) 100 mg PO DAILY [facility] Last Admin: 11/01/24 08:12 Dose: 100 mg Documented By: APRIL Co-signed By: GRAZGIANNI Mirtazapine (Mirtazapine 15 Mg Tablet) 15 mg PO BEDTIME [facility] Multivitamins/Vitamin C (Multivitamin Tablet) 1 tab PO DAILY [facility] Last Admin: 11/01/24 08:10 Dose: 1 tab Documented By: APRIL Nicotine (Nicotine 14 Mg Patch.Td24) 14 mg TRANSDERMA DAILY [facility] Last Admin: 11/01/24 07:17 Dose: 14 mg Documented By: APRIL Oxycodone HCl (Oxycodone Hcl Immed Release 5 Mg Tablet) 5 mg PO Q6H PRN PRN Reason: Pain, Moderate(Pain Scale 4-6) Last Admin: 11/01/24 07:17 Dose: 5 mg Documented By: APRIL Pharmacy Consult (Consult Rx Vancomycin Dosing) 1 each MISCELLANE DAILY PRN PRN Reason: Consult order Polyethylene Glycol (Polyethylene Glycol 3350 17 Gm Powd.Pack) 17 gm PO DAILY PRN PRN Reason: Constipation Pregabalin (Pregabalin 150 Mg Capsule) 150 mg PO DAILY [facility] Last Admin: 11/01/24 08:10 Dose: 150 mg Documented By: APRIL Pregabalin (Pregabalin 150 Mg Capsule) 300 mg PO BEDTIME [facility] Sertraline HCl (Sertraline Hcl 100 Mg Tablet) 100 mg PO DAILY [facility] Last Admin: 11/01/24 08:10 Dose: 100 mg Documented By: APRIL Sodium Chloride (0.9 % Sodium Chloride Flush 3 Ml Syringe) 3 ml IVFLUSH QSHIFT [facility] Last Admin: 11/01/24 07:14 Dose: Not Given Documented By: APRIL Non-Admin Reason: IV Running Tizanidine HCl (Tizanidine Hcl 4 Mg Tablet) 4 mg PO TID PRN PRN Reason: muscle spasm Labs 10/31/24 11:51 11/01/24 06:11 Labs: Laboratory Results - last 24 hr 10/31/24 10/31/24 10/31/24 11:51 14:45 19:08 MCV 89.2 MCH 28.6 MCHC 32.0 RDW 14.2 Plt Count 265 MPV 10.5 Immature Gran % (Auto) 0.3 Neut % (Auto) 66.1 Lymph % (Auto) 19.7 L [place] % (Auto) 10.6 Eos % (Auto) 2.9 Baso % (Auto) 0.4 Lymph # (Auto) 1.9 [place] # (Auto) 1.0 Eos # (Auto) 0.3 Baso # (Auto) 0.0 Abs Immat Gran (auto) 0.03 Absolute Neuts (auto) 6.3 Absolute Nucleated RBC 0.000 Nucleated RBC % (auto) 0.0 ESR 30 H Hold Purple Top Anion Gap 12 9 L Estim Creat Clear Calc 76.0 66.3 Estimated GFR 54 46 Random Glucose 126 H 117 H Lactic Acid 1.6 Calcium 9.5 D 9.0 Total Bilirubin 1.8 H 1.3 H Direct Bilirubin 0.9 H AST 494 H 447 H ALT 444 H 377 H Alkaline Phosphatase 110 135 H C-Reactive Protein 12.28 H Total Protein 7.7 6.8 Albumin 3.7 3.4 L Acetaminophen < 3 Hepatitis A IgM Ab Nonreactive Hep Bs Antigen Negative Hep Bs Antibody REACTIVE Hep B Core Total Ab Nonreactive Hepatitis C Ab (EIA) Reactive H 11/01/24 11/01/24 11/01/24 06:11 06:17 08:24 MCV MCH MCHC RDW Plt Count MPV Immature Gran % (Auto) Neut % (Auto) Lymph % (Auto) [place] % (Auto) Eos % (Auto) Baso % (Auto) Lymph # (Auto) [place] # (Auto) Eos # (Auto) Baso # (Auto) Abs Immat Gran (auto) Absolute Neuts (auto) Absolute Nucleated RBC Nucleated RBC % (auto) ESR Hold Purple Top SEE NOTE Anion Gap Estim Creat Clear Calc 82.0 Estimated GFR 58 Random Glucose Lactic Acid Calcium Total Bilirubin 1.1 H Direct Bilirubin 0.7 H AST 379 H ALT 323 H Alkaline Phosphatase 108 C-Reactive Protein Total Protein 6.4 L Albumin 3.2 L Acetaminophen Hepatitis A IgM Ab Hep Bs Antigen Hep Bs Antibody Hep B Core Total Ab Hepatitis C Ab (EIA) Assessment and Plan (1) Cellulitis of hand: Status: Acute Plan 44-year-old male with medical history of polysubstance use disorder, PTSD, depression, anxiety, HTN presents to the ED due to perianal abscess. Patient reports he noticed abscess between gluteal folds approximately 10 days ago while at detox at [place] found to have perianal abscess, DAJUAN, transaminitis Perianal abscess No sepsis Drained in the ED (no wound culture sent) Continue IV antibiotics General surgery consultation as may need further drainage DAJUAN. Resolved Likely due to Bactrim Patient also reports decreased p.o. intake although this appears to be chronic dating back to gastric sleeve surgery 3 years ago IV fluid Follow BMP Transaminitis. Trending down Also likely due to Bactrim No abdominal pain neg Tylenol level abdominal ultrasound showing hepatic steatosis Hepatitis C positive, ID consultation check HIV in am Mood Continue baseline medication Polysubstance use Discharged from 46 days in rehab yesterday Nicotine dependence Smoking cessation advised NRT HTN hold nephrotoxic meds follow BP DVT prophylaxis-Lovenox Quality Stroke Does the patient have a stroke diagnosis?: No VTE Prior VTE?: No VTE Risk Level:: Medical - moderate - high VTE Device Contraindication: N/A - Device Ordered VTE Drug Contraindication: N/A - Med Ordered
[2024-11-01] MEDS: TiZANidine HCL 4 MG TABLET PO (15:57)
[2024-11-01 16:00] VITALS: BP 112/68; PULSE 78; RESP 18; TEMP 36.9; O2SAT 95
--- NOTE | 2024-11-01 16:02 | MHC.CM.PN ---
PT REPORTS HE LIVES WITH HIS PARENTS AND HAS DAILY [employer] CM UNABLE TO CONFIRM [employer] PEOPLE WERE IN THE ROOM, HE WAS ACTIVE WITH CHAYITO PINTO DURING PREVIOUS ADMISSION HE USES NO DME HE WILL COMPLETE A NEW HCP NAMING HIS FATHER, KAYLEIGH ASTUDILLO AND MOTHER, MERCEDES HE, HIS AGENTS PCP: JAYLON HEATON IMM DELIVERED DCP: HOME RESUME [employer] FAMILY TO TRANSPORT
--- NOTE | 2024-11-01 18:04 | PC.NURSE ---
Pt states he put his bag in the Blue dirty linen basket. Housekeeping and Laundry notified. When asked why he would put his bag in the dirty laundry he stated I don't know.
[2024-11-01 20:00] VITALS: BP 100/60; PULSE 68; RESP 18; TEMP 37; O2SAT 99
[2024-11-02] MEDS: Lactated Ringers 1,000 ML 100 ML IVCONT (00:08)
[2024-11-02] MEDS: HYDROmorphone HCl 0.5 MG/0.5 ML SYRINGE IVPUSH ×6 (02:35→23:37)
[2024-11-02] MEDS: oxyCODONE HCl Immed Release 5 MG TABLET PO ×4 (03:41→22:31)
[2024-11-02] MEDS: vancomycin HCL 1,000 MG in 0.9 % Sodium Chloride 250 ML 270 MG IV (03:45)
[2024-11-02] MEDS: clonazePAM 1 MG TABLET PO ×2 (03:49→22:32)
[2024-11-02 03:57] VITALS: BP 133/83; PULSE 105; RESP 18; TEMP 36.6; O2SAT 98
[2024-11-02 06:56] LABS: Anion Gap 13 (12-20); Blood Urea Nitrogen 18 mg/dL (9-16); Calcium 8.7 mg/dL (8.4-10.2); Carbon Dioxide 25 mmol/L (22-29); Chloride 109 mmol/L (96-108); Creatinine Clr Calc Pharmacy 93.1; Estimated Glomerular Filt Rate > 60; Glucose Random 141 mg/dL (60-115); Sodium 143 mmol/L (135-145)
[2024-11-02 07:46] VITALS: BP 131/84; PULSE 70; RESP 16; TEMP 36.8; O2SAT 99
[2024-11-02] MEDS: Pregabalin 150 MG CAPSULE PO (07:55)
[2024-11-02] MEDS: Multivitamin TABLET 1 TAB PO (07:55)
[2024-11-02] MEDS: Sertraline HCL 100 MG TABLET PO (07:55)
[2024-11-02] MEDS: busPIRone HCl 5 MG TABLET 15 MG PO ×2 (07:55→20:13)
[2024-11-02] MEDS: Losartan Potassium 50 MG TABLET 100 MG PO (07:55)
[2024-11-02] MEDS: methADONE HCl 20 MG/2 ML ORAL.CONC 100 MG PO (07:56)
[2024-11-02] MEDS: hydroCHLOROthiazide 25 MG TABLET PO (07:56)
[2024-11-02] MEDS: Nicotine 14 MG PATCH.TD24 TRANSDERMA (07:56)
[2024-11-02] MEDS: 0.9 % Sodium Chloride Flush 3 ML SYRINGE IVFLUSH ×3 (07:59→20:16)
--- NOTE | 2024-11-02 09:16 | HO.PM.IMPN ---
Subjective Subjective Date of Service: 11/02/24 Interval History: Follow up perianal abscess Still with pain but ambulating Physical Exam Vital Signs: Vital Signs: Last Vital Signs Temp 98.2 F 11/02/24 07:46 Pulse 70 11/02/24 07:46 Resp 16 11/02/24 07:46 BP 131/84 11/02/24 07:46 Pulse Ox 99 11/02/24 07:46 O2 Del Method Room Air 11/02/24 07:46 BMI result Body Mass Index 31.9 Appearing in no acute distress lung sounds are clear to auscultation heart regular rate rhythm, clear S1, S2 positive bowel sounds, abdomen is soft, nontender neuro patient is alert x3, no focal deficits Objective Data Active Medications Acetaminophen (Acetaminophen 325 Mg Tablet) 650 mg PO Q6H PRN PRN Reason: Pain, Mild 1-3,fever,headache Buspirone HCl (Buspirone Hcl 5 Mg Tablet) 15 mg PO BID [facility] Last Admin: 11/02/24 07:55 Dose: 15 mg Documented By: HERMELINDA Calcium Carbonate (Calcium Carbonate 750 Mg Tab.Chew) 750 mg PO Q4H PRN PRN Reason: Heartburn Clonazepam (Clonazepam 1 Mg Tablet) 1 mg PO BID PRN PRN Reason: Anxiety Last Admin: 11/02/24 03:49 Dose: 1 mg Documented By: ANJU Enoxaparin Sodium (Enoxaparin Sodium 40 Mg/0.4 Ml Syringe) 40 mg SUBCUT Q24H [facility] Last Admin: 11/01/24 16:01 Dose: Not Given Documented By: APRIL Non-Admin Reason: Patient Refused Hydrochlorothiazide (Hydrochlorothiazide 25 Mg Tablet) 25 mg PO DAILY [facility] Last Admin: 11/02/24 07:56 Dose: 25 mg Documented By: HERMELINDA Vancomycin HCl 1,000 mg/ (Sodium Chloride) 270 mls @ 270 mls/hr IV Q12H [facility] Last Infusion: 11/02/24 04:46 Dose: Infused Documented By: ANJU Losartan Potassium (Losartan Potassium 50 Mg Tablet) 100 mg PO DAILY [facility] Last Admin: 11/02/24 07:55 Dose: 100 mg Documented By: HERMELINDA Melatonin (Melatonin 3 Mg Tablet) 6 mg PO BEDTIME PRN PRN Reason: Insomnia Methadone HCl (Methadone Hcl 20 Mg/2 Ml Oral.Conc) 100 mg PO DAILY [facility] Last Admin: 11/02/24 07:56 Dose: 100 mg Documented By: HERMELINDA Co-signed By: DENIS Mirtazapine (Mirtazapine 15 Mg Tablet) 15 mg PO BEDTIME [facility] Last Admin: 11/01/24 23:51 Dose: Not Given Documented By: ANJU Non-Admin Reason: Patient Asleep Multivitamins/Vitamin C (Multivitamin Tablet) 1 tab PO DAILY [facility] Last Admin: 11/02/24 07:55 Dose: 1 tab Documented By: HERMELINDA Nicotine (Nicotine 14 Mg Patch.Td24) 14 mg TRANSDERMA DAILY [facility] Last Admin: 11/02/24 07:56 Dose: 14 mg Documented By: HERMELINDA Pharmacy Consult (Consult Rx Vancomycin Dosing) 1 each MISCELLANE DAILY PRN PRN Reason: Consult order Polyethylene Glycol (Polyethylene Glycol 3350 17 Gm Powd.Pack) 17 gm PO DAILY PRN PRN Reason: Constipation Pregabalin (Pregabalin 150 Mg Capsule) 150 mg PO DAILY [facility] Last Admin: 11/02/24 07:55 Dose: 150 mg Documented By: HERMELINDA Pregabalin (Pregabalin 150 Mg Capsule) 300 mg PO BEDTIME [facility] Last Admin: 11/01/24 23:51 Dose: Not Given Documented By: ANJU Non-Admin Reason: Patient Asleep Sertraline HCl (Sertraline Hcl 100 Mg Tablet) 100 mg PO DAILY [facility] Last Admin: 11/02/24 07:55 Dose: 100 mg Documented By: HERMELINDA Sodium Chloride (0.9 % Sodium Chloride Flush 3 Ml Syringe) 3 ml IVFLUSH QSHIFT [facility] Last Admin: 11/02/24 07:59 Dose: 3 ml Documented By: HERMELINDA Tizanidine HCl (Tizanidine Hcl 4 Mg Tablet) 4 mg PO TID PRN PRN Reason: muscle spasm Last Admin: 11/01/24 15:57 Dose: 4 mg Documented By: GUYLM Labs 10/31/24 11:51 11/02/24 06:23 Labs: Laboratory Results - last 24 hr 11/01/24 11/02/24 11/02/24 14:23 06:23 06:23 Hold Purple Top SEE NOTE Anion Gap 13 Estim Creat Clear Calc Cancelled 93.1 Estimated GFR Cancelled Random Glucose Calcium Random Vancomycin 11.0 L 11/02/24 06:23 Hold Purple Top Anion Gap Estim Creat Clear Calc Estimated GFR > 60 Random Glucose 141 H Calcium 8.7 Random Vancomycin Microbiology Microbiology Results: Microbiology 10/31/24 14:45 Blood Culture - Preliminary Blood - Venous No growth after 24 hours. 10/31/24 14:45 Blood Culture - Preliminary Blood - Venous No growth after 24 hours. Assessment and Plan (1) Cellulitis of hand: Status: Acute Plan 44-year-old male with medical history of polysubstance use disorder, PTSD, depression, anxiety, HTN presents to the ED due to perianal abscess. Patient reports he noticed abscess between gluteal folds approximately 10 days ago while at detox at [place] found to have perianal abscess, DAJUAN, transaminitis Perianal abscess No sepsis Drained in the ED (no wound culture sent) Continue IV antibiotics General surgery consultation as may need further drainage pain management DAJUAN. Resolved Likely due to Bactrim Patient also reports decreased p.o. intake although this appears to be chronic dating back to gastric sleeve surgery 3 years ago IV fluid Follow BMP Transaminitis. Trending down [facility] due to Hep c No abdominal pain neg Tylenol level abdominal ultrasound showing hepatic steatosis Hepatitis C positive, ID consultation o/p for tx HIV pending Mood Continue baseline medication Polysubstance use Discharged rehab recently Nicotine dependence Smoking cessation advised NRT HTN Stable blood pressure and continue home medications DVT prophylaxis-Lovenox Quality Stroke Does the patient have a stroke diagnosis?: No VTE Prior VTE?: No VTE Risk Level:: Medical - moderate - high VTE Device Contraindication: N/A - Device Ordered VTE Drug Contraindication: N/A - Med Ordered
[2024-11-02] MEDS: Ketorolac Tromethamine 30 MG/ML VIAL IVPUSH ×3 (09:29→20:15)
[2024-11-02 15:05] LABS: Vancomycin Random 12.1 mcg/mL (15-20)
[2024-11-02] MEDS: vancomycin HCL 1,250 MG in 0.9 % Sodium Chloride 250 ML 166.67 MG IV (15:33)
[2024-11-02 20:00] VITALS: BP 103/62; PULSE 72; RESP 18; TEMP 36.5; O2SAT 95
[2024-11-02] MEDS: TiZANidine HCL 4 MG TABLET PO (20:15)
[2024-11-02] MEDS: Pregabalin 150 MG CAPSULE 300 MG PO (20:15)
[2024-11-02] MEDS: Mirtazapine 15 MG TABLET PO (20:16)
--- NOTE | 2024-11-02 21:15 | PC.NURSE ---
pt c/o pain and anxiety asking for prn oxy and klonopin. note; prn zanaflex and prn dilaudid given at 2019, note; prn oxy q4 given at 1830, not due at this time. pt educated on pain med schedule. pt now only wants prn klonopin. as prn klonopin broght into room, pt asleep, unable to wake pt up for safe po med administration. med held at this time, will cont to monitor
[2024-11-03 03:50] VITALS: BP 112/65; PULSE 60; RESP 17; TEMP 36; O2SAT 95
[2024-11-03] MEDS: Ketorolac Tromethamine 30 MG/ML VIAL IVPUSH ×2 (04:42→08:48)
[2024-11-03] MEDS: vancomycin HCL 1,250 MG in 0.9 % Sodium Chloride 250 ML 166.67 MG IV (04:47)
[2024-11-03] MEDS: HYDROmorphone HCl 0.5 MG/0.5 ML SYRINGE IVPUSH (05:23)
[2024-11-03] MEDS: oxyCODONE HCl Immed Release 5 MG TABLET PO (06:19)
[2024-11-03 06:20] LABS: Creatinine Clr Calc Pharmacy 84.5; Estimated Glomerular Filt Rate > 60
[2024-11-03 07:26] VITALS: BP 106/65; PULSE 68; RESP 12; TEMP 36.5; O2SAT 97
--- NOTE | 2024-11-03 08:00 | HO.WOUND ---
Wound Consult: Initial 44yr old?male admitted to [facility] on 10/31/24 - See progress notes and H&P for detailed history.? Wound consult placed for Gluteal cleft abscess.? Chart review reveals seen by general surgery not further intervention needed and no topical recommendations given - patient had I&D performed in ED - see chart for details. Patient agreeable to assessment and photo documentation.? Patient reports he is set for d/c to home his mother is at bedside and reports she will be performing his dressing changes at home. Education provided and all questions answered and both report comfort in dressing changes at home. Gluteal Cleft Etiology: s/P I&D of abscess??Present on Admission Wound Bed: adherent yellow slough Drainage / Odor: none noted - no dressing in place at the time of my consult Edges: ? irregular Anna wound: mild erythema and induration noted - per pt statement improved overall Pain: painful per pt statement Goals of Treatment: ? Durafiber for moisture management and autolytic debridement Recommendations: Butttock - Off Load Pressure with Q2 hr turns and use of pillows Cleanse and irrigate with NS, Pat dry.? Apply barrier to periwound, lightly pack with Durafiber AG, be sure to leave a wick to easy removal.? Cover with dry dressing.? Change every other day. Re-consult wound care Nurse for wound deterioration or wound changes.
[2024-11-03 08:01] LABS: HIV AB/AG Nonreactive (Nonreactive); HIV Num 1 0.07 S/CO (0.00-0.99)
--- NOTE | 2024-11-03 08:23 | PM.PNGS ---
Subjective Subjective Date of Service: 11/03/24 Interval history: C/o persistent pain at I&D site. Physical Exam Vital Signs: Vital Signs: Last Vital Signs Temp 97.7 F 11/03/24 07:26 Pulse 68 11/03/24 07:26 Resp 12 11/03/24 07:26 BP 106/65 11/03/24 07:26 Pulse Ox 97 11/03/24 07:26 O2 Del Method Nasal Cannula 11/03/24 07:31 BMI result Body Mass Index 31.9 Const: General: comfortable, no acute distress and alert Orientation/consciousness: patient oriented x3 Skin: Other: superior gluteal cleft with three open wounds with fibrinous exudate, no dressing in place, two on left and one on right- wounds probed with q tip without significant tunneling or drainage, no necrosis, mild surrounding induration and edema remain, no fluctuance appreciated Neuro: General: patient oriented x3 and moves all extremities Objective Data Active Medications Acetaminophen (Acetaminophen 325 Mg Tablet) 650 mg PO Q6H PRN PRN Reason: Pain, Mild 1-3,fever,headache Buspirone HCl (Buspirone Hcl 5 Mg Tablet) 15 mg PO BID [facility] Last Admin: 11/02/24 20:13 Dose: 15 mg Documented By: ROLANDO Calcium Carbonate (Calcium Carbonate 750 Mg Tab.Chew) 750 mg PO Q4H PRN PRN Reason: Heartburn Clonazepam (Clonazepam 1 Mg Tablet) 1 mg PO BID PRN PRN Reason: Anxiety Last Admin: 11/02/24 22:32 Dose: 1 mg Documented By: ROLANDO Enoxaparin Sodium (Enoxaparin Sodium 40 Mg/0.4 Ml Syringe) 40 mg SUBCUT Q24H [facility] Last Admin: 11/02/24 15:38 Dose: Not Given Documented By: HERMELINDA Non-Admin Reason: Patient Refused Hydrochlorothiazide (Hydrochlorothiazide 25 Mg Tablet) 25 mg PO DAILY [facility] Last Admin: 11/02/24 07:56 Dose: 25 mg Documented By: HERMELINDA Hydromorphone HCl (Hydromorphone Hcl 0.5 Mg/0.5 Ml Syringe) 0.5 mg IVPUSH Q3H PRN; Protocol PRN Reason: Pain, Severe (Pain Scale 7-10) Last Admin: 11/03/24 05:23 Dose: 0.5 mg Documented By: ROLANDO Vancomycin HCl 1,250 mg/ (Sodium Chloride) 250 mls @ 166.667 mls/hr IV Q12H [facility] Last Admin: 11/03/24 04:47 Dose: 166.67 mls/hr Documented By: ROLANDO Ketorolac Tromethamine (Ketorolac Tromethamine 30 Mg/Ml Vial) 30 mg IVPUSH Q6H [facility] Stop: 11/06/24 11:59 Last Admin: 11/03/24 04:42 Dose: 30 mg Documented By: ROLANDO Losartan Potassium (Losartan Potassium 50 Mg Tablet) 100 mg PO DAILY [facility] Last Admin: 11/02/24 07:55 Dose: 100 mg Documented By: HERMELINDA Melatonin (Melatonin 3 Mg Tablet) 6 mg PO BEDTIME PRN PRN Reason: Insomnia Methadone HCl (Methadone Hcl 20 Mg/2 Ml Oral.Conc) 100 mg PO DAILY [facility] Last Admin: 11/02/24 07:56 Dose: 100 mg Documented By: HERMELINDA Co-signed By: DENIS Mirtazapine (Mirtazapine 15 Mg Tablet) 15 mg PO BEDTIME [facility] Last Admin: 11/02/24 20:16 Dose: 15 mg Documented By: ROLANDO Multivitamins/Vitamin C (Multivitamin Tablet) 1 tab PO DAILY [facility] Last Admin: 11/02/24 07:55 Dose: 1 tab Documented By: HERMELINDA Nicotine (Nicotine 14 Mg Patch.Td24) 14 mg TRANSDERMA DAILY [facility] Last Admin: 11/02/24 07:56 Dose: 14 mg Documented By: HERMELINDA Oxycodone HCl (Oxycodone Hcl Immed Release 5 Mg Tablet) 5 mg PO Q4H PRN PRN Reason: Pain, Moderate(Pain Scale 4-6) Last Admin: 11/03/24 06:19 Dose: 5 mg Documented By: ROLANDO Pharmacy Consult (Consult Rx Vancomycin Dosing) 1 each MISCELLANE DAILY PRN PRN Reason: Consult order Polyethylene Glycol (Polyethylene Glycol 3350 17 Gm Powd.Pack) 17 gm PO DAILY PRN PRN Reason: Constipation Pregabalin (Pregabalin 150 Mg Capsule) 150 mg PO DAILY [facility] Last Admin: 11/02/24 07:55 Dose: 150 mg Documented By: HERMELINDA Pregabalin (Pregabalin 150 Mg Capsule) 300 mg PO BEDTIME [facility] Last Admin: 11/02/24 20:15 Dose: 300 mg Documented By: ROLANDO Sertraline HCl (Sertraline Hcl 100 Mg Tablet) 100 mg PO DAILY [facility] Last Admin: 11/02/24 07:55 Dose: 100 mg Documented By: HERMELINDA Sodium Chloride (0.9 % Sodium Chloride Flush 3 Ml Syringe) 3 ml IVFLUSH QSHIFT [facility] Last Admin: 11/02/24 20:16 Dose: 3 ml Documented By: ROLANDO Tizanidine HCl (Tizanidine Hcl 4 Mg Tablet) 4 mg PO TID PRN PRN Reason: muscle spasm Last Admin: 11/02/24 20:15 Dose: 4 mg Documented By: ROLANDO Labs 10/31/24 11:51 11/03/24 05:22 Labs: Laboratory Results - last 24 hr 11/02/24 11/02/24 11/03/24 06:23 14:40 05:22 Hold Purple Top SEE NOTE Estim Creat Clear Calc 84.5 Estimated GFR > 60 Random Vancomycin 12.1 L HIV 1&2 Ab/P24 Ag 4thGn Nonreactive Microbiology Microbiology Results: Microbiology 10/31/24 14:45 Blood Culture - Preliminary Blood - Venous No growth after 48 hours. 10/31/24 14:45 Blood Culture - Preliminary Blood - Venous No growth after 48 hours. Procedures Date of Service Date of Service: 11/03/24 Progress Note: A&P Assessment and plan (1) Abscess of buttock: Status: Acute Plan 44-year-old male patient with a large abscess of the intergluteal cleft suggestive of a pilonidal cyst abscess s/p I&D in the ED. He has three open areas which were probed without any tunneling, no drainage noted, no further fluctuant collections. No further surgical intervention is required at this time. Can transition to oral abx, hot packs to area to help with residual induration. Wound care consult for recommendations of open areas, ?silver alginate. Can f/u in office 1 week following discharge for wound check. Time Spent With Patient Time: Total time managing care of this patient today ____ minutes. Quality Stroke Does the patient have a stroke diagnosis?: No VTE Prior VTE?: No VTE Risk Level:: Medical - moderate - high VTE Device Contraindication: N/A - Device Ordered VTE Drug Contraindication: N/A - Med Ordered
--- NOTE | 2024-11-03 08:33 | PM.DS ---
DS: Providers Provider Date of Service: 11/03/24 Date of admission: 10/31/24 16:37 Date of discharge: 11/03/24 Primary care physician: Lele Alva MD Consults: 10/31/24 16:59 Consult to General Surgery Routine Consulting Provider: [facility] [place] [facility] Sur[facility] Reason for consultation: perianal abscess (drained in ED, will need follow up) Has provider been notified: No 11/03/24 01:26 Consult to Wound Care Routine Reason for consultation: abscess/I&D site buttocks DS: Diagnosis Discharge Diagnosis (1) Abscess of buttock: Status: Acute DS: Summary Hospital Course Hospital Course: History and physical as per admitting provider. This is a 44-year-old male with medical history of polysubstance use disorder, PTSD, depression, anxiety, HTN presents to the ED due to perianal abscess. Patient reports he noticed abscess between gluteal folds approximately 10 days ago while at detox at [place]. Providers at the facility started him on Bactrim 1 week ago and increased his dose 3 days ago to 1 g BID. He states he has been taking his medication as prescribed. He states he was discharged from [place] yesterday after completing 45 days of treatment. Today in the emergency department he was afebrile, lab work revealed no leukocytosis. He had CT scan which showed infiltration of the subcutaneous fat about the gluteal crease suggestive of cellulitis with no loculated fluid collection. Bedside ultrasound by emergency room provider revealed a fluid collection which was drained in the emergency room. He was also treated with IV antibiotic. Lab work was significant for DAJUAN and elevated transaminases. Patient denies any abdominal pain. 44-year-old man treated for perianal abscess, drained in the ED on admission, unfortunately no wound culture sent. Patient has had no sepsis, treated with IV vancomycin, seen and evaluated by General surgery Good pain management. Plan will be for patient to follow up with his primary care provider in 1 week. Keep the wound clean, may shower and allow soapy water to clean the area, keep dry. May use gauze or nonstick dressing for comfort. May alternate with heat and cold for comfort. He will go home with a few days of oxycodone, ibuprofen. Omeprazole while on NSAID. Complete total of 14 days of doxycycline. DAJUAN. Resolved likely secondary to Bactrim from outpatient treatment. Resolved Transaminitis. Abdominal ultrasound showing hepatic steatosis. Likely secondary to hepatitis-C, checked while inpatient and positive, patient was not aware of this. Patient follow up with his primary care provider for treatment options. He is agreeable to this. HIV was checked and negative. Of note, patient asked not to include hepatitis-C diagnosis on discharge paperwork that he received on discharge as he does not want his family members to know his status. Polysubstance abuse. Continue methadone, last dose 11/03/2024 Hypertension. Stable on current medications Nicotine dependence. Discussed the importance of smoking cessation. May use nicotine replacement therapy outpatient Time Attestation Discharge Coordination Time (in mins): 46 Quality: Safe Use of Opioids Does Pt have an Active Cancer Diagnosis on the Problem List?: No Quality: Stroke Does the patient have a stroke diagnosis?: No Physical Exam Vital Signs: Vital Signs: Last Vital Signs Temp 97.7 F 11/03/24 07:26 Pulse 68 11/03/24 07:26 Resp 12 11/03/24 07:26 BP 106/65 11/03/24 07:26 Pulse Ox 97 11/03/24 07:26 O2 Del Method Nasal Cannula 11/03/24 07:31 BMI result Body Mass Index 31.9 Appearing in no acute distress head is normocephalic atraumatic eyes pupils are PERRLA sclera is anicteric mouth throat mucous membranes are intact and moist neck is supple no lymphadenopathy, no JVD noted lung sounds are clear to auscultation heart regular rate rhythm, clear S1, S2 positive bowel sounds, abdomen is soft, nontender neuro patient is alert x3, no focal deficits Perianal abscess, area looks clean, surrounding skin pink, white granulating tissue noted, no eschar, no drainage DS: Data Data Completed and Pending Completed studies during hospitalization [Text1]: Procedures Drainage of Left Metacarpophalangeal Joint, Open Approach (09/13/24) Labs on day of discharge: Laboratory Results - last 24 hr 11/02/24 11/02/24 11/03/24 06:23 14:40 05:22 Hold Purple Top SEE NOTE Creatinine 1.30 Estim Creat Clear Calc 84.5 Estimated GFR > 60 Random Vancomycin 12.1 L HIV 1&2 Ab/P24 Ag 4thGn Nonreactive Preliminary micro results at discharge 10/31/24 14:45 Blood Culture - Preliminary Blood - Venous No growth after 48 hours. 10/31/24 14:45 Blood Culture - Preliminary Blood - Venous No growth after 48 hours. Discharge Plan Discharge Anticipated Discharge Date/Time: 11/03/24 08:22 Patient Disposition: Home Health Service Discharge Diagnosis: Perianal abscess DAJUAN Transaminitis Referrals: Lele Alva MD [Primary Care Provider] - 1 Week Discharge Medications: New oxycodone 5 mg Tablet 5 mg PO Q4H PRN (Reason: Pain, Moderate(Pain Scale 4-6)) Qty: 24 0RF Rx Instructions: Partial Fill upon patient request. ibuprofen 800 mg tablet 800 mg PO Q8H PRN (Reason: pain) Qty: 12 0RF omeprazole 20 mg capsule,delayed release(DR/EC) 20 mg PO DAILY Qty: 10 0RF Rx Instructions: Take while taking NSAID doxycycline hyclate 100 mg tablet 100 mg PO BID Qty: 20 0RF Continued tizanidine 4 mg tablet 4 mg PO TID PRN (Reason: muscle spasm) losartan-hydrochlorothiazide 100-25 mg tablet 1 tab PO DAILY multivitamin Tablet 1 tab PO DAILY sertraline 100 mg tablet 100 mg PO DAILY mirtazapine 15 mg tablet 15 mg PO BEDTIME buspirone 15 mg tablet 15 mg PO BID pregabalin 150 mg Capsule 150 mg PO DAILY methadone [Methadone Intensol] 10 mg/mL Concentrate 100 mg PO DAILY pregabalin 150 mg capsule 300 mg PO BEDTIME acetaminophen 500 mg capsule 500 mg PO Q6H PRN (Reason: fever) Qty: 60 0RF Discharge Orders: Discharge Order (Routine); Ordered 11/03/24 Ordered By: Ksenia Contreras Diet: Advance to usual diet Activity on Discharge: As tolerated Stand Alone Forms: Patient Portal Discharge page Print Language: Syriac Care Plan Goals: Complete course of antibiotics May use ice alternating with heat who buttocks wounds Keep wound clean, shower and allow soapy water to clean the area, keep dry, may use gauze to soak up any drainage Last methadone dose 11/03/2024 Health Concerns: Perianal abscess DAJUAN Transaminitis Plan of Treatment: Follow up with primary care provider within a week Take all medications as prescribed Assessment: See discharge summary
--- NOTE | 2024-11-03 08:40 | W.MHC.F2F ---
Service Date Service Date: 11/03/24 Encounter Date of encounter: 11/03/24 Reasons for Services Signs and symptoms assessed: Perianal abscess Reason for intermediate: wound care (Wound check, may use soapy water to clean, keep dry. May use gauze and nonstick dressing for comfort, monitor for drainage) Homebound: Leaving the home is medically contraindicated at this time without the asist of a device and/or another person due th the listed conditions above and below. Reason homebound: weakness related to hospital stay and other (Perianal abscess) Certification: Based on the above findings, I certify that this patient is confined to the home and needs intermittent intermediate care, physical therapy and/or speech therapy, or continues to need occupational therapy. The patient is under my care, and I have initiated the establishment of the plan of care. The patient will be followed by a physician who will periodically review the plan of care. Time Spent With Patient Time: Total time managing care of this patient today ____ minutes.
[2024-11-03] MEDS: 0.9 % Sodium Chloride Flush 3 ML SYRINGE IVFLUSH (08:47)
[2024-11-03] MEDS: methADONE HCl 20 MG/2 ML ORAL.CONC 100 MG PO (08:48)
[2024-11-03] MEDS: Pregabalin 150 MG CAPSULE PO (08:49)
[2024-11-03] MEDS: Nicotine 14 MG PATCH.TD24 TRANSDERMA (08:49)
[2024-11-03] MEDS: Multivitamin TABLET 1 TAB PO (08:49)
[2024-11-03] MEDS: busPIRone HCl 5 MG TABLET 15 MG PO (08:49)
[2024-11-03] MEDS: Sertraline HCL 100 MG TABLET PO (08:49)
[2024-11-03] MEDS: Losartan Potassium 50 MG TABLET 100 MG PO (08:49)
[2024-11-03] MEDS: hydroCHLOROthiazide 25 MG TABLET PO (08:49)
--- NOTE | 2024-11-03 09:03 | MHC.CM.PN ---
PT MEDICALLY CLEARED FOR DC HOME W/NEW [facility] FOR SN AND [facility]UMP OF [facility] [facility], FAMILY FOR TRANSPORT.
--- NOTE | 2024-11-03 09:09 | PC.NURSE ---
Patient up ambulating in room, dressed and ready to go. MD at bedside discussing discharge plan. MD visualized buttock wound with RN, wound open to air, no drainage present, no redness. Patient c/o tenderness. Patient alert and oriented, refused full assessment due to pending discharge. Discharge instructions reviewed with BALA Jose.
== END 2024-11-03 09:11 | disposition home health service (06) | DRG 603 ==
LOC: HO.ED 13:42 → HO.EDOVER 17:00 → HO.S3 19:07
PROVIDERS: Physician Assistant Medical; Admitting Provider Student in an Organized Health Care Education/Training Program; Emergency Provider Emergency Medicine; PCP Internal Medicine; Visit Provider Nurse Practitioner Acute Care
DX: L05.01 Pilonidal cyst with abscess (principal); F11.20 Opioid dependence, uncomplicated; N17.9 Acute kidney failure, unspecified; I10 Essential (primary) hypertension; F17.210 Nicotine dependence, cigarettes, uncomplicated; B19.20 Unspecified viral hepatitis C without hepatic coma; T36.8X5A Adverse effect of other systemic antibiotics, initial encounter; F19.90 Other psychoactive substance use, unspecified, uncomplicated; F43.10 Post-traumatic stress disorder, unspecified; Z71.6 Tobacco abuse counseling; Z79.899 Other long term (current) drug therapy
CPT/HCPCS: 36415; 74177; 76705; 80048; 80053; 80076; 80143; 80202; 82565; 83605; 85025; 85652; 86140; 86704; 86706; 86709; 86803; 87040; 87340; 87389; 99221; 99285; J0690; J1171; J1650; J1885; J2003; J3370; J3371; J7120; Q9967

== ENCOUNTER → 2024-10-31 14:06 | Outpatient (BNV) | payer MEDICARE, MEDICAID, SELFPAY | PROVIDERS: Emergency Provider Emergency Medicine; PCP Internal Medicine; Visit Provider Radiology Diagnostic Radiology | DX: K76.0 Fatty (change of) liver, not elsewhere classified (principal); K61.0 Anal abscess | CPT/HCPCS: 76705 ==

== ENCOUNTER → 2024-10-31 16:37 | Outpatient (BNV) | payer MEDICARE, MEDICAID, SELFPAY | PROVIDERS: Admitting Provider Student in an Organized Health Care Education/Training Program; Emergency Provider Emergency Medicine; PCP Internal Medicine; Visit Provider Surgery | DX: L02.31 Cutaneous abscess of buttock (principal) | CPT/HCPCS: 99222 ==

== ENCOUNTER → 2024-10-31 16:37 | Outpatient (BNV) | payer MEDICARE, MEDICAID, SELFPAY | PROVIDERS: Admitting Provider Student in an Organized Health Care Education/Training Program; Emergency Provider Emergency Medicine; PCP Internal Medicine; Visit Provider Nurse Practitioner Acute Care | DX: L03.119 Cellulitis of unspecified part of limb (principal) | CPT/HCPCS: 99223; 99232; 99239 ==

== ENCOUNTER 2024-11-04 04:47 | Emergency (ER) | payer MEDICARE, MEDICAID, SELFPAY ==
[2024-11-04 04:54] VITALS: BP 119/74; PULSE 74; TEMP 36.8; O2SAT 96
[2024-11-04 04:58] VITALS: BP 119/74; PULSE 74; RESP 16; TEMP 36.8; O2SAT 96; BMI 32.1
--- NOTE | 2024-11-04 05:44 | ED_ITS ---
HPI - General Adult General Chief complaint: General Medical Stated complaint: Abscess on rear end, seen yesterday reevaluate Time Seen by Provider: 11/04/24 05:30 Source: patient, EMS and old records reviewed Mode of arrival: EMS Limitations: no limitations History of Present Illness ED Provider: ERICKSON KOO narrative: 44 yo male with PMH of GERD, substance abuse who was just admitted here 11/01 to 11/03 for perianal abscess - s/p drainage in ED and he was started on doxy. He comes back stating he feels like the L buttock is more painful and swollen but no n/v/d fevers. He wants pain medications on arrival. He states he takes all meds as prescribed. MD complaint: worsening buttock pain Onset (ago): day(s) (1) Location: buttocks Radiation: non-radiation Severity: moderate Quality: aching Pain Consistency: constant Relieving factors: none Exacerbating factors: movement Associated symptoms: denies other symptoms Treatments prior to arrival: other Related Data Home Medications ?Medication ?Instructions ?Recorded ?Confirmed pregabalin 150 mg capsule 300 mg PO BEDTIME 03/19/23 10/31/24 losartan 100 1 tab PO DAILY 09/13/24 10/31/24 mg-hydrochlorothiazide 25 mg tablet multivitamin 1 tab PO DAILY 09/13/24 10/31/24 tizanidine 4 mg tablet 4 mg PO TID PRN muscle spasm 09/13/24 10/31/24 buspirone 15 mg tablet 15 mg PO BID 10/31/24 10/31/24 mirtazapine 15 mg tablet 15 mg PO BEDTIME 10/31/24 10/31/24 pregabalin 150 mg capsule 150 mg PO DAILY 10/31/24 10/31/24 sertraline 100 mg tablet 100 mg PO DAILY 10/31/24 10/31/24 methadone 10 mg/mL oral 100 mg PO DAILY 11/01/24 11/01/24 concentrate (Methadone Intensol) Previous Rx's ?Medication ?Instructions ?Recorded acetaminophen 500 mg capsule 500 mg PO Q6H PRN fever #60 caps 09/17/24 doxycycline hyclate 100 mg tablet 100 mg PO BID #20 tabs 11/03/24 ibuprofen 800 mg tablet 800 mg PO Q8H PRN pain #12 tabs 11/03/24 omeprazole 20 mg capsule,delayed 20 mg PO DAILY #10 caps 11/03/24 release oxycodone 5 mg tablet 5 mg PO Q4H PRN Pain, 11/03/24 Moderate(Pain Scale 4-6) #24 tabs Allergies Allergy/AdvReac Type Severity Reaction Status Date / Time amoxicillin [AMOXICILLIN] Allergy Mild RASH, Verified 11/04/24 05:06 vomiting,diarrhea morphine [MORPHINE] Allergy Mild RASH, Verified 11/04/24 05:06 shortness of breath, nausea,vomiting hydrocodone [Vicodin] Allergy Unknown shortness Verified 11/04/24 05:06 of breath Penicillins [PENICILLINS] Allergy Unknown RASH Verified 11/04/24 05:06 gadobutrol [From GADAVIST] AdvReac Mild NAUSEA & Verified 11/04/24 05:06 VOMITING levofloxacin [From LEVAQUIN] AdvReac Unknown N/V Verified 11/04/24 05:06 Review of Systems Review of Systems: Constitutional : No Fever, No Chills ENT/Mouth : No sore throat, No Rhinorrhea Eyes: No Eye Pain, No Swelling, No Redness Cardiovascular : No Chest Pain, No SOB Respiratory : No Cough, No Sputum Gastrointestinal : No Nausea, No Vomiting, No Diarrhea, No abdominal Pain Genitourinary : No Dysuria, No Hematuria Musculoskeletal : No joint pain, No Myalgias, No Joint Swelling Skin : pos Skin Lesions, positive skin rash Neuro : No Weakness, No Numbness, No Headache Psych : No Anxiety, No Depression Heme/Lymph: No Bruising, No Bleeding,No Lymphadenopathy Endocrine : No Polyuria, No Polydipsia All other systems reviewed and are negative PMFSH Past Medical History Attestation statement: The following information was validated with the patient. 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 Housing: Other Housing Other:: RV Do you presently have visiting nurse or other home services: Yes Comment: pt refusing anythig to do with [place] Patient Tobacco Use Status: Current everyday Tobacco user Tobacco use type: Cigarette Smoked in Last 30 Days: Yes e-Cigarette/Vaping Use: Currently Using Second Hand Smoke Exposure: No Use of substances other than those prescribed or required for medical reasons: No Advance Directives: No Advance Directives Information Provided: No Do you have a plan to hurt others: No Plan service: No Physical Exam ED Vital Signs: Vital Signs - 24 hr 11/04/24 04:54 11/04/24 04:58 Temperature 98.2 F 98.2 F Pulse Rate 74 74 Respiratory Rate 16 Blood Pressure 119/74 119/74 Pulse Oximetry 96 96 Oxygen Delivery Method Room Air Room Air BMI result Body Mass Index 32.1 Appearance: Sleepy but easily woken. Oriented X3. No acute distress. Eyes: Pupils equal, round and reactive to light. ENT: Pharynx normal. Neck: Normal inspection. Neck supple. CVS: Normal heart rate and rhythm. Pulses normal. Respiratory: No respiratory distress. Breath sounds normal. Abdomen: Soft and nontender. Rectal: three draining wounds - no cellulitis and no crepitus, and no new abscess felt, all seem to be healing well - skin is normal color and no warmth felt Skin: Skin warm and dry. Normal skin color. Normal skin turgor. Extremities: No lower extremity edema. No calf ttp Neuro: Oriented X 3. No motor deficit. No sensory deficit. CN2-12 intact Medical Decision Making Medical Decision Making MDM Narrative: 44 yo male with PMH of GERD, substance abuse now here with DC yesterday after treatment for perianal abscess - he is asking for pain medications on arrival - the wounds are healing well. He tells me he has safe housing. Given recent admission and well appearing wounds without fevers and stable VS would continue treatment with PO abx Differential Diagnosis Differential Diagnoses: The differential diagnosis associated with the presentation includes abscess, opiate dependence, poor social support Admission/Observation Consideration of admission/observation: Escalation of care including admission/observation considered appear well healing no indication for further management Independent Historian Clinical information obtained from an independent historian. History obtained from or confirmed by: EMS External Record Review External record reviewed: Inpatient record and Outpatient record Discharge Plan Discharge Clinical Impression: Abscess of buttock Patient Disposition: Home, Self-Care Instructions: Abscess (ED) Additional Instructions: your wounds are well healing continue your antibiotics return for fevers, increased redness, swelling or any other concerns. Prescriptions: No Action tizanidine 4 mg tablet 4 mg PO TID PRN (Reason: muscle spasm) losartan-hydrochlorothiazide 100-25 mg tablet 1 tab PO DAILY multivitamin Tablet 1 tab PO DAILY sertraline 100 mg tablet 100 mg PO DAILY mirtazapine 15 mg tablet 15 mg PO BEDTIME buspirone 15 mg tablet 15 mg PO BID pregabalin 150 mg Capsule 150 mg PO DAILY methadone [Methadone Intensol] 10 mg/mL Concentrate 100 mg PO DAILY oxycodone 5 mg Tablet 5 mg PO Q4H PRN (Reason: Pain, Moderate(Pain Scale 4-6)) Qty: 24 0RF Rx Instructions: Partial Fill upon patient request. ibuprofen 800 mg tablet 800 mg PO Q8H PRN (Reason: pain) Qty: 12 0RF omeprazole 20 mg capsule,delayed release(DR/EC) 20 mg PO DAILY Qty: 10 0RF Rx Instructions: Take while taking NSAID doxycycline hyclate 100 mg tablet 100 mg PO BID Qty: 20 0RF pregabalin 150 mg capsule 300 mg PO BEDTIME acetaminophen 500 mg capsule 500 mg PO Q6H PRN (Reason: fever) Qty: 60 0RF Print Language: Chinese
[2024-11-04 06:15] VITALS: BP 115/78; PULSE 67; RESP 14; TEMP 36.6; O2SAT 94
== END 2024-11-04 07:33 | disposition home or self-care (01) ==
PROVIDERS: Emergency Provider Emergency Medicine
DX: L02.31 Cutaneous abscess of buttock (principal)
CPT/HCPCS: 99282; 99284